=== PATIENT | female | born 1935 | race Caucasian/White ===

== ENCOUNTER → 2017-01-21 | Outpatient (CLI) | payer OTHER ==
[~2017-01-21] MED LIST: ACET-1311 PO; ASPI81TA28 PO; CALCTAB65 PO; CHOL2000 PO; DENO60SO INJ; DIPH25TA24 PO; GLUCTAB7 PO; IBUP200T52 PO; LISI-729 PO; LORA-741 PO; LOSA1TAB PO; LPT/40 PO; METO100T44 PO; MULT-845 PO; NAPR1TAB9 PO; NTRGSL/4 UT
[2017-01-21 12:41] LABS: BASO % 0.5 %; BASO ABS # 0.05 K/uL (0-0.2); COMPLETE YES; HEMATOCRIT 42.9 % (37-47); IG% 0.4 %; LYMPH % 25.6 %; LYMPH ABS # 2.56 K/uL (1.2-3.4); MEAN CELL VOLUME 92.7 fL (80-100); MEAN CORPUSCULAR HEMOGLOBIN 30.2 pg (25-34); MEAN CORPUSCULAR HGB CONC 32.6 g/dl (32-36); MEAN PLATELET VOLUME 11.2 fL (7.4-10.4); MONO % 11.6 %; NEUT % 58.9 %; PLATELET COUNT 197 K/uL (130-400); RED BLOOD COUNT 4.63 M/uL (4.2-5.4)
[2017-01-21 12:57] LABS: ESTIMATED AVERAGE GLUCOSE 126 mg/dl; HA1C FLAG Normal (Normal)
[2017-01-21 13:01] LABS: ALT/SGPT 33 U/L (12-78); AST/SGOT 25 U/L (15-37); BLOOD UREA NITROGEN 19 mg/dl (7-18); BUN/CREATININE RATIO 22.3 (10-20); CALCIUM 10.3 mg/dl (8.5-10.1); CARBON DIOXIDE 30 mmol/L (21-32); CHLORIDE 105 mmol/L (98-107); CHOLESTEROL 122 mg/dl (0-200); CREATININE 0.84 mg/dl (0.60-1.20); GLUCOSE 94 mg/dl (70-99); POTASSIUM 4.1 mmol/L (3.5-5.1); SODIUM 142 mmol/L (136-145); TRIGLYCERIDES 106 mg/dl (0-150); VERY LOW DENSITY LIPOPROT CALC 21 mg/dl
[2017-01-21 13:05] LABS: ALB/GLOB RATIO 1.5 (0.9-2); ALKALINE PHOSPHATASE 87 U/L (45-117); CHOLESTEROL/HDL RATIO 2.2; HDL CHOLESTEROL 55 mg/dl
== END | disposition home or self-care (01) ==
LOC: C.LABSPEC 12:07
PROVIDERS: ATTEND Internal Medicine
DX: I25.10 Atherosclerotic heart disease of native coronary artery without angina pectoris (principal); I10 Essential (primary) hypertension; E78.5 Hyperlipidemia, unspecified; M81.0 Age-related osteoporosis without current pathological fracture; R73.9 Hyperglycemia, unspecified

== ENCOUNTER → 2017-02-16 | Outpatient (CLI) | payer OTHER ==
--- NOTE | 2017-02-16 10:04 | DIAGNOSTIC IMAGING REPORT ---
LUMBAR SPINE 5 VIEWS HISTORY: Pain. M81.0 AggoutaodpsqP19.9 Vitamin D [id number] Low back pain COMPARISON: None. FINDINGS: Moderate degenerative disc change at the entire lumbar region. Minimal grade 1 anterolisthesis of L4 on L5. Moderate degenerative changes of the posterior elements. IMPRESSION: Moderate degenerative change. Mild osteopenia. No acute process. Electronically signed by: Frandy Jimenez M.D. 02/16/2017 10:03 AM Dictated Date/Time: 02/16/2017 10:02 AM
== END | disposition home or self-care (01) ==
LOC: C.RAD1850 09:20
PROVIDERS: ATTEND Internal Medicine Rheumatology
DX: E55.9 Vitamin D deficiency, unspecified (principal); M54.40 Lumbago with sciatica, unspecified side; M81.0 Age-related osteoporosis without current pathological fracture

== ENCOUNTER → 2017-03-02 | Outpatient (CLI) | payer OTHER ==
[2017-03-02 13:37] LABS: CALCIUM URINE 6.7 mg/dl
== END | disposition home or self-care (01) ==
LOC: C.LAB1850 10:10
PROVIDERS: ATTEND Internal Medicine Rheumatology
DX: M81.0 Age-related osteoporosis without current pathological fracture (principal); E55.9 Vitamin D deficiency, unspecified; M54.40 Lumbago with sciatica, unspecified side

== ENCOUNTER → 2017-03-10 | Outpatient (CLI) | payer OTHER ==
[~2017-03-10] MED LIST changes: -METO100T44 PO; +METO1TAB69 PO
--- NOTE | 2017-03-10 16:08 | MAMMOGRAPHY REPORT ---
BILATERAL DIGITAL SCREENING MAMMOGRAM WITH CAD: 03/10/2017 CLINICAL HISTORY: Routine screening. Patient has no complaints. TECHNIQUE: Bilateral CC, MLO, repeat left MLO and right XCCL views were obtained. Current study was also evaluated with a Computer Aided Detection (CAD) system. COMPARISON: Comparison is made to exams dated: 03/04/2016 mammogram, 03/01/2015 mammogram, 02/28/2014 m ammogram, 02/27/2013 mammogram, 02/25/2012 mammogram, and 02/19/2011 mammogram - [facility]ter. BREAST COMPOSITION: There are scattered areas of fibroglandular density in both breasts. FINDINGS: There are scattered benign rim calcifications and mild vascular calcifications in the breas ts. No suspicious mass, architectural distortion or cluster of microcalcifications is seen. IMPRESSION: ACR BI-RADS CATEGORY 1: NEGATIVE There is no mammographic evidence of malignancy. A 1 year screening mammogram is recommended. The pa tient will receive written notification of the results. Approximately 10% of breast cancers are not detected with mammography. A negative mammographic report should not delay biopsy if a clinically suggestive mass is present. Shruti Santiago M.D. ay/:03/10/2017 15:19:54 Olive Knocker: Katelyn HERNANDEZ(Ekaterina)(Mariel)(BD), [facility] letter sent: Normal 1/2 BI-RADS Code: ACR BI-RADS Category 1: Negative
== END | disposition home or self-care (01) ==
LOC: C.MAMM 10:13
PROVIDERS: ATTEND Obstetrics & Gynecology
DX: Z12.31 Encounter for screening mammogram for malignant neoplasm of breast (principal); Z85.3 Personal history of malignant neoplasm of breast

== ENCOUNTER → 2017-03-22 | Outpatient (CLI) | payer OTHER | END | disposition home or self-care (01) | LOC: C.MAMM 10:24 | PROVIDERS: ATTEND Internal Medicine Rheumatology | DX: M81.0 Age-related osteoporosis without current pathological fracture (principal); E55.9 Vitamin D deficiency, unspecified; M54.40 Lumbago with sciatica, unspecified side; M85.851 Other specified disorders of bone density and structure, right thigh; M85.852 Other specified disorders of bone density and structure, left thigh ==

== ENCOUNTER → 2017-04-20 | Outpatient (CLI) | payer OTHER | END | disposition home or self-care (01) | LOC: C.MAMM 13:29 | PROVIDERS: ATTEND Internal Medicine Rheumatology | DX: M81.0 Age-related osteoporosis without current pathological fracture (principal) ==

== ENCOUNTER → 2017-05-27 | Outpatient (CLI) | payer OTHER ==
[2017-05-27 12:49] LABS: ESTIMATED AVERAGE GLUCOSE 128 mg/dl; HA1C FLAG Normal (Normal)
[2017-05-27 13:09] LABS: ALT/SGPT 29 U/L (12-78); AST/SGOT 22 U/L (15-37); BLOOD UREA NITROGEN 18 mg/dl (7-18); CALCIUM 8.9 mg/dl (8.5-10.1); CARBON DIOXIDE 27 mmol/L (21-32); CHLORIDE 108 mmol/L (98-107); CHOLESTEROL 109 mg/dl (0-200); CREATININE 0.85 mg/dl (0.60-1.20); GLUCOSE 91 mg/dl (70-99); POTASSIUM 4.1 mmol/L (3.5-5.1); SODIUM 141 mmol/L (136-145); TRIGLYCERIDES 108 mg/dl (0-150); VERY LOW DENSITY LIPOPROT CALC 22 mg/dl
[2017-05-27 13:12] LABS: ALB/GLOB RATIO 1.3 (0.9-2); ALKALINE PHOSPHATASE 81 U/L (45-117); CHOLESTEROL/HDL RATIO 2.1; HDL CHOLESTEROL 52 mg/dl
== END | disposition home or self-care (01) ==
LOC: C.LABSPEC 12:16
PROVIDERS: ATTEND Internal Medicine
DX: I25.10 Atherosclerotic heart disease of native coronary artery without angina pectoris (principal); E78.5 Hyperlipidemia, unspecified; R73.9 Hyperglycemia, unspecified

== ENCOUNTER → 2017-09-22 | Outpatient (CLI) | payer OTHER ==
[~2017-09-22] MED LIST changes: +METO100T44 PO; -METO1TAB69 PO
[2017-09-22 13:31] LABS: ALBUMIN 3.7 gm/dl (3.4-5.0); ALT/SGPT 33 U/L (12-78); AST/SGOT 23 U/L (15-37); BLOOD UREA NITROGEN 21 mg/dl (7-18); CALCIUM 9.1 mg/dl (8.5-10.1); CARBON DIOXIDE 28 mmol/L (21-32); CREATININE 0.87 mg/dl (0.60-1.20); GLUCOSE 96 mg/dl (70-99); SODIUM 138 mmol/L (136-145)
[2017-09-22 13:35] LABS: ALKALINE PHOSPHATASE 86 U/L (45-117); CHOLESTEROL 105 mg/dl (0-200); LDL CHOLESTEROL (DIRECT) 53 mg/dl; TOTAL PROTEIN 6.7 gm/dl (6.4-8.2)
== END | disposition home or self-care (01) ==
LOC: C.LABSPEC 12:12
PROVIDERS: ATTEND Internal Medicine
DX: I25.10 Atherosclerotic heart disease of native coronary artery without angina pectoris (principal); E78.5 Hyperlipidemia, unspecified; I10 Essential (primary) hypertension

== ENCOUNTER → 2017-12-06 | Outpatient (CLI) | payer OTHER | END | disposition home or self-care (01) | LOC: C.LAB1850 11:49 | PROVIDERS: ATTEND Internal Medicine Rheumatology | DX: M80.00XA Age-related osteoporosis with current pathological fracture, unspecified site, initial encounter for fracture (principal) ==

== ENCOUNTER → 2018-01-27 | Outpatient (CLI) | payer OTHER ==
[2018-01-28 11:37] LABS: BLOOD UREA NITROGEN 18 mg/dl (7-18); GLUCOSE 83 mg/dl (70-99)
[2018-01-28 11:39] LABS: CARBON DIOXIDE 26 mmol/L (21-32); POTASSIUM 4.2 mmol/L (3.5-5.1); SODIUM 140 mmol/L (136-145)
[2018-01-28 12:01] LABS: CALCIUM 9.3 mg/dl (8.5-10.1)
[2018-01-28 12:13] LABS: LDL CHOLESTEROL (DIRECT) 59 mg/dl
== END | disposition home or self-care (01) ==
LOC: C.LABSPEC 11:10
PROVIDERS: ATTEND Internal Medicine
DX: I25.10 Atherosclerotic heart disease of native coronary artery without angina pectoris (principal); E78.5 Hyperlipidemia, unspecified

== ENCOUNTER → 2018-05-03 | Outpatient (CLI) | payer OTHER ==
--- NOTE | 2018-05-04 13:38 | MAMMOGRAPHY REPORT ---
BILATERAL DIGITAL SCREENING MAMMOGRAM TOMOSYNTHESIS WITH CAD: 05/03/2018 CLINICAL HISTORY: Asymptomatic. Personal history of breast cancer. TECHNIQUE: The study was acquired using full field digital technology and interpreted from soft copy. Breast tomosynthesis in addition to standard 2D mammography was performed. Current study was also ev aluated with a Computer Aided Detection (CAD) system. COMPARISON: Comparison is made to exams dated: 03/10/2017 mammogram, 03/04/2016 mammogram, 03/01/2015 m ammogram, 02/28/2014 mammogram, 02/27/2013 mammogram, and 02/25/2012 mammogram - [facility] enter. BREAST COMPOSITION: There are scattered areas of fibroglandular density in both breasts. FINDINGS: There is a possible grouping of calcifications in the posterior right breast along the post erior nipple line on the cc view for which additional spot magnification views are recommended. At t he time of additional right spot magnification views, the left MLO view should be repeated due to pat ient motion. A linear scar marker overlies the 12:00 to 1:00 posterior right breast. There are mild to moderate v ascular calcifications and a few scattered benign rim calcifications. No other suspicious mass, arch itectural distortion or cluster of microcalcifications is seen. IMPRESSION: ACR BI-RADS CATEGORY 0: INCOMPLETE EVALUATION: NEED ADDITIONAL IMAGING EVALUATION 1. The possible grouping of calcifications in the posterior right breast along the posterior nipple line on the CC view need additional imaging evaluation. 2. At the time of additional diagnostic right spot magnification views, the left MLO view should be r epeated due to patient motion. The patient will be called to schedule an appointment. Some breast cancers are not detected with mammography. A negative mammographic report should not adrian y biopsy if a clinically suggestive mass is present. Shruti Santiago M.D. ay/:05/03/2018 19:02:09 Dough Sheeter: RT Archana(R)(M), [facility] letter sent: Addl Imaging 0 BI-RADS Code: ACR BI-RADS Category 0: Incomplete Evaluation: Need Additional Imaging Evaluation
== END | disposition home or self-care (01) ==
LOC: C.MAMM 14:27
PROVIDERS: ATTEND Internal Medicine
DX: Z12.31 Encounter for screening mammogram for malignant neoplasm of breast (principal); Z85.3 Personal history of malignant neoplasm of breast; R92.1 Mammographic calcification found on diagnostic imaging of breast

== ENCOUNTER 2023-11-25 15:26 | Inpatient (IN) ==
[2023-11-25 16:06] LABS: Basophils # (auto) 0.04 K/uL (0.00-0.20); Basophils % (auto) 0.3 %; Eosinophils # (auto) 0.18 K/uL (0.00-0.50); Eosinophils % (auto) 1.5 %; Hematocrit (blood only) 38.7 % (37.0-47.0); Hemoglobin 12.5 g/dl (12.0-16.0); Immature Granulocytes # (auto) 0.08 K/uL (0.01-0.20); Immature Granulocytes % (auto) 0.7 %; Lymphocytes # (auto) 2.53 K/uL (1.20-3.40); Lymphocytes % (auto) 21.6 %; Mean Corpuscular Hemoglobin 29.1 pg (25.0-34.0); Mean Corpuscular Hgb Conc 32.3 g/dL (32.0-36.0); Monocytes # (auto) 1.22 K/uL (0.11-0.59); Monocytes % (auto) 10.4 %; Neutrophils # (auto) 7.66 K/uL (1.40-6.50); Neutrophils % (auto) 65.5 %; Platelet Count 204 K/uL (130-400); RDW Coefficient of Variation 14.2 % (11.5-14.5); RDW Standard Deviation 46.7 fL (36.4-46.3); White Blood Count 11.71 K/ul (4.8-10.8)
--- NOTE | 2023-11-25 16:06 | Emergency Department Note ---
Impression & Plan CHF (congestive heart failure), Chest pain, Acute hypoxic respiratory failure ED Provider Note NAME: YODIT GUSMAN AGE: 88 SEX: F : 1935 ARRIVES VIA: Ambulance INFORMANT: Patient ED PROVIDER(S): Adams Leger DO CHIEF COMPLAINT: chest pain HPI: Patient is an 88-year-old female with a past medical history of anxiety, CAD with a CABG, hypertension, hyperlipidemia who follows with [facility] cardiology and presents to the ER for chest pressure. She notes this started 3 days ago and each day she been getting pressure in her chest associated with shortness of breath. Today it lasted longer and she is significantly short of breath with it. She was brought in by EMS. She was given aspirin per her report. She currently notes her pain is nearly gone. Denies any belly pain, nausea, vomiting, or diarrhea. No dysuria, urgency, or frequency. No other exacerbating or remitting factors. ADDITIONAL HISTORY OBTAINED: Per HPI Chronic Medical/Social Conditions Affecting Care: Per HPI PAST MEDICAL HISTORY:See Below PAST SURGICAL HISTORY:See Below FAMILY HISTORY:See Below SOCIAL HISTORY:See Below HOME MEDICATIONS:See Below ALLERGIES:See Below VITALS:See Below PHYSICAL EXAMINATION: GENERAL: Sitting up in bed, alert, well appearing, well nourished, no distress, non-toxic EYE EXAM: normal conjunctiva. OROPHARYNX: no exudate, no erythema, lips, buccal mucosa, and tongue normal and mucous membranes are moist NECK: supple, no nuchal rigidity, no adenopathy, non-tender LUNGS: Clear to auscultation. Normal chest wall mechanics HEART: +CHUCK, S1 normal and S2 normal ABDOMEN: abdomen soft, non-tender, normo-active bowel sounds, no masses, no rebound or guarding. UPPER EXTREMITIES: upper extremities are grossly normal. LOWER EXTREMITIES: No pitting edema. NEURO EXAM: Normal sensorium, cranial nerves II-XII grossly intact, normal speech, no gross weakness of arms, no gross weakness of legs. MEDICAL DECISION MAKING: Patient is an 88-year-old female who presents ER for above-stated complaint. IV was established blood work was obtained. Labs show no significant leukocytosis or anemia. INR unremarkable. BMP was unremarkable. T. bili at 1.2. LFTs and troponin was negative. Pro-Konstantin was normal. Influenza was negative. Chest x- ray with bilateral edema consistent with CHF. EKGs are nondiagnostic. Patient received aspirin prior to arrival. I did give her Lasix while here. She was updated bedside. Patient was admitted for further workup of her acute onset CHF. Consults/Care Managements Discussions: Per MDM Triage Nursing notes reviewed. Limited review of prior medical records performed Vital Signs: reviewed and remarkable for no significant abnormalities Differential diagnosis: Differential diagnoses includes but is not limited to pneumonia, bronchitis, COPD/Asthma exacerbation, pneumothorax, pulmonary embolism, congestive heart failure, acute coronary syndrome ER treatment provided: See below Diagnostics interpreted by me include EKG and cardiac monitoring as listed below: -Cardiac Monitoring: An order was placed for continuous cardiac monitoring. The monitor shows a rate of 70 with sinus rhythm. -ECG: Sinus rhythm rate of 64 Normal axis No PVCs QTc 460 Septal Q waves T wave inversions in the septal leads Nonspecific ST wave changes in the high lateral leads EKG #2 Sinus rhythm rate 61 Normal axis Septal Q waves No significant change from previous -Laboratory studies:Interpreted by me as stated above in MDM and shown below. Imaging studies: Xrays: As interpreted by me: Portable AP upright 1 view of the chest shows bilateral edema CTs show: none Procedures:none Critical Care: I have personally spent 32 minutes of critical care time in the direct management of this patient. This includes bedside care, interpretation of diagnostic studies, and testing, discussion with consultants, patient, and family members, and other required patient management activities. This 32 minutes is in excess of all separately billable procedures. Past Med/Surg History Medical History (Updated 11/25/23 @ 21:43 by Adams Leger DO) Tricuspid regurgitation per allscripts record Aortic regurgitation Mitral regurgitation Antiplatelet or antithrombotic long-term use CAD (coronary artery disease) Hx of sarcoidosis Hx of osteopenia Hx of fracture of rib Surgical History H/O colonoscopy 05/24/12 - by Dr Mayank Lorenzana H/O lymph node biopsy 03/21/07 S/P tubal ligation 10/21/07 S/P thoracotomy 1974 H/O oral surgery S/P hysterectomy 09/25/11 S/P dilation and curettage S/P cholecystectomy 1989 Hx of cataract surgery Bilateral - 2002 Hx of CABG January 2006 @ [facility] [address] Dr Pae S/P mastectomy 2007 - Rt partial History of breast biopsy 03/04/07 - Rt breast Family History Aunt Breast cancer Grandmother (Maternal) Colorectal cancer Mother Colorectal cancer Ovarian cancer Father Heart disease Stroke Allergies Other No family history of adverse response to anesthesia No family history of bleeding disorder Social History Smoking Status: Never smoker Tobacco Type: Cigarettes Age Quit Using Tobacco: 39; packs per day: 0.5; Second Hand Exposure: No; Do You Dip or Chew Tobacco: No; Hx Alcohol Use: No Hx Substance Use: No Preferred Language: Georgian Communication Ability: Effective Visual Impairment: No Limitations Hearing Ability: Normal 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 marital status: Current Living Situation: Spouse current occupational status: retired How many Children do You have: 3 Feels Safe at Home: Yes Childhood Exposure to Second-Hand Smoke: No Diet: regular caffeine: Yes during the past year weight has: remained stable Dental Care, Regularly: Yes Physical Activity Frequency: Does not Exercise Seatbelt Use: always Sunscreen Use: Yes Assistive Devices: Denture - Lower and Glasses Allergies Allergies Allergy/AdvReac Type Severity Reaction Status Date / Time Cipro Allergy Severe hives Verified 01/03/15 09:10 ciprofloxacin Allergy Severe hives Verified 11/22/23 14:29 dobutamine Allergy Severe Hives Verified 11/22/23 14:29 Iodinated Contrast Media Allergy Severe Tongue Verified 11/22/23 14:29 thickening, difficulty swallowing Sulfa (Sulfonamide Allergy Severe UNKNOWN Verified 11/22/23 14:29 Antibiotics) erythromycin base Allergy Intermediate rash Verified 11/22/23 14:29 adhesive Allergy Unknown RED SKIN Verified 11/22/23 14:29 Penicillins Allergy Unknown UNKNOWN Verified 11/22/23 14:29 Quinolones Allergy Unknown UNKNOWN Verified 11/22/23 14:29 Home Meds Home Medications Medication Instructions Recorded Confirmed aspirin 81 mg tablet,delayed 81 mg PO DAILY 11/19/19 11/25/23 release (Adult Low Dose Aspirin) calcium carbonate 600 mg-vitamin 1 cap PO DAILY 11/19/19 11/25/23 D3 5 mcg (200 unit) capsule (Calcium 600 + D(3)) [id number] 1 ea PO DAILY 11/19/19 11/25/23 [Joint Health] cholecalciferol (vitamin D3) 50 2,000 units PO DAILY 11/19/19 11/25/23 mcg (2,000 unit) tablet diphenhydramine HCl [Benadryl] 1 ea PO .COMPLEX PRN Other 11/19/19 11/25/23 multivitamin (Daily Multi-Vitamin 1 tab PO DAILY 11/19/19 11/25/23 tablet) zinc gluconate-vitamin C [zinc] See Rx Instructions .Route .COMPLEX 11/11/20 11/25/23 coenzyme Q10 400 mg capsule 100 mg PO DAILY 05/27/21 11/25/23 lactobacillus combination no.9 See Rx Instructions .Route .COMPLEX 08/20/23 11/25/23 [Adult 50 Plus Probiotic] Previous Rx's Medication Instructions Recorded alendronate 70 mg tablet (Fosamax) 70 mg PO .weekly #12 tabs 06/18/22 clobetasol 0.05 % topical ointment 1 applic topical .COMPLEX #45 grams 02/26/23 gabapentin 100 mg capsule See Rx Instructions .Route 05/25/23 .COMPLEX #180 caps levothyroxine 50 mcg tablet 50 mcg PO DAILY #90 tabs 05/25/23 losartan 25 mg tablet See Rx Instructions .Route 05/25/23 .COMPLEX #90 tabs metoprolol succinate 100 mg See Rx Instructions .Route 05/25/23 tablet,extended release 24 hr .COMPLEX #90 tabs triamcinolone acetonide 0.5 % 1 applic topical BID #15 grams 05/25/23 topical cream atorvastatin 40 mg tablet 40 mg PO QPM #90 tabs 08/09/23 furosemide 20 mg tablet See Rx Instructions .Route 10/25/23 .COMPLEX #90 tabs lorazepam 0.5 mg tablet 0.5 mg PO BID #60 tabs 11/02/23 nitroglycerin 0.4 mg sublingual 0.4 mg sublingual Q5M PRN chest 11/22/23 tablet pain #25 tabs Results & Data (ED) Vital Signs Vital Signs - 24 hr 11/25/23 15:37 11/25/23 15:37 11/25/23 15:37 Temperature 36.4 C L Temperature Source Oral Pulse Rate 65 Pulse Rate from SpO2 Sensor Respiratory Rate 16 16 Blood Pressure 124/72 Blood Pressure Mean 89 Pulse Oximetry 84 L 92 Oxygen Delivery Method Room Air Nasal Cannula Nasal Cannula Oxygen Flow Rate 6 6 Fraction of Inspired Oxygen 92 Sepsis Recent Fever Within 48 Hours No Sepsis New/Unexplained Change in Mental Status N/A Sepsis Action Taken by Nursing No Action Required 11/25/23 15:40 11/25/23 15:44 11/25/23 15:44 Temperature Temperature Source Pulse Rate 65 Pulse Rate from SpO2 Sensor 68 Respiratory Rate Blood Pressure Blood Pressure Mean Pulse Oximetry 91 92 Oxygen Delivery Method Nasal Cannula Nasal Cannula Oxygen Flow Rate 6 Fraction of Inspired Oxygen Sepsis Recent Fever Within 48 Hours Sepsis New/Unexplained Change in Mental Status Sepsis Action Taken by Nursing 11/25/23 15:50 11/25/23 16:00 11/25/23 16:00 Temperature Temperature Source Pulse Rate 66 67 Pulse Rate from SpO2 Sensor 65 63 Respiratory Rate 15 Blood Pressure 142/66 H Blood Pressure Mean 80 Pulse Oximetry 93 96 Oxygen Delivery Method Oxygen Flow Rate Fraction of Inspired Oxygen Sepsis Recent Fever Within 48 Hours Sepsis New/Unexplained Change in Mental Status Sepsis Action Taken by Nursing 11/25/23 16:10 11/25/23 16:20 11/25/23 16:26 Temperature Temperature Source Pulse Rate 62 59 L 62 Pulse Rate from SpO2 Sensor 61 63 Respiratory Rate 22 Blood Pressure Blood Pressure Mean Pulse Oximetry 96 95 Oxygen Delivery Method Oxygen Flow Rate Fraction of Inspired Oxygen Sepsis Recent Fever Within 48 Hours Sepsis New/Unexplained Change in Mental Status Sepsis Action Taken by Nursing 11/25/23 16:30 11/25/23 16:30 11/25/23 16:40 Temperature Temperature Source Pulse Rate 60 57 L Pulse Rate from SpO2 Sensor 62 57 L Respiratory Rate Blood Pressure 124/69 Blood Pressure Mean 83 Pulse Oximetry 97 97 Oxygen Delivery Method Oxygen Flow Rate Fraction of Inspired Oxygen Sepsis Recent Fever Within 48 Hours Sepsis New/Unexplained Change in Mental Status Sepsis Action Taken by Nursing 11/25/23 16:50 11/25/23 17:00 11/25/23 17:00 Temperature Temperature Source Pulse Rate 57 L 59 L Pulse Rate from SpO2 Sensor 56 L 58 L Respiratory Rate Blood Pressure 123/62 Blood Pressure Mean 79 Pulse Oximetry 98 96 Oxygen Delivery Method Oxygen Flow Rate Fraction of Inspired Oxygen Sepsis Recent Fever Within 48 Hours Sepsis New/Unexplained Change in Mental Status Sepsis Action Taken by Nursing 11/25/23 17:10 11/25/23 17:20 11/25/23 17:30 Temperature Temperature Source Pulse Rate 61 57 L 60 Pulse Rate from SpO2 Sensor 62 59 L 58 L Respiratory Rate 16 Blood Pressure Blood Pressure Mean Pulse Oximetry 96 96 95 Oxygen Delivery Method Oxygen Flow Rate Fraction of Inspired Oxygen Sepsis Recent Fever Within 48 Hours Sepsis New/Unexplained Change in Mental Status Sepsis Action Taken by Nursing 11/25/23 17:40 11/25/23 17:50 11/25/23 18:00 Temperature Temperature Source Pulse Rate 59 L 65 61 Pulse Rate from SpO2 Sensor 59 L 66 62 Respiratory Rate 19 24 Blood Pressure Blood Pressure Mean Pulse Oximetry 96 92 93 Oxygen Delivery Method Oxygen Flow Rate Fraction of Inspired Oxygen Sepsis Recent Fever Within 48 Hours Sepsis New/Unexplained Change in Mental Status Sepsis Action Taken by Nursing 11/25/23 18:10 Temperature Temperature Source Pulse Rate 62 Pulse Rate from SpO2 Sensor 61 Respiratory Rate Blood Pressure Blood Pressure Mean Pulse Oximetry 92 Oxygen Delivery Method Oxygen Flow Rate Fraction of Inspired Oxygen Sepsis Recent Fever Within 48 Hours Sepsis New/Unexplained Change in Mental Status Sepsis Action Taken by Nursing Laboratory Data 11/25/23 15:35 11/25/23 15:35 Lab Results 11/25/23 Range/Units 15:35 WBC 11.71 H (4.8-10.8) K/ul RBC 4.30 (4.20-5.40) M/uL Hgb 12.5 (12.0-16.0) g/dl Hct 38.7 (37.0-47.0) % MCV 90.0 (80.0-100.0) fL MCH 29.1 (25.0-34.0) pg MCHC 32.3 (32.0-36.0) g/dL RDW Std Deviation 46.7 H (36.4-46.3) fL RDW Coeff of Shan 14.2 (11.5-14.5) % Plt Count 204 (130-400) K/uL MPV 11.0 (9.4-12.4) fL Immature Gran % (Auto) 0.7 % Neut % (Auto) 65.5 % Lymph % (Auto) 21.6 % [place] % (Auto) 10.4 % Eos % (Auto) 1.5 % Baso % (Auto) 0.3 % Neut # (Auto) 7.66 H (1.40-6.50) K/uL Lymph # (Auto) 2.53 (1.20-3.40) K/uL [place] # (Auto) 1.22 H (0.11-0.59) K/uL Eos # (Auto) 0.18 (0.00-0.50) K/uL Baso # (Auto) 0.04 (0.00-0.20) K/uL Immature Gran # (Auto) 0.08 (0.01-0.20) K/uL PT 12.1 H (9.0-12.0) Seconds INR 1.1 (0.9-1.1) APTT 27 (21-31) Seconds PTT Ratio 1.0 Sodium 135 L (136-145) mmol/L Potassium 4.5 (3.5-5.1) mmol/L Chloride 102 (98-107) mmol/L Carbon Dioxide 25 (21-32) mmol/L Anion Gap 8 (3-11) BUN 18 (6-23) mg/dl Creatinine 0.84 (0.6-1.2) mg/dl Est Cr Clr Drug Dosing 39.3 ml/min Est GFR ( Amer) 71.4 ml/min Est GFR (Non-Af Amer) 61.6 ml/min BUN/Creatinine Ratio 21.4 H (10-20) Glucose 137 H (70-99(Fasting)) mg/dl Calcium 9.3 (8.6-10.3) mg/dl Total Bilirubin 1.2 H (0.2-1.0) mg/dl AST 24 (13-39) U/L ALT 20 (7-52) U/L Alkaline Phosphatase 116 H (34-104) U/L Troponin I High Sens 10.6 (0-14) pg/ml Total Protein 6.5 (6.0-8.3) gm/dl Albumin 4.2 (3.4-5.0) gm/dl Globulin 2.3 L (2.5-4.0) gm/dl Albumin/Globulin Ratio 1.8 (0.9-2) Procalcitonin < 0.02 (0-0.5) ng/ml SARS-CoV-2 (PCR) NEGATIVE (Negative) Influenza Type A (PCR) Negative (Neg) Influenza Type B (PCR) Negative (Neg) RSV (RT-PCR) Negative (Neg) Administered Medications Discontinued Medications Furosemide (Furosemide 40 Mg/4 Ml Vial) 40 mg IV ONE ONE Stop: 11/25/23 17:09 Last Admin: 11/25/23 17:58 Dose: 40 mg Documented By: BCMichael Imaging Data Radiologist's Impression: Chest X-Ray 11/25/23 15:44 XR chest 1V portable CLINICAL HISTORY: Chest pain, nonspecific COMPARISON STUDY: Chest radiograph December 22, 2011. Chest CT September 20, 2015. FINDINGS: There are median sternotomy wires and mediastinal surgical clips. Cardiomegaly is unchanged. There are small bilateral pleural effusions. No pneumothorax. Moderate interstitial thickening is present. There are hazy bibasilar opacities. IMPRESSION: Cardiomegaly with interstitial pulmonary edema and small bilateral pleural effusions. ACT 112: Negative or not required by law. Electronically signed by: Nick Ayers M.D. 11/25/2023 5:08 PM Discharge Plan Visit Data Chief Complaint: Cardiac Assessment Stated Complaint: CHEST PAIN ED Provider: Adams Leger Discharge Problem: CHF (congestive heart failure), Chest pain, Acute hypoxic respiratory failure Discharge Instructions Interventions: ED Discharge Assessment Last Done: 11/25/23 21:02 Discharge Problem: CHF (congestive heart failure) Qualifiers: Heart failure type: unspecified Heart failure chronicity: unspecified Qualified Code(s): I50.9 - Heart failure, unspecified Chest pain Qualifiers: Chest pain type: unspecified Qualified Code(s): R07.9 - Chest pain, unspecified
[2023-11-25 16:18] LABS: INR 1.1 (0.9-1.1); Partial Thromboplastin Time 27 Seconds (21-31); Prothrombin Time 12.1 Seconds (9.0-12.0)
[2023-11-25 16:32] LABS: Albumin Level 4.2 gm/dl (3.4-5.0); Bilirubin,Total 1.2 mg/dl (0.2-1.0); Calcium 9.3 mg/dl (8.6-10.3); Potassium 4.5 mmol/L (3.5-5.1)
[2023-11-25 16:38] LABS: Albumin Globulin Ratio 1.8 (0.9-2); BUN Creatinine Ratio 21.4 (10-20); Creatinine Clr Calc Pharmacy 39.3 ml/min; Est GFR (African American) 71.4 ml/min; Est GFR (Non-African American) 61.6 ml/min; Globulin 2.3 gm/dl (2.5-4.0); Total Protein 6.5 gm/dl (6.0-8.3)
[2023-11-25 16:39] LABS: Troponin I High Sensitivity 10.6 pg/ml (0-14)
[2023-11-25 16:43] LABS: Influenza A virus by PCR Negative (Neg); Influenza B virus by PCR Negative (Neg); RSV by PCR Negative (Neg); SARS CoV2 RNA(COVID-19) Ceph NEGATIVE (Negative)
--- NOTE | 2023-11-25 17:09 | XRay Report ---
XR chest 1V portable CLINICAL HISTORY: Chest pain, nonspecific COMPARISON STUDY: Chest radiograph December 22, 2011. Chest CT September 20, 2015. FINDINGS: There are median sternotomy wires and mediastinal surgical clips. Cardiomegaly is unchanged . There are small bilateral pleural effusions. No pneumothorax. Moderate interstitial thickening is p resent. There are hazy bibasilar opacities. IMPRESSION: Cardiomegaly with interstitial pulmonary edema and small bilateral pleural effusions. ACT 112: Negative or not required by law. Electronically signed by: Nick Ayers M.D. 11/25/2023 5:08 PM
--- NOTE | 2023-11-25 17:36 | History & Physical Report ---
Date of Service November 25, 2023 Assessment & Plan (1) (HFpEF) heart failure with preserved ejection fraction: Plan: Chest pain History of CABG with 3 separate bypass grafts. Last EF normal Continue aspirin, atorvastatin, losartan, metoprolol High sensitive troponin is normal. EKG without acute ischemic change, does have a new first-degree heart block compared to prior. Lyme testing ordered Quad screen is normal Chest x-ray shows cardiomegaly with interstitial pulmonary edema and small effusions consistent with CHF Limited echo for wall motion change ordered Continue Lasix twice daily with potassium supplementation, low-salt diet, strict ins and outs Patient has a minimal leukocytosis without fever/sweats or shaking chills but has felt cold at night. Leukocytosis is without a left shift. Cough is nonproductive and Quad screen is negative. Will defer antibiotics however if fever develops/respiratory decline occurs then start empiric treatment for pneumonia. Otherwise we will treat for CHF at time of admission (2) Hx of CABG: Plan Chronic Stable Issues: Somatic dysfunction, myofascial pain. Continue outpatient OMT DVT prophylaxis: Heparin twice daily Disposition: Medical telemetry for CHF CODE STATUS: DNR History of Present Illness Primary Care Provider: Eric Jean DO Angy Tello is an 88-year-old female with past medical history of cataracts, CAD, CABG, hypertension, breast cancer, hyperlipidemia who presents with 3 days of intermittent chest pain with shortness of breath which have increased in intensity and duration causing her to present to the ER. Initial EKG on arrival sinus with first-degree AV block, no territorial signs of ischemia Angy reports 3 days ago had shortness of breath and chest discomfort on exertion and at rest, and shortness of breath was much worse when laying flat. Had trouble sleeping because laying flat made it hard to breathe and brought chest discomfort. SHe feels greatly improved in the ER and has no discomfort after tx with lasix.Took 2 nitro this morning, did not seem to help her discomfort. Took meds this am No fevers. Also cold and maybe a little chilly at night, denies rigors or sweats. Endorses increased nonproductive cough. No night sweats +Nausea, no vomiting or diarrhea.no abdominal pain. Endorses is intermittent leg swelling. Medical History: Reviewed Medications: Reviewed Surgical History: Reviewed Family history: Reviewed Allergies: Reviewed Social History: Reviewed Code Status: DNR Allergies Allergy/AdvReac Type Severity Reaction Status Date / Time Cipro Allergy Severe hives Verified 01/03/15 09:10 ciprofloxacin Allergy Severe hives Verified 11/22/23 14:29 dobutamine Allergy Severe Hives Verified 11/22/23 14:29 Iodinated Contrast Media Allergy Severe Tongue Verified 11/22/23 14:29 thickening, difficulty swallowing Sulfa (Sulfonamide Allergy Severe UNKNOWN Verified 11/22/23 14:29 Antibiotics) erythromycin base Allergy Intermediate rash Verified 11/22/23 14:29 adhesive Allergy Unknown RED SKIN Verified 11/22/23 14:29 Penicillins Allergy Unknown UNKNOWN Verified 11/22/23 14:29 Quinolones Allergy Unknown UNKNOWN Verified 11/22/23 14:29 Home Medications Medication Instructions Recorded Confirmed Type aspirin 81 mg tablet,delayed 81 mg PO DAILY 11/19/19 11/25/23 History release (Adult Low Dose Aspirin) calcium carbonate 600 mg-vitamin 1 cap PO DAILY 11/19/19 11/25/23 History D3 5 mcg (200 unit) capsule (Calcium 600 + D(3)) ztoyuxabx-njcfrzor-aan-hyalur 1 ea PO DAILY 11/19/19 11/25/23 History [Joint Health] cholecalciferol (vitamin D3) 50 2,000 units PO DAILY 11/19/19 11/25/23 History mcg (2,000 unit) tablet diphenhydramine HCl [Benadryl] 1 ea PO .COMPLEX PRN Other 11/19/19 11/25/23 History multivitamin (Daily Multi-Vitamin 1 tab PO DAILY 11/19/19 11/25/23 History tablet) zinc gluconate-vitamin C [zinc] See Rx Instructions .Route .COMPLEX 11/11/20 11/25/23 History coenzyme Q10 400 mg capsule 100 mg PO DAILY 05/27/21 11/25/23 History alendronate 70 mg tablet (Fosamax) 70 mg PO .weekly #12 tabs 06/18/22 11/25/23 Rx clobetasol 0.05 % topical ointment 1 applic topical .COMPLEX #45 grams 02/26/23 11/25/23 Rx gabapentin 100 mg capsule See Rx Instructions .Route 05/25/23 11/25/23 Rx .COMPLEX #180 caps levothyroxine 50 mcg tablet 50 mcg PO DAILY #90 tabs 05/25/23 11/25/23 Rx losartan 25 mg tablet See Rx Instructions .Route 05/25/23 11/25/23 Rx .COMPLEX #90 tabs metoprolol succinate 100 mg See Rx Instructions .Route 05/25/23 11/25/23 Rx tablet,extended release 24 hr .COMPLEX #90 tabs triamcinolone acetonide 0.5 % 1 applic topical BID #15 grams 05/25/23 11/25/23 Rx topical cream atorvastatin 40 mg tablet 40 mg PO QPM #90 tabs 08/09/23 11/25/23 Rx lactobacillus combination no.9 See Rx Instructions .Route .COMPLEX 08/20/23 11/25/23 History [Adult 50 Plus Probiotic] furosemide 20 mg tablet See Rx Instructions .Route 10/25/23 11/25/23 Rx .COMPLEX #90 tabs lorazepam 0.5 mg tablet 0.5 mg PO BID #60 tabs 11/02/23 11/25/23 Rx nitroglycerin 0.4 mg sublingual 0.4 mg sublingual Q5M PRN chest 11/22/23 11/25/23 Rx tablet pain #25 tabs Past Med/Surg History Medical History (Updated 11/25/23 @ 17:55 by Armond Suarez MD) Tricuspid regurgitation per allscripts record Aortic regurgitation Mitral regurgitation Antiplatelet or antithrombotic long-term use CAD (coronary artery disease) Hx of sarcoidosis Hx of osteopenia Hx of fracture of rib Surgical History H/O colonoscopy 05/24/12 - by Dr Mayank Lorenzana H/O lymph node biopsy 03/21/07 S/P tubal ligation 10/21/07 S/P thoracotomy 1974 H/O oral surgery S/P hysterectomy 09/25/11 S/P dilation and curettage S/P cholecystectomy 1989 Hx of cataract surgery Bilateral - 2002 Hx of CABG January 2006 @ [facility] by Dr Nicholson S/P mastectomy 2006 - Rt partial History of breast biopsy 03/04/07 - Rt breast Family History Aunt Breast cancer Grandmother (Maternal) Colorectal cancer Mother Colorectal cancer Ovarian cancer Father Heart disease Stroke Allergies Other No family history of adverse response to anesthesia No family history of bleeding disorder Social History Smoking Status: Never smoker Tobacco Type: Cigarettes Age Quit Using Tobacco: 39; packs per day: 0.5; Second Hand Exposure: No; Do You Dip or Chew Tobacco: No; Hx Alcohol Use: No Hx Substance Use: No Preferred Language: Sinhala Communication Ability: Effective Visual Impairment: No Limitations Hearing Ability: Normal Epic Beacon Analyst Required: No marital status: Current Living Situation: Spouse current occupational status: retired How many Children do You have: 3 Feels Safe at Home: Yes Childhood Exposure to Second-Hand Smoke: No Diet: regular caffeine: Yes during the past year weight has: remained stable Dental Care, Regularly: Yes Physical Activity Frequency: Does not Exercise Seatbelt Use: always Sunscreen Use: Yes Assistive Devices: Denture - Lower and Glasses Physical Exam Physical Exam: General: A&Ox3. NAD. Cooperative. HEENT: Atraumatic, normocephalic. Pulm: Diminsihed, bibasilar crackles, no wheezing.. Symmetrical chest rise. No increased work of breathing. No respiratory distress. Cardiac: RRR, +sm. Radial pulses intact and symmetrical. +JVD Abdominal: Nontender, nondistended, soft. BS present. Results & Data Results & Data Vital Signs (Past 12 Hours) Vital Signs Temp Pulse Resp BP Pulse Ox O2 Del Method O2 Flow Rate 11/25/23 16:26 62 11/25/23 15:44 92 Nasal Cannula 11/25/23 15:44 Nasal Cannula 6 11/25/23 15:37 16 92 Nasal Cannula 6 11/25/23 15:37 Nasal Cannula 6 11/25/23 15:37 36.4 C L 65 16 124/72 84 L Room Air FiO2 11/25/23 16:26 11/25/23 15:44 11/25/23 15:44 11/25/23 15:37 11/25/23 15:37 92 11/25/23 15:37 PG Care Time/CCT Total # of Minutes Spent Total Time Spent with Patient: Total time spent is greater than 50% in coordination of care (as documented) at patient's floor/unit and/or counseling patient: Coding Level of Care Code 12457 INT INP/OBS CARE 3/75MIN Diagnoses (HFpEF) heart failure with preserved ejection fraction I50.30 Hx of CABG Z95.1
[2023-11-25] MEDS: FUROSEMIDE 40 MG/4 ML VIAL IV ONE (17:58)
[2023-11-25] MEDS ORDERED: NITROGLYCERIN SL 0.4 MG/TAB TAB SL PRN (21:02)
[2023-11-25] MEDS ORDERED: ACETAMINOPHEN 325 MG TAB PO PRN (21:02)
[2023-11-25] MEDS: GABAPENTIN 100 MG CAP PO SCH (22:15)
[2023-11-25] MEDS: POTASSIUM CHLORIDE CRTAB 20 MEQ TABCR PO SCH (22:15)
[2023-11-25] MEDS: LORazepam 0.5 MG TAB PO SCH (22:15)
[2023-11-25] MEDS: ATORVASTATIN 40 MG TAB PO SCH (22:16)
[2023-11-25] MEDS: HEPARIN SOD 5,000 UNIT/0.5 ML VIAL SQ SCH (22:16)
[2023-11-26 04:46] LABS: Basophils # (auto) 0.04 K/uL (0.00-0.20); Basophils % (auto) 0.3 %; Eosinophils # (auto) 0.22 K/uL (0.00-0.50); Eosinophils % (auto) 1.7 %; Hematocrit (blood only) 37.2 % (37.0-47.0); Hemoglobin 12.5 g/dl (12.0-16.0); Immature Granulocytes # (auto) 0.06 K/uL (0.01-0.20); Immature Granulocytes % (auto) 0.5 %; Lymphocytes # (auto) 2.46 K/uL (1.20-3.40); Lymphocytes % (auto) 18.6 %; Mean Corpuscular Hemoglobin 29.6 pg (25.0-34.0); Mean Corpuscular Hgb Conc 33.6 g/dL (32.0-36.0); Mean Corpuscular Volume 87.9 fL (80.0-100.0); Mean Platelet Volume 11.2 fL (9.4-12.4); Monocytes # (auto) 1.44 K/uL (0.11-0.59); Monocytes % (auto) 10.9 %; Neutrophils # (auto) 8.98 K/uL (1.40-6.50); Platelet Count 201 K/uL (130-400); RDW Coefficient of Variation 14.1 % (11.5-14.5); RDW Standard Deviation 45.1 fL (36.4-46.3); Red Blood Count 4.23 M/uL (4.20-5.40)
[2023-11-26 04:58] LABS: BUN Creatinine Ratio 26.7 (10-20); Calcium 9.1 mg/dl (8.6-10.3); Est GFR (African American) 81.9 ml/min; Est GFR (Non-African American) 70.7 ml/min; Potassium 3.9 mmol/L (3.5-5.1)
[2023-11-26] MEDS: LEVOTHYROXINE SODIUM 50 MCG TABLET PO SCH (06:17)
[2023-11-26 08:23] LABS: Troponin I High Sensitivity 14.6 pg/ml (0-14)
[2023-11-26] MEDS: ASPIRIN 81 MG ECTAB PO SCH (08:28)
[2023-11-26] MEDS: MULTIVITAMIN TAB PO SCH (08:28)
[2023-11-26] MEDS: METOPROLOL SUCC 50MG EXT REL TAB PO SCH (08:28)
[2023-11-26] MEDS: LOSARTAN POTASSIUM 25 MG TAB PO SCH (08:29)
[2023-11-26] MEDS: FUROSEMIDE 40 MG/4 ML VIAL IV SCH (08:29)
[2023-11-26] MEDS: CHOLECALCIFEROL 25 MCG (1000 UNITS) TAB PO SCH (08:29)
[2023-11-26] MEDS: CALCIUM 600MG + VIT D 400 IU TAB PO SCH (08:29)
--- NOTE | 2023-11-26 17:21 | Hospitalist Progress Note ---
Date of Service November 26, 2023 Assessment & Plan (1) (HFpEF) heart failure with preserved ejection fraction: Plan: Chest pain History of CABG with 3 separate bypass grafts. Last EF normal Continue aspirin, atorvastatin, losartan, metoprolol High sensitive troponin is normal. EKG without acute ischemic change, does have a new first-degree heart block compared to prior. Lyme testing ordered Quad screen is normal Chest x-ray shows cardiomegaly with interstitial pulmonary edema and small effusions consistent with CHF Limited echo for wall motion change ordered Continue Lasix twice daily with potassium supplementation, low-salt diet, strict ins and outs Patient has a minimal leukocytosis without fever/sweats or shaking chills but has felt cold at night. Leukocytosis is without a left shift. Cough is nonproductive and Quad screen is negative. Will defer antibiotics however if fever develops/respiratory decline occurs then start empiric treatment for pneumonia. Otherwise we will treat for CHF at time of admission (2) Hx of CABG: Plan: chest pain resolved trop only slightly elevated (3) Acute hypoxic respiratory failure: Plan: probably due to CHF needs oxygen with ambulation , O2 sat 87-89 % with ambulation continue IV Lasix (4) CAD (coronary artery disease): Plan: chest pain resolved, trop is slightly elevated continue home meds obtain ECHO (5) HTN (hypertension): Plan: stable, continue home meds (6) Hyperlipemia: Plan: continue statins Plan Chronic Stable Issues: Somatic dysfunction, myofascial pain. Continue outpatient OMT DVT prophylaxis: Heparin twice daily Disposition: Medical telemetry for CHF CODE STATUS: DNR Admission and Anticipated Discharge Date Admission Date: November 25, 2023 Subjective denies chest pain Review of Systems Review of Systems: All systems reviewed & are unremarkable except as noted in Subjective Physical Exam Physical Exam: head atraumatic neck supple, no JVD chest decreased breath sounds at bases heart S1S2 regular abdomen soft, nt, nd, bs extremities no clubbing, no cyanosis neuro AAOx3, no focal deficit Results & Data Results & Data Vital Signs (Past 12 Hours) Vital Signs Temp Pulse Pulse Resp BP Pulse Ox Pulse Ox 11/26/23 15:40 60 11/26/23 14:50 36.4 C L 85 18 111/66 97 11/26/23 14:16 11/26/23 11:31 59 L 20 119/69 99 11/26/23 08:23 11/26/23 08:23 36.6 C 58 L 20 130/68 95 11/26/23 08:23 96 11/26/23 07:32 61 O2 Del Method O2 Del Method O2 Flow Rate O2 Flow Rate 11/26/23 15:40 11/26/23 14:50 Room Air 11/26/23 14:16 Nasal Cannula 4 11/26/23 11:31 Nasal Cannula 4 11/26/23 08:23 Nasal Cannula 4 11/26/23 08:23 Nasal Cannula 4 11/26/23 08:23 Nasal Cannula 4 11/26/23 07:32 PG Care Time/CCT Total # of Minutes Spent Total Time Spent with Patient: Total time spent is greater than 50% in coordination of care (as documented) at patient's floor/unit and/or counseling patient: Coding Level of Care Code 37885 SUB INP/OBS CARE 2/35MIN Diagnoses (HFpEF) heart failure with preserved ejection fraction I50.30 Hx of CABG Z95.1 Acute hypoxic respiratory failure J96.01 CAD (coronary artery disease) I25.10 HTN (hypertension) I10 Hyperlipemia E78.5
[2023-11-26] MEDS: LORazepam 0.5 MG TAB PO STA (22:29)
[2023-11-27 06:57] LABS: Basophils # (auto) 0.05 K/uL (0.00-0.20); Basophils % (auto) 0.4 %; Eosinophils # (auto) 0.34 K/uL (0.00-0.50); Eosinophils % (auto) 2.5 %; Hematocrit (blood only) 40.2 % (37.0-47.0); Hemoglobin 12.8 g/dl (12.0-16.0); Immature Granulocytes # (auto) 0.09 K/uL (0.01-0.20); Immature Granulocytes % (auto) 0.7 %; Lymphocytes % (auto) 23.4 %; Mean Corpuscular Hgb Conc 31.8 g/dL (32.0-36.0); Mean Corpuscular Volume 91.2 fL (80.0-100.0); Mean Platelet Volume 11.4 fL (9.4-12.4); Monocytes # (auto) 1.69 K/uL (0.11-0.59); Monocytes % (auto) 12.3 %; Neutrophils # (auto) 8.32 K/uL (1.40-6.50); Neutrophils % (auto) 60.7 %; Platelet Count 200 K/uL (130-400); RDW Coefficient of Variation 14.4 % (11.5-14.5); RDW Standard Deviation 48.1 fL (36.4-46.3); Red Blood Count 4.41 M/uL (4.20-5.40); White Blood Count 13.69 K/ul (4.8-10.8)
--- NOTE | 2023-11-27 07:02 | Electrocardiogram Report ---
Test Reason : Blood Pressure : / mmHG Vent. Rate : 064 BPM Atrial Rate : 064 BPM P-R Int : 218 ms QRS Dur : 114 ms QT Int : 446 ms P-R-T Axes : 102 046 093 degrees QTc Int : 460 ms Sinus rhythm with 1st degree A-V block with Premature atrial complexes Minimal voltage criteria for LVH, may be normal variant Septal infarct , age undetermined Abnormal ECG When compared with ECG of 22-DEC-2011 09:23, Premature atrial complexes are now Present VA interval has increased Confirmed by Armen Pearson ([id number]) on 11/27/2023 7:01:58 AM Referred By: Confirmed By:Armen Pearson
--- NOTE | 2023-11-27 07:04 | Electrocardiogram Report ---
Test Reason : Blood Pressure : / mmHG Vent. Rate : 061 BPM Atrial Rate : 000 BPM P-R Int : 232 ms QRS Dur : 114 ms QT Int : 458 ms P-R-T Axes : 000 045 086 degrees QTc Int : 461 ms Sinus rhythm with 1st degree A-V block Minimal voltage criteria for LVH, may be normal variant Septal infarct (cited on or before 25-NOV-2023) Abnormal ECG When compared with ECG of 25-NOV-2023 15:49, Premature atrial complexes are no longer Present Confirmed by Armen Pearson ([id number]) on 11/27/2023 7:04:09 AM Referred By: REFERRED SELF Confirmed By:Armen Pearson
[2023-11-27 07:05] LABS: BUN Creatinine Ratio 27.5 (10-20); Calcium 9.4 mg/dl (8.6-10.3); Creatinine Clr Calc Pharmacy 35.8 ml/min; Est GFR (African American) 64.8 ml/min; Est GFR (Non-African American) 55.9 ml/min; Potassium 3.9 mmol/L (3.5-5.1)
--- NOTE | 2023-11-27 14:28 | Hospitalist Progress Note ---
Date of Service November 27, 2023 Assessment & Plan (1) (HFpEF) heart failure with preserved ejection fraction: Plan: History of CABG with 3 separate bypass grafts. Last EF normal Continue aspirin, atorvastatin, losartan, metoprolol High sensitive troponin is normal. EKG without acute ischemic change, does have a new first-degree heart block compared to prior. Lyme testing ordered Quad screen is normal Chest x-ray shows cardiomegaly with interstitial pulmonary edema and small effusions consistent with CHF Limited echo for wall motion change ordered., Pending Diuresing aggressively with IV Lasix BUN rising Patient got IV 40 mg Lasix this morning Hold evening dose Will reevaluate the need of further IV Lasix tomorrow. May consider switching to p.o. tomorrow Asked the nurse to titrate O2 down Currently on 4 L of oxygen (2) Hx of CABG: Plan: chest pain resolved trop only slightly elevated (3) Acute hypoxic respiratory failure: Plan: probably due to CHF needs oxygen with ambulation , O2 sat 87-89 % with ambulation continue to treat CHF (4) CAD (coronary artery disease): Plan: chest pain resolved, trop is slightly elevated continue home meds obtain ECHO (5) HTN (hypertension): Plan: stable, continue home meds (6) Hyperlipemia: Plan: continue statins Plan Chronic Stable Issues: Somatic dysfunction, myofascial pain. Continue outpatient OMT DVT prophylaxis: Heparin twice daily Disposition: Medical telemetry for CHF CODE STATUS: DNR Admission and Anticipated Discharge Date Admission Date: November 25, 2023 Subjective Patient is feeling better overall. Shortness of breath is improving. Leg swelling is improving. Review of Systems Review of Systems: All systems reviewed & are unremarkable except as noted in Subjective Physical Exam Physical Exam: General: Awake, conversant Heart: S1, S2/regular rate and rhythm, no murmur rubs or gallops Lungs: Minimal bibasilar crackles. Normal effort Abdomen: Soft/nontender/nondistended. No hepatosplenomegaly Extremities: No clubbing/cyanosis. 1+ pitting bilateral edema Behavior: Appropriate, cooperative Results & Data Results & Data Vital Signs (Past 12 Hours) Vital Signs Temp Pulse Resp BP Pulse Ox O2 Del Method O2 Flow Rate 11/27/23 11:36 36.3 C L 62 20 105/65 94 Nasal Cannula 4 11/27/23 07:50 36.5 C 66 20 107/54 L 97 Room Air 11/27/23 07:00 Nasal Cannula 4 11/27/23 03:18 36.3 C L 70 18 105/59 L 92 Nasal Cannula 2 Laboratory Results Abnormal lab results 11/27/23 Range/Units 05:44 WBC 13.69 H (4.8-10.8) K/ul MCHC 31.8 L (32.0-36.0) g/dL RDW Std Deviation 48.1 H (36.4-46.3) fL Neut # (Auto) 8.32 H (1.40-6.50) K/uL Churchill # (Auto) 1.69 H (0.11-0.59) K/uL BUN 25 H (6-23) mg/dl BUN/Creatinine Ratio 27.5 H (10-20) PG Care Time/CCT Total # of Minutes Spent Total Time Spent with Patient: Total time spent is greater than 50% in coordination of care (as documented) at patient's floor/unit and/or counseling patient: Coding Level of Care Code 43804 SUB INP/OBS CARE 2/35MIN Diagnoses (HFpEF) heart failure with preserved ejection fraction I50.30 Hx of CABG Z95.1 Acute hypoxic respiratory failure J96.01 CAD (coronary artery disease) I25.10 HTN (hypertension) I10 Hyperlipemia E78.5
[2023-11-27] MEDS: LORazepam 1 MG TAB PO SCH (21:02)
[2023-11-28 08:05] LABS: Basophils # (auto) 0.06 K/uL (0.00-0.20); Basophils % (auto) 0.4 %; Eosinophils # (auto) 0.45 K/uL (0.00-0.50); Eosinophils % (auto) 3.1 %; Hematocrit (blood only) 39.2 % (37.0-47.0); Hemoglobin 12.6 g/dl (12.0-16.0); Immature Granulocytes % (auto) 0.7 %; Lymphocytes # (auto) 3.74 K/uL (1.20-3.40); Lymphocytes % (auto) 25.4 %; Mean Corpuscular Hemoglobin 29.3 pg (25.0-34.0); Mean Corpuscular Hgb Conc 32.1 g/dL (32.0-36.0); Mean Corpuscular Volume 91.2 fL (80.0-100.0); Mean Platelet Volume 10.9 fL (9.4-12.4); Monocytes # (auto) 1.81 K/uL (0.11-0.59); Monocytes % (auto) 12.3 %; Neutrophils # (auto) 8.57 K/uL (1.40-6.50); Neutrophils % (auto) 58.1 %; Platelet Count 212 K/uL (130-400); RDW Coefficient of Variation 14.4 % (11.5-14.5); RDW Standard Deviation 48.1 fL (36.4-46.3); White Blood Count 14.73 K/ul (4.8-10.8)
[2023-11-28 08:09] LABS: BUN Creatinine Ratio 30.5 (10-20); Calcium 9.2 mg/dl (8.6-10.3); Creatinine Clr Calc Pharmacy 41.2 ml/min; Est GFR (African American) 73.5 ml/min; Est GFR (Non-African American) 63.4 ml/min; Potassium 4.3 mmol/L (3.5-5.1)
--- NOTE | 2023-11-28 09:22 | XCELERA ---
[id number]
[2023-11-28] MEDS: FUROSEMIDE 40 MG TAB PO SCH (12:19)
--- NOTE | 2023-11-28 14:17 | Hospitalist Progress Note ---
Date of Service November 28, 2023 Assessment & Plan (1) (HFpEF) heart failure with preserved ejection fraction: Plan: History of CABG with 3 separate bypass grafts. Last EF normal Continue aspirin, atorvastatin, losartan, metoprolol High sensitive troponin is normal. EKG without acute ischemic change, does have a new first-degree heart block compared to prior. Lyme testing ordered Quad screen is normal Chest x-ray shows cardiomegaly with interstitial pulmonary edema and small effusions consistent with CHF Echocardiogram shows normal ejection fraction. Diastolic dysfunction. Moderate mitral regurgitation. IV Lasix discontinued Start 40 mg of p.o. Lasix Will check rest and exercise tomorrow Likely discharge tomorrow 11/28 (2) Hx of CABG: Plan: chest pain resolved trop only slightly elevated (3) Acute hypoxic respiratory failure: Plan: probably due to CHF needs oxygen with ambulation , O2 sat 87-89 % with ambulation continue to treat CHF Check rest and exercise prior to discharge (4) CAD (coronary artery disease): Plan: chest pain resolved, trop is slightly elevated continue home meds Echo reviewed (5) HTN (hypertension): Plan: stable, continue home meds (6) Hyperlipemia: Plan: continue statins Plan Chronic Stable Issues: Somatic dysfunction, myofascial pain. Continue outpatient OMT DVT prophylaxis: Heparin twice daily Disposition: Medical telemetry for CHF CODE STATUS: DNR Admission and Anticipated Discharge Date Admission Date: November 25, 2023 Subjective Patient feels well today. Noted that she is still on 2 L of oxygen. Leg swelling has improved. Breathing well Review of Systems Review of Systems: All systems reviewed & are unremarkable except as noted in Subjective Physical Exam Physical Exam: General: Awake, conversant Heart: S1, S2/regular rate and rhythm, no murmur rubs or gallops Lungs: Minimal bibasilar crackles. Normal effort Abdomen: Soft/nontender/nondistended. No hepatosplenomegaly Extremities: No clubbing/cyanosis. 1+ pitting bilateral edema Behavior: Appropriate, cooperative Results & Data Results & Data Vital Signs (Past 12 Hours) Vital Signs Temp Pulse Pulse Resp BP Pulse Ox O2 Del Method 11/28/23 11:12 36.8 C 59 L 20 101/48 L 96 Nasal Cannula 11/28/23 07:55 36.3 C L 61 20 110/66 97 Room Air 11/28/23 07:07 54 L 11/28/23 03:17 36.4 C L 61 16 114/71 94 Nasal Cannula O2 Flow Rate 11/28/23 11:12 2 11/28/23 07:55 11/28/23 07:07 11/28/23 03:17 1.5 Laboratory Results Abnormal lab results 11/28/23 Range/Units 07:27 WBC 14.73 H (4.8-10.8) K/ul RDW Std Deviation 48.1 H (36.4-46.3) fL Neut # (Auto) 8.57 H (1.40-6.50) K/uL Lymph # (Auto) 3.74 H (1.20-3.40) K/uL Tate # (Auto) 1.81 H (0.11-0.59) K/uL Sodium 134 L (136-145) mmol/L BUN 25 H (6-23) mg/dl BUN/Creatinine Ratio 30.5 H (10-20) PG Care Time/CCT Total # of Minutes Spent Total Time Spent with Patient: Total time spent is greater than 50% in coordination of care (as documented) at patient's floor/unit and/or counseling patient: Coding Level of Care Code 55935 SUB INP/OBS CARE 2/35MIN Diagnoses (HFpEF) heart failure with preserved ejection fraction I50.30 Hx of CABG Z95.1 Acute hypoxic respiratory failure J96.01 CAD (coronary artery disease) I25.10 HTN (hypertension) I10 Hyperlipemia E78.5
[2023-11-29 08:45] LABS: Hemoglobin 12.7 g/dl (12.0-16.0); Mean Corpuscular Hemoglobin 29.7 pg (25.0-34.0); Mean Corpuscular Hgb Conc 33.4 g/dL (32.0-36.0); Mean Platelet Volume 10.6 fL (9.4-12.4); Platelet Count 215 K/uL (130-400); RDW Coefficient of Variation 14.2 % (11.5-14.5); RDW Standard Deviation 46.2 fL (36.4-46.3); Red Blood Count 4.27 M/uL (4.20-5.40); White Blood Count 11.75 K/ul (4.8-10.8)
[2023-11-29 09:05] LABS: BUN Creatinine Ratio 25.3 (10-20); Calcium 9.4 mg/dl (8.6-10.3); Creatinine Clr Calc Pharmacy 40.4 ml/min; Est GFR (African American) 76.9 ml/min; Est GFR (Non-African American) 66.4 ml/min; Potassium 4.5 mmol/L (3.5-5.1)
--- NOTE | 2023-11-29 10:42 | Discharge Summary ---
Date of Service November 29, 2023 Admission HPI Per Admitting Provider Angy Tello is an 88-year-old female with past medical history of cataracts, CAD, CABG, hypertension, breast cancer, hyperlipidemia who presents with 3 days of intermittent chest pain with shortness of breath which have increased in intensity and duration causing her to present to the ER. Initial EKG on arrival sinus with first-degree AV block, no territorial signs of ischemia Angy reports 3 days ago had shortness of breath and chest discomfort on exertion and at rest, and shortness of breath was much worse when laying flat. Had trouble sleeping because laying flat made it hard to breathe and brought chest discomfort. SHe feels greatly improved in the ER and has no discomfort after tx with lasix.Took 2 nitro this morning, did not seem to help her discomfort. Took meds this am No fevers. Also cold and maybe a little chilly at night, denies rigors or sweats. Endorses increased nonproductive cough. No night sweats +Nausea, no vomiting or diarrhea.no abdominal pain. Endorses is intermittent leg swelling. Medical History: Reviewed Medications: Reviewed Surgical History: Reviewed Family history: Reviewed Allergies: Reviewed Social History: Reviewed Code Status: DNR Admission Exam Per Admitting Provider General: A&Ox3. NAD. Cooperative. HEENT: Atraumatic, normocephalic. Pulm: Diminsihed, bibasilar crackles, no wheezing.. Symmetrical chest rise. No increased work of breathing. No respiratory distress. Cardiac: RRR, +sm. Radial pulses intact and symmetrical. +JVD Abdominal: Nontender, nondistended, soft. BS present. Principal Diagnosis Acute diastolic congestive heart failure Acute hypoxic respiratory failure due to CHF exacerbation Discharge Exam General: Awake, conversant Heart: S1, S2/regular rate and rhythm, no murmur rubs or gallops Lungs: Minimal bibasilar crackles. Normal effort Abdomen: Soft/nontender/nondistended. No hepatosplenomegaly Extremities: No clubbing/cyanosis. 1+ pitting bilateral edema Behavior: Appropriate, cooperative Discharge Data Allergies Allergy/AdvReac Type Severity Reaction Status Date / Time Cipro Allergy Severe hives Verified 01/03/15 09:10 ciprofloxacin Allergy Severe hives Verified 11/22/23 14:29 dobutamine Allergy Severe Hives Verified 11/22/23 14:29 Iodinated Contrast Media Allergy Severe Tongue Verified 11/22/23 14:29 thickening, difficulty swallowing Sulfa (Sulfonamide Allergy Severe UNKNOWN Verified 11/22/23 14:29 Antibiotics) erythromycin base Allergy Intermediate rash Verified 11/22/23 14:29 adhesive Allergy Unknown RED SKIN Verified 11/22/23 14:29 Penicillins Allergy Unknown UNKNOWN Verified 11/22/23 14:29 Quinolones Allergy Unknown UNKNOWN Verified 11/22/23 14:29 Consultations 11/25/23 17:51 ED Decision to Admit Stat 11/29/23 10:11 [facility] [place] Referral Routine Hospital Course (1) (HFpEF) heart failure with preserved ejection fraction: History of CABG with 3 separate bypass grafts. Last EF normal Continue aspirin, atorvastatin, losartan, metoprolol High sensitive troponin is normal. EKG without acute ischemic change, does have a new first-degree heart block compared to prior. Lyme testing ordered Quad screen is normal Chest x-ray shows cardiomegaly with interstitial pulmonary edema and small effusions consistent with CHF Echocardiogram shows normal ejection fraction. Diastolic dysfunction. Moderate mitral regurgitation. IV Lasix discontinued Tolerating 40 mg of p.o. Lasix Is not requiring oxygen even with exertion Discharge on 40 mg p.o. Lasix and potassium supplements Follow-up with PCP in 1 week Follow-up with CHF clinic (2) Hx of CABG: chest pain resolved trop only slightly elevated (3) Acute hypoxic respiratory failure: probably due to CHF needed oxygen with ambulation , O2 sat 87-89 % with ambulation Treated CHF Not needing oxygen even with ambulation (4) CAD (coronary artery disease): chest pain resolved, trop is slightly elevated continue home meds Echo reviewed (5) HTN (hypertension): stable, continue home meds (6) Hyperlipemia: continue statins Plan Chronic Stable Issues: Somatic dysfunction, myofascial pain. Continue outpatient OMT CODE STATUS: DNR Discharge to home today Total Time Total Time Spent Total Time Spent (In Minutes): 35 Discharge Plan Discharge Items Patient Disposition: Home - Self-Care Reason For Visit: CHF Discharge Diagnosis: Acute diastolic congestive heart failure Acute hypoxic respiratory failure due to CHF exacerbation Activity: Resume your previous activity Non-emergency contact: Primary Care Provider Call non-emergency contact if: you have any medication questions and your symptoms worsen Follow-up/Referrals: Eric Jean DO [Primary Care Provider] - 12/06/23 9:20 am Diet: Heart Healthy and Low Sodium (2gm) Addtl Attending Provider Instructions: Advised to follow-up with PCP in 1 week Pending Studies at Discharge: No Stand-Alone Forms: My [facility] Medications and DC Order Prescriptions: New furosemide 40 mg Tablet 40 mg PO QAM 30 Days Qty: 30 0RF potassium chloride 20 mEq Tablet,Er Particles/Crystals 20 meq PO DAILY 30 Days Qty: 30 0RF Continued aspirin [Adult Low Dose Aspirin] 81 mg tablet,delayed release (DR/EC) 81 mg PO DAILY Rx Instructions: Take 1 tablet by mouth daily. diphenhydramine HCl 1 ea PO .COMPLEX PRN (Reason: Other) Rx Instructions: 1 tablet by mouth as needed Calcium 600 + D(3) 600 mg calcium- 200 unit capsule 1 cap PO DAILY Rx Instructions: Take 1 tablet by mouth daily. ctqvdqmja-kkaqmbeh-esy-hyalur 1 ea PO DAILY Rx Instructions: Take 1 tablet by mouth daily. multivitamin [Daily Multi-Vitamin] Tablet 1 tab PO DAILY Rx Instructions: Take 1 tablet by mouth daily. cholecalciferol (vitamin D3) 50 mcg (2,000 unit) tablet 2,000 units PO DAILY Rx Instructions: Take 1 capsule by mouth daily. alendronate [Fosamax] 70 mg tablet 70 mg PO .weekly Qty: 12 5RF Hold Instructions: Home Medication placed on hold at Doctor's office clobetasol 0.05 % ointment 1 applic TOP .COMPLEX Qty: 45 1RF Rx Instructions: 1 applic topical sparingly 2x/wk atorvastatin 40 mg tablet 40 mg PO QPM Qty: 90 3RF lorazepam 0.5 mg tablet 0.5 mg PO BID Qty: 60 0RF nitroglycerin 0.4 mg tablet, sublingual 0.4 mg SL Q5M PRN (Reason: chest pain) Qty: 25 1RF lactobacillus combination no.9 [Adult 50 Plus Probiotic] See Rx Instructions .ROUTE .COMPLEX Rx Instructions: as directed coenzyme Q10 400 mg capsule 100 mg PO DAILY Rx Instructions: Take 1 capsule daily with a meal. zinc gluconate-vitamin C See Rx Instructions .ROUTE .COMPLEX Rx Instructions: as directed triamcinolone acetonide 0.5 % cream 1 applic topical BID Qty: 15 0RF gabapentin 100 mg capsule See Rx Instructions .ROUTE .COMPLEX Qty: 180 3RF Dose Instruction: TAKE 1 CAPSULE BY MOUTH THREE TIMES A DAY Rx Instructions: TAKE 1 CAPSULE BY MOUTH THREE TIMES A DAY levothyroxine 50 mcg tablet 50 mcg PO DAILY Qty: 90 3RF metoprolol succinate 100 mg tablet extended release 24 hr See Rx Instructions .ROUTE .COMPLEX Qty: 90 3RF Dose Instruction: TAKE 1 TABLET BY MOUTH EVERY DAY Rx Instructions: TAKE 1 TABLET BY MOUTH EVERY DAY losartan 25 mg tablet See Rx Instructions .ROUTE .COMPLEX Qty: 90 3RF Dose Instruction: TAKE 1 TABLET BY MOUTH EVERY DAY Rx Instructions: TAKE 1 TABLET BY MOUTH EVERY DAY Discontinued furosemide 20 mg tablet See Rx Instructions .ROUTE .COMPLEX Qty: 90 1RF Dose Instruction: TAKE 1 TABLET BY MOUTH EVERY DAY Rx Instructions: TAKE 1 TABLET BY MOUTH EVERY DAY Discharge Orders: Discharge Order- CHF (Routine); Ordered 11/29/23 Ordered By: Benny Neff Admission Data Admit Date/Time: 11/25/23 18:12 Attending Provider: Benny Neff Admit Provider: Armond Suarez Primary Care Provider: Eric Jean Other Providers: Armond Suarez; Darling Rivera Other Interventions: Discharge Summary Assessment (RN) Last Done: 11/29/23 11:11 Coding Level of Care Code 54770 INP/OBS DISCH >30 MIN Diagnoses (HFpEF) heart failure with preserved ejection fraction I50.30 Hx of CABG Z95.1 Acute hypoxic respiratory failure J96.01 CAD (coronary artery disease) I25.10 HTN (hypertension) I10 Hyperlipemia E78.5
== END 2023-11-29 13:00 | disposition home or self-care (01) | DRG 291 ==
LOC: ED 15:26 → EDINP 18:12 → SUATTDRO 18:12 → 2N 21:02 → UNDODISIN 11-28 14:45

== ENCOUNTER 2024-02-22 09:55 | Observation (INO) ==
[2024-02-22 10:29] LABS: Hematocrit (blood only) 40.6 % (37.0-47.0); Hemoglobin 13.1 g/dl (12.0-16.0); Mean Corpuscular Hemoglobin 29.2 pg (25.0-34.0); Mean Corpuscular Hgb Conc 32.3 g/dL (32.0-36.0); Mean Corpuscular Volume 90.6 fL (80.0-100.0); Mean Platelet Volume 10.8 fL (9.4-12.4); Platelet Count 167 K/uL (130-400); RDW Coefficient of Variation 14.6 % (11.5-14.5); RDW Standard Deviation 48.8 fL (36.4-46.3); Red Blood Count 4.48 M/uL (4.20-5.40)
--- NOTE | 2024-02-22 10:36 | CT Scan Report ---
CT head/brain wo con CLINICAL HISTORY: Neuro deficit, acute, stroke suspected Technique: Contiguous axial CT images of the head were acquired from the base of the skull to the eliud deysi without intravenous contrast administration. Images were viewed in brain, subdural and [facility]. Automated dose lowering techniques and/or adjustment according to patient size were utilized for this exam. Comparison: Comparison is made to CT head 02/26/2009 Findings: The ventricles, basal cisterns, and cerebral sulci are normal. There is no acute intracranial hemorrh age or evidence of acute territorial infarction. Neither mass effect, shift of the midline structures , nor abnormal extra-axial fluid collections are shown. Stable calcific density in the left cerebell um. Imaged portions of the paranasal sinuses and mastoid air cells are clear. The orbits appear normal. There are no acute fractures of the calvaria or scalp swelling. Impression: No acute intracranial hemorrhage, no evidence of acute territorial infarction or other acute intracra nial disease process. ACT 112: Negative or not required by law. Electronically signed by: Joaquín Jean-Baptiste M.D. 02/22/2024 10:34 AM
[2024-02-22 10:37] LABS: iSTAT Creatinine 0.9 mg/dl (0.6-1.3); iSTAT Hemoglobin 13.6 g/dl (12.0-16.0); iSTAT Ionized Calcium 1.22 mmol/l (1.12-1.32); iSTAT Potassium 4.3 mmol/L (3.3-5.0)
[2024-02-22 10:45] LABS: Albumin Globulin Ratio 1.8 (0.9-2); Albumin Level 4.4 gm/dl (3.4-5.0); BUN Creatinine Ratio 20.2 (10-20); Bilirubin,Total 1.3 mg/dl (0.2-1.0); Calcium 9.7 mg/dl (8.6-10.3); Est GFR (African American) 66.6 ml/min; Est GFR (Non-African American) 57.5 ml/min; Globulin 2.5 gm/dl (2.5-4.0); Potassium 4.3 mmol/L (3.5-5.1); Total Protein 6.9 gm/dl (6.0-8.3)
[2024-02-22 10:55] LABS: INR 1.1 (0.9-1.1); Partial Thromboplastin Ratio 0.9; Partial Thromboplastin Time 25 Seconds (21-31); Prothrombin Time 11.7 Seconds (9.0-12.0)
--- NOTE | 2024-02-22 10:56 | History & Physical Report ---
Date of Service February 22, 2024 Assessment & Plan (1) Stroke-like symptoms: Plan: Admit to the PCU on telemetry Currently stable nontoxic-appearing but with ongoing slurred speech Presented to the emergency department a.m. after she developed drooling and slurred speech, last known well was approximately midnight this morning. Patient is still currently slurring her words at the time of admission CT of the head without contrast was read as negative for acute findings, she could not have IV contrast due to previous history of allergies with contrast No signs of infection, no other focal neurologic defects on exam Symptoms are highly suggestive of CVA or TIA Will obtain MRI and MRA of the brain without contrast as well as bilateral carotid Dopplers for further assessment Will obtain echocardiogram, fasting lipid panel and A1c Will have patient evaluated by speech therapy and keep her strict n.p.o. at this time as she had possible aspiration during her dysphagia screen Will allow permissive hypertension until MRIs have been read Every 4 hours neuro checks, fall/aspiration precautions, PT/OT consults, can consult neurology if further workup necessitates Patient was given 300 mg of p.o. aspirin prior to admission, continue home s tatin and Will plan to switch her home aspirin to Plavix Starting tomorrow a.m. Bilateral INGRID stockings for DVT prophylaxis Speech makes her n.p.o. moving forward will order light IV fluids for hydration but will need to monitor fluid status closely with her history of heart failure with preserved ejection fraction and admission in November of this year for CHF exacerbation AM CBC, BMP, mag, PT/INR, A1c, fasting lipid panel (2) Hyponatremia: Plan: Patient noted to have sodium level of 130 today She does appear dry on exam, and does use as needed Lasix for weight gain Will obtain serum osmolality, urine osmolality, and urine sodium for further evaluation Will follow-up hyponatremia workup ordered on admission and treat accordingly Monitor daily Renal function and electrolytes (3) (HFpEF) heart failure with preserved ejection fraction: Plan: Currently euvolemic on exam Holding antihypertensives and diuretics at this time to allow for permissive hypertension until MRI results are back Monitor volume status closely moving forward as she was admitted in November of this past year for CHF exacerbation Follow-up echocardiogram ordered on admission (4) Hx of CABG: Plan: Denies recent chest pain or cardiac symptoms Continue aspirin and statin Plan The patient was discussed with Dr. Suarez at the time of the admission History of Present Illness Chief Complaint: Strokelike symptoms Primary Care Provider: Eric Jean DO Angy Tello is an 88-year-old female with past medical history of cataracts, HFpEF, CAD, CABG, hypertension, breast cancer, and hyperlipidemia who presented to the [facility] emergency department on 02/22/2024 with a chief complaint of acute onset of slurred speech and drooling. Per the ED staff, the patient's time of last known well was approximately midnight this morning, she woke this a.m. and noticed that she was drooling but did not notice any slurred speech as she was by herself in her home. Her son came to pick her up this morning around 9:30 AM, and this is when they both noticed that she was slurring her words and still drooling. She was noted to be bradycardic with heart rate in the 50s on arrival but otherwise stable. Labs were significant for a leukocytosis of 11, and sodium of 130. CT of the head and brain without contrast was read as no acute intracranial hemorrhage, no evidence of acute territorial infarction or other acute intracranial disease process. They did note a stable calcific density in the left cerebellum. Chest x-ray was read as Cardiomegaly without acute process. CTAs of the head and neck were not obtained due to the patient having a previous reaction to CT contrast with tongue thickening and difficulty swallowing. By the time the patient arrived to the ER, her symptoms had significantly improved but not completely resolved. Due to the time of last known well, thrombolytics were not administered.Prior to admission the patient was given a dose of full dose aspirin. Patient was sitting in bed in no acute distress at time of exam with her son at bedside, history is obtained from both. They confirmed that the patient was in her normal state of health when she went to bed around midnight this morning. She woke up around 6 AM this morning and noticed that she was drooling, this has happened to her before and so she did not seek medical attention at that time. Her son confirms that when he came to pick her up this morning around 9:30 AM she was slurring her words, the patient also noticed that she was slurring her words. Symptoms have not progressed since arrival but have not improved back to her normal baseline. She did have her morning medications. The patient denies recent fever, chills, new paresthesias/unilateral weakness, changes in vision, hearing, taste, smell, chest pain, SOB, hemoptysis, abdominal pain, nausea, vomiting, diarrhea, dysuria, hematuria, melena, bloody BM's, LE swelling, and recent trauma. We discussed CODE STATUS, the patient confirms she is a DNR/DNI and her son is her power of personal injury attorney. Please refer to Dr. Suarez's attestation for any changes to the treatment plan. Allergies Allergy/AdvReac Type Severity Reaction Status Date / Time Cipro Allergy Severe hives Verified 01/03/15 09:10 ciprofloxacin Allergy Severe hives Verified 02/22/24 11:46 dobutamine Allergy Severe Hives Verified 02/22/24 11:46 Iodinated Contrast Media Allergy Severe Tongue Verified 02/22/24 11:46 thickening, difficulty swallowing Sulfa (Sulfonamide Allergy Severe UNKNOWN Verified 02/22/24 11:46 Antibiotics) erythromycin base Allergy Intermediate rash Verified 02/22/24 11:46 adhesive Allergy Unknown RED SKIN Verified 02/22/24 11:46 Penicillins Allergy Unknown UNKNOWN Verified 02/22/24 11:46 Quinolones Allergy Unknown UNKNOWN Verified 02/22/24 11:46 Home Medications Medication Instructions Recorded Confirmed Type aspirin 81 mg tablet,delayed 81 mg PO DAILY 11/19/19 02/22/24 History release (Adult Low Dose Aspirin) calcium carbonate 600 mg-vitamin 1 cap PO DAILY 11/19/19 02/22/24 History D3 5 mcg (200 unit) capsule (Calcium 600 + D(3)) cholecalciferol (vitamin D3) 50 2,000 units PO DAILY 11/19/19 02/22/24 History mcg (2,000 unit) tablet multivitamin (Daily Multi-Vitamin 1 tab PO DAILY 11/19/19 02/22/24 History tablet) zinc gluconate-vitamin C [zinc] 1 tab PO DAILY 11/11/20 02/22/24 History coenzyme Q10 400 mg capsule 100 mg PO DAILY 05/27/21 02/22/24 History levothyroxine 50 mcg tablet 50 mcg PO DAILY #90 tabs 05/25/23 02/22/24 Rx metoprolol succinate 100 mg See Rx Instructions .Route 05/25/23 02/22/24 Rx tablet,extended release 24 hr .COMPLEX #90 tabs atorvastatin 40 mg tablet 40 mg PO QPM #90 tabs 08/09/23 02/22/24 Rx nitroglycerin 0.4 mg sublingual 0.4 mg sublingual Q5M PRN chest 11/22/23 02/22/24 Rx tablet pain #25 tabs potassium chloride 20 mEq 20 meq PO DAILY 30 days #30 tabs 01/28/24 02/22/24 Rx tablet,extended release(part/cryst) sacubitril 24 mg-valsartan 26 mg 1 tab PO BID #60 tabs 01/31/24 02/22/24 Rx tablet (Entresto) lorazepam 0.5 mg tablet 0.5 mg PO BID #60 tabs 02/04/24 02/22/24 Rx Lactobacillus Tab 1 tab PO DAILY 02/22/24 02/22/24 History cartilage 40 mg-collagen II 10 1 tab PO DAILY 02/22/24 02/22/24 History mg-boron 5 mg-hyaluronate 3.3 mg tablet (Kindful) clobetasol 0.05 % topical ointment 1 applic topical 2XWK PRN .flare 02/22/24 02/22/24 History ups diphenhydramine HCl 25 mg tablet 25 mg PO DIRECTED PRN allergies 02/22/24 02/22/24 History (Benadryl Allergy) furosemide 20 mg tablet (Lasix) 20 mg PO DAILY PRN .weight gain 02/22/24 02/22/24 History gabapentin 100 mg capsule 100 mg PO TID 02/22/24 02/22/24 History triamcinolone acetonide 0.5 % 1 applic topical BID PRN flare ups 02/22/24 02/22/24 History topical cream Past Med/Surg History Problem List (Updated 02/22/24 @ 12:56 by Adelfo Vera PA-C) Hyponatremia Stroke-like symptoms Pulmonary hypertension Bladder pain Tricuspid regurgitation Lumbar spinal stenosis Normal left ventricular systolic function and wall motion Sensorineural hearing loss (SNHL) of both ears Arthritis (Acute) Cataract (Acute) Detrusor instability (Acute) Urethral caruncle (Acute) Urge and stress incontinence (Acute) Vitamin D deficiency (Acute) Aortic regurgitation Mitral regurgitation Antiplatelet or antithrombotic long-term use Lichen planus (Chronic) Lichen sclerosus et atrophicus (Chronic) Medical History (Updated 02/22/24 @ 12:56 by Adelfo Vera PA-C) (HFpEF) heart failure with preserved ejection fraction CAD (coronary artery disease) HTN (hypertension) Hyperlipemia Acute hypoxic respiratory failure Chest pain Postural lightheadedness Anxiety Osteoporosis with fracture History of breast cancer Tricuspid regurgitation per [employer] record Hx of sarcoidosis Hx of osteopenia Hx of fracture of rib Surgical History (Updated 02/22/24 @ 10:59 by Adelfo Vera PA-C) Hx of CABG January 2006 @ [place] by Dr Nicholson H/O colonoscopy 05/24/12 - by Dr Mayank Lorenzana H/O lymph node biopsy 03/21/07 S/P tubal ligation 10/21/07 S/P thoracotomy 1974 H/O oral surgery S/P hysterectomy 09/25/11 S/P dilation and curettage S/P cholecystectomy 1989 Hx of cataract surgery Bilateral - 2002 S/P mastectomy 2006 - Rt partial History of breast biopsy 03/04/07 - Rt breast Family History Aunt Breast cancer Grandmother (Maternal) Colorectal cancer Mother Colorectal cancer Ovarian cancer Father Heart disease Stroke Allergies Other No family history of adverse response to anesthesia No family history of bleeding disorder Social History Smoking Status: Never smoker Tobacco Type: Cigarettes Age Quit Using Tobacco: 39; packs per day: 0.5; Second Hand Exposure: No; Do You Dip or Chew Tobacco: No; Hx Alcohol Use: No Hx Substance Use: No Preferred Language: Ecuadorean Communication Ability: Effective Visual Impairment: No Limitations Hearing Ability: Normal 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 Beliefs That Will Affect Care: None marital status: Current Living Situation: Spouse current occupational status: retired How many Children do You have: 3 Feels Safe at Home: Yes Childhood Exposure to Second-Hand Smoke: No Diet: regular caffeine: Yes during the past year weight has: remained stable Dental Care, Regularly: Yes Physical Activity Frequency: Does not Exercise Seatbelt Use: always Sunscreen Use: Yes Assistive Devices: Oxygen - at Night Physical Exam Physical Exam: Physical Exam: General: In no acute distress, stated age, well-nourished, non-toxic appearing HEENT: Normocephalic, atraumatic, no scleral icterus, pupils around round, symmetrical, and reactive to light, moist mucus membranes, trachea midline, no thyromegaly Chest/Pulm: No respiratory distress, symmetrical chest expansion, clear breath sounds throughout Cardiac: RRR, 4/6 systolic murmur noted Abdomen: Negative for ascites and bruising, normoactive bowel sounds, soft, non-tender to palpation throughout Musculoskeletal: Symmetrical and without signs of acute trauma, upper and lower extremities with full ROM, no atrophy, spasticity, or flaccidity Extremities: Radial, dorsalis pedis, and posterior tibial pulses are intact and symmetrical, no edema noted in the BL LE's Skin: Warm, dry, no rashes , lesions, or scars noted Neuro: Alert and oriented to person, place, month, year, and president, patient is currently slurring her words but responds appropriately to questions, CN II-XII tested and intact, no current facial drrop , no tremors noted Psych: No acute distress, calm and cooperative during the exam Results & Data Results & Data Vital Signs (Past 12 Hours) Vital Signs Temp Pulse Pulse Resp BP BP Pulse Ox 02/22/24 10:43 62 16 120/63 99 02/22/24 10:11 61 02/22/24 09:58 36.2 C L 59 L 20 136/87 96 O2 Del Method 02/22/24 10:43 Room Air 02/22/24 10:11 02/22/24 09:58 Room Air Laboratory Results Abnormal lab results 02/22/24 02/22/24 Range/Units 10:10 10:20 WBC 11.00 H (4.8-10.8) K/ul RDW Std Deviation 48.8 H (36.4-46.3) fL RDW Coeff of Shan 14.6 H (11.5-14.5) % POC Sodium 132 L (135-144) mmol/L Sodium 130 L (136-145) mmol/L POC Chloride 98 L (101-112) mmol/L POC Anion Gap 12.0 L (16-25) mmol/L BUN/Creatinine Ratio 20.2 H (10-20) Glucose 141 H (70-99(Fasting)) mg/dl POC Glucose 127 H (70-99) mg/dl POC Glucose (other) 137 H (70-99) mg/dl Total Bilirubin 1.3 H (0.2-1.0) mg/dl Alkaline Phosphatase 121 H (34-104) U/L Diagnostic Findings Chest X-Ray 02/22/24 10:13 XR chest 1V portable HISTORY: 88 years-old Female stroke alert acute strokelike symptoms COMPARISON: 11/25/2023 TECHNIQUE: AP view of the chest FINDINGS: Cardiac silhouette is enlarged. Median sternotomy. Chronic interstitial coarsening without pneumothorax, large pleural effusion or overt pulmonary edema. No lobar airspace consolidation. Cholecystectomy. Bones appear grossly intact. IMPRESSION: Cardiomegaly without acute process. ACT 112: Negative or not required by law. The above report was generated using voice recognition software. It may contain grammatical, syntax or spelling errors. Electronically signed by: Abhishek Patton M.D. 02/22/2024 10:[address] 02/22/24 10:13 CT head/brain wo con CLINICAL HISTORY: Neuro deficit, acute, stroke suspected Technique: Contiguous axial CT images of the head were acquired from the base of the skull to the vertex without intravenous contrast administration. Images were viewed in brain, subdural and bone windows. Automated dose lowering techniques and/or adjustment according to patient size were utilized for this exam. Comparison: Comparison is made to CT head 02/26/2009 Findings: The ventricles, basal cisterns, and cerebral sulci are normal. There is no acute intracranial hemorrhage or evidence of acute territorial infarction. Neither mass effect, shift of the midline structures, nor abnormal extra-axial fluid collections are shown. Stable calcific density in the left cerebellum. Imaged portions of the paranasal sinuses and mastoid air cells are clear. The orbits appear normal. There are no acute fractures of the calvaria or scalp swelling. Impression: No acute intracranial hemorrhage, no evidence of acute territorial infarction or other acute intracranial disease process. ACT 112: Negative or not required by law. Electronically signed by: Joaquín Jean-Baptiste M.D. 02/22/2024 10:34 AM ECG Additional Comments: Will obtain at the time of the admission Code Status & VTE Plan Code Status DNR/DNI VTE Prophylaxis Plan VTE Prophylaxis will be ordered: Yes Supervising Physician Co-Signing Physician Notes Patient seen and examined, chart reviewed, case discussed with Adelfo Vera PA-C and I agree with the assessment and plan as above except as otherwise noted Labs and images reviewed 88-year-old female who presented outside of thrombolytic window with slurring speech. Improved at bedside assessment. She is on aspirin at baseline, received full dose aspirin in the ER. Due to contrast reactions did not receive and she is in the ER, recommended for MR angiography. MRI does not show central vessel occlusion or aneurysm, brain MRI is without acute finding, CT is without acute finding, carotid Dopplers are without significant stenosis. She does not show signs of metabolic encephalopathy, and does not have urinary symptoms. She is a very slight leukocytosis without left shift suspect reactive, she does not have any respiratory or abdominal infectious symptoms. Recommend treating at least as TIA, given this we will switch her antiplatelet regimen from aspirin to Plavix. Agree with assessment and management as above PG Care Time/CCT Total # of Minutes Spent Total Time Spent with Patient: Total time spent is greater than 50% in coordination of care (as documented) at patient's floor/unit and/or counseling patient: Coding [place] [address] INT INP/OBS CARE 3/75MIN Patient Type Established Medical Decision Making High Complexity Diagnoses Stroke-like symptoms R29.90 Hyponatremia E87.1 (HFpEF) heart failure with preserved ejection fraction I50.30 Hx of CABG Z95.1
--- NOTE | 2024-02-22 11:00 | XRay Report ---
XR chest 1V portable HISTORY: 88 years-old Female stroke alert acute strokelike symptoms COMPARISON: 11/25/2023 TECHNIQUE: AP view of the chest FINDINGS: Cardiac silhouette is enlarged. Median sternotomy. Chronic interstitial coarsening without pneumothor ax, large pleural effusion or overt pulmonary edema. No lobar airspace consolidation. Cholecystectomy . Bones appear grossly intact. IMPRESSION: Cardiomegaly without acute process. ACT 112: Negative or not required by law. The above report was generated using voice recognition software. It may contain grammatical, syntax o r spelling errors. Electronically signed by: Abhishek Patton M.D. 02/22/2024 10:58 AM
[2024-02-22] MEDS: ASPIRIN CHEW 324 MG PO STA (11:01)
[2024-02-22] MEDS ORDERED: PHARMACIST DISCHARGE MED REC CONSULT PRN (11:03)
--- NOTE | 2024-02-22 11:17 | Emergency Department Note ---
Impression & Plan Stroke-like symptoms, Slurred speech ED Provider Note NAME: YODIT GUSMAN AGE: 88 SEX: F : 1935 ARRIVES VIA: Walk-In INFORMANT: Patient, ED PROVIDER(S): Stephen Petersen MD CHIEF COMPLAINT: Slurred speech, drooling HPI: This is an 88-year-old female presenting for slurred speech/drooling. Patient notes that she was last normal around midnight last night. She notes she went to sleep, woke up around 6:30 in the morning and notes that she was drooling profusely. She has had intermittent drooling in the past but very mild. She is then picked up by her son at 930 when she began her first attempt at speaking. She denies she was having trouble with her words and was slurring her speech at the time. Did not presented here as results. She denies any weakness to her arms, legs, strength or sensation deficits. Does not take any blood thinners. ROS: See above HPI for pertinent positives & negatives. A total of 10 systems reviewed and were otherwise negative. PHYSICAL EXAMINATION: General: resting comfortably in no acute distress Head: Normocephalic and atraumatic Eyes: Normal inspection, extraocular muscles intact Ear, nose, throat: Normal external exam Neck: Normal range of motion Respiratory: lungs clear to auscultation bilaterally Cardiovascular: Regular rate/rhythm, no murmur GI: soft, nontender, no guarding or rebound Extremities: nontender, moves all extremities Neuro: The patient awake and alert, appropriately conversive, no focal deficits, symmetric faces, cranial nerves II through XII grossly intact, slight dysarthria, strength 5/5 in all extremities Skin: Warm, dry, and intact MEDICAL DECISION MAKING: This is a an 88-year-old female senting for slurred speech/drooling. Last known well was around midnight last night, 10+ hours ago. Patient does have some slight dysarthria, likely from either TIA/wake-up stroke. Admitted for TNKase. Will do CT of the head, unable to do CTA due to contrast allergy. -Blood work is reviewed showing WBC is 11. Slight hyponatremia 130 otherwise no significant abnormalities -CT imaging reveals no abnormal abnormalities -Chest Xray independently interpreted by me showing no pneumothorax, focal opacity, or pleural effusions. -With patient's current symptoms, consider TIA/stroke outside the window, will admit for further workup. Discussed with Adelfo Vera PA-C for admission under the care of Dr. Kline. Differential diagnosis: TIA, stroke, UTI, encephalopathy ER treatment provided: See below Diagnostics interpreted by me: ECG: None Cardiac Monitoring: An order was placed for continuous cardiac monitoring. The monitor shows a rate of 62 with sinus rhythm. Laboratory studies: As stated above and show below. Imaging studies: See below. Past Med/Surg History Problem List (Updated 02/22/24 @ 16:41 by Stephen Petersen MD) Slurred speech (Acute) Stroke-like symptoms (Acute) Hyponatremia Stroke-like symptoms Pulmonary hypertension Bladder pain Tricuspid regurgitation Lumbar spinal stenosis Normal left ventricular systolic function and wall motion Sensorineural hearing loss (SNHL) of both ears Arthritis (Acute) Cataract (Acute) Detrusor instability (Acute) Urethral caruncle (Acute) Urge and stress incontinence (Acute) Vitamin D deficiency (Acute) Aortic regurgitation Mitral regurgitation Antiplatelet or antithrombotic long-term use Lichen planus (Chronic) Lichen sclerosus et atrophicus (Chronic) Medical History (Updated 02/22/24 @ 16:41 by Stephen Petersen MD) (HFpEF) heart failure with preserved ejection fraction CAD (coronary artery disease) HTN (hypertension) Hyperlipemia Acute hypoxic respiratory failure Chest pain Postural lightheadedness Anxiety Osteoporosis with fracture History of breast cancer Tricuspid regurgitation per allscripts record Hx of sarcoidosis Hx of osteopenia Hx of fracture of rib Surgical History (Updated 02/22/24 @ 10:59 by Adelfo Vera PA-C) Hx of CABG January 2006 @ [facility] by Dr Nicholson H/O colonoscopy 05/24/12 - by Dr Mayank Lorenzana H/O lymph node biopsy 03/21/07 S/P tubal ligation 10/21/07 S/P thoracotomy 1974 H/O oral surgery S/P hysterectomy 09/25/11 S/P dilation and curettage S/P cholecystectomy 1989 Hx of cataract surgery Bilateral - 2002 S/P mastectomy 2006 - Rt partial History of breast biopsy 03/04/07 - Rt breast Family History Aunt Breast cancer Grandmother (Maternal) Colorectal cancer Mother Colorectal cancer Ovarian cancer Father Heart disease Stroke Allergies Other No family history of adverse response to anesthesia No family history of bleeding disorder Social History Smoking Status: Current some day smoker Tobacco Type: Cigarettes Age Quit Using Tobacco: 39; packs per day: 0.5; Second Hand Exposure: No; Do You Dip or Chew Tobacco: No; Hx Alcohol Use: Yes Alcohol type: wine Hx Substance Use: No Preferred Language: Bengali Communication Ability: Effective Visual Impairment: No Limitations Hearing Ability: Normal Napping Machine Operator Required: No Beliefs That Will Affect Care: None marital status: Current Living Situation: Spouse current occupational status: retired How many Children do You have: 3 Other Information That Helps Us Care for You: No Feels Safe at Home: Yes Childhood Exposure to Second-Hand Smoke: No Diet: regular caffeine: Yes during the past year weight has: remained stable Dental Care, Regularly: Yes Physical Activity Frequency: Does not Exercise Seatbelt Use: always Sunscreen Use: Yes Assistive Devices: None Allergies Allergies Allergy/AdvReac Type Severity Reaction Status Date / Time Cipro Allergy Severe hives Verified 01/03/15 09:10 ciprofloxacin Allergy Severe hives Verified 02/22/24 11:46 dobutamine Allergy Severe Hives Verified 02/22/24 11:46 Iodinated Contrast Media Allergy Severe Tongue Verified 02/22/24 11:46 thickening, difficulty swallowing Sulfa (Sulfonamide Allergy Severe UNKNOWN Verified 02/22/24 11:46 Antibiotics) erythromycin base Allergy Intermediate rash Verified 02/22/24 11:46 adhesive Allergy Unknown RED SKIN Verified 02/22/24 11:46 Penicillins Allergy Unknown UNKNOWN Verified 02/22/24 11:46 Quinolones Allergy Unknown UNKNOWN Verified 02/22/24 11:46 Home Meds Home Medications Medication Instructions Recorded Confirmed aspirin 81 mg tablet,delayed 81 mg PO DAILY 11/19/19 02/22/24 release (Adult Low Dose Aspirin) calcium carbonate 600 mg-vitamin 1 cap PO DAILY 11/19/19 02/22/24 D3 5 mcg (200 unit) capsule (Calcium 600 + D(3)) cholecalciferol (vitamin D3) 50 2,000 units PO DAILY 11/19/19 02/22/24 mcg (2,000 unit) tablet multivitamin (Daily Multi-Vitamin 1 tab PO DAILY 11/19/19 02/22/24 tablet) zinc gluconate-vitamin C [zinc] 1 tab PO DAILY 11/11/20 02/22/24 coenzyme Q10 400 mg capsule 100 mg PO DAILY 05/27/21 02/22/24 Lactobacillus Tab 1 tab PO DAILY 02/22/24 02/22/24 cartilage 40 mg-collagen II 10 1 tab PO DAILY 02/22/24 02/22/24 mg-boron 5 mg-hyaluronate 3.3 mg tablet ([facility]) clobetasol 0.05 % topical ointment 1 applic topical 2XWK PRN .flare 02/22/24 02/22/24 ups diphenhydramine HCl 25 mg tablet 25 mg PO DIRECTED PRN allergies 02/22/24 02/22/24 (Benadryl Allergy) furosemide 20 mg tablet (Lasix) 20 mg PO DAILY PRN .weight gain 02/22/24 02/22/24 gabapentin 100 mg capsule 100 mg PO TID 02/22/24 02/22/24 triamcinolone acetonide 0.5 % 1 applic topical BID PRN flare ups 02/22/24 02/22/24 topical cream Previous Rx's Medication Instructions Recorded levothyroxine 50 mcg tablet 50 mcg PO DAILY #90 tabs 05/25/23 metoprolol succinate 100 mg See Rx Instructions .Route 05/25/23 tablet,extended release 24 hr .COMPLEX #90 tabs atorvastatin 40 mg tablet 40 mg PO QPM #90 tabs 08/09/23 nitroglycerin 0.4 mg sublingual 0.4 mg sublingual Q5M PRN chest 11/22/23 tablet pain #25 tabs potassium chloride 20 mEq 20 meq PO DAILY 30 days #30 tabs 01/28/24 tablet,extended release(part/cryst) sacubitril 24 mg-valsartan 26 mg 1 tab PO BID #60 tabs 01/31/24 tablet (Entresto) lorazepam 0.5 mg tablet 0.5 mg PO BID #60 tabs 02/04/24 Results & Data (ED) Vital Signs Vital Signs - 24 hr 02/22/24 09:58 02/22/24 10:11 02/22/24 10:12 Temperature 36.2 C L Temperature Source Temporal Artery Scan Pulse Rate 59 L 61 Pulse Rate [Apical] Pulse Rate from SpO2 Sensor Pulse Rhythm Regular Pulse Rhythm [Apical] Pulse Strength Normal Respiratory Rate 20 Respiratory Effort / Characteristics Non-Labored Spontaneous Respiratory Depth Normal Respiratory Pattern Regular Blood Pressure 136/87 128/64 Blood Pressure [Left Arm] Blood Pressure Mean 103 80 Blood Pressure Mean [Left Arm] Blood Pressure Position Sitting Pulse Oximetry 96 Oxygen Delivery Method Room Air Sepsis Recent Fever Within 48 Hours No Sepsis New/Unexplained Change in Mental Status No Sepsis Action Taken by Nursing No Action Required 02/22/24 10:12 02/22/24 10:36 02/22/24 10:39 Temperature Temperature Source Pulse Rate 61 60 58 L Pulse Rate [Apical] Pulse Rate from SpO2 Sensor 59 L 57 L Pulse Rhythm Pulse Rhythm [Apical] Pulse Strength Respiratory Rate 20 23 19 Respiratory Effort / Characteristics Respiratory Depth Respiratory Pattern Blood Pressure Blood Pressure [Left Arm] Blood Pressure Mean Blood Pressure Mean [Left Arm] Blood Pressure Position Pulse Oximetry 96 97 Oxygen Delivery Method Sepsis Recent Fever Within 48 Hours Sepsis New/Unexplained Change in Mental Status Sepsis Action Taken by Nursing 02/22/24 10:42 02/22/24 10:43 02/22/24 10:51 Temperature Temperature Source Pulse Rate 58 L Pulse Rate [Apical] 62 Pulse Rate from SpO2 Sensor 59 L Pulse Rhythm Pulse Rhythm [Apical] Regular Pulse Strength Respiratory Rate 16 21 Respiratory Effort / Characteristics Respiratory Depth Respiratory Pattern Blood Pressure 120/63 Blood Pressure [Left Arm] 120/63 Blood Pressure Mean 80 Blood Pressure Mean [Left Arm] 82 Blood Pressure Position Pulse Oximetry 99 96 Oxygen Delivery Method Room Air Sepsis Recent Fever Within 48 Hours Sepsis New/Unexplained Change in Mental Status Sepsis Action Taken by Nursing 02/22/24 10:55 Temperature Temperature Source Pulse Rate Pulse Rate [Apical] Pulse Rate from SpO2 Sensor Pulse Rhythm Pulse Rhythm [Apical] Pulse Strength Respiratory Rate Respiratory Effort / Characteristics Respiratory Depth Respiratory Pattern Blood Pressure Blood Pressure [Left Arm] Blood Pressure Mean Blood Pressure Mean [Left Arm] Blood Pressure Position Pulse Oximetry 96 Oxygen Delivery Method Room Air Sepsis Recent Fever Within 48 Hours Sepsis New/Unexplained Change in Mental Status Sepsis Action Taken by Nursing Laboratory Data 02/22/24 10:10 02/22/24 10:10 Lab Results 02/22/24 02/22/24 Range/Units 10:10 10:20 WBC 11.00 H (4.8-10.8) K/ul RBC 4.48 (4.20-5.40) M/uL Hgb 13.1 (12.0-16.0) g/dl POC Hgb 13.6 (12.0-16.0) g/dl Hct 40.6 (37.0-47.0) % POC Hct 40 (37-47) % MCV 90.6 (80.0-100.0) fL MCH 29.2 (25.0-34.0) pg MCHC 32.3 (32.0-36.0) g/dL RDW Std Deviation 48.8 H (36.4-46.3) fL RDW Coeff of Shan 14.6 H (11.5-14.5) % Plt Count 167 (130-400) K/uL MPV 10.8 (9.4-12.4) fL PT 11.7 (9.0-12.0) Seconds INR 1.1 (0.9-1.1) APTT 25 (21-31) Seconds PTT Ratio 0.9 POC Sodium 132 L (135-144) mmol/L Sodium 130 L (136-145) mmol/L POC Potassium 4.3 (3.3-5.0) mmol/L Potassium 4.3 (3.5-5.1) mmol/L POC Chloride 98 L (101-112) mmol/L Chloride 99 (98-107) mmol/L Carbon Dioxide 25 (21-32) mmol/L POC Total CO2 28 (24-31) mmol/L Anion Gap 6 (3-11) POC Anion Gap 12.0 L (16-25) mmol/L POC BUN 18 (7-18) mg/dl BUN 18 (6-23) mg/dl Creatinine 0.89 (0.6-1.2) mg/dl POC Creatinine 0.9 (0.6-1.3) mg/dl Est Cr Clr Drug Dosing 40.0 ml/min Est GFR ( Amer) 66.6 ml/min Est GFR (Non-Af Amer) 57.5 ml/min BUN/Creatinine Ratio 20.2 H (10-20) Glucose 141 H (70-99(Fasting)) mg/dl POC Glucose 127 H (70-99) mg/dl POC Glucose (other) 137 H (70-99) mg/dl Osmolality 282 (280-300) mOsm/kg Calcium 9.7 (8.6-10.3) mg/dl POC Ioniz Calcium Ana Maria 1.22 (1.12-1.32) mmol/l Magnesium 2.0 (1.7-2.4) mg/dl Total Bilirubin 1.3 H (0.2-1.0) mg/dl AST 32 (13-39) U/L ALT 26 (7-52) U/L Alkaline Phosphatase 121 H (34-104) U/L Total Protein 6.9 (6.0-8.3) gm/dl Albumin 4.4 (3.4-5.0) gm/dl Globulin 2.5 (2.5-4.0) gm/dl Albumin/Globulin Ratio 1.8 (0.9-2) Administered Medications Discontinued Medications Aspirin (Aspirin Chew 324 Mg) 324 mg PO NOW STA Stop: 02/22/24 10:58 Last Admin: 02/22/24 11:01 Dose: 324 mg Documented By: KV Gadobutrol (Gadobutrol 65ml Vial) 6.5 ml IV ONCE ONE Stop: 02/22/24 12:46 Last Admin: 02/22/24 12:44 Dose: 6.5 ml Documented By: BMP Imaging Data Radiologist's Impression: Chest X-Ray 02/22/24 10:13 XR chest 1V portable HISTORY: 88 years-old Female stroke alert acute strokelike symptoms COMPARISON: 11/25/2023 TECHNIQUE: AP view of the chest FINDINGS: Cardiac silhouette is enlarged. Median sternotomy. Chronic interstitial coarsening without pneumothorax, large pleural effusion or overt pulmonary edema. No lobar airspace consolidation. Cholecystectomy. Bones appear grossly intact. IMPRESSION: Cardiomegaly without acute process. ACT 112: Negative or not required by law. The above report was generated using voice recognition software. It may contain grammatical, syntax or spelling errors. Electronically signed by: Abhishek Patton M.D. 02/22/2024 10:[address] 02/22/24 10:13 CT head/brain wo con CLINICAL HISTORY: Neuro deficit, acute, stroke suspected Technique: Contiguous axial CT images of the head were acquired from the base of the skull to the vertex without intravenous contrast administration. Images were viewed in brain, subdural and bone windows. Automated dose lowering techniques and/or adjustment according to patient size were utilized for this exam. Comparison: Comparison is made to CT head 02/26/2009 Findings: The ventricles, basal cisterns, and cerebral sulci are normal. There is no acute intracranial hemorrhage or evidence of acute territorial infarction. Neither mass effect, shift of the midline structures, nor abnormal extra-axial fluid collections are shown. Stable calcific density in the left cerebellum. Imaged portions of the paranasal sinuses and mastoid air cells are clear. The orbits appear normal. There are no acute fractures of the calvaria or scalp swelling. Impression: No acute intracranial hemorrhage, no evidence of acute territorial infarction or other acute intracranial disease process. ACT 112: Negative or not required by law. Electronically signed by: Joaquín Jean-Baptiste M.D. 02/22/2024 10:34 AM Discharge Plan Visit Data Chief Complaint: Neuro Symptoms/Deficit Stated Complaint: SLURRING WORDS AND SLOBBERING ED Provider: Stephen Petersen Discharge Problem: Stroke-like symptoms, Slurred speech Patient Disposition: Admitted As Inpatient Discharge Instructions Interventions: ED Discharge Assessment Last Done: 02/22/24 15:19
[2024-02-22] MEDS: GADOBUTROL 65ML VIAL IV ONE (12:44)
--- NOTE | 2024-02-22 13:13 | Magnetic Resonance Report ---
MRA OF THE INTRACRANIAL CIRCULATION WITHOUT CONTRAST CLINICAL HISTORY: stroke-like symptoms COMPARISON STUDY: Head CT February 22, 2024 at 10:23 AM. TECHNIQUE: Utilizing a 1.5 Arelis magnet and 3-D [id number] technique, unenhanced MRA of the intra cranial circulation was obtained. FINDINGS: Please note that the MRI of the brain will be reported separately. This exam is mildly comp romised by artifact. Apparent diminished flow within the bilateral cavernous carotids is likely artif actual. The bilateral M1, M2, A1 and A2 segments are patent. The right vertebral artery is somewhat d iminutive, likely on a congenital basis. The basilar artery is diminutive. The posterior circulation is largely supplied by the anterior circulation. No vessel occlusion is identified. There is no intra cranial aneurysm. IMPRESSION: No central vessel occlusion. No intracranial aneurysm. ACT 112: Negative or not required by law. Electronically signed by: Nick Ayers M.D. 02/22/2024 1:11 PM
--- NOTE | 2024-02-22 13:13 | Magnetic Resonance Report ---
MR brain wo/w con CLINICAL HISTORY: stroke-like symptoms TECHNIQUE: Multiplanar and multisequence MR images of the brain were obtained prior to and following administration of gadolinium contrast. Comparison: Comparison is made to MRA head 02/22/2024 FINDINGS: No abnormal restricted diffusion is identified. Foci of T2 and FLAIR hyperintensity are noted in the paraventricular areas consistent with chronic small vessel ischemic disease. The ventricular system i s normal in appearance. No mass or abnormal enhancement is seen. There is no mass effect or midline s hift. There is no evidence of acute intraparenchymal hemorrhage. No extra axial fluid collections are seen. The corpus callosum, pituitary gland, and cerebellar tonsils appear grossly unremarkable. Flow voids of the major intracranial arterial vessels are identified. The imaged portions of the para nasal sinuses, mastoid air cells, and orbits are unremarkable. IMPRESSION: No acute abnormality and in particular no evidence of acute infarct. ACT 112: Negative or not required by law. Electronically signed by: Joaquín Jean-Baptiste M.D. 02/22/2024 1:12 PM
--- NOTE | 2024-02-22 15:28 | Ultrasound Report ---
ULTRASOUND OF THE CAROTID ARTERIES CLINICAL HISTORY: Stroke workup, can't have CT contrast TECHNIQUE: Real-time, grayscale, and color Doppler sonography of the bilateral carotid arteries is pe rformed. Images are reviewed in the transverse and longitudinal planes. COMPARISON: Comparison is made to carotid ultrasound 08/30/2018 FINDINGS: The carotid arteries are patent bilaterally and demonstrate antegrade flow. There is moderate atheros clerotic plaque on the right and no atherosclerotic plaque on the left. Normal doppler arterial wavef orms are seen throughout. Velocity measurements are listed below. Common carotid peak systolic velocity (cm/sec): RIGHT: 44 LEFT: 45 ICA peak systolic velocity (cm/sec): RIGHT: 66 LEFT: 57 ICA/CC peak systolic ratio: RIGHT: 1.5 LEFT: 1.3 Antegrade flow was shown in the vertebral arteries. The external carotid arteries are patent. IMPRESSION: 1. There is no sonographic evidence of hemodynamically significant stenosis in the right or left car otid arterial system. 2. Antegrade flow is shown in the vertebral arteries. Society of Radiologists in Ultrasound consensus guidelines: Normal: ICA PSV is <125 cm/sec and no plaque or intimal thickening is visible sonographically additional criteria include ICA/CCA PSV ratio <2.0 and ICA EDV <40 cm/sec <50% ICA stenosis: ICA PSV is <125 cm/sec and plaque or intimal thickening is visible sonographically additional criteria include ICA/CCA PSV ratio <2.0 and ICA EDV <40 cm/sec 50-69% ICA stenosis: ICA PSV is 125-230 cm/sec and plaque is visible sonographically additional criteria include ICA/CCA PSV ratio of 2.0-4.0 and ICA EDV of 40-100 cm/sec ?70% ICA stenosis but less than near occlusion: ICA PSV is >230 cm/sec and visible plaque and luminal narrowing are seen at jc-scale and color Dopp ler ultrasound (the higher the Doppler parameters lie above the threshold of 230 cm/sec, the greater the likelihood of severe disease) additional criteria include ICA/CCA PSV ratio >4 and ICA EDV >100 cm/sec ACT 112: Negative or not required by law. Electronically signed by: Joaquín Jean-Baptiste M.D. 02/22/2024 3:27 PM
--- NOTE | 2024-02-22 17:11 | Electrocardiogram Report ---
Test Reason : Blood Pressure : / mmHG Vent. Rate : 062 BPM Atrial Rate : 062 BPM P-R Int : 224 ms QRS Dur : 110 ms QT Int : 426 ms P-R-T Axes : 085 -22 079 degrees QTc Int : 432 ms Sinus rhythm with 1st degree A-V block Incomplete left bundle block Minimal voltage criteria for LVH, may be normal variant Nonspecific ST abnormality Abnormal ECG When compared with ECG of 25-NOV-2023 16:07, Non-specific change in ST segment in Anterior leads Nonspecific T wave abnormality no longer evident in Anterior leads Confirmed by Clemente Little ([id number]) on 02/22/2024 5:10:51 PM Referred By: REFERRED SELF Confirmed By:Kiran Little
[2024-02-22] MEDS: LACTATED RINGER'S 1,000 ML IV SCH (17:35)
[2024-02-22 19:51] LABS: Appearance Urine Clear (Clear); Bilirubin Urine Negative (Negative); Blood Urine Negative (Negative); Color Urine Yellow; Glucose Urine UA Negative (Negative); Ketones Urine Negative (Negative); Leukocyte Esterase Urine Negative (Negative); Nitrite Urine Negative (Negative); Protein Urine Negative (Negative); Specific Gravity Urine 1.006 (1.000-1.030); Urobilinogen Urine Negative (Negative); pH Urine 6.5 (4.5-7.5)
[2024-02-22] MEDS: LORazepam 0.5 MG TAB PO PRN (23:41)
[2024-02-23 06:47] LABS: Basophils # (auto) 0.03 K/uL (0.00-0.20); Basophils % (auto) 0.4 %; Eosinophils # (auto) 0.21 K/uL (0.00-0.50); Eosinophils % (auto) 2.5 %; Hematocrit (blood only) 35.2 % (37.0-47.0); Hemoglobin 11.6 g/dl (12.0-16.0); Immature Granulocytes # (auto) 0.03 K/uL (0.01-0.20); Immature Granulocytes % (auto) 0.4 %; Lymphocytes # (auto) 2.02 K/uL (1.20-3.40); Lymphocytes % (auto) 24.1 %; Mean Corpuscular Hemoglobin 29.4 pg (25.0-34.0); Mean Corpuscular Volume 89.3 fL (80.0-100.0); Mean Platelet Volume 11.3 fL (9.4-12.4); Monocytes % (auto) 10.7 %; Neutrophils % (auto) 61.9 %; Platelet Count 132 K/uL (130-400); RDW Coefficient of Variation 14.5 % (11.5-14.5); RDW Standard Deviation 47.8 fL (36.4-46.3); Red Blood Count 3.94 M/uL (4.20-5.40); White Blood Count 8.39 K/ul (4.8-10.8)
[2024-02-23 07:06] LABS: BUN Creatinine Ratio 21.9 (10-20); Calcium 9.1 mg/dl (8.6-10.3); Creatinine Clr Calc Pharmacy 48.7 ml/min; Est GFR (African American) 84.6 ml/min; Potassium 4.6 mmol/L (3.5-5.1)
[2024-02-23 07:10] LABS: INR 1.1 (0.9-1.1); Prothrombin Time 12.2 Seconds (9.0-12.0)
[2024-02-23] MEDS ORDERED: FUROSEMIDE 20 MG TAB PO PRN (08:29)
[2024-02-23] MEDS: CLOPIDOGREL BISULFATE 75 MG TAB PO SCH (08:33)
[2024-02-23 08:45] LABS: Estimated Average Glucose 120 mg/dl; Hemoglobin A1C 5.8 % (4.5-5.6)
[2024-02-23] MEDS: METOPROLOL SUCC 50MG EXT REL TAB PO SCH (09:36)
[2024-02-23] MEDS: LEVOTHYROXINE SODIUM 50 MCG TABLET PO SCH (09:37)
[2024-02-23] MEDS: VALSARTAN/SACUBITRIL 26/24MG TAB PO SCH (09:37)
[2024-02-23] MEDS: GABAPENTIN 100 MG CAP PO SCH (09:37)
--- NOTE | 2024-02-23 10:09 | XCELERA ---
[id number]
--- NOTE | 2024-02-23 14:24 | Pharmacy Report ---
- Date of Service February 23, 2024 - Pharmacy CVA/TIA Medication Review Medications to Prevent Stroke handout has been added to the patients discharge packet. Antiplatelet(s) * clopidogrel 75 mg PO daily Cholesterol * High intensity statin: atorvastatin 40 mg daily Therapeutic Anticoagulation * No history of Afib/Aflutter noted Type 2 Diabetes * Patient does not have T2DM
[2024-02-23] MEDS ORDERED: STROKE PATIENT DISCHARGE STA (14:31)
--- NOTE | 2024-02-23 15:41 | Discharge Summary ---
Discharge Summary Date of Service February 23, 2024 Principal Dx & Hospital Course #1 = Principal Diagnosis (1) Stroke-like symptoms: Presented to the emergency department after she developed drooling and slurred speech, last known well was approximately midnight 02/22/24. Patient was stable nontoxic-appearing but with ongoing slurred speech at the time of admission. No signs of infection, no other focal neurologic defects on exam. CT of the head without contrast was read as negative for acute findings, she could not have IV contrast due to previous history of allergies with contrast. Brain MRI and MRA revealed no intracranial aneurysm, no central vessel occlusion, no acute infarct, no acute abnormalities. Bilateral carotid Dopplers revealed no evidence of significant stenosis. Echocardiogram 02/22 revealed EF= 60-65%. Hgb A1c 5.8%. Fasting lipid panel WNL. Switched to Plavix 75 mg every morning. Discontinued aspirin 81 mg daily. Complete resolution of symptoms 02/23/2024. Follow-up appointment with PCP scheduled for 02/28/2024. -- Deferred increasing to high intensity statin to PCP. (2) Hyponatremia: Patient noted to have sodium level of 130 on admission She does appear dry on exam, and does use as needed Lasix for weight gain Sodium WNL at 136 on day of discharge (3) (HFpEF) heart failure with preserved ejection fraction: Currently euvolemic on exam Monitor volume status closely moving forward as she was admitted in November of this past year for CHF exacerbation Echocardiogram from this admission revealed EF= 60-65% Plan CODE STATUS: DNR/DNI Notes For Next Care Provider Patient presented with strokelike symptoms including slurred speech, unilateral facial droop, and drooling. Workup was remarkably negative. Presumed TIA. Recommend increasing to high intensity statin deferred to PCP. PCP follow-up appointment scheduled for 02/28/2024. Medication Changes From Visit Started Plavix 75 mg every morning. Discontinued aspirin 81 mg daily. Recommend increasing to high intensity statin. Deferred to PCP. Admission HPI Per Admitting Provider Angy Tello is an 88-year-old female with past medical history of cataracts, HFpEF, CAD, CABG, hypertension, breast cancer, and hyperlipidemia who presented to the [facility] emergency department on 02/22/2024 with a chief complaint of acute onset of slurred speech and drooling. Per the ED staff, the patient's time of last known well was approximately midnight this morning, she woke this a.m. and noticed that she was drooling but did not notice any slurred speech as she was by herself in her home. Her son came to pick her up this morning around 9:30 AM, and this is when they both noticed that she was slurring her words and still drooling. She was noted to be bradycardic with heart rate in the 50s on arrival but otherwise stable. Labs were significant for a leukocytosis of 11, and sodium of 130. CT of the head and brain without contrast was read as no acute intracranial hemorrhage, no evidence of acute territorial infarction or other acute intracranial disease process. They did note a stable calcific density in the left cerebellum. Chest x-ray was read as Cardiomegaly without acute process. CTAs of the head and neck were not obtained due to the patient having a previous reaction to CT contrast with tongue thickening and difficulty swallowing. By the time the patient arrived to the ER, her symptoms had significantly improved but not completely resolved. Due to the time of last known well, thrombolytics were not administered.Prior to admission the patient was given a dose of full dose aspirin. Patient was sitting in bed in no acute distress at time of exam with her son at bedside, history is obtained from both. They confirmed that the patient was in her normal state of health when she went to bed around midnight this morning. She woke up around 6 AM this morning and noticed that she was drooling, this has happened to her before and so she did not seek medical attention at that time. Her son confirms that when he came to pick her up this morning around 9:30 AM she was slurring her words, the patient also noticed that she was slurring her words. Symptoms have not progressed since arrival but have not improved back to her normal baseline. She did have her morning medications. The patient denies recent fever, chills, new paresthesias/unilateral weakness, changes in vision, hearing, taste, smell, chest pain, SOB, hemoptysis, abdominal pain, nausea, vomiting, diarrhea, dysuria, hematuria, melena, bloody BM's, LE swelling, and recent trauma. We discussed CODE STATUS, the patient confirms she is a DNR/DNI and her son is her power of collections attorney. Please refer to Dr. Suarez's attestation for any changes to the treatment plan. Admission Exam Per Admitting Provider Physical Exam: General: In no acute distress, stated age, well-nourished, non-toxic appearing HEENT: Normocephalic, atraumatic, no scleral icterus, pupils around round, symmetrical, and reactive to light, moist mucus membranes, trachea midline, no thyromegaly Chest/Pulm: No respiratory distress, symmetrical chest expansion, clear breath sounds throughout Cardiac: RRR, 4/6 systolic murmur noted Abdomen: Negative for ascites and bruising, normoactive bowel sounds, soft, non-tender to palpation throughout Musculoskeletal: Symmetrical and without signs of acute trauma, upper and lower extremities with full ROM, no atrophy, spasticity, or flaccidity Extremities: Radial, dorsalis pedis, and posterior tibial pulses are intact and symmetrical, no edema noted in the BL LE's Skin: Warm, dry, no rashes , lesions, or scars noted Neuro: Alert and oriented to person, place, month, year, and president, patient is currently slurring her words but responds appropriately to questions, CN II-XII tested and intact, no current facial drrop , no tremors noted Psych: No acute distress, calm and cooperative during the exam Discharge Exam General: No acute distress, nondiaphoretic, well-developed, well-nourished. Skin: The skin was without rashes, erythema, edema, or bruising. Cardiac: Regular rate and rhythm. Grade 4/6 systolic murmur. Pulm: Clear to auscultation bilaterally without wheezes, rales or rhonchi. No respiratory distress. Abdominal: Soft, nontender, nondistended. Bowel sounds present. Neuro: A&O x3. No slurred speech. No facial droop. No drooling. No focal neurological deficits. Updated Medication List Medication Instructions Recorded Confirmed Type calcium carbonate 600 mg-vitamin 1 cap PO DAILY 11/19/19 02/22/24 History D3 5 mcg (200 unit) capsule (Calcium 600 + D(3)) cholecalciferol (vitamin D3) 50 2,000 units PO DAILY 11/19/19 02/22/24 History mcg (2,000 unit) tablet multivitamin (Daily Multi-Vitamin 1 tab PO DAILY 11/19/19 02/22/24 History tablet) zinc gluconate-vitamin C [zinc] 1 tab PO DAILY 11/11/20 02/22/24 History coenzyme Q10 400 mg capsule 100 mg PO DAILY 05/27/21 02/22/24 History levothyroxine 50 mcg tablet 50 mcg PO DAILY #90 tabs 05/25/23 02/22/24 Rx metoprolol succinate 100 mg See Rx Instructions .Route 05/25/23 02/22/24 Rx tablet,extended release 24 hr .COMPLEX #90 tabs atorvastatin 40 mg tablet 40 mg PO QPM #90 tabs 08/09/23 02/22/24 Rx nitroglycerin 0.4 mg sublingual 0.4 mg sublingual Q5M PRN chest 11/22/23 02/22/24 Rx tablet pain #25 tabs potassium chloride 20 mEq 20 meq PO DAILY 30 days #30 tabs 01/28/24 02/22/24 Rx tablet,extended release(part/cryst) sacubitril 24 mg-valsartan 26 mg 1 tab PO BID #60 tabs 01/31/24 02/22/24 Rx tablet (Entresto) lorazepam 0.5 mg tablet 0.5 mg PO BID #60 tabs 02/04/24 02/22/24 Rx Lactobacillus Tab 1 tab PO DAILY 02/22/24 02/22/24 History cartilage 40 mg-collagen II 10 1 tab PO DAILY 02/22/24 02/22/24 History mg-boron 5 mg-hyaluronate 3.3 mg tablet ([facility]) clobetasol 0.05 % topical ointment 1 applic topical 2XWK PRN .flare 02/22/24 02/22/24 History ups diphenhydramine HCl 25 mg tablet 25 mg PO DIRECTED PRN allergies 02/22/24 02/22/24 History (Benadryl Allergy) furosemide 20 mg tablet (Lasix) 20 mg PO DAILY PRN .weight gain 02/22/24 02/22/24 History gabapentin 100 mg capsule 100 mg PO TID 02/22/24 02/22/24 History triamcinolone acetonide 0.5 % 1 applic topical BID PRN flare ups 02/22/24 02/22/24 History topical cream clopidogrel 75 mg tablet 75 mg PO QAM #30 tabs 02/23/24 Rx Hospital Stay Data Consultations 02/22/24 11:17 ED Decision to Admit Stat Diagnostic Imagining Performed 02/22/24 10:13 CT head/brain wo con Stat 02/22/24 11:03 MR brain wo/w con Routine 02/22/24 11:05 MR angio head wo con Urgent 02/22/24 11:23 US carotid doppler BI Routine Pending Results Patient Have Any Pending Studies at Discharge: No Discharge Instructions Given to Patient (Per Discharging Provider) Buddy Juarez were admitted to the hospital due to strokelike symptoms, including slurred speech, drooling, one-sided facial droop. You had extensive imaging done, including chest x-ray, head CT, brain MRI, head MRI, and carotid Doppler studies. These were all negative for acute abnormalities, including infarct, hemorrhage, or aneurysm. You also had an echocardiogram (ultrasound of your heart), which was essentially unchanged from your prior study in November 2023. All of this to be said, this was most likely a transient ischemic attack (TIA). This occurs when blood cannot reach part of your brain for short period of time. Unlike a stroke, a TIA does not cause lasting damage. Upon discharge from the hospital: * Take Plavix 75 mg every morning. This is an antiplatelet medication that is used for secondary stroke prevention. This prescription has been sent to the [facility] pharmacy on [facility]. * You can STOP taking aspirin 81 mg daily. The Plavix is your new antiplatelet medicine. * Follow-up with your PCP. Your appointment is scheduled for 02/28/2024 at 9:20 AM. * Continue your other medications as prescribed. Please return to the hospital if you experience any of the following: Weakness/tingling/loss of feeling on one side of your face/body, sudden double vision or trouble seeing in 1 or both eyes, sudden trouble talking or slurring your speech, trouble understanding what other people are saying, sudden/severe headache, dizziness, loss of balance, spinning feeling, passing out, seizure, shortness of breath, difficulty breathing, chest pain, chest palpitations. It was a pleasure taking care of you while you were in the hospital, Adriane Dolan PA-C Total Time Total Time Spent Total Time Spent (In Minutes): Greater than 30 minutes spent completing this discharge process including direct patient care, medication reconciliation, documentation, review of labs and images, and coordination of care. Coding Level of Care Code 74617 INP/OBS DISCH >30 MIN Diagnoses Stroke-like symptoms R29.90 Hyponatremia E87.1 (HFpEF) heart failure with preserved ejection fraction I50.30
[2024-02-23] MEDS ORDERED: ATORVASTATIN 40 MG TAB PO SCH (21:00)
[2024-02-24] MEDS ORDERED: FUROSEMIDE 20 MG TAB PO SCH (09:00)
== END 2024-02-23 15:07 | disposition home or self-care (01) | DRG 92 ==
LOC: ED 09:55 → EDINP 11:03 → SUATTDRO 11:03 → INTOOBSV 11:03 → 2S 15:19

== ENCOUNTER 2024-03-09 09:04 | Observation (INO) ==
--- NOTE | 2024-03-09 09:10 | Emergency Department Note ---
Impression & Plan Stroke-like symptoms, Non-ST elevation OR (NSTEMI) ED Provider Note HISTORY OF PRESENT ILLNESS: Patient is an 88-year-old female presenting with strokelike symptoms. Patient reports she went to bed just before midnight last night and did not have any symptoms. Awoke at 7 AM and had some slurred speech and looked in the mirror and noticed that she had left-sided facial droop. Patient reports she recently had a TIA and was started on a blood thinner, but she does not remember the name. She states that she tried to take her pills this morning but was having drooling out of the left side of her mouth and difficulties grasping her pills with her left hand. Denies any numbness or tingling or tingling in her extremities. Denies any headache or changes in vision. Denies any recent falls or head injury. ROS: as above PHYSICAL EXAM: Constitutional: Patient appears in no acute distress. HENT: Head: Normocephalic and atraumatic. Eyes: EOMI, PERRL Mouth/Throat: Mucous membranes moist. Neck: Trachea midline. Neck supple. Cardiovascular: RRR, No murmurs, rubs or gallops. Intact distal pulses. Pulmonary/Chest: No respiratory distress. Breath sounds clear and equal bilaterally. No wheezes or rales. Abdominal: Abdomen soft, no tenderness, rebound or guarding. Musculoskeletal: No edema, tenderness or deformity noted. Skin: Warm and dry. No rash, erythema, pallor or cyanosis Psychiatric: Appropriate mood and affect for situation. Neurological: Alert and keenly responsive. Left lower facial droop. Patient is able to raise the eyebrows symmetrically. No significant drift in the upper or lower extremities against gravity. Sensation intact to light touch at the bilateral upper and lower extremities. Patient does have notable slurred speech. MDM: - Vitals signs stable. - History obtained via patient and EMS. History as above. - Chronic conditions affecting care: HTN; tricuspid regurgitation; HLD; TIA; HFpEF - Differential diagnoses include, but are not limited to: CVA; intracranial hemorrhage; ACS; dysrhythmia; hypertensive urgency - Order placed for continuous cardiac monitoring. At this time, monitor showed rate of 66 bpm with normal sinus rhythm, per my interpretation. - External medical records reviewed. Discharge summary dated 02/23/2024 was reviewed. Patient was admitted at that time for strokelike symptoms and diagnosed with a TIA. Her aspirin was switched to Plavix 75 mg daily. She had complete resolution on symptoms per documentation on 02/23/2024 - EKG interpreted by myself showed normal sinus rhythm. Rate 62 bpm. QT 432. No acute ischemic changes. Noted to have an incomplete left bundle branch block. - CT head without contrast negative for any acute intracranial hemorrhage, per my interpretation. - Patient has anaphylactic allergy to IV contrast. - Discussed case with [facility] teleneurologist, Dr. Caldwell, at 9:39 AM. He reports the patient is not a TNK candidate. Given patient's IV contrast allergy, recommended getting MRA head and neck without contrast within the next 6 hours. He recommends continuing the patient's Plavix and adding 81 mg of aspirin back to the patient's medication regimen. - Laboratory workup interpreted by myself showed normal WBC; normal PT/INR; slight hyponatremia (Na 132); elevated troponin (240.1) - Repeat troponin elevated, but down trending. - Discussion was had with assistant case manager about patient's case and need for admission - Hospitalist, Dr. Wright, consulted for admission - [facility] ASSESSMENT AND PLAN: Diagnosis: strokelike symptoms; NSTEMI Plan: admit Past Med/Surg History Problem List (Updated 03/09/24 @ 12:41 by Gauri Barros MD) Non-ST elevation OR (NSTEMI) (Acute) Stroke-like symptoms (Acute) Hyponatremia Pulmonary hypertension Bladder pain Tricuspid regurgitation Lumbar spinal stenosis Normal left ventricular systolic function and wall motion Sensorineural hearing loss (SNHL) of both ears Arthritis (Acute) Cataract (Acute) Detrusor instability (Acute) Urethral caruncle (Acute) Urge and stress incontinence (Acute) Vitamin D deficiency (Acute) Aortic regurgitation Mitral regurgitation Antiplatelet or antithrombotic long-term use Lichen planus (Chronic) Lichen sclerosus et atrophicus (Chronic) Medical History (Updated 03/09/24 @ 12:41 by Gauri Barros MD) Slurred speech Stroke-like symptoms (HFpEF) heart failure with preserved ejection fraction CAD (coronary artery disease) HTN (hypertension) Hyperlipemia Acute hypoxic respiratory failure Chest pain Postural lightheadedness Anxiety Osteoporosis with fracture History of breast cancer Tricuspid regurgitation per [facility] record Hx of sarcoidosis Hx of osteopenia Hx of fracture of rib Surgical History (Updated 02/22/24 @ 10:59 by Adelfo Vera PA-C) Hx of CABG January 2006 @ [facility] by Dr Nicholson H/O colonoscopy 05/24/12 - by Dr Mayank Lorenzana H/O lymph node biopsy 03/21/07 S/P tubal ligation 10/21/07 S/P thoracotomy 1974 H/O oral surgery S/P hysterectomy 09/25/11 S/P dilation and curettage S/P cholecystectomy 1989 Hx of cataract surgery Bilateral - 2002 S/P mastectomy 2006 - Rt partial History of breast biopsy 03/04/07 - Rt breast Family History Aunt Breast cancer Grandmother (Maternal) Colorectal cancer Mother Colorectal cancer Ovarian cancer Father Heart disease Stroke Allergies Other No family history of adverse response to anesthesia No family history of bleeding disorder Social History Smoking Status: Former smoker Tobacco Type: Cigarettes Age Quit Using Tobacco: 39; packs per day: 0.5; Second Hand Exposure: No; Do You Dip or Chew Tobacco: No; Hx Alcohol Use: Yes Alcohol type: wine Hx Substance Use: No Preferred Language: Irish Communication Ability: Effective Visual Impairment: No Limitations Hearing Ability: Normal 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 Beliefs That Will Affect Care: None marital status: Current Living Situation: Spouse current occupational status: retired How many Children do You have: 3 Feels Safe at Home: Yes Childhood Exposure to Second-Hand Smoke: No Diet: regular caffeine: Yes during the past year weight has: remained stable Dental Care, Regularly: Yes Physical Activity Frequency: Does not Exercise Seatbelt Use: always Sunscreen Use: Yes Assistive Devices: Cane, Raised Toilet Seat, Walker and Other Allergies Allergies Allergy/AdvReac Type Severity Reaction Status Date / Time Cipro Allergy Severe hives Verified 01/03/15 09:10 ciprofloxacin Allergy Severe hives Verified 02/28/24 09:18 dobutamine Allergy Severe Hives Verified 02/28/24 09:18 Iodinated Contrast Media Allergy Severe Tongue Verified 02/28/24 09:18 thickening, difficulty swallowing Sulfa (Sulfonamide Allergy Severe UNKNOWN Verified 02/28/24 09:18 Antibiotics) erythromycin base Allergy Intermediate rash Verified 02/28/24 09:18 adhesive Allergy Unknown RED SKIN Verified 02/28/24 09:18 Penicillins Allergy Unknown UNKNOWN Verified 02/28/24 09:18 Quinolones Allergy Unknown UNKNOWN Verified 02/28/24 09:18 Home Meds Home Medications Medication Instructions Recorded Confirmed calcium carbonate 600 mg-vitamin 1 cap PO DAILY 11/19/19 02/28/24 D3 5 mcg (200 unit) capsule (Calcium 600 + D(3)) cholecalciferol (vitamin D3) 50 2,000 units PO DAILY 11/19/19 02/28/24 mcg (2,000 unit) tablet multivitamin (Daily Multi-Vitamin 1 tab PO DAILY 11/19/19 02/28/24 tablet) zinc gluconate-vitamin C [zinc] 1 tab PO DAILY 11/11/20 02/28/24 coenzyme Q10 400 mg capsule 100 mg PO DAILY 05/27/21 02/28/24 Lactobacillus Tab 1 tab PO DAILY 02/22/24 02/28/24 cartilage 40 mg-collagen II 10 1 tab PO DAILY 02/22/24 02/28/24 mg-boron 5 mg-hyaluronate 3.3 mg tablet ([employer]) clobetasol 0.05 % topical ointment 1 applic topical 2XWK PRN .flare 02/22/24 02/28/24 ups diphenhydramine HCl 25 mg tablet 25 mg PO DIRECTED PRN allergies 02/22/24 02/28/24 (Benadryl Allergy) furosemide 20 mg tablet (Lasix) 20 mg PO DAILY PRN .weight gain 02/22/24 02/28/24 gabapentin 100 mg capsule 100 mg PO TID 02/22/24 02/28/24 triamcinolone acetonide 0.5 % 1 applic topical BID PRN flare ups 02/22/24 02/28/24 topical cream Previous Rx's Medication Instructions Recorded levothyroxine 50 mcg tablet 50 mcg PO DAILY #90 tabs 05/25/23 metoprolol succinate 100 mg See Rx Instructions .Route 05/25/23 tablet,extended release 24 hr .COMPLEX #90 tabs atorvastatin 40 mg tablet 40 mg PO QPM #90 tabs 08/09/23 nitroglycerin 0.4 mg sublingual 0.4 mg sublingual Q5M PRN chest 11/22/23 tablet pain #25 tabs potassium chloride 20 mEq 20 meq PO DAILY 30 days #30 tabs 01/28/24 tablet,extended release(part/cryst) sacubitril 24 mg-valsartan 26 mg 1 tab PO BID #60 tabs 01/31/24 tablet (Entresto) lorazepam 0.5 mg tablet 0.5 mg PO BID #60 tabs 02/04/24 clopidogrel 75 mg tablet 75 mg PO QAM #30 tabs 02/23/24 alendronate 70 mg tablet (Fosamax) 70 mg PO .weekly #12 tabs 02/28/24 Results & Data (ED) Vital Signs Vital Signs - 24 hr 03/09/24 09:17 03/09/24 09:17 03/09/24 09:19 Temperature 36.7 C Temperature Source Oral Pulse Rate 60 Pulse Rate from SpO2 Sensor Respiratory Rate 18 Blood Pressure 131/80 131/80 131/80 Blood Pressure Mean 96 96 97 Pulse Oximetry 94 Oxygen Delivery Method Room Air Sepsis Recent Fever Within 48 Hours No Sepsis New/Unexplained Change in Mental Status No Sepsis Action Taken by Nursing No Action Required 03/09/24 09:20 03/09/24 09:21 03/09/24 09:27 Temperature Temperature Source Pulse Rate 63 60 63 Pulse Rate from SpO2 Sensor 62 Respiratory Rate 19 22 Blood Pressure Blood Pressure Mean Pulse Oximetry 96 Oxygen Delivery Method Sepsis Recent Fever Within 48 Hours Sepsis New/Unexplained Change in Mental Status Sepsis Action Taken by Nursing 03/09/24 09:30 03/09/24 09:30 03/09/24 09:30 Temperature Temperature Source Pulse Rate Pulse Rate from SpO2 Sensor Respiratory Rate Blood Pressure 131/73 131/73 131/73 Blood Pressure Mean 98 98 98 Pulse Oximetry Oxygen Delivery Method Sepsis Recent Fever Within 48 Hours Sepsis New/Unexplained Change in Mental Status Sepsis Action Taken by Nursing 03/09/24 09:36 03/09/24 09:45 03/09/24 09:45 Temperature Temperature Source Pulse Rate 65 Pulse Rate from SpO2 Sensor 63 Respiratory Rate 20 Blood Pressure 128/69 128/69 Blood Pressure Mean 102 102 Pulse Oximetry 95 Oxygen Delivery Method Sepsis Recent Fever Within 48 Hours Sepsis New/Unexplained Change in Mental Status Sepsis Action Taken by Nursing 03/09/24 09:48 03/09/24 10:00 03/09/24 10:00 Temperature Temperature Source Pulse Rate 64 Pulse Rate from SpO2 Sensor 64 Respiratory Rate 18 Blood Pressure 115/68 115/68 Blood Pressure Mean 88 88 Pulse Oximetry 95 Oxygen Delivery Method Sepsis Recent Fever Within 48 Hours Sepsis New/Unexplained Change in Mental Status Sepsis Action Taken by Nursing 03/09/24 10:15 03/09/24 10:18 03/09/24 10:44 Temperature Temperature Source Pulse Rate 63 Pulse Rate from SpO2 Sensor Respiratory Rate 20 Blood Pressure 130/67 130/68 Blood Pressure Mean 85 72 Pulse Oximetry Oxygen Delivery Method Sepsis Recent Fever Within 48 Hours Sepsis New/Unexplained Change in Mental Status Sepsis Action Taken by Nursing 03/09/24 10:44 03/09/24 10:44 03/09/24 11:00 Temperature Temperature Source Pulse Rate 68 Pulse Rate from SpO2 Sensor Respiratory Rate 21 Blood Pressure 130/68 125/61 Blood Pressure Mean 72 101 Pulse Oximetry Oxygen Delivery Method Sepsis Recent Fever Within 48 Hours Sepsis New/Unexplained Change in Mental Status Sepsis Action Taken by Nursing 03/09/24 11:00 03/09/24 11:11 03/09/24 12:35 Temperature Temperature Source Pulse Rate 59 L 58 L Pulse Rate from SpO2 Sensor Respiratory Rate 19 19 Blood Pressure 117/65 Blood Pressure Mean 82 Pulse Oximetry Oxygen Delivery Method Sepsis Recent Fever Within 48 Hours Sepsis New/Unexplained Change in Mental Status Sepsis Action Taken by Nursing 03/09/24 12:36 Temperature Temperature Source Pulse Rate 65 Pulse Rate from SpO2 Sensor Respiratory Rate 22 Blood Pressure Blood Pressure Mean Pulse Oximetry Oxygen Delivery Method Sepsis Recent Fever Within 48 Hours Sepsis New/Unexplained Change in Mental Status Sepsis Action Taken by Nursing Laboratory Data 03/09/24 09:16 03/09/24 09:16 Lab Results 03/09/24 03/09/24 03/09/24 Range/Units 09:16 09:20 11:11 WBC 8.65 (4.8-10.8) K/ul RBC 4.20 (4.20-5.40) M/uL Hgb 12.1 (12.0-16.0) g/dl Hct 37.4 (37.0-47.0) % MCV 89.0 (80.0-100.0) fL MCH 28.8 (25.0-34.0) pg MCHC 32.4 (32.0-36.0) g/dL RDW Std Deviation 48.2 H (36.4-46.3) fL RDW Coeff of Shan 14.8 H (11.5-14.5) % Plt Count 185 (130-400) K/uL MPV 10.9 (9.4-12.4) fL Immature Gran % (Auto) 0.5 % Neut % (Auto) 64.5 % Lymph % (Auto) 20.6 % [place] % (Auto) 11.8 % Eos % (Auto) 2.3 % Baso % (Auto) 0.3 % Neut # (Auto) 5.58 (1.40-6.50) K/uL Lymph # (Auto) 1.78 (1.20-3.40) K/uL [place] # (Auto) 1.02 H (0.11-0.59) K/uL Eos # (Auto) 0.20 (0.00-0.50) K/uL Baso # (Auto) 0.03 (0.00-0.20) K/uL Immature Gran # (Auto) 0.04 (0.01-0.20) K/uL PT 11.9 (9.0-12.0) Seconds INR 1.1 (0.9-1.1) APTT 26 (21-31) Seconds PTT Ratio 1.0 Sodium 132 L (136-145) mmol/L Potassium 4.4 (3.5-5.1) mmol/L Chloride 98 (98-107) mmol/L Carbon Dioxide 27 (21-32) mmol/L Anion Gap 7 (3-11) BUN 20 (6-23) mg/dl Creatinine 0.89 (0.6-1.2) mg/dl Est Cr Clr Drug Dosing 36.3 ml/min Est GFR ( Amer) 66.6 ml/min Est GFR (Non-Af Amer) 57.5 ml/min BUN/Creatinine Ratio 22.5 H (10-20) Glucose 111 H (70-99(Fasting)) mg/dl POC Glucose 104 H (70-99) mg/dl Calcium 9.6 (8.6-10.3) mg/dl Magnesium 2.0 (1.7-2.4) mg/dl Total Bilirubin 1.1 H (0.2-1.0) mg/dl AST 28 (13-39) U/L ALT 23 (7-52) U/L Alkaline Phosphatase 101 (34-104) U/L Troponin I High Sens 240.1 H* 188.4 H* D (0-14) pg/ml Total Protein 6.5 (6.0-8.3) gm/dl Albumin 4.1 (3.4-5.0) gm/dl Globulin 2.4 L (2.5-4.0) gm/dl Albumin/Globulin Ratio 1.7 (0.9-2) Blood Type A Positive Antibody Screen NEGATIVE Administered Medications Discontinued Medications Diphenhydramine HCl (Diphenhydramine 50 Mg/Ml Vial) 50 mg IV ONE ONE Stop: 03/09/24 09:08 Last Admin: 03/09/24 10:41 Dose: Not Given Documented By: ELBERT Lorazepam (Lorazepam 1 Mg/1 Ml Syr Ed Inj Use) 0.5 mg IV ONE STA Stop: 03/09/24 10:07 Last Admin: 03/09/24 11:16 Dose: 0.5 mg Documented By: SYD Methylprednisolone (Methylprednisolone 125 Mg/2 Ml Vial) 40 mg IV NOW ONE Stop: 03/09/24 09:08 Last Admin: 03/09/24 10:41 Dose: Not Given Documented By: ELBERT Imaging Data Radiologist's Impression: Head CT 03/09/24 09:07 CT head/brain wo con CLINICAL HISTORY: neuro deficit, acute stroke suspected Technique: Contiguous axial CT images of the head were acquired from the base of the skull to the vertex without intravenous contrast administration. Images were viewed in brain, subdural and bone windows. Automated dose lowering techniques and/or adjustment according to patient size were utilized for this exam. Comparison: Comparison is made to CT head 02/22/2024 Findings: The ventricles, basal cisterns, and cerebral sulci are normal. There is no acute intracranial hemorrhage or evidence of acute territorial infarction. Neither mass effect, shift of the midline structures, nor abnormal extra-axial fluid collections are shown. Imaged portions of the paranasal sinuses and mastoid air cells are clear. The orbits appear normal. There are no acute fractures of the calvaria or scalp swelling. Impression: No acute intracranial hemorrhage, no evidence of acute territorial infarction or other acute intracranial disease process. ACT 112: Negative or not required by law. Electronically signed by: Joaquín Jean-Baptiste M.D. 03/09/2024 9:22 AM Brain MRI 03/09/24 09:41 MR brain wo con CLINICAL HISTORY: L facial droop; slurred speech TECHNIQUE: Multiplanar and multisequence MR images of the brain were obtained without intravenous contrast. Comparison: Comparison is made to CT head 03/09/2024 FINDINGS: No abnormal restricted diffusion is identified. Apparent faint signal in the posterior left frontal lobe is without 80 cc correlate and likely represents T2 shine through. Foci of T2 and FLAIR hyperintensity are noted in the paraventricular areas consistent with chronic small vessel ischemic disease. Ex vacuo ventriculomegaly and sulcal enlargement is noted compatible with diffuse volume loss. No mass is seen. There is no mass effect or midline shift. There is no evidence of acute intraparenchymal hemorrhage. No extra axial fluid collections are seen. The corpus callosum, pituitary gland, and cerebellar tonsils appear grossly unremarkable. Flow voids of the major intracranial arterial vessels are identified. The imaged portions of the paranasal sinuses, mastoid air cells, and orbits are unremarkable. IMPRESSION: No acute abnormality and in particular no evidence of acute infarct. ACT 112: Negative or not required by law. Electronically signed by: Joaquín Jean-Baptiste M.D. 03/09/2024 12:02 PM Head MRA 03/09/24 09:43 MR angio head wo con CLINICAL HISTORY: L facial droop; slurred speech TECHNIQUE: 3D time of flight MRA of the head was performed without intravenous contrast. 3-D reconstructions were obtained in multiple planes. Comparison: None available at the time of this dictation. FINDINGS: Flow signal is shown in the intracranial segments of the internal carotid arteries, the anterior, middle and posterior cerebral arteries, the anterior and posterior communicating arteries, cerebellar arteries, the intracranial segments of the vertebral arteries, and the basilar artery. No aneurysm, arteriovenous malformation, dissection, nor hemodynamically significant flow stenosis is shown. Incidental note is made of bilateral origin of the safety intern. Assessment of stenosis of the internal carotid arteries is based on NASCET criteria. IMPRESSION: No evidence of acute intracranial abnormality. In particular, no occlusion, hemorrhage, or aneurysmal disease is seen. ACT 112: Negative or not required by law. Electronically signed by: Joaquín Jean-Baptiste M.D. 03/09/2024 12:00 PM Discharge Plan Visit Data Chief Complaint: Stroke Alert Stated Complaint: STROKE ALERT ED Provider: Gauri Barros Discharge Problem: Stroke-like symptoms, Non-ST elevation OR (NSTEMI) Forms Stand Alone Forms: My [facility] Prescriptions Prescriptions: No Action Calcium 600 + D(3) 600 mg calcium- 200 unit capsule 1 cap PO DAILY Rx Instructions: Take 1 tablet by mouth daily. multivitamin [Daily Multi-Vitamin] Tablet 1 tab PO DAILY Rx Instructions: Take 1 tablet by mouth daily. cholecalciferol (vitamin D3) 50 mcg (2,000 unit) tablet 2,000 units PO DAILY Rx Instructions: Take 1 capsule by mouth daily. atorvastatin 40 mg tablet 40 mg PO QPM Qty: 90 3RF nitroglycerin 0.4 mg tablet, sublingual 0.4 mg SL Q5M PRN (Reason: chest pain) Qty: 25 1RF potassium chloride 20 mEq tablet,ER particles/crystals 20 meq PO DAILY 30 Days Qty: 30 11RF lorazepam 0.5 mg tablet 0.5 mg PO BID Qty: 60 0RF coenzyme Q10 400 mg capsule 100 mg PO DAILY Rx Instructions: Take 1 capsule daily with a meal. zinc gluconate-vitamin C 1 tab PO DAILY levothyroxine 50 mcg tablet 50 mcg PO DAILY Qty: 90 3RF metoprolol succinate 100 mg tablet extended release 24 hr See Rx Instructions .ROUTE .COMPLEX Qty: 90 3RF Dose Instruction: TAKE 1 TABLET BY MOUTH EVERY DAY Rx Instructions: TAKE 1 TABLET BY MOUTH EVERY DAY Entresto 24-26 mg tablet 1 tab PO BID Qty: 60 2RF alendronate [Fosamax] 70 mg tablet 70 mg PO .weekly Qty: 12 5RF Hold Instructions: Home Medication placed on hold at Doctor's office [facility] 40-10-5-3.3 mg Tablet 1 tab PO DAILY Lactobacillus Tab 1 tab PO DAILY triamcinolone acetonide 0.5 % cream 1 applic topical BID PRN (Reason: flare ups) furosemide [Lasix] 20 mg tablet 20 mg PO DAILY PRN (Reason: .weight gain) Rx Instructions: Can increase to 40 mg daily PRN gabapentin 100 mg capsule 100 mg PO TID clobetasol 0.05 % ointment 1 applic topical 2XWK PRN (Reason: .flare ups) diphenhydramine HCl [Benadryl Allergy] 25 mg Tablet 25 mg PO DIRECTED PRN (Reason: allergies) clopidogrel 75 mg Tablet 75 mg PO QAM Qty: 30 0RF Referrals Referrals: Eric Jean DO [Primary Care Provider] -
--- NOTE | 2024-03-09 09:23 | CT Scan Report ---
CT head/brain wo con CLINICAL HISTORY: neuro deficit, acute stroke suspected Technique: Contiguous axial CT images of the head were acquired from the base of the skull to the eliud deysi without intravenous contrast administration. Images were viewed in brain, subdural and [facility]. Automated dose lowering techniques and/or adjustment according to patient size were utilized for this exam. Comparison: Comparison is made to CT head 02/22/2024 Findings: The ventricles, basal cisterns, and cerebral sulci are normal. There is no acute intracranial hemorrh age or evidence of acute territorial infarction. Neither mass effect, shift of the midline structures , nor abnormal extra-axial fluid collections are shown. Imaged portions of the paranasal sinuses and mastoid air cells are clear. The orbits appear normal. There are no acute fractures of the calvaria or scalp swelling. Impression: No acute intracranial hemorrhage, no evidence of acute territorial infarction or other acute intracra nial disease process. ACT 112: Negative or not required by law. Electronically signed by: Joaquín Jean-Baptiste M.D. 03/09/2024 9:22 AM
[2024-03-09 09:43] LABS: Basophils # (auto) 0.03 K/uL (0.00-0.20); Basophils % (auto) 0.3 %; Eosinophils % (auto) 2.3 %; Hematocrit (blood only) 37.4 % (37.0-47.0); Hemoglobin 12.1 g/dl (12.0-16.0); Immature Granulocytes # (auto) 0.04 K/uL (0.01-0.20); Immature Granulocytes % (auto) 0.5 %; Lymphocytes # (auto) 1.78 K/uL (1.20-3.40); Lymphocytes % (auto) 20.6 %; Mean Corpuscular Hemoglobin 28.8 pg (25.0-34.0); Mean Corpuscular Hgb Conc 32.4 g/dL (32.0-36.0); Mean Platelet Volume 10.9 fL (9.4-12.4); Monocytes # (auto) 1.02 K/uL (0.11-0.59); Monocytes % (auto) 11.8 %; Neutrophils # (auto) 5.58 K/uL (1.40-6.50); Neutrophils % (auto) 64.5 %; Platelet Count 185 K/uL (130-400); RDW Coefficient of Variation 14.8 % (11.5-14.5); RDW Standard Deviation 48.2 fL (36.4-46.3); White Blood Count 8.65 K/ul (4.8-10.8)
[2024-03-09 10:01] LABS: Albumin Globulin Ratio 1.7 (0.9-2); Albumin Level 4.1 gm/dl (3.4-5.0); BUN Creatinine Ratio 22.5 (10-20); Bilirubin,Total 1.1 mg/dl (0.2-1.0); Calcium 9.6 mg/dl (8.6-10.3); Creatinine Clr Calc Pharmacy 36.3 ml/min; Est GFR (African American) 66.6 ml/min; Est GFR (Non-African American) 57.5 ml/min; Globulin 2.4 gm/dl (2.5-4.0); Potassium 4.4 mmol/L (3.5-5.1); Total Protein 6.5 gm/dl (6.0-8.3)
[2024-03-09 10:10] LABS: Troponin I High Sensitivity 240.1 pg/ml (0-14)
[2024-03-09 10:12] LABS: INR 1.1 (0.9-1.1); Partial Thromboplastin Time 26 Seconds (21-31); Prothrombin Time 11.9 Seconds (9.0-12.0)
[2024-03-09] MEDS: diphenhydrAMINE 50 MG/ML VIAL IV ONE (10:41)
[2024-03-09] MEDS: methylPREDNISolone 125 MG/2 ML VIAL IV ONE (10:41)
--- NOTE | 2024-03-09 10:59 | Electrocardiogram Report ---
Test Reason : Blood Pressure : / mmHG Vent. Rate : 062 BPM Atrial Rate : 062 BPM P-R Int : 222 ms QRS Dur : 114 ms QT Int : 432 ms P-R-T Axes : 088 -26 082 degrees QTc Int : 438 ms Sinus rhythm with 1st degree A-V block Incomplete left bundle block Minimal voltage criteria for LVH, may be normal variant ( [place] product ) Abnormal ECG When compared with ECG of 22-FEB-2024 10:08, No significant change was found Confirmed by Man Simpson ([id number]) on 03/09/2024 10:58:55 AM Referred By: Confirmed By:Man Simpson
[2024-03-09] MEDS: LORazepam 1 MG/1 ML SYR ED Inj Use IV STA (11:16)
--- NOTE | 2024-03-09 12:02 | Magnetic Resonance Report ---
MR angio head wo con CLINICAL HISTORY: L facial droop; slurred speech TECHNIQUE: 3D time of flight MRA of the head was performed without intravenous contrast. 3-D reconstr uctions were obtained in multiple planes. Comparison: None available at the time of this dictation. FINDINGS: Flow signal is shown in the intracranial segments of the internal carotid arteries, the anterior, mid dle and posterior cerebral arteries, the anterior and posterior communicating arteries, cerebellar ar teries, the intracranial segments of the vertebral arteries, and the basilar artery. No aneurysm, ar teriovenous malformation, dissection, nor hemodynamically significant flow stenosis is shown. Inciden omid note is made of bilateral origin of the biological inspector. Assessment of stenosis of the internal carotid arteries is based on NASCET criteria. IMPRESSION: No evidence of acute intracranial abnormality. In particular, no occlusion, hemorrhage, or aneurysmal disease is seen. ACT 112: Negative or not required by law. Electronically signed by: Joaquín Jean-Baptiste M.D. 03/09/2024 12:00 PM
--- NOTE | 2024-03-09 12:04 | Magnetic Resonance Report ---
MR brain wo con CLINICAL HISTORY: L facial droop; slurred speech TECHNIQUE: Multiplanar and multisequence MR images of the brain were obtained without intravenous con trast. Comparison: Comparison is made to CT head 03/09/2024 FINDINGS: No abnormal restricted diffusion is identified. Apparent faint signal in the posterior left frontal l obe is without 80 cc correlate and likely represents T2 shine through. Foci of T2 and FLAIR hyperinte nsity are noted in the paraventricular areas consistent with chronic small vessel ischemic disease. E x vacuo ventriculomegaly and sulcal enlargement is noted compatible with diffuse volume loss. No mass is seen. There is no mass effect or midline shift. There is no evidence of acute intraparenchymal he morrhage. No extra axial fluid collections are seen. The corpus callosum, pituitary gland, and cerebe llar tonsils appear grossly unremarkable. Flow voids of the major intracranial arterial vessels are identified. The imaged portions of the para nasal sinuses, mastoid air cells, and orbits are unremarkable. IMPRESSION: No acute abnormality and in particular no evidence of acute infarct. ACT 112: Negative or not required by law. Electronically signed by: Joaquín Jean-Baptiste M.D. 03/09/2024 12:02 PM
--- NOTE | 2024-03-09 12:31 | History & Physical Report ---
Date of Service March 09, 2024 Assessment & Plan (1) Stroke-like symptoms: Plan: Admit to the PCU on telemetry Currently with ongoing slurred speech and left upper extremity weakness Presented to the ED this a.m. as a stroke alert after waking with slurred speech, left-sided facial droop/drooling, and new left upper extremity weakness Last known well was approximately 11 PM last night before she went to bed CT of the head and brain without contrast was negative for acute findings, MRI of the brain without contrast and MRA of the head and neck have been obtained but yet to be read, will follow-up Symptoms are similar to last admission when she arrived with slurred speech and left-sided facial droop upon waking on 02/22/2024, but the left upper extremity weakness is new compared to last admission Patient had a negative workup last admission, her aspirin was switched to Plavix at the time of discharge which the patient reports compliance with since discharge. Will give 300 mg rectal aspirin now, as she is currently failing her dysphagia screen with slurred speech Will follow-up with MRI results when available, for now will allow permissive hypertension Neurology consult has been placed for ongoing assistance with workup and treatment At this time the patient's symptoms are consistent with possible stroke versus TIA, patient is without seizure-like activity, no recent loss of bowel or bladder function, no postictal state reported Does not appear consistent with Urena's palsy as she is able to raise eyebrows, wrinkle forehead, and has left upper extremity weakness now Will reconsult speech therapy to evaluate the patient again as her symptoms are more severe compared to last admission Of note, patient has still been on Entresto however, her left ventricular ejection fraction was within normal limits on TTE earlier this month, she is also on 100 mg daily metoprolol succinate, along with as needed furosemide for swelling. > At this time we will plan to hold Entresto for now. Would recommend considering reduction in her dose of metoprolol succinate from 100 mg daily to 25 mg twice daily as her blood pressure has been stable, multiple antihypertensives could be contributing to her symptoms Every 4 hours neuro checks, fall precautions, aspiration precautions, PT/OT consults Will plan to continue Plavix tomorrow, will wait to add aspirin until she is evaluated by neurology and MRI results are available Strict n.p.o. until evaluated by speech therapy, will start light IV hydration until she is evaluated Bilateral INGRID stockings for DVT prophylaxis for now A.m. CBC, CMP, mag, PT/INR (2) Elevated troponin: Plan: Initial high-sensitivity troponin on arrival was elevated at 240, down to 188 on 2-hour repeat Patient denies any chest discomfort today, did have an episode of chest tightness approximately 72 hours ago which was relieved after 3 doses of sublingual nitroglycerin No acute changes on EKG Patient had TTE on last admission without acute changes Likely due to demand, will continue to monitor on telemetry, will continue to trend every 6 hours high-sensitivity troponin overnight to ensure it continues to fall Giving 300 mg rectal aspirin now, resume 81 mg daily [address] cardiology consult if any further concerning findings (3) CAD (coronary artery disease): Plan: Giving 300 mg rectal aspirin now Resume p.o. aspirin and statin when able If she remains n.p.o. we will have to continue rectal aspirin for now (4) (HFpEF) heart failure with preserved ejection fraction: Plan: Currently euvolemic on exam Will obtain chest x-ray due to recent episode of chest tightness Monitor volume status moving forward while on light IV fluids while patient is n.p.o. Holding Entresto at this time, consider discontinuation at the time of discharge as her left ventricular ejection fraction was within normal limits as of 02/23/2024 Can resume as needed Lasix when able (5) HTN (hypertension): Plan: Consider reduction of metoprolol dose prior to discharge when she is able to resume p.o. intake Plan The patient was discussed with Dr. Wright at the time of the admission History of Present Illness Chief Complaint: Stroke alert Primary Care Provider: Erci Jean DO Angy is an 88-year-old female with a past medical history significant for recent hospitalization to [facility] from 02/22/2024 to 02/23/2024 for TIA, HFpEF, CAD, CABG, hypertension, breast cancer, and hyperlipidemia who presented to the [facility] ED via EMS on 03/09/2024 as a stroke alert due to waking this morning with recurrent left-sided facial droop, slurred speech, and 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 On arrival to the ED vitals were noted to be stable. Labs were significant for a sodium of 132, glucose of 104,. CT of the head and brain without contrast was read as negative for acute findings. The patient was evaluated by on-call [facility] telestroke provider who recommended obtaining MRI of the brain and MRA of the head and neck which were In process at the time of the admission. Patient was sitting in bed in no acute distress at the time of the exam. She is still experiencing significant slurred speech. She states that after her last discharge on 02/23/2024 her symptoms had resolved. She had been in her normal state of health when going to bed last night around 11 PM. She woke up this morning around 6:30 AM to take her levothyroxine and noticed that she was again drooling out of the left side of her mouth. The patient is left-handed and went to grab her levothyroxine pill bottle and noticed that she was unable to successfully grab it. When she went to take a sip of water she had increased difficulty swallowing and much of the water fell out of her mouth. She denies aspirating during this event. She states that the left upper extremity weakness is new compared to last admission and her slurred speech is more severe than last time as well. She confirms she has been taking Plavix as prescribed since last admission with no missed doses. Since arrival to the ED she feels as though her left facial droop has improved but still feels as though her left upper extremity is weaker than baseline and still has her noticeable slurred speech. When asked about any other symptoms including chest discomfort recently, she states that approximately 2 days ago she had an episode of chest tightness while laying down. She states that she took a total of 3 nitroglycerin tabs and her symptoms eventually improved. She denies recurrence of this chest tightness since and denies decreased exercise tolerance, new dyspnea on exertion, shortness of breath, or other chest pain. Prior to arrival to the ED today she actually walked outside to take the garbage out and felt fine. She again confirms that she is a DNR/DNI and her son is her POA. During her last admission from 02/22/2024 to 02/23/2024 the patient underwent extensive neurologic imaging including CT of the head and brain without contrast, bilateral carotid Dopplers, MRI of the brain with without contrast, and MRA of the head. All were read as negative for acute findings. Prior to discharge the patient's aspirin was held and she was started on Plavix. Please refer to Dr. Ashby's attestation for any changes to the treatment plan. Allergies Allergy/AdvReac Type Severity Reaction Status Date / Time Cipro Allergy Severe hives Verified 01/03/15 09:10 ciprofloxacin Allergy Severe hives Verified 03/09/24 13:22 dobutamine Allergy Severe Hives Verified 03/09/24 13:22 Iodinated Contrast Media Allergy Severe Tongue Verified 03/09/24 13:22 thickening, difficulty swallowing Sulfa (Sulfonamide Allergy Severe UNKNOWN Verified 03/09/24 13:22 Antibiotics) erythromycin base Allergy Intermediate rash Verified 03/09/24 13:22 adhesive Allergy Unknown RED SKIN Verified 03/09/24 13:22 Penicillins Allergy Unknown UNKNOWN Verified 03/09/24 13:22 Quinolones Allergy Unknown UNKNOWN Verified 03/09/24 13:22 Home Medications Medication Instructions Recorded Confirmed Type calcium carbonate 600 mg-vitamin 1 cap PO QDL 11/19/19 03/09/24 History D3 5 mcg (200 unit) capsule (Calcium 600 + D(3)) cholecalciferol (vitamin D3) 50 2,000 units PO QDL 11/19/19 03/09/24 History mcg (2,000 unit) tablet multivitamin (Daily Multi-Vitamin 1 tab PO QDL 11/19/19 03/09/24 History tablet) coenzyme Q10 400 mg capsule 100 mg PO QPM 05/27/21 03/09/24 History atorvastatin 40 mg tablet 40 mg PO QPM #90 tabs 08/09/23 03/09/24 Rx nitroglycerin 0.4 mg sublingual 0.4 mg sublingual Q5M PRN chest 11/22/23 03/09/24 Rx tablet pain #25 tabs potassium chloride 20 mEq 20 meq PO DAILY 30 days #30 tabs 01/28/24 03/09/24 Rx tablet,extended release(part/cryst) sacubitril 24 mg-valsartan 26 mg 1 tab PO BID #60 tabs 01/31/24 03/09/24 Rx tablet (Entresto) Lactobacillus acidophilus 1 1,000 mmu cells PO QAM ##0 02/22/24 03/09/24 History billion cell capsule cartilage 40 mg-collagen II 10 1 tab PO QDL 02/22/24 03/09/24 History mg-boron 5 mg-hyaluronate 3.3 mg tablet (UsTrendy) clobetasol 0.05 % topical ointment 1 applic topical 2XWK PRN flare 02/22/24 03/09/24 History diphenhydramine HCl 25 mg tablet 25 mg PO DAILY PRN allergies 02/22/24 03/09/24 History (Benadryl Allergy) furosemide 20 mg tablet (Lasix) 20 mg PO DAILY 02/22/24 03/09/24 History gabapentin 100 mg capsule 100 mg PO TID 02/22/24 03/09/24 History triamcinolone acetonide 0.5 % 1 applic topical BID PRN flare ups 02/22/24 03/09/24 History topical cream clopidogrel 75 mg tablet 75 mg PO QAM #30 tabs 02/23/24 03/09/24 Rx alendronate 70 mg tablet (Fosamax) 0 mg PO WK 03/09/24 03/09/24 History levothyroxine 50 mcg tablet 50 mcg PO DAILYBB 03/09/24 03/09/24 History lorazepam 0.5 mg tablet 1 mg PO HS 03/09/24 03/09/24 History metoprolol succinate 100 mg 100 mg PO QAM 03/09/24 03/09/24 History tablet,extended release 24 hr Past Med/Surg History Problem List (Updated 03/09/24 @ 13:03 by Adelfo Vera PA-C) Elevated troponin Non-ST elevation WI (NSTEMI) (Acute) Stroke-like symptoms (Acute) Hyponatremia Pulmonary hypertension Bladder pain Tricuspid regurgitation Lumbar spinal stenosis Normal left ventricular systolic function and wall motion Sensorineural hearing loss (SNHL) of both ears Arthritis (Acute) Cataract (Acute) Detrusor instability (Acute) Urethral caruncle (Acute) Urge and stress incontinence (Acute) Vitamin D deficiency (Acute) Aortic regurgitation Mitral regurgitation Antiplatelet or antithrombotic long-term use Lichen planus (Chronic) Lichen sclerosus et atrophicus (Chronic) Medical History (Updated 03/09/24 @ 13:03 by Adelfo Vera PA-C) Slurred speech Stroke-like symptoms (HFpEF) heart failure with preserved ejection fraction CAD (coronary artery disease) HTN (hypertension) Hyperlipemia Acute hypoxic respiratory failure Chest pain Postural lightheadedness Anxiety Osteoporosis with fracture History of breast cancer Tricuspid regurgitation per [employer]scripts record Hx of sarcoidosis Hx of osteopenia Hx of fracture of rib Surgical History (Updated 02/22/24 @ 10:59 by Adelfo Vera PA-C) Hx of CABG January 2006 @ [facility] by Dr Nicholson H/O colonoscopy 05/24/12 - by Dr Mayank Lorenzana H/O lymph node biopsy 03/21/07 S/P tubal ligation 10/21/07 S/P thoracotomy 1974 H/O oral surgery S/P hysterectomy 09/25/11 S/P dilation and curettage S/P cholecystectomy 1989 Hx of cataract surgery Bilateral - 2002 S/P mastectomy 2006 - Rt partial History of breast biopsy 03/04/07 - Rt breast Family History Aunt Breast cancer Grandmother (Maternal) Colorectal cancer Mother Colorectal cancer Ovarian cancer Father Heart disease Stroke Allergies Other No family history of adverse response to anesthesia No family history of bleeding disorder Social History Smoking Status: Former smoker Tobacco Type: Cigarettes Age Quit Using Tobacco: 39; packs per day: 0.5; Second Hand Exposure: No; Do You Dip or Chew Tobacco: No; Hx Alcohol Use: Yes Alcohol type: wine Hx Substance Use: No Preferred Language: Japanese Communication Ability: Effective Visual Impairment: No Limitations Hearing Ability: Normal Policewoman Required: No Beliefs That Will Affect Care: None marital status: Current Living Situation: Spouse current occupational status: retired How many Children do You have: 3 Other Information That Helps Us Care for You: No Feels Safe at Home: Yes Safety Concerns: Feels Safe At This Time Childhood Exposure to Second-Hand Smoke: No Diet: regular caffeine: Yes during the past year weight has: remained stable Dental Care, Regularly: Yes Physical Activity Frequency: Does not Exercise Seatbelt Use: always Sunscreen Use: Yes Assistive Devices: Cane, Denture - Lower and Glasses Physical Exam Physical Exam: Physical Exam: General: In no acute distress, stated age, well-nourished, non-toxic appearing HEENT: Normocephalic, atraumatic, no scleral icterus, pupils around round, symmetrical, and reactive to light, slight left facial droop, moist mucus membranes, trachea midline, no thyromegaly Chest/Pulm: No respiratory distress, symmetrical chest expansion, clear breath sounds throughout Cardiac: RRR, 4/6 systolic murmur noted Abdomen: Negative for ascites and bruising, normoactive bowel sounds, soft, non-tender to palpation throughout Musculoskeletal: No acute trauma, LUE with new weakness compared to RUE, symmetrical strength in the LE's Extremities: Radial, dorsalis pedis, and posterior tibial pulses are intact and symmetrical, no edema noted in the LE's Skin: Warm, dry, no rashes , lesions, or scars noted Neuro: Alert and oriented to person, place, month, year, and president, patient is currently slurring her words but responds appropriately to questions, CN II-XII tested and intact other than left facial droop and slurred speech, no tremors noted Psych: No acute distress, calm and cooperative during the exam Results & Data Results & Data Vital Signs (Past 12 Hours) Vital Signs Temp Pulse Resp BP Pulse Ox O2 Del Method 03/09/24 10:44 68 21 03/09/24 10:44 130/68 03/09/24 10:44 130/68 03/09/24 10:18 63 20 03/09/24 10:15 130/67 03/09/24 10:00 115/68 03/09/24 10:00 115/68 03/09/24 09:48 64 18 95 03/09/24 09:45 128/69 03/09/24 09:45 128/69 03/09/24 09:36 65 20 95 03/09/24 09:30 131/73 03/09/24 09:30 131/73 03/09/24 09:30 131/73 03/09/24 09:27 63 22 03/09/24 09:21 60 19 96 03/09/24 09:20 63 03/09/24 09:19 36.7 C 60 18 131/80 94 Room Air 03/09/24 09:17 131/80 03/09/24 09:17 131/80 Laboratory Results Abnormal lab results 03/09/24 03/09/24 03/09/24 Range/Units 09:16 09:20 11:11 RDW Std Deviation 48.2 H (36.4-46.3) fL RDW Coeff of Shan 14.8 H (11.5-14.5) % [place] # (Auto) 1.02 H (0.11-0.59) K/uL Sodium 132 L (136-145) mmol/L BUN/Creatinine Ratio 22.5 H (10-20) Glucose 111 H (70-99(Fasting)) mg/dl POC Glucose 104 H (70-99) mg/dl Total Bilirubin 1.1 H (0.2-1.0) mg/dl Troponin I High Sens 240.1 H* 188.4 H* D (0-14) pg/ml Globulin 2.4 L (2.5-4.0) gm/dl Diagnostic Findings CT head/brain wo con CLINICAL HISTORY: neuro deficit, acute stroke suspected Technique: Contiguous axial CT images of the head were acquired from the base of the skull to the vertex without intravenous contrast administration. Images were viewed in brain, subdural and bone windows. Automated dose lowering techniques and/or adjustment according to patient size were utilized for this exam. Comparison: Comparison is made to CT head 02/22/2024 Findings: The ventricles, basal cisterns, and cerebral sulci are normal. There is no acute intracranial hemorrhage or evidence of acute territorial infarction. Neither mass effect, shift of the midline structures, nor abnormal extra-axial fluid collections are shown. Imaged portions of the paranasal sinuses and mastoid air cells are clear. The orbits appear normal. There are no acute fractures of the calvaria or scalp swelling. Impression: No acute intracranial hemorrhage, no evidence of acute territorial infarction or other acute intracranial disease process. ACT 112: Negative or not required by law. Electronically signed by: Joaquín Jean-Baptiste M.D. 03/09/2024 9:22 AM Dictated: 03/09/24920 Transcribed: 03/09/24920 ECG Additional Comments: Sinus rhythm with 1st degree A-V block Incomplete left bundle block Minimal voltage criteria for LVH, may be normal variant ( Alberto product ) Abnormal ECG When compared with ECG of 22-FEB-2024 10:08, No significant change was found Confirmed by Man Simpson ([id number]) on 03/09/2024 10:58:55 AM Code Status & VTE Plan Code Status DNR/DNI VTE Prophylaxis Plan VTE Prophylaxis will be ordered: Yes Supervising Physician Co-Signing Physician Notes Patient was seen and examined, agree with above assessment and plan Patient presents with recurrent TIA symptoms, was recently admitted to have similar symptoms approximately 3 weeks ago, discharged on Plavix, presents today with left facial droop, left arm weakness, her symptoms better MRI/MRA of the brain no acute findings Will monitor on telemetry, aspirin Plavix, statins, stop Entresto, avoid hypotension Neurochecks PT evaluation Swallow evaluation Vitals are stable Head: Normocephalic and atraumatic. Eyes: EOMI, PERRL Mouth/Throat: Mucous membranes moist. Neck: Trachea midline. Neck supple. Cardiovascular: RRR, No murmurs, rubs or gallops. Intact distal pulses. Pulmonary/Chest: No respiratory distress. Breath sounds clear and equal bilaterally. No wheezes or rales. Abdominal: Abdomen soft, no tenderness, rebound or guarding. Musculoskeletal: No edema, tenderness or deformity noted. Skin: Warm and dry. No rash, erythema, pallor or cyanosis Psychiatric: Appropriate mood and affect for situation. Neurological: Alert and keenly responsive. Left lower facial droop. , Her speech is back to baseline, patient has equal strength in upper and lower extremity PG Care Time/CCT Total # of Minutes Spent Total Time Spent with Patient: Total time spent is greater than 50% in coordination of care (as documented) at patient's floor/unit and/or counseling patient: Coding [place] [address] INT INP/OBS CARE 3/75MIN Patient Type Established Medical Decision Making High Complexity Diagnoses Stroke-like symptoms R29.90 Elevated troponin R79.89 CAD (coronary artery disease) I25.10 (HFpEF) heart failure with preserved ejection fraction I50.30 HTN (hypertension) I10
[2024-03-09] MEDS ORDERED: PHARMACIST DISCHARGE MED REC CONSULT PRN (12:32)
--- NOTE | 2024-03-09 12:45 | Magnetic Resonance Report ---
MR ANGIOGRAM OF THE NECK WITHOUT IV CONTRAST CLINICAL HISTORY: Left facial droop. Slurred speech. COMPARISON STUDY: No priors. TECHNIQUE: Axial 2-D an 3-D [id number] MR angiography of the neck is performed. 3-D reformats are created and assessed. IV contrast was not administered for this examination. All measurements were c alculated based on NASCET criteria. The examination is compromised by motion artifact. FINDINGS: Visualized portions of the thoracic aorta are normal in caliber. The aortic arch demonstrat es standard 3-vessel anatomy. The subclavian arteries are widely patent bilaterally. The right common carotid artery appears patent, as do the right internal and external carotid arteries. The left comm on carotid artery appears patent, as do the left internal and external carotid arteries. The vertebra l arteries appear patent. The left vertebral artery is dominant. The visualized intracranial vessels at the skull base appear patent. IMPRESSION: Unremarkable unenhanced MR angiogram of the neck. Note that the examination is degraded b y motion artifact. ACT 112: Negative or not required by law. Electronically signed by: Rafael Ocampo M.D. 03/09/2024 12:44 PM
[2024-03-09] MEDS ORDERED: ACETAMINOPHEN 1,000 MG/100 ML VIAL IV PRN (12:52)
[2024-03-09] MEDS: LACTATED RINGER'S 1,000 ML IV SCH (13:08)
[2024-03-09] MEDS: ASPIRIN 300 MG SUPP PR ONE (13:37)
--- NOTE | 2024-03-09 14:14 | XRay Report ---
XR chest 1V portable CLINICAL HISTORY: Chest tightness. COMPARISON STUDY: Chest CT September 20, 2015. Chest radiograph February 22, 2024. FINDINGS: There are median sternotomy wires. Cardiomegaly is unchanged. Mediastinal contours are stab le. There is no pneumothorax or pleural effusion. There is mild interstitial thickening. There may be minimal right perihilar opacities. IMPRESSION: 1. Cardiomegaly. Interstitial thickening suggestive of mild pulmonary edema. 2. Possible mild right perihilar opacities. ACT 112: Negative or not required by law. Electronically signed by: Nick Ayers M.D. 03/09/2024 2:13 PM
[2024-03-10] MEDS: LORazepam 0.5 MG TAB PO STA (00:26)
[2024-03-10 06:10] LABS: Basophils # (auto) 0.02 K/uL (0.00-0.20); Basophils % (auto) 0.3 %; Eosinophils # (auto) 0.16 K/uL (0.00-0.50); Eosinophils % (auto) 2.2 %; Hematocrit (blood only) 32.7 % (37.0-47.0); Hemoglobin 10.8 g/dl (12.0-16.0); Immature Granulocytes # (auto) 0.03 K/uL (0.01-0.20); Immature Granulocytes % (auto) 0.4 %; Lymphocytes # (auto) 1.68 K/uL (1.20-3.40); Lymphocytes % (auto) 23.2 %; Mean Corpuscular Hemoglobin 29.1 pg (25.0-34.0); Mean Corpuscular Volume 88.1 fL (80.0-100.0); Mean Platelet Volume 11.1 fL (9.4-12.4); Monocytes % (auto) 12.4 %; Neutrophils # (auto) 4.46 K/uL (1.40-6.50); Neutrophils % (auto) 61.5 %; Platelet Count 162 K/uL (130-400); RDW Coefficient of Variation 14.8 % (11.5-14.5); RDW Standard Deviation 47.7 fL (36.4-46.3); Red Blood Count 3.71 M/uL (4.20-5.40); White Blood Count 7.25 K/ul (4.8-10.8)
[2024-03-10 06:27] LABS: INR 1.2 (0.9-1.1); Prothrombin Time 12.5 Seconds (9.0-12.0)
[2024-03-10 06:36] LABS: Albumin Globulin Ratio 1.6 (0.9-2); Albumin Level 3.3 gm/dl (3.4-5.0); BUN Creatinine Ratio 22.1 (10-20); Calcium 8.8 mg/dl (8.6-10.3); Chol HDL Ratio 1.9 (0-5); Creatinine Clr Calc Pharmacy 40.7 ml/min; Est GFR (African American) 79.3 ml/min; Est GFR (Non-African American) 68.5 ml/min; Globulin 2.1 gm/dl (2.5-4.0); Magnesium 1.9 mg/dl (1.7-2.4); Potassium 4.1 mmol/L (3.5-5.1); Total Protein 5.4 gm/dl (6.0-8.3)
[2024-03-10 06:49] LABS: Troponin I High Sensitivity 100.2 pg/ml (0-14)
[2024-03-10 07:09] LABS: Estimated Average Glucose 128 mg/dl; Hemoglobin A1C 6.1 % (4.5-5.6)
--- NOTE | 2024-03-10 08:24 | Neurology Consultation ---
Date of Consultation March 10, 2024 Assessment & Plan (1) TIA (transient ischemic attack): History of Present Illness Attending Physician: Clemente Bunn MD History of Present Illness S: pt this morning feeling well. no further speech issues. no left arm weakness. pt eating breakfast, able to swallow soft diet. did have hypotension this morning, 96/55. perhaps related to nitro dose. pt does also have bradycardia at times. MRA and MRI brain negative. 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 On arrival to the ED vitals were noted to be stable. Labs were significant for a sodium of 132, glucose of 104,. CT of the head and brain without contrast was read as negative for acute findings. The patient was evaluated by on-call [place] telestroke provider who recommended obtaining MRI of the brain and MRA of the head and neck which were In process at the time of the admission. Patient was sitting in bed in no acute distress at the time of the exam. She is still experiencing significant slurred speech. She states that after her last discharge on 02/23/2024 her symptoms had resolved. She had been in her normal state of health when going to bed last night around 11 PM. She woke up this morning around 6:30 AM to take her levothyroxine and noticed that she was again drooling out of the left side of her mouth. The patient is left-handed and went to grab her levothyroxine pill bottle and noticed that she was unable to successfully grab it. When she went to take a sip of water she had increased difficulty swallowing and much of the water fell out of her mouth. She denies aspirating during this event. She states that the left upper extremity weakness is new compared to last admission and her slurred speech is more severe than last time as well. She confirms she has been taking Plavix as prescribed since last admission with no missed doses. Since arrival to the ED she feels as though her left facial droop has improved but still feels as though her left upper extremity is weaker than baseline and still has her noticeable slurred speech. When asked about any other symptoms including chest discomfort recently, she states that approximately 2 days ago she had an episode of chest tightness while laying down. She states that she took a total of 3 nitroglycerin tabs and her symptoms eventually improved. She denies recurrence of this chest tightness since and denies decreased exercise tolerance, new dyspnea on exertion, shortness of breath, or other chest pain. Prior to arrival to the ED today she actually walked outside to take the garbage out and felt fine. She again confirms that she is a DNR/DNI and her son is her POA. During her last admission from 02/22/2024 to 02/23/2024 the patient underwent extensive neurologic imaging including CT of the head and brain without contrast, bilateral carotid Dopplers, MRI of the brain with without contrast, and MRA of the head. All were read as negative for acute findings. Prior to discharge the patient's aspirin was held and she was started on Plavix. Allergies Allergy/AdvReac Type Severity Reaction Status Date / Time Cipro Allergy Severe hives Verified 01/03/15 09:10 ciprofloxacin Allergy Severe hives Verified 03/09/24 13:22 dobutamine Allergy Severe Hives Verified 03/09/24 13:22 Iodinated Contrast Media Allergy Severe Tongue Verified 03/09/24 13:22 thickening, difficulty swallowing Sulfa (Sulfonamide Allergy Severe UNKNOWN Verified 03/09/24 13:22 Antibiotics) erythromycin base Allergy Intermediate rash Verified 03/09/24 13:22 adhesive Allergy Unknown RED SKIN Verified 03/09/24 13:22 Penicillins Allergy Unknown UNKNOWN Verified 03/09/24 13:22 Quinolones Allergy Unknown UNKNOWN Verified 03/09/24 13:22 Home Medications Medication Instructions Recorded Confirmed Type calcium carbonate 600 mg-vitamin 1 cap PO QDL 11/19/19 03/09/24 History D3 5 mcg (200 unit) capsule (Calcium 600 + D(3)) cholecalciferol (vitamin D3) 50 2,000 units PO QDL 11/19/19 03/09/24 History mcg (2,000 unit) tablet multivitamin (Daily Multi-Vitamin 1 tab PO QDL 11/19/19 03/09/24 History tablet) coenzyme Q10 400 mg capsule 100 mg PO QPM 05/27/21 03/09/24 History atorvastatin 40 mg tablet 40 mg PO QPM #90 tabs 08/09/23 03/09/24 Rx nitroglycerin 0.4 mg sublingual 0.4 mg sublingual Q5M PRN chest 11/22/23 03/09/24 Rx tablet pain #25 tabs potassium chloride 20 mEq 20 meq PO DAILY 30 days #30 tabs 01/28/24 03/09/24 Rx tablet,extended release(part/cryst) sacubitril 24 mg-valsartan 26 mg 1 tab PO BID #60 tabs 01/31/24 03/09/24 Rx tablet (Entresto) Lactobacillus acidophilus 1 1,000 mmu cells PO QAM ##0 02/22/24 03/09/24 History billion cell capsule cartilage 40 mg-collagen II 10 1 tab PO QDL 02/22/24 03/09/24 History mg-boron 5 mg-hyaluronate 3.3 mg tablet ([employer]) clobetasol 0.05 % topical ointment 1 applic topical 2XWK PRN flare 02/22/24 History diphenhydramine HCl 25 mg tablet 25 mg PO DAILY PRN allergies 02/22/24 03/09/24 History (Benadryl Allergy) furosemide 20 mg tablet (Lasix) 20 mg PO DAILY 02/22/24 03/09/24 History gabapentin 100 mg capsule 100 mg PO TID 02/22/24 03/09/24 History triamcinolone acetonide 0.5 % 1 applic topical BID PRN flare ups 02/22/24 03/09/24 History topical cream clopidogrel 75 mg tablet 75 mg PO QAM #30 tabs 02/23/24 03/09/24 Rx alendronate 70 mg tablet (Fosamax) 0 mg PO WK 03/09/24 03/09/24 History levothyroxine 50 mcg tablet 50 mcg PO DAILYBB 03/09/24 03/09/24 History lorazepam 0.5 mg tablet 1 mg PO HS 03/09/24 03/09/24 History metoprolol succinate 100 mg 100 mg PO QAM 03/09/24 03/09/24 History tablet,extended release 24 hr Patient History Medical History (Updated 03/10/24 @ 08:24 by Cheng Pereyra MD) Slurred speech Stroke-like symptoms (HFpEF) heart failure with preserved ejection fraction CAD (coronary artery disease) HTN (hypertension) Hyperlipemia Acute hypoxic respiratory failure Chest pain Postural lightheadedness Anxiety Osteoporosis with fracture History of breast cancer Tricuspid regurgitation per [employer] record Hx of sarcoidosis Hx of osteopenia Hx of fracture of rib Surgical History (Updated 02/22/24 @ 10:59 by Adelfo Vera PA-C) Hx of CABG January 2006 @ [facility] [address] Dr Nicholson H/O colonoscopy 05/24/12 - by Dr Mayank Lorenzana H/O lymph node biopsy 03/21/07 S/P tubal ligation 10/21/07 S/P thoracotomy 1974 H/O oral surgery S/P hysterectomy 09/25/11 S/P dilation and curettage S/P cholecystectomy 1989 Hx of cataract surgery Bilateral - 2002 S/P mastectomy 2006 - Rt partial History of breast biopsy 03/04/07 - Rt breast Family History Aunt Breast cancer Grandmother (Maternal) Colorectal cancer Mother Colorectal cancer Ovarian cancer Father Heart disease Stroke Allergies Other No family history of adverse response to anesthesia No family history of bleeding disorder Social History Smoking Status: Former smoker Tobacco Type: Cigarettes Age Quit Using Tobacco: 39; packs per day: 0.5; Second Hand Exposure: No; Do You Dip or Chew Tobacco: No; Hx Alcohol Use: Yes Alcohol type: wine Hx Substance Use: No Preferred Language: [place] Island[place] Communication Ability: Effective Visual Impairment: No Limitations Hearing Ability: Normal Site Monitor Required: No Beliefs That Will Affect Care: None marital status: Current Living Situation: Spouse current occupational status: retired How many Children do You have: 3 Other Information That Helps Us Care for You: No Feels Safe at Home: Yes Safety Concerns: Feels Safe At This Time Childhood Exposure to Second-Hand Smoke: No Diet: regular caffeine: Yes during the past year weight has: remained stable Dental Care, Regularly: Yes Physical Activity Frequency: Does not Exercise Seatbelt Use: always Sunscreen Use: Yes Assistive Devices: Cane, Denture - Lower and Glasses Review of Systems Review of Systems: All systems reviewed & are unremarkable except as noted in Subjective Constitutional: as per Subjective / HPI Eyes: as per Subjective / HPI Ear, Nose, Mouth, Throat: as per Subjective / HPI Respiratory: as per Subjective / HPI Cardiovascular: as per Subjective / HPI Gastrointestinal: as per Subjective / HPI Musculoskeletal: as per Subjective / HPI Integumentary: as per Subjective / HPI Neurologic: as per Subjective / HPI Psychiatric: as per Subjective / HPI Endocrine: as per Subjective / HPI Hematologic / Lymphatic: as per Subjective / HPI Allergy / Immunological: as per Subjective / HPI Exam (Neuro) Physical Exam: HEENT: normocephalic Neuro: Mental: AOx4, fluent speech, normal comprehension, no apraxia, no L/R confusion, no neglect CN: PERRL, Full EOM, symmetric face, midline T/U/P, 5/5 SCM/traps. Motor: No abnormal movements, normal tone and bulk, 5/5 t/o bilaterally Sens: intact to touch b/l grossly Coord: intact FNT b/l DTR: 2+ sym b/l Impression: 88 yo female with transient left arm and face weakness with speech change now resolved. negative mri/MRA head/neck. pt with similar event 2 weeks ago. again negative work up at that time. pt does have episodic hypotension and bradycardia. Pt likely having hypoperfusion syndrome at times and causing TIA like symptoms. Recommendations: 1. continue plavix as now. since she had stroke work up recently, no further work up needed at this point. do avoid hypotension and consider discussing with cardiology about modification of cardiac meds to avoid hypotension and bradycardia. 2. Avoid hypotension. Do not stop beta-b locker if on it. 6. Long-term SBP goal less than 130. Avoid hypovolemia and hypotension. 8. DVT prevention therapy. 9. Avoid hypoglycemia, serum glucose goa l during hospitalization: 140-180. 10. Long-term HgA1c goal less than 7. 11. Start statin if not on it and no abs olute contraindication, long-term LDL goal less than 70. 12. Head of bed up 30 degrees if possibl e. 14. Telemetry monitoring. Consider snf cardiac monitoring, i.e. MCOT (mobile cardiac outpatient telemetry) or ICM (insertable awake overnight monitor, e.g. LINQ), if never had intermediate designer cardiac monitoring done previously. And if found to have atrial flutter or fibrillation, should consider anticoagulation therapy if no contraindication. 15. aspiration precaution. 16.speech path evaluation. pt clinically doing well and now asymptomatic. please call again if new question. Chart reviewed I have spent more than 50% educating patient about potential diagnosis and neurological evaluation and coordinating care with patient's treatment team. Total time spent (including chart review and coordination of care): 60 min (this includes chart review). Results & Data Vital Signs (Past 12 Hours) Vital Signs Temp Pulse Pulse Resp BP Pulse Ox O2 Del Method 03/10/24 07:13 37.0 C 64 18 96/55 L 92 Room Air 03/10/24 03:15 36.8 C 63 18 109/68 94 Room Air 03/09/24 22:20 36.5 C 60 18 108/61 96 Room Air 03/09/24 22:00 55 L 03/09/24 21:41 147 H PG Care Time/CCT Total # of Minutes Spent Total Time Spent with Patient: Total time spent is greater than 50% in coordination of care (as documented) at patient's floor/unit and/or counseling patient: Coding Level of Care Code 56466 IN/OBS CONSULT LVL 4,60M Diagnoses TIA (transient ischemic attack) G45.9
--- NOTE | 2024-03-10 09:49 | Discharge Summary ---
Date of Service March 10, 2024 Admission HPI Per Admitting Provider Angy is an 88-year-old female with a past medical history significant for recent hospitalization to [facility] from 02/22/2024 to 02/23/2024 for TIA, HFpEF, CAD, CABG, hypertension, breast cancer, and h yperlipidemia who presented to the [facility] ED via EMS on 03/09/2024 as a stroke alert due to waking this morning with recurrent left-sided facial droop, slurred speech, and inability to waste picker her pills with her left hand; which were symptoms very similar to her last presentation. On arrival to the ED vitals were noted to be stable. Labs were significant for a sodium of 132, glucose of 104,. CT of the head and brain without contrast was read as negative for acute findings. The patient was evaluated by on-call [place] telestroke provider who recommended obtaining MRI of the brain and MRA of the head and neck which were In process at the time of the admission. Patient was sitting in bed in no acute distress at the time of the exam. She is still experiencing significant slurred speech. She states that after her last discharge on 02/23/2024 her symptoms had resolved. She had been in her normal state of health when going to bed last night around 11 PM. She woke up this morning around 6:30 AM to take her levothyroxine and noticed that she was again drooling out of the left side of her mouth. The patient is left-handed and went to grab her levothyroxine pill bottle and noticed that she was unable to successfully grab it. When she went to take a sip of water she had increased difficulty swallowing and much of the water fell out of her mouth. She denies a spirating during this event. She states that the left upper extremity weakness is new compared to last admission and her slurred speech is more severe than last time as well. She confirms she has been taking Plavix as prescribed since last admission with no missed doses. Since arrival to the ED she feels as though her left facial droop has improved but still feels as though her left upper extremity is weaker than baseline and still has her noticeable slurred speech. When asked about any other symptoms including chest discomfort recently, she states that approximately 2 days ago she had an episode of chest tightness while laying down. She states that she took a total of 3 nitroglycerin tabs and her symptoms eventually improved. She denies recurrence of this chest tightness since and denies decreased exercise tolerance, new dyspnea on exertion, shortness of breath, or other chest pain. Prior to arrival to the ED today she actually walked outside to take the garbage out and felt fi ne. She again confirms that she is a DNR/DNI and her son is her POA. During her last admission from 02/22/2024 to 02/23/2024 the patient underwent extensive neurologic imaging including CT of the head and brain without contrast, bilateral carotid Dopplers, MRI of the brain with without contrast, and MRA of the head. All were read as negative for acute findings. Prior to discharge the patient's aspirin was held and she was started on Plavix. Please refer to Dr. Ashby's attestation for any changes to the treatment plan. Admission Exam Per Admitting Provider General: In no acute distress, stated age, well-nourished, non-toxic appearing HEENT: Normocephalic, atraumatic, no scleral icterus, pupils around round, symmetrical, and reactive to light, slight left facial droop, moist mucus membranes, trachea midline, no thyromegaly Chest/Pulm: No respiratory distress, symmetrical chest expansion, clear breath sounds throughout Cardiac: RRR, 4/6 systolic murmur noted Abdomen: Negative for ascites and bruising, normoactive bowel sounds, soft, non- tender to palpation throughout Musculoskeletal: No acute trauma, LUE with new weakness compared to RUE, symmetrical strength in the [facility]'s Extremities: Radial, dorsalis pedis, and posterior tibial pulses are intact and symmetrical, no edema noted in the LE's Skin: Warm, dry, no rashes , lesions, or scars noted Neuro: Alert and oriented to person, place, month, year, and president, patient is currently slurring her words but responds appropriately to questions, CN II- XII tested and intact other than left facial droop and slurred speech, no tremors noted Psych: No acute distress, calm and cooperative during the exam Principal Diagnosis TIA Discharge Exam General: AAOx3, afebrile, calm, conversive, NAD Pulmonary: CTA b/l, breathing at room air, normal respiratory effort, no respiratory distress Heart: RRR, systolic murmur on left sternal border Abdomen: Soft/nontender/nondistended. Extremities: no swelling or calf tenderness in b/l LE Neuro: symmetric supervisor grips strength in bilateral hands, no UE or LE weakness, no faci al droop noted, no dysarthria, TRUDY, EOM intact Discharge Data Allergies Allergy/AdvReac Type Severity Reaction Status Date / Time Cipro Allergy Severe hives Verified 01/03/15 09:10 ciprofloxacin Allergy Severe hives Verified 03/09/24 13:22 dobutamine Allergy Severe Hives Verified 03/09/24 13:22 Iodinated Contrast Media Allergy Severe Tongue Verified 03/09/24 13:22 thickening, difficulty swallowing Sulfa (Sulfonamide Allergy Severe UNKNOWN Verified 03/09/24 13:22 Antibiotics) erythromycin base Allergy Intermediate rash Verified 03/09/24 13:22 adhesive Allergy Unknown RED SKIN Verified 03/09/24 13:22 Penicillins Allergy Unknown UNKNOWN Verified 03/09/24 13:22 Quinolones Allergy Unknown UNKNOWN Verified 03/09/24 13:22 Consultations 03/09/24 12:23 ED Decision to Admit Stat 03/09/24 12:58 Consult Neurology Routine Ordered Studies 03/09/24 09:07 CT head/brain wo con Stat 03/09/24 09:41 MRI Brain [MR brain wo con] Stat 03/09/24 09:43 MRI Angio Brain [MR angio head wo con] Stat MRI Angio Neck [MR angio neck wo con] Stat Hospital Course (1) TIA (transient ischemic attack): (2) Heart murmur: (3) (HFpEF) heart failure with preserved ejection fraction: (4) CAD (coronary artery disease): Plan Patient is an 88 y/o F with PMHx of recent admission from 02/22/24-02/23/24 due to TIA, HFpEF, CAD, CABG (2005), HTN, and HTN who was admitted due to stroke-like symptoms likely related to new TIA. CVA VS. TIA - Patient with left facial droop, left hand weakness, and dysarthria, which were similar but more marked symptoms compared to prior TIA - Head CT w/o contrast, head MRI and MRA, and neck MRA all negative - TTE from 02/23/24 with severely dilated RA and increased RV pressure of 40-50 mmHg, with normal LV function and LVEF of 60-65, mild aortic and mitral regurgitation, and mild-mod tricuspid regurgitation - Lipid profile with total cholesterol of 82, LDL of 25, and HDL of 44 - Patient with symptom resolution at the time of evaluation the day after admission - Speech therapy evaluated and rec minced and moist foods - PT eval and patient okay to return home - Neurology consulted: Continue Plavix Avoid hypotension -- adjust BP meds as necessary (see below) Statin therapy; will discharge with Atorvastatin 10 mg due to LDL < 30 DVT prevention therapy Goal: SBP < 130 mmHg, BSG 110-140 and Hgb A1c < 7, and LDL < 70 - Consider patient stable for discharge today with close outpatient f/u with PCP and surgical consultant (as below) HFpEF HTN CAD - Patient with chronic use of metoprolol and entresto - has been hypotensive and intermittently bradycardic since admission - Will decrease metoprolol dose to 25 mg and hold entresto until f/u evaluation by cardiology, which patient states is scheduled for 03/14/24 - Continue Atorvastatin at decreased dose of 10 mg due to low LDL (25) - Would advise outpatient cardiac monitoring to r/o arrhythmia given recurrence of TIA, and addition of anticoagulation if appropriate and no contraindications Due to resolution of symptoms and patient stability, will discharge patient today with the above mentioned medication changes. Total Time Total Time Spent Total Time Spent (In Minutes): As per attending attestation. 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 As these symptoms were concerning for stroke, we spoke with our neurologists and ordered a series of tests/images to evaluate this further. Ultimately, the head CT, head MRI, and head and Neck MRI to see blood flow through arteries, all of which were normal. We spoke with our Neurologists who stated that you likely had another transient ischemic attack, similar to what you had experienced in your recent admission earlier this month. As your symptoms have resolved by today, we will be discharging you with the medication changes listed below. A discharge summary will be sent to your primary care physician to ensure continuity of care. Please bring this discharge summary with you to your next office appointment so that your provider can review it at that time. Follow-up appointments: Make a follow-up appointment with your PCP within the next week. It is very important that you follow up with them shortly after discharge from the hospital. Keep all your follow-up appointments as already scheduled. If you cannot make an appointment, notify your provider. Medications: Your medication list has been reviewed and reconciled upon discharge to ensure accuracy and continuity of care. An updated list of all your medications is included with your hospital discharge paperwork. Please review this list closely, and make note of any changes. Please continue to take Plavix 75 mg daily as you were before your admission. We changed your Atorvastatin from 40mg to 10 mg daily. Please take Atorvasta tin 10 mg daily. A script for this has been sent to your pharmacy. Due to your low blood pressures and slower heart rate, we changed your Metoprolol succinate from 100mg to 25 mg daily. Please take Metoprolol 25 mg daily starting tomorrow. A script for this has been sent to your pharmacy. Please make sure to discuss these changes with your surgical consultant in your next appointment. Due to your low blood pressures, we stopped your Entresto. Please make sure to discuss these changes with your surgical consultant in your next appointment. If you have any issues filling these prescriptions, please call [phone] and ask to leave a message for Dr. Jonas. Take your medications as instructed; do not skip a dose of your medicines. Make sure all of your doctors know every medicine you are taking (including dpeo-dzo-btijbid medicines, vitamins, and supplements). Call your primary care provider before taking any new medicines (including over- the-counter medicines, vitamins, and supplements), because some of these may interact with your current medications, or may make your symptoms worse. Tell your primary care provider if you cannot afford your medications. CONTACT YOUR PRIMARY CARE PROVIDER if you experience any of the following: Worsening of symptoms Fever, chills, or fatigue Difficulty following your treatment plan, or difficulty taking medications CALL 911 OR GO TO THE EMERGENCY DEPARTMENT if you experience any of the following: Sudden, severe abdominal pain or nausea/vomiting Severe chest pain, or chest pain that radiates (moves) to your jaw or arm Sudden, severe shortness of breath or difficulty breathing Thank you for allowing us to participate in your care. Pending Studies at Discharge: No Stand-Alone Forms: [facility], Smoking Cessation, Medications to Prevent Stroke Medications and DC Order Prescriptions: New metoprolol succinate 25 mg tablet extended release 24 hr 25 mg PO DAILY Qty: 30 0RF atorvastatin 10 mg tablet 10 mg PO DAILY Qty: 20 0RF Continued Calcium 600 + D(3) 600 mg calcium- 200 unit capsule 1 cap PO QDL Rx Instructions: Take 1 tablet by mouth daily. multivitamin [Daily Multi-Vitamin] Tablet 1 tab PO QDL Rx Instructions: Take 1 tablet by mouth daily. cholecalciferol (vitamin D3) 50 mcg (2,000 unit) tablet 2,000 units PO QDL Rx Instructions: Take 1 capsule by mouth daily. nitroglycerin 0.4 mg tablet, sublingual 0.4 mg SL Q5M PRN (Reason: chest pain) Qty: 25 1RF potassium chloride 20 mEq tablet,ER particles/crystals 20 meq PO DAILY 30 Days Qty: 30 11RF coenzyme Q10 400 mg capsule 100 mg PO QPM Rx Instructions: Take 1 capsule daily with a meal. alendronate [Fosamax] 70 mg tablet 0 mg PO WK Rx Instructions: As of 03/09/24 - pt hasn't started yet. Original Directions: 70mg by mouth once weekly lorazepam 0.5 mg tablet 1 mg PO HS Rx Instructions: 2 tabs at bedtime levothyroxine 50 mcg tablet 50 mcg PO DAILYBB Thundersoft 40-10-5-3.3 mg Tablet 1 tab PO QDL Lactobacillus acidophilus 1 billion cell Capsule 1,000 mmu cells PO QAM Qty: 0 triamcinolone acetonide 0.5 % cream 1 applic topical BID PRN (Reason: flare ups) furosemide [Lasix] 20 mg tablet 20 mg PO DAILY Rx Instructions: Can increase to 40 mg daily PRN if gain 2lbs + gabapentin 100 mg capsule 100 mg PO TID clobetasol 0.05 % ointment 1 applic topical 2XWK PRN (Reason: flare) diphenhydramine HCl [Benadryl Allergy] 25 mg Tablet 25 mg PO DAILY PRN (Reason: allergies) clopidogrel 75 mg Tablet 75 mg PO QAM Qty: 30 0RF Discontinued atorvastatin 40 mg tablet 40 mg PO QPM Qty: 90 3RF Entresto 24-26 mg tablet 1 tab PO BID Qty: 60 2RF metoprolol succinate 100 mg tablet extended release 24 hr 100 mg PO QAM Discharge Orders: Discharge Order (Routine); Ordered 03/10/24 Ordered By: Raina Jonas Admission Data Admit Date/Time: 03/09/24 12:32 Attending Provider: Clemente Bunn Admit Provider: Merle Wright Primary Care Provider: Eric Jean Other Providers: Merle Wright; Cheng Pereyra Other Interventions: Discharge Summary Assessment (RN) Last Done: 03/10/24 13:53 Supervising Physician Co-Signing Physician Notes Attending attestation Pt seen and examined in concert with Dr. Jonas. In agreement with the documented findings as noted in the resident documentation with any exceptions or additions as noted here. Resolution in symptoms of weakness and tolerating ambulation and oral intake well. Does have concerns re: chronic drooling which is at baseline for her. On examination, S1/S2 nl RRR, 3/6 CHUCK. CTAB. Abd NT/ND BS+ve. CNII-XII grossly intact as tested. TIA vs. CVA - continue plavix. reduce metoprolol to 25mg BID. Discontinue Entresto at this time and revisit with cardiology based on response, BP and symptoms. Else as noted above. Total attending physician time spent with this patient's care on the day of discharge: 35 minutes. Resident Activity Tracking Resident Involvement: Resident Care Provided Care Provided: Adult Hospital Medicine
--- NOTE | 2024-03-10 10:50 | Pharmacy Report ---
- Date of Service March 10, 2024 - Pharmacy CVA/TIA Medication Review Medications to Prevent Stroke handout has been added to the patients discharge packet. Antiplatelet(s) * Discharge med list includes clopidogrel Cholesterol * Discharge med list notes a reduction of atorvastatin from 40 to [address] Jonas - high intensity statin deferred due to age >75 and LDL of 25. DVT Prophylaxis * Pharmacologic and mechanical DVT prophylaxis not ordered, but discharge summary entered already, prior to end of hospital day 2 Therapeutic Anticoagulation * No history of Afib/Aflutter noted Type 2 Diabetes * Patient's HbA1c is elevated, but is consistent with pre-diabetes, not T2DM
[2024-03-10] MEDS ORDERED: STROKE PATIENT DISCHARGE STA (12:41)
== END 2024-03-10 15:16 | disposition home or self-care (01) | DRG 69 ==
LOC: ED 09:04 → 2E 12:32 → SUATTDRO 12:32 → INTOOBSV 12:32 → 2E 14:50
DX: E78.5 Hyperlipidemia, unspecified; R01.1 Cardiac murmur, unspecified; I50.32 Chronic diastolic (congestive) heart failure; I25.10 Atherosclerotic heart disease of native coronary artery without angina pectoris; Z91.041 Radiographic dye allergy status; F41.9 Anxiety disorder, unspecified; R47.81 Slurred speech; Z88.0 Allergy status to penicillin; Z85.3 Personal history of malignant neoplasm of breast; Z79.82 Long term (current) use of aspirin; I11.0 Hypertensive heart disease with heart failure; Z95.1 Presence of aortocoronary bypass graft; R29.810 Facial weakness; Z87.891 Personal history of nicotine dependence; G45.9 Transient cerebral ischemic attack, unspecified; Z88.2 Allergy status to sulfonamides; Z66 Do not resuscitate; Z88.1 Allergy status to other antibiotic agents; I24.89 Other forms of acute ischemic heart disease; Z79.890 Hormone replacement therapy; Z79.899 Other long term (current) drug therapy; I25.2 Old myocardial infarction; Z90.11 Acquired absence of right breast and nipple

== ENCOUNTER 2024-03-13 06:29 | Observation (INO) ==
--- OUTSIDE RECORDS SUMMARY | 2024-03-13 06:32 | External Medical Summary | Continuity of Care Document ---
Author Name Unknown Organization [facility] [address] Address [address] [place], [place] [id number] Care Team Providers Care Manager Medical Name Role Phone Toi Duran Primary Care Physician [phone] [id number] Date(s): 03/09/24 - 03/09/[address] [place], [place] [id number] [place] Discharge Disposition: Home or Self Care Attending Physician: MD Caldwell Evan David Referring Physician: MD Barros Rachel Zorionna Allergies, Adverse Reactions, Alerts Substance Criticality Severity Reaction Reaction Severity Status DOBUTamine Confusion Tongue thick... Active sulfa drugs Active penicillins Active Medications Aleve Start: 09/12/15 11:23:00 AM EST, 220 mg =, PO, PRN Start Date: 09/12/15 Status: Ordered Aspir 81 Start: 09/12/15 11:21:00 AM EST, 81 mg =, PO, Daily Start Date: 09/12/15 Status: Ordered Benadryl Start: 09/12/15 11:22:00 AM EST, 25 mg =, PO, PRN Start Date: 09/12/15 Status: Ordered Imodium A-D Start: 09/12/15 11:24:00 AM EST, See Instructions, 2 mg po PRN Start Date: 09/12/15 Status: Ordered Lipitor Start: 09/12/15 11:20:00 AM EST, 40 mg =, PO, Daily Start Date: 09/12/15 Status: Ordered LORazepam Start: 09/12/15 11:20:00 AM EST, 0.5 mg =, PO, bid Start Date: 09/12/15 Status: Ordered losartan Start: 09/12/15 11:21:00 AM EST, 25 mg =, PO, Daily Start Date: 09/12/15 Status: Ordered Metamucil 3.4 g/5.2 g oral powder for reconstitution Start: 09/12/15 12:09:00 PM EST, 3.4 g =, PO, bid, Disp# 570 g, Refills: 1, other Start Date: 09/12/15 Status: Ordered multivitamin Start: 09/12/15 11:20:00 AM EST, 1 tab, PO, Daily Start Date: 09/12/15 Status: Ordered nitroglycerin Start: 09/12/15 11:22:00 AM EST, 0.4 mg =, SL, PRN Start Date: 09/12/15 Status: Ordered Prolia 60 mg/mL subcutaneous solution Start: 09/12/15 11:22:00 AM EST, 2 injections a year Start Date: 09/12/15 Status: Ordered Toprol-XL 100 mg oral tablet, extended release Start: 09/12/15 11:24:00 AM EST, 1 tab, PO, Daily Start Date: 09/12/15 Status: Ordered Vitamin D3 2000 intl units oral capsule Start: 09/12/15 11:23:00 AM EST, 1 cap, PO, Daily Start Date: 09/12/15 Status: Ordered Problem List Condition Confirmation Course Effective Dates Status Health St atus Informant Heart disease Confirmed Active HTN (hypertension) Confirmed Active Fecal incontinence Confirmed Active IBS (irritable bowel syndrome) Confirmed Active Pelvic relaxation Confirmed Active Weight disorder Confirmed Active Procedures Procedure Date Related Diagnosis Body Site Status Cholecystectomy Completed H/O: hysterectomy Complet ed Heart Bypass 1 Completed Social History Social History Type Response Smoking Status Never smoked cigaret bradley Sex Female Patient Care team information Care Team Related Persons Name: ASAEL GUSMAN Address: home [address] [place] [address] Name: UZMAOLGA Address: home [phone] [facility] [place], [place] [id number]
[2024-03-13] MEDS: dilTIAZem HCl 5 MG/ML 5 ML VIAL IV ONE (06:47)
[2024-03-13] MEDS: dilTIAZem HCl 5 MG/ML 5 ML VIAL IV STA (06:47)
[2024-03-13] MEDS: ASPIRIN CHEW 324 MG PO STA (06:50)
[2024-03-13 07:15] LABS: Basophils # (auto) 0.06 K/uL (0.00-0.20); Basophils % (auto) 0.6 %; Eosinophils # (auto) 0.14 K/uL (0.00-0.50); Eosinophils % (auto) 1.3 %; Hematocrit (blood only) 41.7 % (37.0-47.0); Hemoglobin 13.6 g/dl (12.0-16.0); Immature Granulocytes # (auto) 0.05 K/uL (0.01-0.20); Immature Granulocytes % (auto) 0.5 %; Lymphocytes # (auto) 2.39 K/uL (1.20-3.40); Lymphocytes % (auto) 22.8 %; Mean Corpuscular Hemoglobin 29.1 pg (25.0-34.0); Mean Corpuscular Hgb Conc 32.6 g/dL (32.0-36.0); Mean Corpuscular Volume 89.1 fL (80.0-100.0); Monocytes # (auto) 1.16 K/uL (0.11-0.59); Monocytes % (auto) 11.1 %; Neutrophils # (auto) 6.68 K/uL (1.40-6.50); Neutrophils % (auto) 63.7 %; Platelet Count 190 K/uL (130-400); RDW Coefficient of Variation 14.8 % (11.5-14.5); RDW Standard Deviation 48.8 fL (36.4-46.3); Red Blood Count 4.68 M/uL (4.20-5.40); White Blood Count 10.48 K/ul (4.8-10.8)
--- NOTE | 2024-03-13 07:19 | XRay Report ---
XR chest 1V portable HISTORY: Chest pain, nonspecific COMPARISON: Chest 03/09/2024. FINDINGS: No pneumothorax. No pleural effusions. The cardiac silhouette remains mildly enlarged. Ther e are poststernotomy changes. No acute fractures. The left lung is clear. Small patchy right perihila r and right basilar densities again noted. Suspect mild emphysema. IMPRESSION: 1. No significant change in the patchy right perihilar and right basilar densities which could repres ent a low-grade pneumonia. 2. Stable cardiomegaly. No evidence for pulmonary edema. ACT 112: Negative or not required by law. Electronically signed by: Lawrence Lee M.D. 03/13/2024 7:18 AM
[2024-03-13 07:22] LABS: INR 1.1 (0.9-1.1); Partial Thromboplastin Time 27 Seconds (21-31); Prothrombin Time 11.6 Seconds (9.0-12.0)
[2024-03-13 07:58] LABS: Calcium 9.9 mg/dl (8.6-10.3)
[2024-03-13 08:04] LABS: BUN Creatinine Ratio 18.3 (10-20); Creatinine Clr Calc Pharmacy 38.3 ml/min; Est GFR (African American) 73.5 ml/min; Est GFR (Non-African American) 63.4 ml/min
--- NOTE | 2024-03-13 08:12 | Emergency Department Note ---
History of Present Illness General Chief Complaint: Arrhythmia/Palpitations Stated Complaint: AFIB Time Seen by Provider: 03/13/24 06:37 History of Present Illness Provider Complaint: + rapid heart beat, + "heart racing" and + palpitations Time: 01:30 Duration: + Constant Severity: moderate Current Pain Intensity: 5 Arrhythmia history: + atrial fibrillation Associated symptoms: + chest pain and + shortness of breath; no near-syncope, no vomiting or no cough Home Medications Medication Instructions Recorded Confirmed Type calcium carbonate 600 mg-vitamin 1 cap PO QDL 11/19/19 03/13/24 History D3 5 mcg (200 unit) capsule (Calcium 600 + D(3)) cholecalciferol (vitamin D3) 50 2,000 units PO QDL 11/19/19 03/13/24 History mcg (2,000 unit) tablet multivitamin (Daily Multi-Vitamin 1 tab PO QDL 11/19/19 03/13/24 History tablet) coenzyme Q10 400 mg capsule 100 mg PO QPM 05/27/21 03/13/24 History nitroglycerin 0.4 mg sublingual 0.4 mg sublingual Q5M PRN chest 11/22/23 03/13/24 Rx tablet pain #25 tabs potassium chloride 20 mEq 20 meq PO DAILY 30 days #30 tabs 01/28/24 03/13/24 Rx tablet,extended release(part/cryst) Lactobacillus acidophilus 1 1,000 mmu cells PO QAM ##0 02/22/24 03/13/24 History billion cell capsule cartilage 40 mg-collagen II 10 1 tab PO QDL 02/22/24 03/13/24 History mg-boron 5 mg-hyaluronate 3.3 mg tablet (Rormix) clobetasol 0.05 % topical ointment 1 applic topical 2XWK PRN flare 02/22/24 03/13/24 History diphenhydramine HCl 25 mg tablet 25 mg PO DAILY PRN allergies 02/22/24 03/13/24 History (Benadryl Allergy) furosemide 20 mg tablet (Lasix) 20 mg PO DAILY 02/22/24 03/13/24 History gabapentin 100 mg capsule 100 mg PO TID 02/22/24 03/13/24 History triamcinolone acetonide 0.5 % 1 applic topical BID PRN flare ups 02/22/24 03/13/24 History topical cream clopidogrel 75 mg tablet 75 mg PO QAM #30 tabs 02/23/24 03/13/24 Rx alendronate 70 mg tablet (Fosamax) 0 mg PO WK 03/09/24 03/13/24 History levothyroxine 50 mcg tablet 50 mcg PO DAILYBB 03/09/24 03/13/24 History lorazepam 0.5 mg tablet 1 mg PO HS 03/09/24 03/13/24 History atorvastatin 10 mg tablet 10 mg PO DAILY #20 tabs 03/10/24 03/13/24 Rx metoprolol succinate 25 mg 25 mg PO DAILY #30 tabs 03/10/24 03/13/24 Rx tablet,extended release 24 hr Allergies Allergy/AdvReac Type Severity Reaction Status Date / Time Cipro Allergy Severe hives Verified 01/03/15 09:10 ciprofloxacin Allergy Severe hives Verified 03/13/24 09:35 dobutamine Allergy Severe Hives Verified 03/13/24 09:35 Iodinated Contrast Media Allergy Severe Tongue Verified 03/13/24 09:35 thickening, difficulty swallowing Sulfa (Sulfonamide Allergy Severe UNKNOWN Verified 03/13/24 09:35 Antibiotics) erythromycin base Allergy Intermediate rash Verified 03/13/24 09:35 adhesive Allergy Unknown RED SKIN Verified 03/13/24 09:35 Penicillins Allergy Unknown UNKNOWN Verified 03/13/24 09:35 Quinolones Allergy Unknown UNKNOWN Verified 03/13/24 09:35 Past Med/Surg History Problem List Atrial fibrillation with RVR (Acute) Heart murmur TIA (transient ischemic attack) Elevated troponin Non-ST elevation SD (NSTEMI) (Acute) Stroke-like symptoms (Acute) Hyponatremia Pulmonary hypertension Bladder pain Tricuspid regurgitation Lumbar spinal stenosis Normal left ventricular systolic function and wall motion Sensorineural hearing loss (SNHL) of both ears Arthritis (Acute) Cataract (Acute) Detrusor instability (Acute) Urethral caruncle (Acute) Urge and stress incontinence (Acute) Vitamin D deficiency (Acute) Aortic regurgitation Mitral regurgitation Antiplatelet or antithrombotic long-term use Lichen planus (Chronic) Lichen sclerosus et atrophicus (Chronic) Medical History Slurred speech Stroke-like symptoms (HFpEF) heart failure with preserved ejection fraction CAD (coronary artery disease) HTN (hypertension) Hyperlipemia Acute hypoxic respiratory failure Chest pain Postural lightheadedness Anxiety Osteoporosis with fracture History of breast cancer Tricuspid regurgitation per [employer] record Hx of sarcoidosis Hx of osteopenia Hx of fracture of rib Surgical History Hx of CABG January 2006 @ [place] by Dr Nicholson H/O colonoscopy 05/24/12 - by Dr Mayank Lorenzana H/O lymph node biopsy 03/21/07 S/P tubal ligation 10/21/07 S/P thoracotomy 1974 H/O oral surgery S/P hysterectomy 09/25/11 S/P dilation and curettage S/P cholecystectomy 1989 Hx of cataract surgery Bilateral - 2002 S/P mastectomy 2006 - Rt partial History of breast biopsy 03/04/07 - Rt breast Family History Aunt Breast cancer Maternal Grandmother (Maternal) Colorectal cancer Mother Colorectal cancer Ovarian cancer Father Heart disease Stroke Allergies Other No family history of adverse response to anesthesia No family history of bleeding disorder Social History Smoking Status: Former smoker Tobacco Type: Cigarettes Age Quit Using Tobacco: 39; packs per day: 0.5; Second Hand Exposure: No; Do You Dip or Chew Tobacco: No; Hx Alcohol Use: Yes Alcohol type: wine Hx Substance Use: No Preferred Language: Citizen Of [place] Communication Ability: Effective Visual Impairment: No Limitations Hearing Ability: Normal Polisher Balance Screwhead Required: No Beliefs That Will Affect Care: None marital status: Current Living Situation: Spouse current occupational status: retired How many Children do You have: 3 Feels Safe at Home: Yes Childhood Exposure to Second-Hand Smoke: No Diet: regular caffeine: Yes during the past year weight has: remained stable Dental Care, Regularly: Yes Physical Activity Frequency: Does not Exercise Seatbelt Use: always Sunscreen Use: Yes Assistive Devices: Cane, Raised Toilet Seat and Walker Physical Exam 2 Vital Signs: Vital Signs - 24 hr 03/13/24 06:30 03/13/24 06:39 03/13/24 06:40 Temperature 36.8 C Temperature Source Temporal Artery Sc an Pulse Rate 138 H 125 H Pulse Rate [Right Finger] Pulse Rhythm Regular Pulse Rhythm [Righ t Finger] Pulse Strength Normal Pulse Strength [Ri ght Finger] Respiratory Rate 18 Respiratory Effort / Characteristics Non-Labored Sponta neous Respiratory Depth Normal Respiratory Patter n Regular Blood Pressure 113/69 Blood Pressure [Le ft Arm] Blood Pressure Kinsey n 83 Blood Pressure Kinsey n [Left Arm] Blood Pressure Pos ition Sitting Blood Pressure Pos ition [Left Arm] Pulse Oximetry 100 98 Oxygen Delivery Me thod Room Air Room Air Sepsis Recent Feve r Within 48 Hours No Sepsis New/Unexpla ined Change in Men omid Status N/A Sepsis Action Take n by Nursing No Action Required 03/13/24 07:57 Temperature 36.9 C Temperature Source Oral Pulse Rate Pulse Rate [Right Finger] 99 H Pulse Rhythm Pulse Rhythm [Righ t Finger] Regular Pulse Strength Pulse Strength [Ri ght Finger] Normal Respiratory Rate 20 Respiratory Effort / Characteristics Non-Labored Sponta neous Respiratory Depth Normal Respiratory Patter n Regular Blood Pressure Blood Pressure [Le ft Arm] 109/67 Blood Pressure Kinsey n Blood Pressure Kinsey n [Left Arm] 81 Blood Pressure Pos ition Blood Pressure Pos ition [Left Arm] Semi-fowlers Pulse Oximetry 98 Oxygen Delivery Me thod Room Air Sepsis Recent Feve r Within 48 Hours Sepsis New/Unexpla ined Change in Men omid Status Sepsis Action Take n by Nursing Physical Exam: Physical Exam GENERAL: oriented to person, place, and time. appears well-developed and well- nourished. HENT: Exam performed. - Head: Normocephalic and atraumatic. EYES: Conjunctivae and EOM are normal. Right eye exhibits no discharge. Left eye exhibits no discharge. No scleral icterus. NECK: Normal range of motion. Neck supple. No JVD present. CV: Tachycardic rate, irregular rhythm, normal heart sounds and intact distal pulses. There is no peripheral edema. Palpable radial pulses bue. PULM/CHEST: Effort normal and breath sounds normal. No respiratory distress. No stridor. no wheezes. no rales. ABD: The abdomen is soft. There is no tenderness. NEURO: Motor and sensation grossly intact. SKIN: Skin is warm and dry. He is not diaphoretic. PSYCH: normal mood and affect. Behavior is normal. Judgment and thought content normal. Course Course 0637: The patient was evaluated in room C9. A complete history and physical exam was performed Cardiac monitoring: An order was placed for continuous cardiac monitoring. The monitor shows a rate of 136-150 with atrial fibrilation rhythm interpreted by me Patient found to be in A-fib RVR. Cardizem bolus 10 mg ordered for the patient which patient's ventricular rate. Cardiac panel will be sent. 0700: Patient reports her symptoms of chest pain and palpitations have improved after receiving Cardizem bolus. 0830: Patient was becoming tachycardic with heart rates in the 120s again. Cardizem drip started. Labs are within normal limits with exception of high- sensitivity troponin of 29. Heparin bolus and drip started. Patient be admitted to the [facility] team. Administered Medications Atorvastatin Calcium (Atorvastatin 10 Mg Tab) 10 mg PO DAILY LIBIA Stop: 04/12/24 11:10 Last Admin: 03/13/24 12:23 Dose: 10 mg Documented By: VENITA Furosemide (Furosemide 20 Mg Tab) 20 mg PO DAILY LIBIA Stop: 04/12/24 11:10 Last Admin: 03/13/24 12:23 Dose: 20 mg Documented By: VENITA Diltiazem HCl 125 mg/ Dextrose 125 mls @ 5 mls/hr IV .Q24H LIBIA; Protocol Stop: 04/12/24 06:44 Last Admin: 03/13/24 08:16 Dose: 5 mg/hr, 5 mls/hr Documented By: ANTOINETTE Co-signed By: NOEL Heparin Sodium/Dextrose (Heparin Sodium/Dextrose) 25,000 units in 500 mls @ 12 mls/hr IV .Q24H LIBIA; Protocol Stop: 04/12/24 08:44 Last Admin: 03/13/24 10:26 Dose: 600 units/hr, 12 mls/hr Documented By: NOEL Co-signed By: ANTOINETTE Metoprolol Succinate (Metoprolol Succ 50mg Ext Rel Tab) 50 mg PO QAM LIBIA Stop: 04/12/24 11:10 Last Admin: 03/13/24 12:23 Dose: 50 mg Documented By: VENITA Potassium Chloride (Potassium Chloride Crtab 20 Meq Tabcr) 20 meq PO DAILY LIBIA Stop: 04/12/24 11:10 Last Admin: 03/13/24 12:23 Dose: 20 meq Documented By: VENITA Discontinued Medications Aspirin (Aspirin Chew 324 Mg) 324 mg PO NOW STA Stop: 03/13/24 06:39 Last Admin: 03/13/24 06:50 Dose: 324 mg Documented By: NATHAN Diltiazem HCl (Diltiazem Hcl 5 Mg/Ml 5 Ml Vial) Confirm Administered Dose 25 mg IV .STK-MED ONE Stop: 03/13/24 06:43 Last Admin: 03/13/24 06:47 Dose: Not Given Documented By: NATHAN Diltiazem HCl (Diltiazem Hcl 5 Mg/Ml 5 Ml Vial) 10 mg IV NOW STA Stop: 03/13/24 06:43 Last Admin: 03/13/24 06:47 Dose: 10 mg Documented By: NATHAN Co-signed By: QI Heparin Sodium (Porcine) (Heparin Sod (Porcine) 1000 Unit/Ml) 3,000 units IV NOW ONE Stop: 03/13/24 08:42 Last Admin: 03/13/24 10:26 Dose: 3,000 units Documented By: HS Co-signed By: ANTOINETTE Heparin Sodium/Dextrose (Heparin Iv Adult Wt-Based Low-Dose W/ Initial Bolus Protocol) 1 each IV NOW STA; Protocol Stop: 03/13/24 08:27 Last Admin: 03/13/24 11:31 Dose: Not Given Documented By: PK Miscellaneous (Stat Iv Infusion Titration Per Protocol) 1 each N/A NOW STA Stop: 03/13/24 06:45 Last Admin: 03/13/24 11:31 Dose: Not Given Documented By: PK Medical Decision Making Laboratory Data Attestation: I reviewed the patient's lab results. 03/13/24 06:40 03/13/24 06:40 Lab Results 03/13/24 03/13/24 Range/Units 06:40 08:35 WBC 10.48 (4.8-10.8) K/ul RBC 4.68 (4.20-5.40) M/uL Hgb 13.6 (12.0-16.0) g/dl Hct 41.7 (37.0-47.0) % MCV 89.1 (80.0-100.0) fL MCH 29.1 (25.0-34.0) pg MCHC 32.6 (32.0-36.0) g/dL RDW Std Deviation 48.8 H (36.4-46.3) fL RDW Coeff of Shan 14.8 H (11.5-14.5) % Plt Count 190 (130-400) K/uL MPV 11.0 (9.4-12.4) fL Immature Gran % (Auto) 0.5 % Neut % (Auto) 63.7 % Lymph % (Auto) 22.8 % Ray % (Auto) 11.1 % Eos % (Auto) 1.3 % Baso % (Auto) 0.6 % Neut # (Auto) 6.68 H (1.40-6.50) K/uL Lymph # (Auto) 2.39 (1.20-3.40) K/uL Ray # (Auto) 1.16 H (0.11-0.59) K/uL Eos # (Auto) 0.14 (0.00-0.50) K/uL Baso # (Auto) 0.06 (0.00-0.20) K/uL Immature Gran # (Auto) 0.05 (0.01-0.20) K/uL PT 11.6 (9.0-12.0) Seconds INR 1.1 (0.9-1.1) APTT 27 (21-31) Seconds PTT Ratio 1.0 Sodium 137 (136-145) mmol/L Potassium 4.0 (3.5-5.1) mmol/L Chloride 102 (98-107) mmol/L Carbon Dioxide 25 (21-32) mmol/L Anion Gap 10 (3-11) BUN 15 (6-23) mg/dl Creatinine 0.82 (0.6-1.2) mg/dl Est Cr Clr Drug Dosing 38.3 ml/min Est GFR ( Amer) 73.5 ml/min Est GFR (Non-Af Amer) 63.4 ml/min BUN/Creatinine Ratio 18.3 (10-20) Glucose 106 H (70-99(Fasting)) mg/dl Calcium 9.9 (8.6-10.3) mg/dl Magnesium 2.0 (1.7-2.4) mg/dl Troponin I High Sens 29.0 H 25.8 H (0-14) pg/ml Lipase 170 H (11-82) U/L Imaging Data Radiologist's Impression: Chest X-Ray 03/13/24 06:38 XR chest 1V portable HISTORY: Chest pain, nonspecific COMPARISON: Chest 03/09/2024. FINDINGS: No pneumothorax. No pleural effusions. The cardiac silhouette remains mildly enlarged. There are poststernotomy changes. No acute fractures. The left lung is clear. Small patchy right perihilar and right basilar densities again noted. Suspect mild emphysema. IMPRESSION: 1. No significant change in the patchy right perihilar and right basilar densities which could represent a low-grade pneumonia. 2. Stable cardiomegaly. No evidence for pulmonary edema. ACT 112: Negative or not required by law. Electronically signed by: Lawrence Lee M.D. 03/13/2024 7:18 AM ECG Data Attestation: I personally reviewed and interpreted this ECG as follows: Additional Comments: EKG #1 at 0638: Atrial fibrillation with a rate of 130. QRS [address] elevation or ST depression. Peaked T waves. EKG #2 at 0647: Atrial fibrillation with a rate of 85. QRS [address] elevation or ST depression. [facility] Narrative 0637: The patient was evaluated in room C9. A complete history and physical exam was performed Cardiac monitoring: An order was placed for continuous cardiac monitoring. The monitor shows a rate of 136-150 with atrial fibrilation rhythm interpreted by me 0830: Patient was becoming tachycardic with heart rates in the 120s again. Cardizem drip started. Labs are within normal limits with exception of high- sensitivity troponin of 29. Heparin bolus and drip started. Patient be admitted to the [facility] team. Impression & Plan Atrial fibrillation with RVR Critical Care Time Critical Care Time: Yes Total Critical Care Time: 83 I have personally spent greater than 83 minutes of critical care time in the direct management of this patient. This includes bedside care, interpretation of diagnostic studies, and testing, discussion with consultants, patient, and family members, and other required patient management activities. This 83 minutes is in excess of all separately billable procedures. Discharge Plan Visit Data Chief Complaint: Arrhythmia/Palpitations Stated Complaint: AFIB ED Provider: Toño Sidhu Discharge Problem: Atrial fibrillation with RVR Patient Disposition: Admitted As Inpatient Discharge Instructions Interventions: ED Discharge Assessment Last Done: 03/13/24 10:32
[2024-03-13] MEDS: dilTIAZem HCL 125 MG in DEXTROSE 5% 100 ML IV SCH (08:16)
[2024-03-13] MEDS ORDERED: HEPARIN SOD (PORCINE) 1000 UNIT/ML IV ONE (08:41)
[2024-03-13] MEDS: HEPARIN SODIUM/DEXTROSE 25,000 UNITS/500 ML BAG IV SCH (10:26)
[2024-03-13] MEDS: HEPARIN SOD (PORCINE) 1000 UNIT/ML IV ONE (10:26)
[2024-03-13] MEDS ORDERED: POLYETHYLENE (MIRALAX) 17 GM PACK PO PRN (11:11)
[2024-03-13] MEDS ORDERED: ONDANSETRON INJ 2 MG/ML 2 ML VIAL IV PRN (11:11)
[2024-03-13] MEDS ORDERED: NITROGLYCERIN SL 0.4 MG/TAB TAB SL PRN (11:11)
[2024-03-13] MEDS ORDERED: ACETAMINOPHEN 325 MG TAB PO PRN (11:11)
[2024-03-13] MEDS: Heparin IV Adult Wt-Based Low-Dose w/ INITIAL Bolus Protocol IV STA (11:31)
[2024-03-13] MEDS: STAT IV Infusion **Titration per Protocol STA (11:31)
[2024-03-13] MEDS: ATORVASTATIN 10 MG TAB PO SCH (12:23)
[2024-03-13] MEDS: METOPROLOL SUCC 50MG EXT REL TAB PO SCH (12:23)
[2024-03-13] MEDS: FUROSEMIDE 20 MG TAB PO SCH (12:23)
[2024-03-13] MEDS: POTASSIUM CHLORIDE CRTAB 20 MEQ TABCR PO SCH (12:23)
--- NOTE | 2024-03-13 13:44 | Neurology Consultation ---
Date of Consultation March 13, 2024 Assessment & Plan (1) Atrial fibrillation with RVR: (2) TIA (transient ischemic attack): Plan 88-year-old female with a history of recurrent TIA, discharged from the [facility] 3 days ago for TIA localizing to the right cerebral hemisphere. She was discharged on Plavix although now returns to the Medical Center with palpitations, atrial fibrillation with rapid ventricular response. Would recommend starting an anticoagulant such as Eliquis. Would agree with aspirin 81 mg/day as well in light of history of coronary artery disease. May remain off clopidogrel. Continue with atorvastatin as ordered, goal LDL 70 or less. Continue with medical management of atrial fibrillation. Patient does not require additional neuroimaging at this time such as repeat CT of the head or brain MRI. Should not require additional outpatient neurology follow-up. Please call with any questions. History of Present Illness Reason for Consultation: recent TIA, now with afib Requesting Physician: Aishwarya Attending Physician: Benny Neff MD History of Present Illness The patient is an 88-year-old left-handed female who was seen in neurological consultation [address] Pereyra, in the context of a hospitalization for TIA. She had presented with transient left-sided weakness, primarily the left hand and upper limb as well as some difficulty with word finding. The symptoms began resolving during her assessment in the emergency department. She recalled having a similar episode about 2 weeks prior. She had also reported having occasional chest tightness. A brain MRI at that time was negative for acute p rocess. An MRA of the head and neck were negative for any large vessel occlusion or significant stenotic lesion. An echocardiogram had revealed severe dilation of the left atrium, no PFO. Patient had been taking Plavix at that time, this medication was continued at discharge. Her atorvastatin dosage was reduced at time of discharge, and LDL at that time was 25, cholesterol 82. She presented to the emergency department this morning with palpitations, rapid heartbeat, chest discomfort. An ECG revealed atrial fibrillation. She has been admitted for further evaluation and management of atrial fibrillation, she is on a heparin drip and diltiazem drip. She is not receiving clopidogrel currently. Neurology is consulted for assistance regarding management of her blood thinners in the context of recent TIA. The patient does not report any recurrence of strokelike symptoms, no further episodes of weakness or speech difficulty. She denies any headache, disturbance of vision, or sensory loss. Allergies Allergy/AdvReac Type Severity Reaction Status Date / Time Cipro Allergy Severe hives Verified 01/03/15 09:10 ciprofloxacin Allergy Severe hives Verified 03/13/24 09:35 dobutamine Allergy Severe Hives Verified 03/13/24 09:35 Iodinated Contrast Media Allergy Severe Tongue Verified 03/13/24 09:35 thickening, difficulty swallowing Sulfa (Sulfonamide Allergy Severe UNKNOWN Verified 03/13/24 09:35 Antibiotics) erythromycin base Allergy Intermediate rash Verified 03/13/24 09:35 adhesive Allergy Unknown RED SKIN Verified 03/13/24 09:35 Penicillins Allergy Unknown UNKNOWN Verified 03/13/24 09:35 Quinolones Allergy Unknown UNKNOWN Verified 03/13/24 09:35 Home Medications Medication Instructions Recorded Confirmed Type calcium carbonate 600 mg-vitamin 1 cap PO QDL 11/19/19 03/13/24 History D3 5 mcg (200 unit) capsule (Calcium 600 + D(3)) cholecalciferol (vitamin D3) 50 2,000 units PO QDL 11/19/19 03/13/24 History mcg (2,000 unit) tablet multivitamin (Daily Multi-Vitamin 1 tab PO QDL 11/19/19 03/13/24 History tablet) coenzyme Q10 400 mg capsule 100 mg PO QPM 05/27/21 03/13/24 History nitroglycerin 0.4 mg sublingual 0.4 mg sublingual Q5M PRN chest 11/22/23 03/13/24 Rx tablet pain #25 tabs potassium chloride 20 mEq 20 meq PO DAILY 30 days #30 tabs 01/28/24 03/13/24 Rx tablet,extended release(part/cryst) Lactobacillus acidophilus 1 1,000 mmu cells PO QAM ##0 02/22/24 03/13/24 History billion cell capsule cartilage 40 mg-collagen II 10 1 tab PO QDL 02/22/24 03/13/24 History mg-boron 5 mg-hyaluronate 3.3 mg tablet (iGlue) clobetasol 0.05 % topical ointment 1 applic topical 2XWK PRN flare 02/22/24 03/13/24 History diphenhydramine HCl 25 mg tablet 25 mg PO DAILY PRN allergies 02/22/24 03/13/24 History (Benadryl Allergy) furosemide 20 mg tablet (Lasix) 20 mg PO DAILY 02/22/24 03/13/24 History gabapentin 100 mg capsule 100 mg PO TID 02/22/24 03/13/24 History triamcinolone acetonide 0.5 % 1 applic topical BID PRN flare ups 02/22/24 03/13/24 History topical cream clopidogrel 75 mg tablet 75 mg PO QAM #30 tabs 02/23/24 03/13/24 Rx alendronate 70 mg tablet (Fosamax) 0 mg PO WK 03/09/24 03/13/24 History levothyroxine 50 mcg tablet 50 mcg PO DAILYBB 03/09/24 03/13/24 History lorazepam 0.5 mg tablet 1 mg PO HS 03/09/24 03/13/24 History atorvastatin 10 mg tablet 10 mg PO DAILY #20 tabs 03/10/24 03/13/24 Rx metoprolol succinate 25 mg 25 mg PO DAILY #30 tabs 03/10/24 03/13/24 Rx tablet,extended release 24 hr Patient History Medical History Slurred speech Stroke-like symptoms (HFpEF) heart failure with preserved ejection fraction CAD (coronary artery disease) HTN (hypertension) Hyperlipemia Acute hypoxic respiratory failure Chest pain Postural lightheadedness Anxiety Osteoporosis with fracture History of breast cancer Tricuspid regurgitation per [employer]scripts record Hx of sarcoidosis Hx of osteopenia Hx of fracture of rib Surgical History Hx of CABG January 2006 @ [place] by Dr Nicholson H/O colonoscopy 05/24/12 - by Dr Mayank Lorenzana H/O lymph node biopsy 03/21/07 S/P tubal ligation 10/21/07 S/P thoracotomy 1974 H/O oral surgery S/P hysterectomy 09/25/11 S/P dilation and curettage S/P cholecystectomy 1989 Hx of cataract surgery Bilateral - 2002 S/P mastectomy 2006 - Rt partial History of breast biopsy 03/04/07 - Rt breast Family History Aunt Breast cancer Maternal Grandmother (Maternal) Colorectal cancer Mother Colorectal cancer Ovarian cancer Father Heart disease Stroke Allergies Other No family history of adverse response to anesthesia No family history of bleeding disorder Social History Smoking Status: Former smoker Tobacco Type: Cigarettes Age Quit Using Tobacco: 39; packs per day: 0.5; Second Hand Exposure: No; Do You Dip or Chew Tobacco: No; Hx Alcohol Use: Yes Alcohol type: wine Hx Substance Use: No Preferred Language: Turkish Communication Ability: Effective Visual Impairment: No Limitations Hearing Ability: Normal Embossing Clerk Required: No Beliefs That Will Affect Care: None marital status: Current Living Situation: Spouse current occupational status: retired How many Children do You have: 3 Feels Safe at Home: Yes Childhood Exposure to Second-Hand Smoke: No Diet: regular caffeine: Yes during the past year weight has: remained stable Dental Care, Regularly: Yes Physical Activity Frequency: Does not Exercise Seatbelt Use: always Sunscreen Use: Yes Assistive Devices: Cane, Raised Toilet Seat and Walker Review of Systems Constitutional: no fever and no chills Eyes: no blind spots and no diplopia Ear, Nose, Mouth, Throat: no hearing loss Respiratory: no cough and no dyspnea Cardiovascular: no chest pain and no palpitations Gastrointestinal: no nausea and no vomiting Genitourinary: no dysuria Musculoskeletal: no myalgia and no muscle weakness Integumentary: no rash and no lesions Neurologic: as per Subjective / HPI; no gait abnormality, no localized weakness, no loss of sensation, no tremor(s), no headache(s), no abnormal speech and no memory loss Psychiatric: no depression and no anxiety Hematologic / Lymphatic: no easy bleeding and no easy bruising Exam (Neuro) Constitutional: well developed; no acute distress Eyes: normal visual claros by confrontation, PERRL and EOM intact bilaterally; no nystagmus Neurologic: Oriented to:: Person, Place and Time Memory: Short Term Intact and Remote Intact Attention: Span Intact, Concentration Intact and Visual Intact Speech Fluency: negative Dysarthria or Dysfluency Speech Aphasia: negative Aphasia Fund of Knowledge: Current Events, Past History and Vocabulary Cranial Nerves: Normal II, III, IV, , V, VII, VIII, IX, X, XI and XII Motor Strength: Normal Lower Extremities and Normal Upper Extremities Motor Tone: Normal Lower Extremities and Normal Upper Extremities Muscle Bulk/Involuntary Movements: No Involuntary Movements; negative Muscle Atrophy Sensation: Light Touch Intact, Pain/Temperature Intact and Proprioception Intact Coordination: Normal; negative Limited Balance, Dysdiadochokinesia, Finger- Nose Abnormal or Heel-Meléndez Abnormal Deep Tendon Reflexes: Rt Triceps: 2+, Lt Triceps: 2+, Rt Biceps: 2+, Lt Biceps: 2+, Rt Brachioradialis: 2+, Lt Brachioradialis: 2+, Rt Patellar: 2+, Lt Patellar: 2+, Rt Ankle: 1+ and Lt Ankle: 1+ Special Tests: negative Babinski Present Gait: Normal Station and Gait Results & Data Vital Signs (Past 12 Hours) Vital Signs Temp Pulse Pulse Resp BP BP Pulse Ox 03/13/24 11:11 36.4 C L 90 15 109/74 95 03/13/24 10:32 36.9 C 92 H 20 94/67 L 98 03/13/24 09:00 36.9 C 92 H 20 94/67 L 98 03/13/24 07:57 36.9 C 99 H 20 109/67 98 03/13/24 06:40 98 03/13/24 06:39 125 H 03/13/24 06:30 36.8 C 138 H 18 113/69 100 O2 Del Method 03/13/24 11:11 Room Air 03/13/24 10:32 Room Air 03/13/24 09:00 Room Air 03/13/24 07:57 Room Air 03/13/24 06:40 Room Air 03/13/24 06:39 03/13/24 06:30 Room Air Coding Level of Care Code 83084 INT INP/OBS CARE 2/55MIN Diagnoses Atrial fibrillation with RVR I48.91 TIA (transient ischemic attack) G45.9 Time Spent (min) 60 Comment Total time includes patient contact, chart review, counseling, note preparation
--- NOTE | 2024-03-13 14:57 | History & Physical Report ---
Date of Service March 13, 2024 Assessment & Plan (1) Atrial fibrillation with RVR: Plan: Patient presented with palpitations that went on for several hours. EKG in ER revealed A-fib with RVR Patient was started on Cardizem drip for rate control Will continue Cardizem drip for as long as she needs Will increase the dosage of metoprolol from 25 mg to 50 mg. The patient was 100 mg of metoprolol previously but the dose was reduced to 25 mg for concern for hypoperfusion leading to strokelike symptoms Titrate down Cardizem drip as tolerated [id number] score of 7 Patient has been started on a heparin drip Switch to p.o. Eliquis upon discharge Electrolytes within normal limits Check echocardiogram (2) Elevated troponin: Plan: Most likely due to demand ischemia due to increased rate No chest pain Check echocardiogram (3) TIA (transient ischemic attack): Plan: Patient had 2 episodes of strokelike symptoms in the past 1 month After the first episode she was switched from aspirin to Plavix The second episode was thought to be due to hypoperfusion and her dose of metoprolol was reduced We now come to found out that she has atrial fibrillation and probably has had it for more than a year. Her TIA-like symptoms could have been related to her A-fib I consulted neurology to help with decisions on anticoagulation plus minus these antiplatelet agents. With her atrial fibrillation, she will now need to be on Eliquis. Neurology recommends switching from Plavix down to aspirin Will most likely keep her on aspirin and Eliquis upon discharge Continue Lipitor (4) (HFpEF) heart failure with preserved ejection fraction: Plan: Euvolemic Continue Lasix and potassium home dosing Plan CODE STATUS DVT prophylaxis: Heparin drip Admission and Anticipated Discharge Date Admission Date: March 13, 2024 History of Present Illness Chief Complaint: Palpitations Primary Care Provider: Eric Jean, This is an 88-year-old female who presented to the emergency room with the above chief complaint. The patient tells me that she has had off-and-on palpitations over the past 1 or 2 years. She never thought much of it. She did not bring it to any of her physician's attention as her symptoms with go away spontaneously. However it started at around 1 AM last night with the same palpitations and feeling like her heart was racing and he did not resolve on its own this time. It went on and on. She could not sleep because of the sensation. She waited to about 6 AM and called her son who drove her to the emergency room. In the ER, she was noted to be in rapid atrial fibrillation. She was initially given an IV Cardizem push with good response but her heart rate went up again and thus she was started on Cardizem drip. She is thus being admitted for management of her rapid atrial fibrillation. She denied any chest pain or shortness of breath. However towards the morning, her chest started to feel slightly tight. During my encounter, her heart rate was in the low 100s. She did not have the sensation of palpitation at that time but her chest was feeling slightly tight. She denied any dizziness or light headedness. Of note, the patient had 2 episodes of strokelike symptoms and was diagnosed with TIA twice during the last 1 month. For the first episode, she was switched from aspirin to Plavix. For the second episode, it was thought to be related to hypoperfusion and her metoprolol dose was reduced from 100 mg to 25 mg once daily. Past medical history 1. TIA x 2 in the past 1 month. Aspirin was changed to Plavix after the first episode. The second episode was thought to be more likely related to hypoperfusion and thus metoprolol dose was reduced 2. HFpEF. She is followed by the CHF clinic outpatient 3. Coronary artery disease status post CABG 4. Benign essential hypertension 5. Hyperlipidemia 6. Breast cancer Allergies Allergy/AdvReac Type Severity Reaction Status Date / Time Cipro Allergy Severe hives Verified 01/03/15 09:10 ciprofloxacin Allergy Severe hives Verified 03/13/24 09:35 dobutamine Allergy Severe Hives Verified 03/13/24 09:35 Iodinated Contrast Media Allergy Severe Tongue Verified 03/13/24 09:35 thickening, difficulty swallowing Sulfa (Sulfonamide Allergy Severe UNKNOWN Verified 03/13/24 09:35 Antibiotics) erythromycin base Allergy Intermediate rash Verified 03/13/24 09:35 adhesive Allergy Unknown RED SKIN Verified 03/13/24 09:35 Penicillins Allergy Unknown UNKNOWN Verified 03/13/24 09:35 Quinolones Allergy Unknown UNKNOWN Verified 03/13/24 09:35 Home Medications Medication Instructions Recorded Confirmed Type calcium carbonate 600 mg-vitamin 1 cap PO QDL 11/19/19 03/13/24 History D3 5 mcg (200 unit) capsule (Calcium 600 + D(3)) cholecalciferol (vitamin D3) 50 2,000 units PO QDL 11/19/19 03/13/24 History mcg (2,000 unit) tablet multivitamin (Daily Multi-Vitamin 1 tab PO QDL 11/19/19 03/13/24 History tablet) coenzyme Q10 400 mg capsule 100 mg PO QPM 05/27/21 03/13/24 History nitroglycerin 0.4 mg sublingual 0.4 mg sublingual Q5M PRN chest 11/22/23 03/13/24 Rx tablet pain #25 tabs potassium chloride 20 mEq 20 meq PO DAILY 30 days #30 tabs 01/28/24 03/13/24 Rx tablet,extended release(part/cryst) Lactobacillus acidophilus 1 1,000 mmu cells PO QAM ##0 02/22/24 03/13/24 History billion cell capsule cartilage 40 mg-collagen II 10 1 tab PO QDL 02/22/24 03/13/24 History mg-boron 5 mg-hyaluronate 3.3 mg tablet (C[employer]You) clobetasol 0.05 % topical ointment 1 applic topical 2XWK PRN flare 02/22/24 03/13/24 History diphenhydramine HCl 25 mg tablet 25 mg PO DAILY PRN allergies 02/22/24 03/13/24 History (Benadryl Allergy) furosemide 20 mg tablet (Lasix) 20 mg PO DAILY 02/22/24 03/13/24 History gabapentin 100 mg capsule 100 mg PO TID 02/22/24 03/13/24 History triamcinolone acetonide 0.5 % 1 applic topical BID PRN flare ups 02/22/24 03/13/24 History topical cream clopidogrel 75 mg tablet 75 mg PO QAM #30 tabs 02/23/24 03/13/24 Rx alendronate 70 mg tablet (Fosamax) 0 mg PO WK 03/09/24 03/13/24 History levothyroxine 50 mcg tablet 50 mcg PO DAILYBB 03/09/24 03/13/24 History lorazepam 0.5 mg tablet 1 mg PO HS 03/09/24 03/13/24 History atorvastatin 10 mg tablet 10 mg PO DAILY #20 tabs 03/10/24 03/13/24 Rx metoprolol succinate 25 mg 25 mg PO DAILY #30 tabs 03/10/24 03/13/24 Rx tablet,extended release 24 hr Past Med/Surg History Problem List Atrial fibrillation with RVR (Acute) Heart murmur TIA (transient ischemic attack) Elevated troponin Non-ST elevation [place] (NSTEMI) (Acute) Stroke-like symptoms (Acute) Hyponatremia Pulmonary hypertension Bladder pain Tricuspid regurgitation Lumbar spinal stenosis Normal left ventricular systolic function and wall motion Sensorineural hearing loss (SNHL) of both ears Arthritis (Acute) Cataract (Acute) Detrusor instability (Acute) Urethral caruncle (Acute) Urge and stress incontinence (Acute) Vitamin D deficiency (Acute) Aortic regurgitation Mitral regurgitation Antiplatelet or antithrombotic long-term use Lichen planus (Chronic) Lichen sclerosus et atrophicus (Chronic) Medical History Slurred speech Stroke-like symptoms (HFpEF) heart failure with preserved ejection fraction CAD (coronary artery disease) HTN (hypertension) Hyperlipemia Acute hypoxic respiratory failure Chest pain Postural lightheadedness Anxiety Osteoporosis with fracture History of breast cancer Tricuspid regurgitation per [employer]scripts record Hx of sarcoidosis Hx of osteopenia Hx of fracture of rib Surgical History Hx of CABG January 2006 @ [place] [address] Dr Nicholson H/O colonoscopy 05/24/12 - by Dr Mayank Lorenzana H/O lymph node biopsy 03/21/07 S/P tubal ligation 10/21/07 S/P thoracotomy 1974 H/O oral surgery S/P hysterectomy 09/25/11 S/P dilation and curettage S/P cholecystectomy 1989 Hx of cataract surgery Bilateral - 2002 S/P mastectomy 2006 - Rt partial History of breast biopsy 03/04/07 - Rt breast Family History Aunt Breast cancer Maternal Grandmother (Maternal) Colorectal cancer Mother Colorectal cancer Ovarian cancer Father Heart disease Stroke Allergies Other No family history of adverse response to anesthesia No family history of bleeding disorder Social History Smoking Status: Former smoker Tobacco Type: Cigarettes Age Quit Using Tobacco: 39; packs per day: 0.5; Second Hand Exposure: No; Do You Dip or Chew Tobacco: No; Hx Alcohol Use: Yes Alcohol type: wine Hx Substance Use: No Preferred Language: Romanian Communication Ability: Effective Visual Impairment: No Limitations Hearing Ability: Normal Lamp Inspector Required: No Beliefs That Will Affect Care: None marital status: Current Living Situation: Spouse current occupational status: retired How many Children do You have: 3 Feels Safe at Home: Yes Childhood Exposure to Second-Hand Smoke: No Diet: regular caffeine: Yes during the past year weight has: remained stable Dental Care, Regularly: Yes Physical Activity Frequency: Does not Exercise Seatbelt Use: always Sunscreen Use: Yes Assistive Devices: Cane, Raised Toilet Seat and Walker Review of Systems Review of Systems: All systems reviewed & are unremarkable except as noted in Subjective Physical Exam Physical Exam: General appearance: Awake, conversant, able to answer questions appropriately. AOx3. Pupils: Equally reactive to light and accommodation Neck: No masses, no thyromegaly Respiration: Clear to auscultation bilaterally. Normal effort Cardiovascular: S1-S2/irregular rhythm. No murmur, rubs or gallop. No edema. Abdomen: Soft, nontender, nondistended. No hepatosplenomegaly Musculoskeletal: No clubbing, no cyanosis, normal range of motion Skin: No rashes, no nodules Neuro exam: Cranial nerves intact, sensation grossly intact Psychiatric: Patient has good judgment and insight. AOx3. Mood and affect appear normal Lymphatics: No cervical or axillary lymphadenopathy noted Results & Data Results & Data Vital Signs (Past 12 Hours) Vital Signs Temp Pulse Pulse Resp BP BP Pulse Ox 03/13/24 11:11 36.4 C L 90 15 109/74 95 03/13/24 10:32 36.9 C 92 H 20 94/67 L 98 03/13/24 09:00 36.9 C 92 H 20 94/67 L 98 03/13/24 07:57 36.9 C 99 H 20 109/67 98 03/13/24 06:40 98 03/13/24 06:39 125 H 03/13/24 06:30 36.8 C 138 H 18 113/69 100 O2 Del Method 03/13/24 11:11 Room Air 03/13/24 10:32 Room Air 03/13/24 09:00 Room Air 03/13/24 07:57 Room Air 03/13/24 06:40 Room Air 03/13/24 06:39 03/13/24 06:30 Room Air Laboratory Results Abnormal lab results 03/13/24 03/13/24 03/13/24 Range/Units 06:40 08:35 12:30 RDW Std Deviation 48.8 H (36.4-46.3) fL RDW Coeff of Shan 14.8 H (11.5-14.5) % Neut # (Auto) 6.68 H (1.40-6.50) K/uL Wagoner # (Auto) 1.16 H (0.11-0.59) K/uL Glucose 106 H (70-99(Fasting)) mg/dl Troponin I High Sens 29.0 H 25.8 H 25.3 H (0-14) pg/ml Lipase 170 H (11-82) U/L Diagnostic Findings Chest X-Ray 03/13/24 06:38 XR chest 1V portable HISTORY: Chest pain, nonspecific COMPARISON: Chest 03/09/2024. FINDINGS: No pneumothorax. No pleural effusions. The cardiac silhouette remains mildly enlarged. There are poststernotomy changes. No acute fractures. The left lung is clear. Small patchy right perihilar and right basilar densities again noted. Suspect mild emphysema. IMPRESSION: 1. No significant change in the patchy right perihilar and right basilar densities which could represent a low-grade pneumonia. 2. Stable cardiomegaly. No evidence for pulmonary edema. ACT 112: Negative or not required by law. Electronically signed by: Lawrence Lee M.D. 03/13/2024 7:18 AM Code Status & VTE Plan VTE Prophylaxis Plan VTE Prophylaxis will be ordered: Yes PG Care Time/CCT Total # of Minutes Spent Total Time Spent with Patient: Total time spent is greater than 50% in coordination of care (as documented) at patient's floor/unit and/or counseling patient: Coding Level of Care Code 49092 INT INP/OBS CARE 2/55MIN Diagnoses Atrial fibrillation with RVR I48.91 Elevated troponin R79.89 TIA (transient ischemic attack) G45.9 (HFpEF) heart failure with preserved ejection fraction I50.30
[2024-03-13 17:14] LABS: ANTI-Xa, UFH(UnfractionatedHep 0.56 IU/ml (0.3-0.7)
--- NOTE | 2024-03-13 22:13 | XCELERA ---
[id number] \\[id number]
[2024-03-14] MEDS: LORazepam 0.5 MG TAB PO PRN (02:52)
[2024-03-14] MEDS: LEVOTHYROXINE SODIUM 50 MCG TABLET PO SCH (06:41)
[2024-03-14 06:44] LABS: Calcium 8.7 mg/dl (8.6-10.3); Potassium 3.9 mmol/L (3.5-5.1)
[2024-03-14 06:45] LABS: Basophils # (auto) 0.03 K/uL (0.00-0.20); Basophils % (auto) 0.4 %; Eosinophils # (auto) 0.27 K/uL (0.00-0.50); Eosinophils % (auto) 3.3 %; Hemoglobin 10.7 g/dl (12.0-16.0); Immature Granulocytes # (auto) 0.04 K/uL (0.01-0.20); Immature Granulocytes % (auto) 0.5 %; Lymphocytes # (auto) 2.19 K/uL (1.20-3.40); Lymphocytes % (auto) 26.4 %; Mean Corpuscular Hemoglobin 28.8 pg (25.0-34.0); Mean Corpuscular Hgb Conc 32.4 g/dL (32.0-36.0); Mean Corpuscular Volume 88.7 fL (80.0-100.0); Mean Platelet Volume 11.3 fL (9.4-12.4); Monocytes # (auto) 0.98 K/uL (0.11-0.59); Monocytes % (auto) 11.8 %; Neutrophils # (auto) 4.79 K/uL (1.40-6.50); Neutrophils % (auto) 57.6 %; Platelet Count 157 K/uL (130-400); RDW Standard Deviation 48.3 fL (36.4-46.3); Red Blood Count 3.72 M/uL (4.20-5.40)
[2024-03-14 06:49] LABS: BUN Creatinine Ratio 18.1 (10-20); Creatinine Clr Calc Pharmacy 38.3 ml/min; Est GFR (African American) 72.5 ml/min; Est GFR (Non-African American) 62.5 ml/min
[2024-03-14 06:56] LABS: ANTI-Xa, UFH(UnfractionatedHep 0.42 IU/ml (0.3-0.7)
[2024-03-14] MEDS: DIGOXIN 250 MCG in SYRINGE 9 ML IV STA (09:04)
--- NOTE | 2024-03-14 13:31 | Hospitalist Progress Note ---
Date of Service March 14, 2024 Assessment & Plan (1) Atrial fibrillation with RVR: Plan: Patient presented with palpitations that went on for several hours. EKG in ER revealed A-fib with RVR Patient was started on Cardizem drip for rate control Has been off of the Cardizem drip since 3 PM on 03/13 Has been on metoprolol 50 mg, which has been increased from 25 mg home dose Still running high in the 110s range at rest. And her blood pressure is borderline low Ordered a dose of digoxin this morning with minimal effect Echocardiogram showed severe biatrial dilatation, otherwise unremarkable Consult cardiology Check TSH On heparin drip. Plan to switch to p.o. Eliquis upon discharge. (2) Elevated troponin: Plan: Most likely due to demand ischemia due to increased rate No chest pain Check echocardiogram (3) TIA (transient ischemic attack): Plan: Patient had 2 episodes of strokelike symptoms in the past 1 month Her strokelike symptoms could have been related to A-fib Neurology consulted Plan to discharge on Eliquis and aspirin upon discharge Continue Lipitor (4) (HFpEF) heart failure with preserved ejection fraction: Plan: Euvolemic Continue Lasix and potassium home dosing Plan CODE STATUS DVT prophylaxis: Heparin drip Admission and Anticipated Discharge Date Admission Date: March 13, 2024 Subjective Patient feels well now but she has had the feeling of palpitations overnight. Denies dizziness, chest pain, shortness of breath. Review of Systems Review of Systems: All systems reviewed & are unremarkable except as noted in Subjective Physical Exam Physical Exam: General: Awake, conversant Heart: S1, S2/irregular rhythm, no murmur rubs or gallops Lungs: Clear to auscultation bilaterally. Normal effort Abdomen: Soft/nontender/nondistended. No hepatosplenomegaly Extremities: No clubbing/cyanosis. No edema Behavior: Appropriate, cooperative Results & Data Results & Data Vital Signs (Past 12 Hours) Vital Signs Temp Pulse Pulse Resp BP Pulse Ox O2 Del Method 03/14/24 11:44 36.4 C L 117 H 18 103/71 91 Room Air 03/14/24 09:04 115 H 03/14/24 07:17 36.5 C 120 H 18 98/67 L 97 Room Air 03/14/24 06:59 105 H 03/14/24 02:34 36.6 C 107 H 20 113/75 97 Room Air Laboratory Results Abnormal lab results 03/13/24 03/13/24 03/14/24 Range/Units 16:39 22:41 05:51 RBC 3.72 L (4.20-5.40) M/uL Hgb 10.7 L D (12.0-16.0) g/dl Hct 33.0 L (37.0-47.0) % RDW Std Deviation 48.3 H (36.4-46.3) fL RDW Coeff of Shan 15.0 H (11.5-14.5) % Victoria # (Auto) 0.98 H (0.11-0.59) K/uL Glucose 102 H (70-99(Fasting)) mg/dl Troponin I High Sens 24.6 H 19.6 H D (0-14) pg/ml Diagnostic Findings Abnormal lab results 03/13/24 03/13/24 03/14/24 Range/Units 16:39 22:41 05:51 RBC 3.72 L (4.20-5.40) M/uL Hgb 10.7 L D (12.0-16.0) g/dl Hct 33.0 L (37.0-47.0) % RDW Std Deviation 48.3 H (36.4-46.3) fL RDW Coeff of Shan 15.0 H (11.5-14.5) % Victoria # (Auto) 0.98 H (0.11-0.59) K/uL Glucose 102 H (70-99(Fasting)) mg/dl Troponin I High Sens 24.6 H 19.6 H D (0-14) pg/ml PG Care Time/CCT Total # of Minutes Spent Total Time Spent with Patient: Total time spent is greater than 50% in coordination of care (as documented) at patient's floor/unit and/or counseling patient: Coding Level of Care Code 92566 SUB INP/OBS CARE 2/35MIN Diagnoses Atrial fibrillation with RVR I48.91 Elevated troponin R79.89 TIA (transient ischemic attack) G45.9 (HFpEF) heart failure with preserved ejection fraction I50.30
[2024-03-14 15:19] LABS: Thyroid Stimulating Hormone 2.479 uIu/ml (0.300-4.500)
--- NOTE | 2024-03-14 18:56 | Cardiology Consultation ---
Date of Consultation March 14, 2024 Assessment & Plan (1) Atrial fibrillation with RVR: (2) Elevated troponin: (3) Tricuspid regurgitation: (4) Mitral regurgitation: (5) CAD (coronary artery disease): (6) (HFpEF) heart failure with preserved ejection fraction: (7) Hx of CABG: Plan ASSESSMENT/PLAN: 1. Atrial fibrillation: New diagnosis. Initially symptomatic but currently asymptomatic despite elevated heart rates. Thus, cannot be entirely sure when the event began. Now on anticoagulation therapy. Did not receive her daily dose of metoprolol succinate and thus only received digoxin today. Will start metoprolol tartrate 25 mg p.o. every 6 hours. Discussed the diagnosis in detail, including treatment strategies. Discussed stroke risk reduction with anticoagulation therapy. On discharge, would recommend Eliquis. 2. Elevated troponin: She did not present with acute coronary syndrome. Likely due to demand ischemia in the setting of A-fib with RVR however troponin has trended down since presentation and was elevated only days ago when she presented with TIA and thus could be due to her neurologic event. Ischemic evaluation not necessary. 3. CAD s/p CABG: No angina. Continue statin therapy. Continue beta-william. Risk factor modification. 4. Mitral valve prolapse with mitral regurgitation: Moderate to severe on 03/13/2024 echo. Has known mitral regurgitation. This can be followed in the outpatient setting. 5. Tricuspid regurgitation: Moderate to severe on current echo in the setting of A-fib with RVR. Known in the outpatient setting. Outpatient surveillance. 6. Chronic heart failure with preserved EF: She appears euvolemic. Can continue outpatient diuretic regimen. Low-sodium diet. 7. Disposition: Cardiology will continue to follow. Patient care communicated with primary hospitalist, Dr. Neff. Follow-up with Dr. Marcos upon discharge. Thank you for allowing me to participate in the care of your patient. Please call for any other questions or concerns. Sincerely, Noam Pearson M.D. History of Present Illness Reason for Consultation: afib Requesting Physician: Benny Neff MD Attending Physician: Benny Neff MD History of Present Illness Mrs. Tello is a very pleasant 88-year-old female with a history significant for recurrent TIA in the past month (aphasia) heart failure with preserved EF, CAD s/p CABG x 3 (SVG to LAD, SVG to Diag, SVG to OM; 2005), hypertension, d yslipidemia, mitral/aortic regurgitation, and breast cancer. 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 She was admitted on 03/13/2024 with atrial fibrillation with rapid ventricular response, which was a new diagnosis for her. She developed palpitations the morning of presentation at approximately 1:30 AM while in bed. She felt a racing sensation in her back. She took 2 nitroglycerin without improvement. It persisted for approximately 4 hours and then she called her son to bring her to the ER. Palpitations have since subsided. Her heart rate has improved somewhat but she remains tachycardic, after initially diltiazem drip and then now oral beta-william in the form of metoprolol. She denies chest pain. She has occasional edema if she is on her feet throughout the day. She has dyspnea on exertion with strenuous activities but she admits that she avoids such activities. She denies melena, hematochezia, or hematuria. She had been on aspirin which was switched to Plavix recently after her TIA. She denies syncope, near syncope, shortness of breath at rest, orthopnea, or worsening edema. Review of systems: As above. Review of systems otherwise negative/unremarkable. Family history: Noncontributory. Social history: She smoked occasionally many years ago but stopped at the age of 39. Occasional wine. No drugs. She is . Her is currently at [facility]. She has 3 children (daughter in [place], son in [place], and a wheelchair-bound son in [place] due to myositis). She was unaccompanied in her hospital room. Allergies Allergy/AdvReac Type Severity Reaction Status Date / Time Cipro Allergy Severe hives Verified 01/03/15 09:10 ciprofloxacin Allergy Severe hives Verified 03/13/24 09:35 dobutamine Allergy Severe Hives Verified 03/13/24 09:35 Iodinated Contrast Media Allergy Severe Tongue Verified 03/13/24 09:35 thickening, difficulty swallowing Sulfa (Sulfonamide Allergy Severe UNKNOWN Verified 03/13/24 09:35 Antibiotics) erythromycin base Allergy Intermediate rash Verified 03/13/24 09:35 adhesive Allergy Unknown RED SKIN Verified 03/13/24 09:35 Penicillins Allergy Unknown UNKNOWN Verified 03/13/24 09:35 Quinolones Allergy Unknown UNKNOWN Verified 03/13/24 09:35 Home Medications Medication Instructions Recorded Confirmed Type calcium carbonate 600 mg-vitamin 1 cap PO QDL 11/19/19 03/13/24 History D3 5 mcg (200 unit) capsule (Calcium 600 + D(3)) cholecalciferol (vitamin D3) 50 2,000 units PO QDL 11/19/19 03/13/24 History mcg (2,000 unit) tablet multivitamin (Daily Multi-Vitamin 1 tab PO QDL 11/19/19 03/13/24 History tablet) coenzyme Q10 400 mg capsule 100 mg PO QPM 05/27/21 03/13/24 History nitroglycerin 0.4 mg sublingual 0.4 mg sublingual Q5M PRN chest 11/22/23 03/13/24 Rx tablet pain #25 tabs potassium chloride 20 mEq 20 meq PO DAILY 30 days #30 tabs 01/28/24 03/13/24 Rx tablet,extended release(part/cryst) Lactobacillus acidophilus 1 1,000 mmu cells PO QAM ##0 02/22/24 03/13/24 History billion cell capsule cartilage 40 mg-collagen II 10 1 tab PO QDL 02/22/24 03/13/24 History mg-boron 5 mg-hyaluronate 3.3 mg tablet ([employer]) clobetasol 0.05 % topical ointment 1 applic topical 2XWK PRN flare 02/22/24 03/13/24 History diphenhydramine HCl 25 mg tablet 25 mg PO DAILY PRN allergies 02/22/24 03/13/24 History (Benadryl Allergy) furosemide 20 mg tablet (Lasix) 20 mg PO DAILY 02/22/24 03/13/24 History gabapentin 100 mg capsule 100 mg PO TID 02/22/24 03/13/24 History triamcinolone acetonide 0.5 % 1 applic topical BID PRN flare ups 02/22/24 03/13/24 History topical cream clopidogrel 75 mg tablet 75 mg PO QAM #30 tabs 02/23/24 03/13/24 Rx alendronate 70 mg tablet (Fosamax) 0 mg PO WK 03/09/24 03/13/24 History levothyroxine 50 mcg tablet 50 mcg PO DAILYBB 03/09/24 03/13/24 History lorazepam 0.5 mg tablet 1 mg PO HS 03/09/24 03/13/24 History atorvastatin 10 mg tablet 10 mg PO DAILY #20 tabs 03/10/24 03/13/24 Rx metoprolol succinate 25 mg 25 mg PO DAILY #30 tabs 03/10/24 03/13/24 Rx tablet,extended release 24 hr Problem List Atrial fibrillation with RVR (Acute) Heart murmur TIA (transient ischemic attack) Elevated troponin Non-ST elevation VA (NSTEMI) (Acute) Stroke-like symptoms (Acute) Hyponatremia Pulmonary hypertension Bladder pain Tricuspid regurgitation Lumbar spinal stenosis Normal left ventricular systolic function and wall motion Sensorineural hearing loss (SNHL) of both ears Arthritis (Acute) Cataract (Acute) Detrusor instability (Acute) Urethral caruncle (Acute) Urge and stress incontinence (Acute) Vitamin D deficiency (Acute) Aortic regurgitation Mitral regurgitation Antiplatelet or antithrombotic long-term use Lichen planus (Chronic) Lichen sclerosus et atrophicus (Chronic) Patient History Medical History Slurred speech Stroke-like symptoms (HFpEF) heart failure with preserved ejection fraction CAD (coronary artery disease) HTN (hypertension) Hyperlipemia Acute hypoxic respiratory failure Chest pain Postural lightheadedness Anxiety Osteoporosis with fracture History of breast cancer Tricuspid regurgitation per allscripts record Hx of sarcoidosis Hx of osteopenia Hx of fracture of rib Surgical History Hx of CABG January 2006 @ [place] by Dr Nicholson H/O colonoscopy 05/24/12 - by Dr Mayank Lorenzana H/O lymph node biopsy 03/21/07 S/P tubal ligation 10/21/07 S/P thoracotomy 1974 H/O oral surgery S/P hysterectomy 09/25/11 S/P dilation and curettage S/P cholecystectomy 1989 Hx of cataract surgery Bilateral - 2002 S/P mastectomy 2006 - Rt partial History of breast biopsy 03/04/07 - Rt breast Family History Aunt Breast cancer Maternal Grandmother (Maternal) Colorectal cancer Mother Colorectal cancer Ovarian cancer Father Heart disease Stroke Allergies Other No family history of adverse response to anesthesia No family history of bleeding disorder Social History Smoking Status: Former smoker Tobacco Type: Cigarettes Age Quit Using Tobacco: 39; packs per day: 0.5; Second Hand Exposure: No; Do You Dip or Chew Tobacco: No; Hx Alcohol Use: Yes Alcohol type: wine Hx Substance Use: No Preferred Language: Slovak Communication Ability: Effective Visual Impairment: No Limitations Hearing Ability: Normal Project Economist Required: No Beliefs That Will Affect Care: None marital status: Current Living Situation: Spouse current occupational status: retired How many Children do You have: 3 Feels Safe at Home: Yes Childhood Exposure to Second-Hand Smoke: No Diet: regular caffeine: Yes during the past year weight has: remained stable Dental Care, Regularly: Yes Physical Activity Frequency: Does not Exercise Seatbelt Use: always Sunscreen Use: Yes Assistive Devices: None Physical Exam Physical Exam: Gen.: No acute distress. Alert. HEENT: Anicteric sclera. Neck: No JVD. No bruits. Normal carotid upstrokes bilaterally. Cardiac: No ventricular heave. Irregularly irregular. Tachycardic. Normal S1- S2. 2/6 holosystolic murmur loudest at the apex with radiation to the axilla. Pulm: Clear to auscultation bilaterally without wheezes, rales, or rhonchi. Abdomen: Soft, nontender, nondistended, with normoactive bowel sounds. No bruits noted. Extremities: 2+ radial pulses bilaterally. 2+ posterior tibialis pulses bilaterally. Trace bilateral lower extremity edema. No cyanosis. Psychiatric: Affect appears appropriate. Results & Data Vital Signs (Past 12 Hours) Vital Signs Temp Pulse Pulse Resp BP Pulse Ox O2 Del Method 03/14/24 15:06 36.5 C 126 H 18 101/60 97 Room Air 03/14/24 11:44 36.4 C L 117 H 18 103/71 91 Room Air 03/14/24 09:04 115 H 03/14/24 07:17 36.5 C 120 H 18 98/67 L 97 Room Air 03/14/24 06:59 105 H Intake & Output 03/12/24 03/13/24 03/14/24 07/03/24 06:59 06:59 06:59 06:59 Intake Total 421.767 / 421.767 775.2 / 775.2 Balance 421.767 / 421.767 775.2 / 775.2 Weight 137 lb 2.04 oz 140 lb 14.006 oz Laboratory Results Laboratory Results - last 24 hr 03/13/24 03/14/24 22:41 05:51 WBC 8.30 RBC 3.72 L Hgb 10.7 L D Hct 33.0 L MCV 88.7 MCH 28.8 MCHC 32.4 RDW Std Deviation 48.3 H RDW Coeff of Shan 15.0 H Plt Count 157 MPV 11.3 Immature Gran % (Auto) 0.5 Neut % (Auto) 57.6 Lymph % (Auto) 26.4 Rogers % (Auto) 11.8 Eos % (Auto) 3.3 Baso % (Auto) 0.4 Neut # (Auto) 4.79 Lymph # (Auto) 2.19 Rogers # (Auto) 0.98 H Eos # (Auto) 0.27 Baso # (Auto) 0.03 Immature Gran # (Auto) 0.04 Heparin Anti-Xa, Unfract 0.42 Sodium 137 Potassium 3.9 Chloride 105 Carbon Dioxide 28 Anion Gap 4 BUN 15 Creatinine 0.83 Est Cr Clr Drug Dosing 38.3 Est GFR ( Amer) 72.5 Est GFR (Non-Af Amer) 62.5 BUN/Creatinine Ratio 18.1 Glucose 102 H Calcium 8.7 Troponin I High Sens 19.6 H D TSH 2.479 Diagnostic Findings Labs reviewed and notable for normal TSH, slightly elevated high-sensitivity troponin (peak 29). Stable renal function, normal potassium, mild anemia. LDL was excellent on 03/10/2024. Telemetry personally reviewed: Atrial fibrillation with rapid ventricular response with heart rates improved and mostly now 100 to 130 bpm. ECGs personally reviewed: ECG 03/13/2024 at 6:38 AM: A-fib with RVR 130 bpm. PVC versus aberrantly conducted complex. ECG 03/13/2024 at 6:47 AM: A-fib 85 bpm. ECG 7 10/06/2030: A-fib RVR [address] abnormality. Echo 03/13/2024: Normal LV size, wall motion, systolic function. EF 55 to 60%. Mild LVH. Mildly reduced RV systolic function. Severe biatrial dilation. Sclerotic aortic valve with trace AI. Posterior mitral valve leaflet prolapse with moderate to severe eccentric MR. Severe MAC. Moderate to severe TR. Normal RVSP. History and physical report reviewed. Outpatient cardiology note reviewed. Chest x-ray 03/13/2024: No significant change in patchy right perihilar and right basilar densities. No evidence for pulmonary edema per radiology. Suspect mild emphysema per radiology. Medications Administered Current Inpatient Medications Acetaminophen (Acetaminophen 325 Mg Tab) 650 mg PO Q4H PRN PRN Reason: Pain or Fever Stop: 04/12/24 11:10 Atorvastatin Calcium (Atorvastatin 10 Mg Tab) 10 mg PO DAILY [facility] Stop: 04/12/24 11:10 Last Admin: 03/14/24 08:16 Dose: 10 mg Furosemide (Furosemide 20 Mg Tab) 20 mg PO DAILY [facility] Stop: 04/12/24 11:10 Last Admin: 03/14/24 08:16 Dose: 20 mg Diltiazem HCl 125 mg/ Dextrose 125 mls @ 0 mls/hr IV .Q0M [facility]; Protocol Stop: 04/12/24 06:44 Last Titration: 03/14/24 07:14 Dose: Infused Heparin Sodium/Dextrose (Heparin Sodium/Dextrose) 25,000 units in 500 mls @ 12 mls/hr IV .Q24H [facility]; Protocol Stop: 04/12/24 08:44 Last Titration: 03/14/24 14:55 Dose: 600 units/hr, 12 mls/hr Levothyroxine Sodium (Levothyroxine Sodium 50 Mcg Tablet) 50 mcg PO DAILYBB [facility] Stop: 04/13/24 06:29 Last Admin: 03/14/24 06:41 Dose: 50 mcg Lorazepam (Lorazepam 0.5 Mg Tab) 0.5 mg PO HS PRN PRN Reason: insomnia, anxiety Stop: 04/13/24 02:40 Last Admin: 03/14/24 02:52 Dose: 0.5 mg Metoprolol Succinate (Metoprolol Succ 50mg Ext Rel Tab) 50 mg PO QAM [facility] Stop: 04/12/24 11:10 Last Admin: 03/14/24 08:22 Dose: Not Given Nitroglycerin (Nitroglycerin Sl 0.4 Mg/Tab Tab) 0.4 mg SL Q5M PRN PRN Reason: Chest Pain Stop: 04/12/24 11:10 Ondansetron HCl (Ondansetron Inj 2 Mg/Ml 2 Ml Vial) 4 mg IV Q6H PRN PRN Reason: Nausea Stop: 04/12/24 11:10 Polyethylene Glycol (Polyethylene (Miralax) 17 Gm Pack) 17 gm PO DAILY PRN PRN Reason: Constipation Stop: 04/12/24 11:10 Potassium Chloride (Potassium Chloride Crtab 20 Meq Tabcr) 20 meq PO DAILY [facility] Stop: 04/12/24 11:10 Last Admin: 03/14/24 08:16 Dose: 20 meq PG Care Time/CCT Total # of Minutes Spent Total Time Spent with Patient: Total time spent is greater than 50% in coordination of care (as documented) at patient's floor/unit and/or counseling patient: Coding Level of Care Code 74060 INT INP/OBS CARE 3/75MIN Diagnoses Atrial fibrillation with RVR I48.91 Elevated troponin R79.89 Tricuspid regurgitation I07.1 Mitral regurgitation I34.0 CAD (coronary artery disease) I25.10 (HFpEF) heart failure with preserved ejection fraction I50.30 Hx of CABG Z95.1
[2024-03-14] MEDS: METOPROLOL TARTRATE 25 MG TAB PO SCH (20:13)
--- NOTE | 2024-03-14 23:01 | Electrocardiogram Report ---
Test Reason : Blood Pressure : / mmHG Vent. Rate : 130 BPM Atrial Rate : 000 BPM P-R Int : 000 ms QRS Dur : 106 ms QT Int : 320 ms P-R-T Axes : 000 -37 103 degrees QTc Int : 470 ms Atrial fibrillation with rapid ventricular response with premature ventricular or aberrantly conducte d complexes Left axis deviation Incomplete left bundle block Minimal voltage criteria for LVH, may be normal variant ( [place] product ) Abnormal ECG When compared with ECG of 09-MAR-2024 09:16, Atrial fibrillation has replaced Sinus rhythm Vent. rate has increased BY 68 BPM Confirmed by Armen Pearson ([id number]) on 03/14/2024 11:00:26 PM Referred By: REFERRED SELF Confirmed By:Armen Pearson
--- NOTE | 2024-03-14 23:01 | Electrocardiogram Report ---
Test Reason : Blood Pressure : / mmHG Vent. Rate : 085 BPM Atrial Rate : 000 BPM P-R Int : 000 ms QRS Dur : 108 ms QT Int : 356 ms P-R-T Axes : 000 -29 086 degrees QTc Int : 423 ms Atrial fibrillation Incomplete left bundle block Minimal voltage criteria for LVH, may be normal variant ( [place] product ) Abnormal ECG When compared with ECG of 13-MAR-2024 06:38, Vent. rate has decreased BY 45 BPM Confirmed by Armen Pearson ([id number]) on 03/14/2024 11:01:07 PM Referred By: REFERRED SELF Confirmed By:Armen Pearson
--- NOTE | 2024-03-15 06:31 | Electrocardiogram Report ---
Test Reason : Blood Pressure : / mmHG Vent. Rate : 113 BPM Atrial Rate : 144 BPM P-R Int : 000 ms QRS Dur : 110 ms QT Int : 356 ms P-R-T Axes : 000 -12 092 degrees QTc Int : 488 ms Atrial fibrillation with rapid ventricular response Prolonged QT Abnormal ECG When compared with ECG of 13-MAR-2024 06:47, No significant change was found Confirmed by Armen Pearson ([id number] on 03/15/2024 6:31:03 AM Referred By: REFERRED SELF Confirmed By:Armen Pearson
[2024-03-15 07:33] VITALS: TEMP 97.3
[2024-03-15 07:34] LABS: Basophils # (auto) 0.05 K/uL (0.00-0.20); Basophils % (auto) 0.6 %; Eosinophils # (auto) 0.23 K/uL (0.00-0.50); Hematocrit (blood only) 37.1 % (37.0-47.0); Hemoglobin 12.1 g/dl (12.0-16.0); Immature Granulocytes # (auto) 0.04 K/uL (0.01-0.20); Immature Granulocytes % (auto) 0.5 %; Lymphocytes # (auto) 2.22 K/uL (1.20-3.40); Lymphocytes % (auto) 28.6 %; Mean Corpuscular Hemoglobin 29.1 pg (25.0-34.0); Mean Corpuscular Hgb Conc 32.6 g/dL (32.0-36.0); Mean Corpuscular Volume 89.2 fL (80.0-100.0); Mean Platelet Volume 11.4 fL (9.4-12.4); Monocytes # (auto) 0.94 K/uL (0.11-0.59); Monocytes % (auto) 12.1 %; Neutrophils # (auto) 4.27 K/uL (1.40-6.50); Neutrophils % (auto) 55.2 %; Platelet Count 166 K/uL (130-400); RDW Standard Deviation 49.3 fL (36.4-46.3); Red Blood Count 4.16 M/uL (4.20-5.40); White Blood Count 7.75 K/ul (4.8-10.8)
[2024-03-15 07:41] LABS: BUN Creatinine Ratio 17.3 (10-20); Calcium 9.2 mg/dl (8.6-10.3); Creatinine Clr Calc Pharmacy 39.6 ml/min; Est GFR (African American) 74.6 ml/min; Est GFR (Non-African American) 64.4 ml/min; Potassium 4.3 mmol/L (3.5-5.1)
[2024-03-15] MEDS: APIXABAN 5 MG TABLET PO SCH (09:04)
--- NOTE | 2024-03-15 10:38 | Cardiology Progress Note ---
Date of Service March 15, 2024 Assessment & Plan (1) Atrial fibrillation with RVR: (2) Elevated troponin: (3) Tricuspid regurgitation: (4) Mitral regurgitation: (5) CAD (coronary artery disease): (6) (HFpEF) heart failure with preserved ejection fraction: (7) Hx of CABG: Plan ASSESSMENT/PLAN: 1. Atrial fibrillation: New diagnosis. Initially symptomatic but currently asymptomatic despite elevated heart rates. Thus, cannot be entirely sure when the event began. Now on anticoagulation therapy. Heart rate adequately controlled with metoprolol tartrate 25 mg p.o. every 6 hours. Recommend adjusting metoprolol to 50 mg twice daily for ongoing rate control. Continue anticoagulation for stroke risk reduction. 2. Elevated troponin: She did not present with acute coronary syndrome. Likely due to demand ischemia in the setting of A-fib with RVR however troponin has trended down since presentation and was elevated only days ago when she presented with TIA and thus could be due to her neurologic event. Ischemic evaluation not necessary. 3. CAD s/p CABG: No angina. Continue statin therapy. Continue beta-william. Risk factor modification. 4. Mitral valve prolapse with mitral regurgitation: Moderate to severe on 03/13/2024 echo. Has known mitral regurgitation. This can be followed in the outpatient setting. 5. Tricuspid regurgitation: Moderate to severe on current echo in the setting of A-fib with RVR. Known in the outpatient setting. Outpatient surveillance. 6. Chronic heart failure with preserved EF: She appears euvolemic. Can continue outpatient diuretic regimen. Low-sodium diet. 7. Disposition: Can be discharged home from a cardiology perspective. Patient care communicated with primary hospitalist, Dr. Neff. Follow-up with Dr. Marcos upon discharge. Admission and Anticipated Discharge Date Admission Date: March 13, 2024 Subjective Patient seen this morning. She had palpitations last evening but none since. She denies chest pain, shortness of breath, syncope, near syncope, edema, or bleeding. She was alone in her hospital room. Physical Exam Physical Exam: Gen.: No acute distress. Alert. HEENT: Anicteric sclera. Neck: No JVD. Cardiac: Irregularly irregular. Normal heart rate.. Normal S1-S2. 2/6 holosystolic murmur loudest at the apex with radiation to the axilla. Pulm: Clear to auscultation bilaterally without wheezes, rales, or rhonchi. Abdomen: Soft, nontender, nondistended, with normoactive bowel sounds. No bruits noted. Extremities: 2+ radial pulses bilaterally. 2+ posterior tibialis pulses bilaterally. No significant edema. No cyanosis. Psychiatric: Affect appears appropriate. Results & Data Vital Signs (Past 12 Hours) Vital Signs Temp Pulse Pulse Resp BP Pulse Ox O2 Del Method 03/15/24 07:32 36.3 C L 84 16 102/66 95 Room Air 03/15/24 02:57 36.5 C 61 16 95/61 L 95 Room Air 03/15/24 01:26 80 110/67 03/15/24 00:00 115 H 03/14/24 23:07 36.4 C L 103 H 18 101/68 97 Room Air Laboratory Results Laboratory Results - last 24 hr 03/14/24 03/15/24 05:51 06:44 WBC 7.75 RBC 4.16 L Hgb 12.1 Hct 37.1 MCV 89.2 MCH 29.1 MCHC 32.6 RDW Std Deviation 49.3 H RDW Coeff of Shan 15.0 H Plt Count 166 MPV 11.4 Immature Gran % (Auto) 0.5 Neut % (Auto) 55.2 Lymph % (Auto) 28.6 [place] % (Auto) 12.1 Eos % (Auto) 3.0 Baso % (Auto) 0.6 Neut # (Auto) 4.27 Lymph # (Auto) 2.22 [place] # (Auto) 0.94 H Eos # (Auto) 0.23 Baso # (Auto) 0.05 Immature Gran # (Auto) 0.04 Heparin Anti-Xa, Unfract 0.40 Sodium 136 Potassium 4.3 Chloride 101 Carbon Dioxide 28 Anion Gap 7 BUN 14 Creatinine 0.81 Est Cr Clr Drug Dosing 39.6 Est GFR ( Amer) 74.6 Est GFR (Non-Af Amer) 64.4 BUN/Creatinine Ratio 17.3 Glucose 99 Calcium 9.2 TSH 2.479 Diagnostic Findings Telemetry personally reviewed: Atrial fibrillation with improved heart rate. Heart rate this morning was normal. Medications Administered Labs reviewed and notable for normal hemoglobin, stable renal function. PG Care Time/CCT Total # of Minutes Spent Total Time Spent with Patient: Total time spent is greater than 50% in coordination of care (as documented) at patient's floor/unit and/or counseling patient: Coding Level of Care Code 21578 SUB INP/OBS CARE 350MIN Diagnoses Atrial fibrillation with RVR I48.91 Elevated troponin R79.89 Tricuspid regurgitation I07.1 Mitral regurgitation I34.0 CAD (coronary artery disease) I25.10 (HFpEF) heart failure with preserved ejection fraction I50.30 Hx of CABG Z95.1
[2024-03-15 11:25] VITALS: PULSE 115; RESP 18; O2SAT 96
--- NOTE | 2024-03-15 11:33 | Discharge Summary ---
Date of Service March 15, 2024 Admission HPI Per Admitting Provider This is an 88-year-old female who presented to the emergency room with the above chief complaint. The patient tells me that she has had off-and-on palpitations over the past 1 or 2 years. She never thought much of it. She did not bring it to any of her physician's attention as her symptoms with go away spontaneously. However it started at around 1 AM last night with the same palpitations and feeling like her heart was racing and he did not resolve on its own this time. It went on and on. She could not sleep because of the sensation. She waited to about 6 AM and called her son who drove her to the emergency room. In the ER, she was noted to be in rapid atrial fibrillation. She was initially given an IV Cardizem push with good response but her heart rate went up again and thus she was started on Cardizem drip. She is thus being admitted for management of her rapid atrial fibrillation. She denied any chest pain or shortness of breath. However towards the morning, her chest started to feel slightly tight. During my encounter, her heart rate was in the low 100s. She did not have the sensation of palpitation at that time but her chest was feeling slightly tight. She denied any dizziness or lightheadedness. Of note, the patient had 2 episodes of strokelike symptoms and was diagnosed with TIA twice during the last 1 month. For the first episode, she was switched from aspirin to Plavix. For the second episode, it was thought to be related to hypoperfusion and her metoprolol dose was reduced from 100 mg to 25 mg once daily. Past medical history 1. TIA x 2 in the past 1 month. Aspirin was changed to Plavix after the first episode. The second episode was thought to be more likely related to hypoperfusion and thus metoprolol dose was reduced 2. HFpEF. She is followed by the CHF clinic outpatient 3. Coronary artery disease status post CABG 4. Benign essential hypertension 5. Hyperlipidemia 6. Breast cancer Admission Exam Per Admitting Provider General appearance: Awake, conversant, able to answer questions appropriately. AOx3. Pupils: Equally reactive to light and accommodation Neck: No masses, no thyromegaly Respiration: Clear to auscultation bilaterally. Normal effort Cardiovascular: S1-S2/irregular rhythm. No murmur, rubs or gallop. No edema. Abdomen: Soft, nontender, nondistended. No hepatosplenomegaly Musculoskeletal: No clubbing, no cyanosis, normal range of motion Skin: No rashes, no nodules Neuro exam: Cranial nerves intact, sensation grossly intact Psychiatric: Patient has good judgment and insight. AOx3. Mood and affect appear normal Lymphatics: No cervical or axillary lymphadenopathy noted Principal Diagnosis Rapid atrial fibrillation Demand ischemia Discharge Exam General: Awake, conversant Heart: S1, S2/irregular rhythm, no murmur rubs or gallops Lungs: Clear to auscultation bilaterally. Normal effort Abdomen: Soft/nontender/nondistended. No hepatosplenomegaly Extremities: No clubbing/cyanosis. No edema Behavior: Appropriate, cooperative Discharge Data Allergies Allergy/AdvReac Type Severity Reaction Status Date / Time Cipro Allergy Severe hives Verified 01/03/15 09:10 ciprofloxacin Allergy Severe hives Verified 03/13/24 09:35 dobutamine Allergy Severe Hives Verified 03/13/24 09:35 Iodinated Contrast Media Allergy Severe Tongue Verified 03/13/24 09:35 thickening, difficulty swallowing Sulfa (Sulfonamide Allergy Severe UNKNOWN Verified 03/13/24 09:35 Antibiotics) erythromycin base Allergy Intermediate rash Verified 03/13/24 09:35 adhesive Allergy Unknown RED SKIN Verified 03/13/24 09:35 Penicillins Allergy Unknown UNKNOWN Verified 03/13/24 09:35 Quinolones Allergy Unknown UNKNOWN Verified 03/13/24 09:35 Consultations 03/13/24 08:27 ED Decision to Admit Stat 03/13/24 10:54 Consult Neurology Stat 03/14/24 12:57 Consult Cardiology Routine Hospital Course (1) Atrial fibrillation with RVR: Patient presented with palpitations that went on for several hours. EKG in ER revealed A-fib with RVR Patient was started on Cardizem drip for rate control Has been off of the Cardizem drip since 3 PM on 03/13 Cardiology was consulted Metoprolol was changed from 25 succinate once daily to 50 tartrate twice daily. Patient tolerated it well with good rate control Cleared for discharge by cardiology Echocardiogram showed severe biatrial dilatation, otherwise unremarkable TSH unremarkable Has been on heparin drip during the hospital stay. Switch to p.o. Eliquis on discharge. [id number] score 7 (2) Elevated troponin: Most likely due to demand ischemia due to increased rate No chest pain Echocardiogram showed no wall motion abnormality (3) TIA (transient ischemic attack): Patient had 2 episodes of strokelike symptoms in the past 1 month Her strokelike symptoms could have been related to A-fib Neurology consulted Plan to discharge on Eliquis and aspirin (in place of Plavix) upon discharge Continue Lipitor (4) (HFpEF) heart failure with preserved ejection fraction: Euvolemic Continue Lasix and potassium home dosing Plan Discharge to home today Total Time Total Time Spent Total Time Spent (In Minutes): 35 Discharge Plan Discharge Items Patient Disposition: Home - Self-Care Reason For Visit: rapid AFIB Discharge Diagnosis: Rapid Atrial Fibrillation Activity: Resume your previous activity Non-emergency contact: Primary Care Provider Call non-emergency contact if: you have any medication questions and your symptoms worsen Follow-up/Referrals: Gabriel Marcos Jr, MD, FAC [Physician] - 03/17/24 10:00 am (Hospital follow up scheduled March 17 at 10:00 with Darling Rivera) Eric Jean DO [Primary Care Provider] - 03/22/24 11:00 am (Hospital follow up scheduled March 22 at 11:00 with Fannie Martínez) Diet: Heart Healthy Addtl Attending Provider Instructions: - Advised to follow-up with PCP in 1 week - Advised to follow-up with Dr. Marcos in 1-2 weeks Pending Studies at Discharge: No Stand-Alone Forms: My [facility] Medications and DC Order Prescriptions: New Eliquis 5 mg Tablet 5 mg PO BID 30 Days Qty: 60 0RF metoprolol tartrate 50 mg tablet 50 mg PO BID 30 Days Qty: 60 0RF aspirin 81 mg tablet,chewable 81 mg PO DAILY Qty: 30 0RF Continued Calcium 600 + D(3) 600 mg calcium- 200 unit capsule 1 cap PO QDL Rx Instructions: Take 1 tablet by mouth daily. multivitamin [Daily Multi-Vitamin] Tablet 1 tab PO QDL Rx Instructions: Take 1 tablet by mouth daily. cholecalciferol (vitamin D3) 50 mcg (2,000 unit) tablet 2,000 units PO QDL Rx Instructions: Take 1 capsule by mouth daily. nitroglycerin 0.4 mg tablet, sublingual 0.4 mg SL Q5M PRN (Reason: chest pain) Qty: 25 1RF potassium chloride 20 mEq tablet,ER particles/crystals 20 meq PO DAILY 30 Days Qty: 30 11RF coenzyme Q10 400 mg capsule 100 mg PO QPM Rx Instructions: Take 1 capsule daily with a meal. alendronate [Fosamax] 70 mg tablet 0 mg PO WK Rx Instructions: As of 03/13/24 - pt hasn't started yet. Original Directions: 70mg by mouth once weekly levothyroxine 50 mcg tablet 50 mcg PO DAILYBB atorvastatin 10 mg tablet 10 mg PO DAILY Qty: 20 0RF [facility] 40-10-5-3.3 mg Tablet 1 tab PO QDL Lactobacillus acidophilus 1 billion cell Capsule 1,000 mmu cells PO QAM Qty: 0 triamcinolone acetonide 0.5 % cream 1 applic topical BID PRN (Reason: flare ups) furosemide [Lasix] 20 mg tablet 20 mg PO DAILY Rx Instructions: Can increase to 40 mg daily PRN if gain 2lbs + gabapentin 100 mg capsule 100 mg PO TID clobetasol 0.05 % ointment 1 applic topical 2XWK PRN (Reason: flare) diphenhydramine HCl [Benadryl Allergy] 25 mg Tablet 25 mg PO DAILY PRN (Reason: allergies) Discontinued metoprolol succinate 25 mg tablet extended release 24 hr 25 mg PO DAILY Qty: 30 0RF clopidogrel 75 mg Tablet 75 mg PO QAM Qty: 30 0RF No Action lorazepam 0.5 mg tablet 1 mg PO HS Qty: 60 0RF Rx Instructions: 2 tabs at bedtime Discharge Orders: Discharge Order (Routine); Ordered 03/15/24 Ordered By: Benny Neff Admission Data Admit Date/Time: 03/13/24 08:46 Attending Provider: Benny Neff Admit Provider: Benny Neff Primary Care Provider: Eric Jean Other Providers: Olivier Barnes; Benny Neff; Armen Pearson Other Interventions: Discharge Summary Assessment (RN) Last Done: 03/15/24 11:39 Coding Level of Care Code 03104 INP/OBS DISCH >30 MIN Diagnoses Atrial fibrillation with RVR I48.91 Elevated troponin R79.89 TIA (transient ischemic attack) G45.9 (HFpEF) heart failure with preserved ejection fraction I50.30
[2024-03-15 11:40] VITALS: BP 90/58
--- NOTE | 2024-03-17 09:18 | Pharmacy Report ---
Pharmacist Stroke Counseling - Date of Service March 17, 2024 - Scope: Pharmacy has been consulted to provide medication discharge counseling for this patient admitted (admission from 03/09) with ischemic stroke as per the Pharmacist Discharge Counseling for Stroke Patients Protocol. - Medications on Discharge: Home Medications Medication Instructions Recorded Confirmed calcium carbonate 600 mg-vitamin 1 cap PO QDL 11/19/19 03/13/24 D3 5 mcg (200 unit) capsule (Calcium 600 + D(3)) cholecalciferol (vitamin D3) 50 2,000 units PO QDL 11/19/19 03/13/24 mcg (2,000 unit) tablet multivitamin (Daily Multi-Vitamin 1 tab PO QDL 11/19/19 03/13/24 tablet) coenzyme Q10 400 mg capsule 100 mg PO QPM 05/27/21 03/13/24 Lactobacillus acidophilus 1 1,000 mmu cells PO QAM ##0 02/22/24 03/13/24 billion cell capsule cartilage 40 mg-collagen II 10 1 tab PO QDL 02/22/24 03/13/24 mg-boron 5 mg-hyaluronate 3.3 mg tablet (Integrity Tracking) clobetasol 0.05 % topical ointment 1 applic topical 2XWK PRN flare 02/22/24 03/13/24 diphenhydramine HCl 25 mg tablet 25 mg PO DAILY PRN allergies 02/22/24 03/13/24 (Benadryl Allergy) furosemide 20 mg tablet (Lasix) 20 mg PO DAILY 02/22/24 03/13/24 gabapentin 100 mg capsule 100 mg PO TID 02/22/24 03/13/24 triamcinolone acetonide 0.5 % 1 applic topical BID PRN flare ups 02/22/24 03/13/24 topical cream alendronate 70 mg tablet (Fosamax) 0 mg PO WK 03/09/24 03/13/24 levothyroxine 50 mcg tablet 50 mcg PO DAILYBB 03/09/24 03/13/24 New Rx's Medication Instructions Recorded nitroglycerin 0.4 mg sublingual 0.4 mg sublingual Q5M PRN chest 11/22/23 tablet pain #25 tabs potassium chloride 20 mEq 20 meq PO DAILY 30 days #30 tabs 01/28/24 tablet,extended release(part/cryst) atorvastatin 10 mg tablet 10 mg PO DAILY #20 tabs 03/10/24 apixaban 5 mg tablet (Eliquis) 5 mg PO BID 1 month #60 tabs 03/15/24 aspirin 81 mg chewable tablet 81 mg PO DAILY #30 tabs 03/15/24 lorazepam 0.5 mg tablet 1 mg (2 x 0.5 mg) PO HS #60 tabs 03/15/24 metoprolol tartrate 50 mg tablet 50 mg PO BID 1 month #60 tabs 03/15/24 - Action: The above medications, specifically ones for stroke treatment/prophylaxis, have been reviewed in detail with the patient and/or patient marketing representative(s) prior to discharge. This includes indication, common adverse reactions, drug interactions, and medication administration. Medication counseling has been employed using the teach-back method to ensure understanding. - Outcome: The patient and/or patient marketing representative(s) have demonstrated understanding of the medications. Additional comments: * Patient confirmed that new medications were picked up from pharmacy * She reports upset stomach this morning, confirmed that patient is taking enteric-coated aspirin and has been taking with food. Encouraged patient to continue to self-monitor and let PCP know if continued issues w/ GI upset. * Patient demonstrated understanding of medication changes, no concerns at this time. * Cardiology follow-up today and PCP appointment next week. Thank you for allowing pharmacy to be involved in the care of this patient. Please call [phone] with any additional questions
== END 2024-03-15 14:00 | disposition home or self-care (01) | DRG 309 ==
LOC: ED 06:29 → INTOOBSV 08:46 → 2S 08:46

== ENCOUNTER 2024-03-22 12:09 | Inpatient (IN) ==
[2024-03-22] MEDS: METOPROLOL TARTRATE 1 MG/ML VIAL IV STA (12:42)
--- NOTE | 2024-03-22 12:57 | Electrocardiogram Report ---
Test Reason : Blood Pressure : / mmHG Vent. Rate : 114 BPM Atrial Rate : 000 BPM P-R Int : 000 ms QRS Dur : 116 ms QT Int : 354 ms P-R-T Axes : 000 -54 113 degrees QTc Int : 487 ms Atrial fibrillation with rapid ventricular response Left axis deviation Incomplete left bundle block Abnormal QRS-T angle, consider primary T wave abnormality Abnormal ECG When compared with ECG of 13-MAR-2024 20:31, QRS axis Shifted left Criteria for Septal infarct are no longer Present Confirmed by Clemente Little ([id number]) on 03/22/2024 12:56:55 PM Referred By: Confirmed By:Kiran Little
[2024-03-22 12:59] LABS: Basophils # (auto) 0.03 K/uL (0.00-0.20); Basophils % (auto) 0.2 %; Eosinophils # (auto) 0.01 K/uL (0.00-0.50); Eosinophils % (auto) 0.1 %; Hematocrit (blood only) 38.4 % (37.0-47.0); Hemoglobin 13.1 g/dl (12.0-16.0); Immature Granulocytes # (auto) 0.18 K/uL (0.01-0.20); Immature Granulocytes % (auto) 1.2 %; Lymphocytes # (auto) 2.17 K/uL (1.20-3.40); Lymphocytes % (auto) 14.1 %; Mean Corpuscular Hemoglobin 29.6 pg (25.0-34.0); Mean Corpuscular Hgb Conc 34.1 g/dL (32.0-36.0); Mean Corpuscular Volume 86.9 fL (80.0-100.0); Mean Platelet Volume 12.1 fL (9.4-12.4); Monocytes # (auto) 1.43 K/uL (0.11-0.59); Monocytes % (auto) 9.3 %; Neutrophils # (auto) 11.62 K/uL (1.40-6.50); Neutrophils % (auto) 75.1 %; Nucleated RBC # (auto) 0.02 K/uL (0.00-0.12); Nucleated RBC % (auto) 0.1 %; Platelet Count 176 K/uL (130-400); RDW Coefficient of Variation 15.7 % (11.5-14.5); RDW Standard Deviation 48.1 fL (36.4-46.3); Red Blood Count 4.42 M/uL (4.20-5.40); White Blood Count 15.44 K/ul (4.8-10.8)
[2024-03-22 13:11] LABS: Alanine Aminotransferase 217 U/L (7-52); Albumin Globulin Ratio 1.8 (0.9-2); Albumin Level 4.3 gm/dl (3.4-5.0); Alkaline Phosphatase 219 U/L (34-104); Anion Gap 10 (3-11); Aspartate Aminotransferase 218 U/L (13-39); Bilirubin,Total 2.6 mg/dl (0.2-1.0); Blood Urea Nitrogen 45 mg/dl (6-23); Calcium 9.6 mg/dl (8.6-10.3); Carbon Dioxide 20 mmol/L (21-32); Chloride 92 mmol/L (98-107); Est GFR (African American) 34.1 ml/min; Est GFR (Non-African American) 29.4 ml/min; Globulin 2.4 gm/dl (2.5-4.0); Glucose 109 mg/dl (70-99(Fasting)); Lipase 38 U/L (11-82); Magnesium 2.3 mg/dl (1.7-2.4); Potassium 5.8 mmol/L (3.5-5.1); Sodium 122 mmol/L (136-145); Total Protein 6.7 gm/dl (6.0-8.3)
--- NOTE | 2024-03-22 13:17 | Emergency Department Note ---
Impression & Plan Weakness, Hyponatremia, Atrial fibrillation with RVR, Hyperkalemia, CHF exacerbation ED Provider Note Provider: Alexi Damon MD DATE OF SERVICE: 03/22/2024 CHIEF COMPLAINT: Elevated heart rate, weakness, chest pain/shortness of breath HISTORY OF PRESENT ILLNESS: Patient is a 88-year-old female history of A-fib on Eliquis, pulm hypertension also maintained on Plavix and metoprolol presenting here today from the office due to increasing weakness and some discomfort in the lower chest region. Reports last day or 2 worsening. States she has feels like she is gained some weight and has not eaten much today. Did take her Lasix today but did not take any of her other medicines. Has otherwise been on Eliquis. Short of breath even walking across the room but did not fall. Was able to get dressed this morning with a good amount of effort by report. Denies significant lower abdominal pain. No fevers reported. Reports maybe a 10 pound weight gain over the last day or so. PAST MEDICAL HISTORY: As noted above MEDICATIONS: Reviewed home medications but other than her Lasix do not take other morning meds this morning. SOCIAL HISTORY: Lives by herself as [facility] PHYSICAL EXAM: GENERAL: alert and oriented in no acute distress on stretcher generally fatigued in appearance Head: normocephalic and atraumatic EYES: No injection, discharge or icterus. EOMI. NECK: Trachea midline. ENT: Mucous membranes pink and moist. LUNGS: Airway patent. No retractions. Breath sounds crackles in the bases diminished HEART: Irregular irregular tachycardic rate and rhythm. ABDOMEN: Soft and non-tender, without guarding or rebound. SKIN: Acyanotic, warm, dry, without rashes EXTREMITIES: 1-2+ edema of the lower extremities bilateral without erythema or weeping. NEUROLOGICAL: No focal deficits. No aphasia. No facial droop or slurred speech. EK beats per and atrial fibrillation with rapid ventricular response and an incomplete left bundle branch block. Left axis is notable with some respiratory artifact. No clear acute ST segment elevation with a QTc of 487. CONTINUOUS CARDIAC MONITORING: was ordered and showed a heart rate of 80s-120s bpm in atrial fibrillation Patient's laboratory studies and imaging reviewed. Differential includes Infection, dehydration, metabolic abnormality, hypo/hyperglycemia, electrolyte disturbance, anemia, hypoxia, cardiac sources, intracerebral event, toxicologic, neurologic, as well as other pathologies. IMPRESSION/MEDICAL DECISION MAKING: Patient rapid A-fib. Did not take her morning medicines besides Lasix. Given a dose of IV metoprolol with some improvement of heart rate. Not hypoxic here. Does have some swelling of the legs. Reports some weight gain. Chest x-ray with findings of fluid overload as well as a increasing BNP. Given some additional IV Lasix. Blood work significant for new hyponatremia as well as hyperkalemia 5.8. Some worsened CKD likely more cardiorenal syndrome. LFTs/bilirubin somewhat elevated and the CT of the abdomen pelvis obtained without contrast given allergy profile findings suggest fluid overload. Prior cholecystectomy. Soft abdomen. Question more related to her generalized fluid overload status. Given some insulin, dextrose, and bicarb given the hyponatremia as well as the hyperkalemia. Patient is having improvement of heart rate and feeling better on reassessment. Respiratory viral panel is negative. Mild leukocytosis believe likely more reactive at 15.4. Urinalysis is pending however. Doubt pneumonia. Will bring into the hospital for further evaluation with her new hyponatremia/hyperkalemia/NAGA, rapid A-fib, and fluid overload status. DIAGNOSIS: Hyponatremia, NAGA, hyperkalemia, CHF, fluid overload, rapid A-fib, weakness DISPOSITION: Hospitalist will evaluate Patient was agreeable with this plan. Critical Care I have personally spent 36 minutes of critical care time in the direct management of this patient. This includes bedside care, interpretation of diagnostic studies, and testing, discussion with consultants, patient, and family members, and other required patient management activities. These 36 minutes is in excess of all separately billable procedures. Past Med/Surg History Problem List (Updated 03/22/24 @ 16:04 by Alexi Damon M.D.) CHF exacerbation (Acute) Weakness (Acute) Leukocytosis Hyperkalemia (Acute) Elevated LFTs Renal failure Atrial fibrillation with RVR (Acute) Heart murmur TIA (transient ischemic attack) Elevated troponin Non-ST elevation MN (NSTEMI) (Acute) Stroke-like symptoms (Acute) Hyponatremia (Acute) Pulmonary hypertension Bladder pain Tricuspid regurgitation Lumbar spinal stenosis Normal left ventricular systolic function and wall motion Sensorineural hearing loss (SNHL) of both ears Arthritis (Acute) Cataract (Acute) Detrusor instability (Acute) Urethral caruncle (Acute) Urge and stress incontinence (Acute) Vitamin D deficiency (Acute) Aortic regurgitation Mitral regurgitation Antiplatelet or antithrombotic long-term use Lichen planus (Chronic) Lichen sclerosus et atrophicus (Chronic) Medical History Slurred speech Stroke-like symptoms (HFpEF) heart failure with preserved ejection fraction CAD (coronary artery disease) HTN (hypertension) Hyperlipemia Acute hypoxic respiratory failure Chest pain Postural lightheadedness Anxiety Osteoporosis with fracture History of breast cancer Tricuspid regurgitation per allscripts record Hx of sarcoidosis Hx of osteopenia Hx of fracture of rib Surgical History Hx of CABG January 2006 @ [place] by Dr Nicholson H/O colonoscopy 05/24/12 - by Dr Mayank Lorenzana H/O lymph node biopsy 03/21/07 S/P tubal ligation 10/21/07 S/P thoracotomy 1974 H/O oral surgery S/P hysterectomy 09/25/11 S/P dilation and curettage S/P cholecystectomy 1989 Hx of cataract surgery Bilateral - 2002 S/P mastectomy 2007 - Rt partial History of breast biopsy 03/04/07 - Rt breast Family History Aunt Breast cancer Maternal Grandmother (Maternal) Colorectal cancer Mother Colorectal cancer Ovarian cancer Father Heart disease Stroke Allergies Other No family history of adverse response to anesthesia No family history of bleeding disorder Social History Smoking Status: Former smoker Tobacco Type: Cigarettes Age Quit Using Tobacco: 39; packs per day: 0.5; Second Hand Exposure: No; Do You Dip or Chew Tobacco: No; Hx Alcohol Use: Yes Alcohol type: wine Hx Substance Use: No Preferred Language: Montenegrin Communication Ability: Effective Visual Impairment: No Limitations Hearing Ability: Normal Buttonhole Tacker Required: No Beliefs That Will Affect Care: None marital status: Current Living Situation: Spouse current occupational status: retired How many Children do You have: 3 Feels Safe at Home: Yes Childhood Exposure to Second-Hand Smoke: No Diet: regular caffeine: Yes during the past year weight has: remained stable Dental Care, Regularly: Yes Physical Activity Frequency: Does not Exercise Seatbelt Use: always Sunscreen Use: Yes Assistive Devices: None Allergies Allergies Allergy/AdvReac Type Severity Reaction Status Date / Time Cipro Allergy Severe hives Verified 01/03/15 09:10 ciprofloxacin Allergy Severe hives Verified 03/22/24 10:51 dobutamine Allergy Severe Hives Verified 03/22/24 10:51 Iodinated Contrast Media Allergy Severe Tongue Verified 03/22/24 10:51 thickening, difficulty swallowing Sulfa (Sulfonamide Allergy Severe UNKNOWN Verified 03/22/24 10:51 Antibiotics) erythromycin base Allergy Intermediate rash Verified 03/22/24 10:51 adhesive Allergy Unknown RED SKIN Verified 03/22/24 10:51 Penicillins Allergy Unknown UNKNOWN Verified 03/22/24 10:51 Quinolones Allergy Unknown UNKNOWN Verified 03/22/24 10:51 Home Meds Home Medications Medication Instructions Recorded Confirmed calcium carbonate 600 mg-vitamin 1 cap PO QDL 11/19/19 03/22/24 D3 5 mcg (200 unit) capsule (Calcium 600 + D(3)) cholecalciferol (vitamin D3) 50 2,000 units PO QDL 11/19/19 03/22/24 mcg (2,000 unit) tablet multivitamin (Daily Multi-Vitamin 1 tab PO QDL 11/19/19 03/22/24 tablet) coenzyme Q10 400 mg capsule 100 mg PO QPM 05/27/21 03/22/24 Lactobacillus acidophilus 1 1,000 mmu cells PO QAM ##0 02/22/24 03/22/24 billion cell capsule cartilage 40 mg-collagen II 10 1 tab PO QDL 02/22/24 03/22/24 mg-boron 5 mg-hyaluronate 3.3 mg tablet ([employer]) clobetasol 0.05 % topical ointment 1 applic topical 2XWK PRN flare 02/22/24 03/22/24 diphenhydramine HCl 25 mg tablet 25 mg PO DAILY PRN allergies 02/22/24 03/22/24 (Benadryl Allergy) furosemide 20 mg tablet (Lasix) 20 mg PO DAILY 02/22/24 03/22/24 gabapentin 100 mg capsule 100 mg PO TID 02/22/24 03/22/24 triamcinolone acetonide 0.5 % 1 applic topical BID PRN flare ups 02/22/24 03/22/24 topical cream levothyroxine 50 mcg tablet 50 mcg PO DAILYBB 03/09/24 03/22/24 alendronate 70 mg tablet (Fosamax) 70 mg PO WK 03/22/24 03/22/24 clopidogrel 75 mg tablet 75 mg PO DAILY 03/22/24 03/22/24 metoprolol tartrate 50 mg tablet 25 mg PO DAILY 03/22/24 Previous Rx's Medication Instructions Recorded nitroglycerin 0.4 mg sublingual 0.4 mg sublingual Q5M PRN chest 11/22/23 tablet pain #25 tabs potassium chloride 20 mEq 20 meq PO DAILY 30 days #30 tabs 01/28/24 tablet,extended release(part/cryst) aspirin 81 mg chewable tablet 81 mg PO DAILY #30 tabs 03/15/24 lorazepam 0.5 mg tablet 1 mg (2 x 0.5 mg) PO HS #60 tabs 03/15/24 apixaban 5 mg tablet (Eliquis) 5 mg PO BID #180 tabs 03/17/24 Results & Data (ED) Vital Signs Vital Signs - 24 hr 03/22/24 12:11 03/22/24 12:33 03/22/24 12:42 Temperature 36.5 C Temperature Source Temporal Artery Scan Pulse Rate 116 H 106 H 99 H Pulse Rate [Apical] Pulse Rate from SpO2 Sensor Respiratory Rate 18 Respiratory Effort / Characteristics Non-Labored SOB on Exertion Respiratory Depth Normal Blood Pressure 104/74 98/78 L Blood Pressure [Left Arm] Blood Pressure Mean 84 Blood Pressure Mean [Left Arm] Pulse Oximetry 96 Oxygen Delivery Method Room Air Sepsis Recent Fever Within 48 Hours No Sepsis New/Unexplained Change in Mental Status No Sepsis Action Taken by Nursing No Action Required 03/22/24 12:51 03/22/24 12:57 03/22/24 12:57 Temperature Temperature Source Pulse Rate 99 H 128 H 120 H Pulse Rate [Apical] Pulse Rate from SpO2 Sensor Respiratory Rate 23 Respiratory Effort / Characteristics Respiratory Depth Blood Pressure Blood Pressure [Left Arm] Blood Pressure Mean Blood Pressure Mean [Left Arm] Pulse Oximetry 95 95 Oxygen Delivery Method Room Air Sepsis Recent Fever Within 48 Hours Sepsis New/Unexplained Change in Mental Status Sepsis Action Taken by Nursing 03/22/24 13:00 03/22/24 13:00 03/22/24 13:11 Temperature Temperature Source Pulse Rate 107 H Pulse Rate [Apical] Pulse Rate from SpO2 Sensor Respiratory Rate Respiratory Effort / Characteristics Respiratory Depth Blood Pressure 97/73 L Blood Pressure [Left Arm] Blood Pressure Mean 81 Blood Pressure Mean [Left Arm] Pulse Oximetry 98 Oxygen Delivery Method Room Air Sepsis Recent Fever Within 48 Hours Sepsis New/Unexplained Change in Mental Status Sepsis Action Taken by Nursing 03/22/24 13:15 03/22/24 13:30 03/22/24 14:06 Temperature Temperature Source Pulse Rate Pulse Rate [Apical] 113 H Pulse Rate from SpO2 Sensor Respiratory Rate 23 Respiratory Effort / Characteristics Respiratory Depth Blood Pressure 100/81 109/77 Blood Pressure [Left Arm] 99/79 L Blood Pressure Mean 85 85 Blood Pressure Mean [Left Arm] 85 Pulse Oximetry 95 Oxygen Delivery Method Room Air Sepsis Recent Fever Within 48 Hours Sepsis New/Unexplained Change in Mental Status Sepsis Action Taken by Nursing 03/22/24 14:15 03/22/24 14:24 03/22/24 14:30 Temperature Temperature Source Pulse Rate 103 H 116 H Pulse Rate [Apical] Pulse Rate from SpO2 Sensor 134 H 112 H Respiratory Rate 20 21 Respiratory Effort / Characteristics Respiratory Depth Blood Pressure 105/79 Blood Pressure [Left Arm] Blood Pressure Mean 91 Blood Pressure Mean [Left Arm] Pulse Oximetry 92 93 Oxygen Delivery Method Sepsis Recent Fever Within 48 Hours Sepsis New/Unexplained Change in Mental Status Sepsis Action Taken by Nursing 03/22/24 14:30 03/22/24 14:45 03/22/24 14:57 Temperature Temperature Source Pulse Rate 94 H Pulse Rate [Apical] Pulse Rate from SpO2 Sensor 94 H Respiratory Rate 23 Respiratory Effort / Characteristics Respiratory Depth Blood Pressure 104/85 110/81 Blood Pressure [Left Arm] Blood Pressure Mean 91 91 Blood Pressure Mean [Left Arm] Pulse Oximetry 95 Oxygen Delivery Method Sepsis Recent Fever Within 48 Hours Sepsis New/Unexplained Change in Mental Status Sepsis Action Taken by Nursing Laboratory Data 03/22/24 12:37 03/22/24 12:37 Lab Results 03/22/24 03/22/24 03/22/24 Range/Units 12:37 12:47 14:39 WBC 15.44 H (4.8-10.8) K/ul RBC 4.42 (4.20-5.40) M/uL Hgb 13.1 (12.0-16.0) g/dl Hct 38.4 (37.0-47.0) % MCV 86.9 (80.0-100.0) fL MCH 29.6 (25.0-34.0) pg MCHC 34.1 (32.0-36.0) g/dL RDW Std Deviation 48.1 H (36.4-46.3) fL RDW Coeff of Shan 15.7 H (11.5-14.5) % Plt Count 176 (130-400) K/uL MPV 12.1 (9.4-12.4) fL Immature Gran % (Auto) 1.2 % Neut % (Auto) 75.1 % Lymph % (Auto) 14.1 % [place] % (Auto) 9.3 % Eos % (Auto) 0.1 % Baso % (Auto) 0.2 % Neut # (Auto) 11.62 H (1.40-6.50) K/uL Lymph # (Auto) 2.17 (1.20-3.40) K/uL [place] # (Auto) 1.43 H (0.11-0.59) K/uL Eos # (Auto) 0.01 (0.00-0.50) K/uL Baso # (Auto) 0.03 (0.00-0.20) K/uL Immature Gran # (Auto) 0.18 (0.01-0.20) K/uL Absolute Nucleated RBC 0.02 (0.00-0.12) K/uL Nucleated RBC % (auto) 0.1 % PT 17.2 H (9.0-12.0) Seconds INR 1.7 H (0.9-1.1) APTT 31 (21-31) Seconds PTT Ratio 1.2 Sodium 122 L (136-145) mmol/L Potassium 5.8 H (3.5-5.1) mmol/L Chloride 92 L (98-107) mmol/L Carbon Dioxide 20 L (21-32) mmol/L Anion Gap 10 (3-11) BUN 45 H (6-23) mg/dl Creatinine 1.55 H (0.6-1.2) mg/dl Est Cr Clr Drug Dosing Not Reportable Est GFR ( Amer) 34.1 ml/min Est GFR (Non-Af Amer) 29.4 ml/min BUN/Creatinine Ratio 29.0 H (10-20) Glucose 109 H (70-99(Fasting)) mg/dl Osmolality 270 L (280-300) mOsm/kg Calcium 9.6 (8.6-10.3) mg/dl Magnesium 2.3 (1.7-2.4) mg/dl Total Bilirubin 2.6 H (0.2-1.0) mg/dl AST 218 H (13-39) U/L ALT 217 H (7-52) U/L Alkaline Phosphatase 219 H (34-104) U/L Troponin I High Sens 24.2 H 25.1 H (0-14) pg/ml B-Natriuretic Peptide 1303 H (0-100) pg/ml Total Protein 6.7 (6.0-8.3) gm/dl Albumin 4.3 (3.4-5.0) gm/dl Globulin 2.4 L (2.5-4.0) gm/dl Albumin/Globulin Ratio 1.8 (0.9-2) Lipase 38 (11-82) U/L Urine Color Urine Appearance (Clear) Urine pH (4.5-7.5) Ur Specific Sixes (1.000-1.030) Urine Protein (Negative) Urine Glucose (UA) (Negative) Urine Ketones (Negative) Urine Blood (Negative) Urine Nitrite (Negative) Urine Bilirubin (Negative) Urine Urobilinogen (Negative) Ur Leukocyte Esterase (Negative) Urine WBC (Auto) (0-5) /hpf Urine RBC (Auto) (0-2) /hpf U Hyaline Cast (Auto) (0-2) /lpf U Epithel Cells (Auto) (0-2) /hpf Urine Bacteria (Auto) (None Seen) Urine Osmolality (500-800) mOsm/kg Ur Random Sodium mmol/L Adenovirus (PCR) Not Detected (NotDetected) B. pertussis DNA (PCR) Not Detected (NotDetected) B.parapertussis DNA PCR Not Detected (NotDetected) C. pneumoniae DNA (PCR) Not Detected (NotDetected) Coronavirus OC43 (PCR) Not Detected (NotDetected) Coronavirus HKU1 (PCR) Not Detected (NotDetected) Coronavirus 229E (PCR) Not Detected (NotDetected) SARS-CoV-2 (PCR) Not Detected (NotDetected) Coronavirus NL63 (PCR) Not Detected (NotDetected) Human Metapneumovir PCR Not Detected (NotDetected) Influenza Type A (PCR) Not Detected (NotDetected) Influenza Type B (PCR) Not Detected (NotDetected) M. pneumoniae (PCR) Not Detected (NotDetected) Parainfluenza 1 (PCR) Not Detected (NotDetected) Parainfluenza 2 (PCR) Not Detected (NotDetected) Parainfluenza 3 (PCR) Not Detected (NotDetected) Parainfluenza 4 (PCR) Not Detected (NotDetected) RSV (PCR) Not Detected (NotDetected) Entero/Rhino (PCR) Not Detected (NotDetected) 03/22/24 Range/Units 14:56 WBC (4.8-10.8) K/ul RBC (4.20-5.40) M/uL Hgb (12.0-16.0) g/dl Hct (37.0-47.0) % MCV (80.0-100.0) fL MCH (25.0-34.0) pg MCHC (32.0-36.0) g/dL RDW Std Deviation (36.4-46.3) fL RDW Coeff of Shan (11.5-14.5) % Plt Count (130-400) K/uL MPV (9.4-12.4) fL Immature Gran % (Auto) % Neut % (Auto) % Lymph % (Auto) % [place] % (Auto) % Eos % (Auto) % Baso % (Auto) % Neut # (Auto) (1.40-6.50) K/uL Lymph # (Auto) (1.20-3.40) K/uL [place] # (Auto) (0.11-0.59) K/uL Eos # (Auto) (0.00-0.50) K/uL Baso # (Auto) (0.00-0.20) K/uL Immature Gran # (Auto) (0.01-0.20) K/uL Absolute Nucleated RBC (0.00-0.12) K/uL Nucleated RBC % (auto) % PT (9.0-12.0) Seconds INR (0.9-1.1) APTT (21-31) Seconds PTT Ratio Sodium (136-145) mmol/L Potassium (3.5-5.1) mmol/L Chloride (98-107) mmol/L Carbon Dioxide (21-32) mmol/L Anion Gap (3-11) BUN (6-23) mg/dl Creatinine (0.6-1.2) mg/dl Est Cr Clr Drug Dosing Est GFR ( Amer) ml/min Est GFR (Non-Af Amer) ml/min BUN/Creatinine Ratio (10-20) Glucose (70-99(Fasting)) mg/dl Osmolality (280-300) mOsm/kg Calcium (8.6-10.3) mg/dl Magnesium (1.7-2.4) mg/dl Total Bilirubin (0.2-1.0) mg/dl AST (13-39) U/L ALT (7-52) U/L Alkaline Phosphatase (34-104) U/L Troponin I High Sens (0-14) pg/ml B-Natriuretic Peptide (0-100) pg/ml Total Protein (6.0-8.3) gm/dl Albumin (3.4-5.0) gm/dl Globulin (2.5-4.0) gm/dl Albumin/Globulin Ratio (0.9-2) Lipase (11-82) U/L Urine Color Yellow Urine Appearance Clear (Clear) Urine pH 5.5 (4.5-7.5) Ur Specific Sixes 1.012 (1.000-1.030) Urine Protein 1+ H (Negative) Urine Glucose (UA) Negative (Negative) Urine Ketones Negative (Negative) Urine Blood Negative (Negative) Urine Nitrite Negative (Negative) Urine Bilirubin Negative (Negative) Urine Urobilinogen Negative (Negative) Ur Leukocyte Esterase 1+ H (Negative) Urine WBC (Auto) 11-20 H (0-5) /hpf Urine RBC (Auto) 3-5 H (0-2) /hpf U Hyaline Cast (Auto) 11-20 H (0-2) /lpf U Epithel Cells (Auto) 0-2 (0-2) /hpf Urine Bacteria (Auto) None Seen (None Seen) Urine Osmolality 343 L (500-800) mOsm/kg Ur Random Sodium 10 mmol/L Adenovirus (PCR) (NotDetected) B. pertussis DNA (PCR) (NotDetected) B.parapertussis DNA PCR (NotDetected) C. pneumoniae DNA (PCR) (NotDetected) Coronavirus OC43 (PCR) (NotDetected) Coronavirus HKU1 (PCR) (NotDetected) Coronavirus 229E (PCR) (NotDetected) SARS-CoV-2 (PCR) (NotDetected) Coronavirus NL63 (PCR) (NotDetected) Human Metapneumovir PCR (NotDetected) Influenza Type A (PCR) (NotDetected) Influenza Type B (PCR) (NotDetected) M. pneumoniae (PCR) (NotDetected) Parainfluenza 1 (PCR) (NotDetected) Parainfluenza 2 (PCR) (NotDetected) Parainfluenza 3 (PCR) (NotDetected) Parainfluenza 4 (PCR) (NotDetected) RSV (PCR) (NotDetected) Entero/Rhino (PCR) (NotDetected) Administered Medications Discontinued Medications Dextrose (Dextrose 50% 50 Ml Syringe) 50 ml IV NOW ONE Stop: 03/22/24 14:27 Last Admin: 03/22/24 14:48 Dose: 50 ml Documented By: ML Furosemide (Furosemide Inj 20 Mg/2 Ml Vial) 20 mg IV ONE ONE Stop: 03/22/24 14:53 Last Admin: 03/22/24 15:29 Dose: 20 mg Documented By: MMF Diltiazem HCl 125 mg/ Dextrose 125 mls @ 5 mls/hr IV .Q24H LIBIA; Protocol Stop: 04/21/24 13:29 Last Titration: 03/22/24 15:42 Dose: 0 mg/hr, 0 mls/hr Documented By: ML Co-signed By: MMF Admin: 03/22/24 14:06 Dose: 5 mg/hr, 5 mls/hr Documented By: ML Co-signed By: OLIVIA Insulin Human Regular (Novolin-R Insulin Per Unit Charge) 10 units IV NOW STA Stop: 03/22/24 14:27 Last Admin: 03/22/24 14:50 Dose: 10 units Documented By: ML Co-signed By: OLIVIA Metoprolol Tartrate (Metoprolol Tartrate 1 Mg/Ml Vial) 5 mg IV NOW STA Stop: 03/22/24 12:37 Last Admin: 03/22/24 12:42 Dose: 5 mg Documented By: MMF Miscellaneous (Stat Iv Infusion Titration Per Protocol) 1 each N/A NOW STA Stop: 03/22/24 13:22 Last Admin: 03/22/24 14:10 Dose: Not Given Documented By: ML Sodium Bicarbonate (Sodium Bicarb 8.4% Inj 50 Meq/50 Ml Syr) 50 meq IV NOW STA Stop: 03/22/24 14:27 Last Admin: 03/22/24 14:49 Dose: 50 meq Documented By: ML Imaging Data Radiologist's Impression: Chest X-Ray 03/22/24 12:24 XR chest 1V portable HISTORY: Chest pain, nonspecific COMPARISON: Chest 03/13/2024. FINDINGS: No pneumothorax. Small right pleural effusion and right basilar densities have progressed. There is a trace left pleural effusion. The heart is enlarged. There is mild central pulmonary vascular congestion without overt edema. There are poststernotomy changes. Calcifications within the aortic knob. IMPRESSION: 1. Cardiomegaly with mild congestive change. 2. Interval progression of the small right pleural effusion and right basilar densities. ACT 112: Negative or not required by law. Electronically signed by: Lawrence Lee M.D. 03/22/2024 1:48 PM Abdomen/Pelvis CT 03/22/24 13:[address] WITHOUT CONTRAST CT DOSE: 899.48 mGy.cm HISTORY: Acute epigastric abdominal pain epigastric/CP pain, elev LFTs/bili TECHNIQUE: Multiaxial CT images of the abdomen and pelvis were performed without contrast. A dose lowering technique was utilized adhering to the principles of ALARA. COMPARISON STUDY: 09/15/2015 FINDINGS: Cardiomegaly with median sternotomy. Small left with moderate right pleural effusions. Intralobular septal thickening with groundglass densities in right basilar prominent consolidation. No free air. Body wall edema with small volume of abdominopelvic ascites. Punctate calcified granulomata of the spleen. Mildly atrophic pancreas. Unremarkable adrenal glands. Cholecystectomy.? Nodularity of the liver. No hepatic mass identified. Bilateral perinephric stranding. 2.5 cm right renal cyst. No renal or ureteral calculi or hydronephrosis. Bladder wall thickening with partial distention. Hysterectomy. Atherosclerosis of the aorta. No lymphadenopathy. Hypodense lobular focus in the right inguinal tissues measures up to 3.7 x 1.9 cm suggestive of loculated fluid within the right femoral hernia. Hypodense lymph nodes considered less likely. No bowel obstruction. Extensive colonic diverticulosis. Normal appendix. No acute fracture. IMPRESSION: 1. Cardiopulmonary with pulmonary edema and fluid overload manifested by trace left and moderate right pleural effusions with small volume of ascites and anasarca. 2. Equivocal cirrhosis. 3. Colonic diverticulosis. 4. Additional findings as above. ACT 112: Negative or not required by law. The above report was generated using voice recognition software. It may contain grammatical, syntax or spelling errors. Electronically signed by: Abhishek Patton M.D. 03/22/2024 2:49 PM Discharge Plan Visit Data Chief Complaint: Cardiac Assessment Stated Complaint: CHEST PAIN ED Provider: Alexi Damon Discharge Problem: Weakness, Hyponatremia, Atrial fibrillation with RVR, Hyperkalemia, CHF exacerbation Patient Disposition: Being Evaluated by Hospitalist Forms Stand Alone Forms: My [facility] Prescriptions Prescriptions: No Action Calcium 600 + D(3) 600 mg calcium- 200 unit capsule 1 cap PO QDL Rx Instructions: Take 1 tablet by mouth daily. multivitamin [Daily Multi-Vitamin] Tablet 1 tab PO QDL Rx Instructions: Take 1 tablet by mouth daily. cholecalciferol (vitamin D3) 50 mcg (2,000 unit) tablet 2,000 units PO QDL Rx Instructions: Take 1 capsule by mouth daily. nitroglycerin 0.4 mg tablet, sublingual 0.4 mg SL Q5M PRN (Reason: chest pain) Qty: 25 1RF potassium chloride 20 mEq tablet,ER particles/crystals 20 meq PO DAILY 30 Days Qty: 30 11RF lorazepam 0.5 mg tablet 1 mg PO HS Qty: 60 0RF Rx Instructions: 2 tabs at bedtime coenzyme Q10 400 mg capsule 100 mg PO QPM Rx Instructions: Take 1 capsule daily with a meal. metoprolol tartrate 50 mg tablet 25 mg PO DAILY clopidogrel 75 mg tablet 75 mg PO DAILY Eliquis 5 mg tablet 5 mg PO BID Qty: 180 3RF levothyroxine 50 mcg tablet 50 mcg PO DAILYBB alendronate [Fosamax] 70 mg tablet 70 mg PO WK Rx Instructions: As of 03/13/24 - pt hasn't started yet. Original Directions: 70mg by mouth once weekly aspirin 81 mg tablet,chewable 81 mg PO DAILY Qty: 30 0RF [facility] 40-10-5-3.3 mg Tablet 1 tab PO QDL Lactobacillus acidophilus 1 billion cell Capsule 1,000 mmu cells PO QAM Qty: 0 triamcinolone acetonide 0.5 % cream 1 applic topical BID PRN (Reason: flare ups) furosemide [Lasix] 20 mg tablet 20 mg PO DAILY Rx Instructions: Can increase to 40 mg daily PRN if gain 2lbs + gabapentin 100 mg capsule 100 mg PO TID clobetasol 0.05 % ointment 1 applic topical 2XWK PRN (Reason: flare) diphenhydramine HCl [Benadryl Allergy] 25 mg Tablet 25 mg PO DAILY PRN (Reason: allergies) Referrals Referrals: Eric Jean DO [Primary Care Provider] -
[2024-03-22 13:18] LABS: Troponin I High Sensitivity 24.2 pg/ml (0-14)
--- NOTE | 2024-03-22 13:50 | XRay Report ---
XR chest 1V portable HISTORY: Chest pain, nonspecific COMPARISON: Chest 03/13/2024. FINDINGS: No pneumothorax. Small right pleural effusion and right basilar densities have progressed. There is a trace left pleural effusion. The heart is enlarged. There is mild central pulmonary vascul ar congestion without overt edema. There are poststernotomy changes. Calcifications within the aortic knob. IMPRESSION: 1. Cardiomegaly with mild congestive change. 2. Interval progression of the small right pleural effusion and right basilar densities. ACT 112: Negative or not required by law. Electronically signed by: Lawrence Lee M.D. 03/22/2024 1:48 PM
[2024-03-22 13:52] LABS: Adenovirus PCR Not Detected (NotDetected); Bordetella parapertussis PCR Not Detected (NotDetected); Bordetella pertussis PCR Not Detected (NotDetected); Chlamydia pneumoniae PCR Not Detected (NotDetected); Coronavirus 229E PCR Not Detected (NotDetected); Coronavirus CoV-2 (COVID19)PCR Not Detected (NotDetected); Coronavirus HKU1 PCR Not Detected (NotDetected); Coronavirus NL63 PCR Not Detected (NotDetected); Coronavirus OC43PCR Not Detected (NotDetected); Human Metapneumovirus PCR Not Detected (NotDetected); Influenza A PCR Not Detected (NotDetected); Influenza B PCR Not Detected (NotDetected); Mycoplasma pneumoniae PCR Not Detected (NotDetected); Parainfluenza Virus 1 PCR Not Detected (NotDetected); Parainfluenza Virus 2 PCR Not Detected (NotDetected); Parainfluenza Virus 3 PCR Not Detected (NotDetected); Parainfluenza Virus 4 PCR Not Detected (NotDetected); Respiratory Syncytial VirusPCR Not Detected (NotDetected); Rhinovirus/Enterovirus PCR Not Detected (NotDetected)
[2024-03-22 13:57] LABS: INR 1.7 (0.9-1.1); Partial Thromboplastin Ratio 1.2; Partial Thromboplastin Time 31 Seconds (21-31); Prothrombin Time 17.2 Seconds (9.0-12.0)
[2024-03-22] MEDS: dilTIAZem HCL 125 MG in DEXTROSE 5% 100 ML IV SCH (14:06)
[2024-03-22] MEDS: STAT IV Infusion **Titration per Protocol STA (14:10)
[2024-03-22] MEDS: DEXTROSE 50% 50 ML SYRINGE IV ONE (14:48)
[2024-03-22] MEDS: SODIUM BICARB 8.4% INJ 50 MEQ/50 ML SYR IV STA (14:49)
[2024-03-22] MEDS: NovoLIN-R INSULIN PER UNIT CHARGE IV STA (14:50)
--- NOTE | 2024-03-22 14:50 | CT Scan Report ---
ABDOMEN AND PELVIS CT WITHOUT CONTRAST CT DOSE: 899.48 mGy.cm HISTORY: Acute epigastric abdominal pain epigastric/CP pain, elev LFTs/bili TECHNIQUE: Multiaxial CT images of the abdomen and pelvis were performed without contrast. A dose lo wering technique was utilized adhering to the principles of ALARA. COMPARISON STUDY: 09/15/2015 FINDINGS: Cardiomegaly with median sternotomy. Small left with moderate right pleural effusions. Intr alobular septal thickening with groundglass densities in right basilar prominent consolidation. No fr ee air. Body wall edema with small volume of abdominopelvic ascites. Punctate calcified granulomata o f the spleen. Mildly atrophic pancreas. Unremarkable adrenal glands. Cholecystectomy.? Nodularity of the liver. No hepatic mass identified. Bilateral perinephric stranding. 2.5 cm right renal cyst. No renal or ureteral calculi or hydronephro sis. Bladder wall thickening with partial distention. Hysterectomy. Atherosclerosis of the aorta. No lymphadenopathy. Hypodense lobular focus in the right inguinal tissues measures up to 3.7 x 1.9 cm knight ggestive of loculated fluid within the right femoral hernia. Hypodense lymph nodes considered less li nallely. No bowel obstruction. Extensive colonic diverticulosis. Normal appendix. No acute fracture. IMPRESSION: 1. Cardiopulmonary with pulmonary edema and fluid overload manifested by trace left and moderate righ t pleural effusions with small volume of ascites and anasarca. 2. Equivocal cirrhosis. 3. Colonic diverticulosis. 4. Additional findings as above. ACT 112: Negative or not required by law. The above report was generated using voice recognition software. It may contain grammatical, syntax o r spelling errors. Electronically signed by: Abhishek Patton M.D. 03/22/2024 2:49 PM
--- NOTE | 2024-03-22 15:20 | History & Physical Report ---
Date of Service March 22, 2024 Assessment & Plan (1) Atrial fibrillation with RVR: Plan: Admit to the PCU on telemetry and pulse oximetry Currently with rate controlled A-fib and otherwise stable Patient was sent to the ED from her PCPs office due to concerns for A-fib RVR and volume overload Presented in A-fib RVR with heart rate in the 120s blood pressure of 98/78 Was given 5 mg IV Toprol tartrate and then started on a diltiazem drip prior to admission We have stopped the diltiazem drip at the time of admission as there is concern for new onset heart failure Suspect her A-fib RVR is due to demand from significant volume overload and possible infection Will plan to continue home metoprolol tartrate of 75 mg twice daily Initial potassium elevated at 5.8 on arrival, magnesium 2.3 Follow-up repeat electrolytes this afternoon Will require significant diuresis moving forward Will reduce her dose of Eliquis to 2.5 mg twice daily with her current renal function Heart healthy diet with 1800 mL fluid restriction, holding sodium restriction at this time due to hyponatremia A.m. CBC, CMP, mag, PT/INR (2) Renal failure: Plan: Creatinine of 1.55 today, baseline is near 0.8 No signs of obstruction or hydronephrosis on CT of the abdomen pelvis Suspect renal failure is due to volume overload and possible new onset heart failure Peterson catheter was placed at the time of admission, will need to monitor intake/output every 6 hours Will monitor repeat and mag this evening If not improving with diuresis consult nephrology Reducing her dose of Eliquis to 2.5 mg twice daily and gabapentin from 100 mg 3 times daily to twice daily for now (3) Hyperkalemia: Plan: Potassium elevated at 5.8 on arrival, magnesium of 2.3 Patient does appear to have some peaked T waves on EKG today Suspect this is a combination of renal failure and ongoing potassium supplementation Treated medically in the ED with 10 units IV insulin, 50 mL IV dextrose, and 21 mg IV Lasix Giving an additional 40 mg IV Lasix at time of admission for volume overload and hyperkalemia Will follow repeat labs this afternoon, if stable will continue with am labs tomorrow If still elevated on repeat we will add Nathalia (4) Elevated LFTs: Plan: LFTs are significantly elevated today with total bili of 2.6, AST 218, ALT 217, alk phos 219, total bili 2.6 No signs of biliary obstruction on CT of abdomen pelvis but is noted to have equivocal signs of cirrhosis No previous history of cirrhosis Patient is without abdominal pain negative no signs of jaundice or scleral icterus Will obtain acute hepatitis panel, acetaminophen level, and tickborne panel for further evaluation Could possibly be due to congestive hepatopathy from significant volume overload Continue to monitor for improvement with IV diuresis and follow ongoing workup Monitor daily CMP Avoid hepatotoxic agents (5) Hyponatremia: Plan: Sodium of 122 Serum osmolality of 270, urine osmolality of 343, urine sodium of 10 Patient is significantly volume overloaded on exam, has a history of strict sodium restriction diet and had decreased oral intake recently Will continue fluid restriction with IV diuresis Follow repeat BMP this afternoon and continue every 4 hours overnight Follow a.m. CMP (6) Leukocytosis: Plan: Patient noted to have a leukocytosis of 15 with neutrophil predominance of 11 Denies recent fevers or chills, has been afebrile since arrival Patient has multiple possible sources of infection including recent episodes of aspiration, recurrent diarrhea, and equivocal UA Will obtain blood cultures, tickborne panel, Pro-Konstantin, stool panel with C. difficile PCR, ESR, CRP for further evaluation CT abdomen pelvis without contrast notes a 3.7 x 1.9 cm hypodense lobular focus in the right inguinal tissues suggestive of loculated fluid within the right femoral hernia. Hypodense lymph nodes considered less likely No obvious signs of infection on exam Will obtain ultrasound of the right groin for further evaluation Will start empiric Ceftriaxone and Flagyl for now, follow infectious workup and adjust regimen as needed Continue to follow infectious workup (7) Elevated troponin: Plan: Initial high-sensitivity troponin of 24, 2-hour repeat of 25 Patient denies chest pain, no acute ST segment changes Suspect this is due to demand from significant volume overload Continue to monitor on telemetry and will follow TTE ordered on admission Plan The patient was discussed with Dr. Mulligan at the time of the admission History of Present Illness Chief Complaint: Afib RVR, weight gain Primary Care Provider: Eric Jean DO Angy is an 88 year old female with a PMH significant for atrial fibrillation (on Eliquis), TIA x 2 in February 2024, HFpEF, CAD, CABG, hypertension, breast cancer, and hyperlipidemia Who presented to the [facility] ED on 03/22/2024 from her PCPs office due to A-fib RVR and weight gain. On arrival to the ED she was noted to be in A-fib RVR with heart rates in the 120s, hypotensive at 99/79, and otherwise stable. Labs were significant for a leukocytosis of 15 with neutrophil predominance of 11, INR 1.7, creatinine of 1.55 (baseline is near 0.8) BUN of 45, potassium of 5.8, bicarb of 20 with anion gap within normal limits, sodium of 122, chloride of 92, initial high- sensitivity troponin of 24, BNP of 1303 (up from 678 as of 01/26/2024), total bili of 2.6, AST of 218, ALT of 217, alk phos of 219, full respiratory BioFire negative, and UA in process. Chest x-ray was read as cardiomegaly with mild congestive change. Interval progression of the small right pleural effusion and right basilar densities. CT of the abdomen pelvis without contrast was read as cardiomegaly with pulmonary edema and fluid overload manifested by trace left and moderate right pleural effusions with small volume of ascites and anasarca. Equivocal cirrhosis. Colonic diverticulosis. She was noted to have bilateral perinephric stranding, 2.5 cm right renal cyst, and no signs of renal calculi ureteral calculi, or hydronephrosis. Of note CT reading describes a hypodense lobular focus in the right inguinal tissues measures up to 3.7 x 1.9 cm suggestive of loculated fluid within the right femoral hernia. Hypodense lymph nodes considered less likely. Prior to admission the patient was given 20 mg IV Lasix, 50 mL IV dextrose, 10 units IV insulin, 5 mg IV metoprolol tartrate, 50 mEq sodium bicarb, and was subsequently started on diltiazem drip at 5 mg/h. Patient was lying in bed no acute distress at the time of exam with her son and cousin at bedside, history is obtained from both. The patient states that over the past week or so she has felt like she has been retaining a significant amount of fluid, has been urinating less frequently than normal, has had a very poor appetite, has been experiencing increased fatigue. She watches her sodium intake very closely per family and has been taking her medications as prescribed. When asked, she denies recent fever, chills, chest pain, productive cough, abdominal pain, nausea/vomiting, dysuria/hematuria, and recent trauma. Of note she does feel as though she may have aspirated a few times while dr inking water and taking pills over the past week. She also notes increased frequency of diarrhea over the past week with changes in stool color. She took 2 doses of her 20 mg p.o. Lasix this morning as she was having decreased urine output. We discussed CODE STATUS, she confirms that she is a DNR/DNI and her son is her primary decision maker if she cannot make decisions for self. The patient notes that she was having significant dyspnea on exertion today while walking to her cousin's car to go to her PCP appointment. Please refer to Dr. Mulligan's attestation for any changes to the treatment plan Allergies Allergy/AdvReac Type Severity Reaction Status Date / Time Cipro Allergy Severe hives Verified 01/03/15 09:10 ciprofloxacin Allergy Severe hives Verified 03/22/24 10:51 dobutamine Allergy Severe Hives Verified 03/22/24 10:51 Iodinated Contrast Media Allergy Severe Tongue Verified 03/22/24 10:51 thickening, difficulty swallowing Sulfa (Sulfonamide Allergy Severe UNKNOWN Verified 03/22/24 10:51 Antibiotics) erythromycin base Allergy Intermediate rash Verified 03/22/24 10:51 adhesive Allergy Unknown RED SKIN Verified 03/22/24 10:51 Penicillins Allergy Unknown UNKNOWN Verified 03/22/24 10:51 Quinolones Allergy Unknown UNKNOWN Verified 03/22/24 10:51 Home Medications Medication Instructions Recorded Confirmed Type calcium carbonate 600 mg-vitamin 1 cap PO QDL 11/19/19 03/22/24 History D3 5 mcg (200 unit) capsule (Calcium 600 + D(3)) cholecalciferol (vitamin D3) 50 2,000 units PO QDL 11/19/19 03/22/24 History mcg (2,000 unit) tablet multivitamin (Daily Multi-Vitamin 1 tab PO QDL 11/19/19 03/22/24 History tablet) coenzyme Q10 400 mg capsule 100 mg PO QPM 05/27/21 03/22/24 History nitroglycerin 0.4 mg sublingual 0.4 mg sublingual Q5M PRN chest 11/22/23 Rx tablet pain #25 tabs potassium chloride 20 mEq 20 meq PO DAILY 30 days #30 tabs 01/28/24 03/22/24 Rx tablet,extended release(part/cryst) Lactobacillus acidophilus 1 1,000 mmu cells PO QAM ##0 02/22/24 03/22/24 History billion cell capsule cartilage 40 mg-collagen II 10 1 tab PO QDL 02/22/24 03/22/24 History mg-boron 5 mg-hyaluronate 3.3 mg tablet ([email or web address]) clobetasol 0.05 % topical ointment 1 applic topical 2XWK PRN flare 02/22/24 03/22/24 History diphenhydramine HCl 25 mg tablet 25 mg PO DAILY PRN allergies 02/22/24 03/22/24 History (Benadryl Allergy) furosemide 20 mg tablet (Lasix) 20 mg PO DAILY 02/22/24 03/22/24 History gabapentin 100 mg capsule 100 mg PO TID 02/22/24 03/22/24 History triamcinolone acetonide 0.5 % 1 applic topical BID PRN flare ups 02/22/24 03/22/24 History topical cream levothyroxine 50 mcg tablet 50 mcg PO DAILYBB 03/09/24 03/22/24 History aspirin 81 mg chewable tablet 81 mg PO DAILY #30 tabs 03/15/24 03/22/24 Rx lorazepam 0.5 mg tablet 1 mg (2 x 0.5 mg) PO HS #60 tabs 03/15/24 03/22/24 Rx apixaban 5 mg tablet (Eliquis) 5 mg PO BID #180 tabs 03/17/24 03/22/24 Rx alendronate 70 mg tablet (Fosamax) 70 mg PO WK 03/22/24 03/22/24 History atorvastatin 10 mg tablet 10 mg PO DAILY 03/22/24 03/22/24 History clopidogrel 75 mg tablet 75 mg PO DAILY 03/22/24 03/22/24 History metoprolol tartrate 50 mg tablet 50 mg PO BID 03/22/24 03/22/24 History Past Med/Surg History Problem List (Updated 03/29/24 @ 11:09 by Cheng Mayers DO) Hyponatremia with excess extracellular fluid volume Lower extremity edema Acquired hypothyroidism Acute on chronic right-sided congestive heart failure (Acute) NSVT (nonsustained ventricular tachycardia) Left ventricular dysfunction CAD (coronary artery disease) CHF exacerbation (Acute) Weakness (Acute) Leukocytosis Hyperkalemia (Acute) Elevated LFTs Renal failure Atrial fibrillation with RVR (Acute) Heart murmur Hyponatremia (Acute) Pulmonary hypertension Bladder pain Tricuspid regurgitation Lumbar spinal stenosis Normal left ventricular systolic function and wall motion Sensorineural hearing loss (SNHL) of both ears Arthritis (Acute) Cataract (Acute) Detrusor instability (Acute) Urethral caruncle (Acute) Urge and stress incontinence (Acute) Vitamin D deficiency (Acute) Aortic regurgitation Mitral regurgitation Antiplatelet or antithrombotic long-term use Lichen planus (Chronic) Lichen sclerosus et atrophicus (Chronic) Medical History TIA (transient ischemic attack) Elevated troponin Non-ST elevation WI (NSTEMI) Stroke-like symptoms Slurred speech Stroke-like symptoms (HFpEF) heart failure with preserved ejection fraction HTN (hypertension) Hyperlipemia Acute hypoxic respiratory failure Chest pain Postural lightheadedness Anxiety Osteoporosis with fracture History of breast cancer Tricuspid regurgitation per allscripts record Hx of sarcoidosis Hx of osteopenia Hx of fracture of rib Surgical History Hx of CABG January 2006 @ [place] by Dr Nicholson H/O colonoscopy 05/24/12 - by Dr Mayank Lorenzana H/O lymph node biopsy 03/21/07 S/P tubal ligation 10/21/07 S/P thoracotomy 1974 H/O oral surgery S/P hysterectomy 09/25/11 S/P dilation and curettage S/P cholecystectomy 1989 Hx of cataract surgery Bilateral - 2002 S/P mastectomy 2006 - Rt partial History of breast biopsy 03/04/07 - Rt breast Family History Aunt Breast cancer Maternal Grandmother (Maternal) Colorectal cancer Mother Colorectal cancer Ovarian cancer Father Heart disease Stroke Allergies Other No family history of adverse response to anesthesia No family history of bleeding disorder Social History Smoking Status: Former smoker Tobacco Type: Cigarettes Age Quit Using Tobacco: 39; packs per day: 0.5; Second Hand Exposure: No; Do You Dip or Chew Tobacco: No; Hx Alcohol Use: Yes Alcohol type: wine Hx Substance Use: No Preferred Language: Urdu Communication Ability: Effective Visual Impairment: No Limitations Hearing Ability: Normal Growth Hacker Required: No Beliefs That Will Affect Care: None marital status: Current Living Situation: Spouse current occupational status: retired How many Children do You have: 3 Other Information That Helps Us Care for You: No Feels Safe at Home: Yes Safety Concerns: Feels Safe At This Time Childhood Exposure to Second-Hand Smoke: No Diet: regular caffeine: Yes during the past year weight has: remained stable Dental Care, Regularly: Yes Physical Activity Frequency: Does not Exercise Seatbelt Use: always Sunscreen Use: Yes Assistive Devices: Cane and Walker Physical Exam Physical Exam: Physical Exam: General: In no acute distress, stated age, non-toxic appearing HEENT: Normocephalic, atraumatic, no scleral icterus, pupils around round, symmetrical, and reactive to light, +JVD, moist mucus membranes, trachea midline, no thyromegaly Chest/Pulm: No respiratory distress, symmetrical chest expansion, decreased breath sounds in the BL lower lung claros with crackles in the mid lung claros, otherwise CTA Cardiac: irregular rate and rhythm, 4/6 systolic murmur noted Abdomen: Mild abdominal ascites, no bruising noted, hyperactive bowel sounds, soft, non-tender to palpation throughout : Peterson catheter is in place, currently draining approximately 50 cc of clear, yellow urine >No signs of obvious swelling or infection on inspection and palpation of the right groin/thigh Musculoskeletal: Symmetrical and without signs of acute trauma, upper and lower extremities with full ROM, no atrophy, spasticity, or flaccidity Extremities: Radial, dorsalis pedis, and posterior tibial pulses are intact and symmetrical, 2+ edema noted in the BL LE's Skin: Warm, dry, no rashes , lesions, or scars noted Neuro: Alert and oriented to person, place, month, year, and president, no focal defects, no tremors noted Psych: No acute distress, calm and cooperative during the exam Results & Data Results & Data Vital Signs (Past 12 Hours) Vital Signs Temp Pulse Pulse Resp BP BP Pulse Ox 03/22/24 14:57 94 H 23 95 03/22/24 14:45 110/81 03/22/24 14:30 104/85 03/22/24 14:30 116 H 21 93 03/22/24 14:24 103 H 20 92 03/22/24 14:15 105/79 03/22/24 14:06 113 H 23 99/79 L 95 03/22/24 13:30 109/77 03/22/24 13:15 100/81 03/22/24 13:11 98 03/22/24 13:00 107 H 03/22/24 13:00 97/73 L 03/22/24 12:57 120 H 03/22/24 12:57 128 H 23 95 03/22/24 12:51 99 H 95 03/22/24 12:42 99 H 98/78 L 03/22/24 12:33 106 H 03/22/24 12:11 36.5 C 116 H 18 104/74 96 O2 Del Method 03/22/24 14:57 03/22/24 14:45 03/22/24 14:30 03/22/24 14:30 03/22/24 14:24 03/22/24 14:15 03/22/24 14:06 Room Air 03/22/24 13:30 03/22/24 13:15 03/22/24 13:11 Room Air 03/22/24 13:00 03/22/24 13:00 03/22/24 12:57 03/22/24 12:57 03/22/24 12:51 Room Air 03/22/24 12:42 03/22/24 12:33 03/22/24 12:11 Room Air Laboratory Results Abnormal lab results 03/22/24 03/22/24 Range/Units 12:37 14:39 WBC 15.44 H (4.8-10.8) K/ul RDW Std Deviation 48.1 H (36.4-46.3) fL RDW Coeff of Shan 15.7 H (11.5-14.5) % Neut # (Auto) 11.62 H (1.40-6.50) K/uL [place] # (Auto) 1.43 H (0.11-0.59) K/uL PT 17.2 H (9.0-12.0) Seconds INR 1.7 H (0.9-1.1) Sodium 122 L (136-145) mmol/L Potassium 5.8 H (3.5-5.1) mmol/L Chloride 92 L (98-107) mmol/L Carbon Dioxide 20 L (21-32) mmol/L BUN 45 H (6-23) mg/dl Creatinine 1.55 H (0.6-1.2) mg/dl BUN/Creatinine Ratio 29.0 H (10-20) Glucose 109 H (70-99(Fasting)) mg/dl Osmolality 270 L (280-300) mOsm/kg Total Bilirubin 2.6 H (0.2-1.0) mg/dl AST 218 H (13-39) U/L ALT 217 H (7-52) U/L Alkaline Phosphatase 219 H (34-104) U/L Troponin I High Sens 24.2 H 25.1 H (0-14) pg/ml B-Natriuretic Peptide 1303 H (0-100) pg/ml Globulin 2.4 L (2.5-4.0) gm/dl Diagnostic Findings Chest X-Ray 03/22/24 12:24 XR chest 1V portable HISTORY: Chest pain, nonspecific COMPARISON: Chest 03/13/2024. FINDINGS: No pneumothorax. Small right pleural effusion and right basilar densities have progressed. There is a trace left pleural effusion. The heart is enlarged. There is mild central pulmonary vascular congestion without overt edema. There are poststernotomy changes. Calcifications within the aortic knob. IMPRESSION: 1. Cardiomegaly with mild congestive change. 2. Interval progression of the small right pleural effusion and right basilar densities. ACT 112: Negative or not required by law. Electronically signed by: Lawrence Lee M.D. 03/22/2024 1:48 PM Abdomen/Pelvis CT 03/22/24 13:[address] WITHOUT CONTRAST CT DOSE: 899.48 mGy.cm HISTORY: Acute epigastric abdominal pain epigastric/CP pain, elev LFTs/bili TECHNIQUE: Multiaxial CT images of the abdomen and pelvis were performed without contrast. A dose lowering technique was utilized adhering to the principles of ALARA. COMPARISON STUDY: 09/15/2015 FINDINGS: Cardiomegaly with median sternotomy. Small left with moderate right pleural effusions. Intralobular septal thickening with groundglass densities in right basilar prominent consolidation. No free air. Body wall edema with small volume of abdominopelvic ascites. Punctate calcified granulomata of the spleen. Mildly atrophic pancreas. Unremarkable adrenal glands. Cholecystectomy.? Nodularity of the liver. No hepatic mass identified. Bilateral perinephric stranding. 2.5 cm right renal cyst. No renal or ureteral calculi or hydronephrosis. Bladder wall thickening with partial distention. Hysterectomy. Atherosclerosis of the aorta. No lymphadenopathy. Hypodense lobular focus in the right inguinal tissues measures up to 3.7 x 1.9 cm suggestive of loculated fluid within the right femoral hernia. Hypodense lymph nodes considered less likely. No bowel obstruction. Extensive colonic diverticulosis. Normal appendix. No acute fracture. IMPRESSION: 1. Cardiopulmonary with pulmonary edema and fluid overload manifested by trace left and moderate right pleural effusions with small volume of ascites and anasarca. 2. Equivocal cirrhosis. 3. Colonic diverticulosis. 4. Additional findings as above. ACT 112: Negative or not required by law. The above report was generated using voice recognition software. It may contain grammatical, syntax or spelling errors. Electronically signed by: Abhishek Patton M.D. 03/22/2024 2:49 PM ECG Additional Comments: Atrial fibrillation with rapid ventricular response Left axis deviation Incomplete left bundle block Abnormal QRS-T angle, consider primary T wave abnormality Abnormal ECG When compared with ECG of 13-MAR-2024 20:31, QRS axis Shifted left Criteria for Septal infarct are no longer Present Confirmed by Clemente Little ([id number]) on 03/22/2024 12:56:55 PM Code Status & VTE Plan Code Status DNR/DNI VTE Prophylaxis Plan VTE Prophylaxis will be ordered: Yes Supervising Physician Co-Signing Physician Notes I personally saw and examined the patient. I verified all terry points and agree with Adelfo Vera PA-C with the following exceptions and/or additions: 88 year old female presents to the ER due to a. fib RVR and weight gain. Recently diagnosed a. fib new onset on March 13. O/E A&Ox3, HS increased rate, irregular rhythm, no murmurs, Chest bibasal crackles, no respiratory distress, Abdo SNT, b/l pedal edema A/P A. fib RVR - metoprolol tartrate PO BID (up titrate as able for rate control), Eliquis for anticoagulation (reduce dose due to age and Cr), consult cardiology for consideration of rhythm control although not yet been on anticoagulation for 4 weeks therefore may need CLAUDE cardioversion Acute HRpEF / NAGA / hyperkalemia / hyponatremia - should improve with diuresis (Lasix 40mg IV BID), temporary stabilization with insulin/dextrose Leucocytosis - no definitive infection on admission (?GI) but also no good alternative explanation, will empirically treat pending clinical course and blood cultures PG Care Time/CCT Total # of Minutes Spent Total Time Spent with Patient: Total time spent is greater than 50% in coordination of care (as documented) at patient's floor/unit and/or counseling patient: Coding [place] [address] INT INP/OBS CARE 3/75MIN Patient Type Established Medical Decision Making High Complexity Diagnoses Atrial fibrillation with RVR I48.91 Renal failure N19 Hyperkalemia E87.5 Elevated LFTs R79.89 Hyponatremia E87.1 Leukocytosis D72.829 Elevated troponin R79.89
[2024-03-22] MEDS: FUROSEMIDE INJ 20 MG/2 ML VIAL IV ONE (15:29)
[2024-03-22 15:33] LABS: Appearance Urine Clear (Clear); Bacteria Urine Automated None Seen (None Seen); Bilirubin Urine Negative (Negative); Blood Urine Negative (Negative); Color Urine Yellow; Epithelial Cell Urine Auto 0-2 /hpf (0-2); Glucose Urine UA Negative (Negative); Ketones Urine Negative (Negative); Leukocyte Esterase Urine 1+ (Negative); Nitrite Urine Negative (Negative); Protein Urine 1+ (Negative); Specific Gravity Urine 1.012 (1.000-1.030); Urobilinogen Urine Negative (Negative); pH Urine 5.5 (4.5-7.5)
[2024-03-22] MEDS: FUROSEMIDE 40 MG/4 ML VIAL IV STA (17:27)
[2024-03-22 17:41] LABS: Acanthocytes 2+; Echinocytes 2+
[2024-03-22 18:43] LABS: Calcium 9.4 mg/dl (8.6-10.3); Creatinine Clr Calc Pharmacy 22.2 ml/min; Est GFR (African American) 36.9 ml/min; Est GFR (Non-African American) 31.8 ml/min; Potassium 4.2 mmol/L (3.5-5.1)
[2024-03-22 19:20] LABS: HepB Surface Ag with confirm Negative (Negative)
[2024-03-22 19:25] LABS: HepC Ab Rflx HepCQuant RNA Negative (Negative)
[2024-03-22] MEDS: metroNIDAZOLE 500 MG/100 ML BAG IV SCH (19:27)
[2024-03-22] MEDS: cefTRIAXone SODIUM 2,000 MG/50 ML BAG IV SCH (19:27)
[2024-03-22] MEDS: APIXABAN 2.5 MG TAB PO SCH (21:12)
[2024-03-22] MEDS: GABAPENTIN 100 MG CAP PO SCH (21:12)
[2024-03-22] MEDS: METOPROLOL TARTRATE 25 MG TAB PO SCH (21:12)
[2024-03-22 22:20] LABS: C Reactive Protein 1.56 mg/dl (0-0.5)
[2024-03-22] MEDS: LORazepam 1 MG TAB PO SCH (22:37)
[2024-03-23] MEDS: LEVOTHYROXINE SODIUM 50 MCG TABLET PO SCH (06:00)
[2024-03-23 06:57] LABS: Basophils # (auto) 0.04 K/uL (0.00-0.20); Basophils % (auto) 0.3 %; Eosinophils # (auto) 0.09 K/uL (0.00-0.50); Eosinophils % (auto) 0.7 %; Hematocrit (blood only) 34.1 % (37.0-47.0); Hemoglobin 11.8 g/dl (12.0-16.0); Immature Granulocytes # (auto) 0.07 K/uL (0.01-0.20); Immature Granulocytes % (auto) 0.6 %; Lymphocytes # (auto) 1.94 K/uL (1.20-3.40); Lymphocytes % (auto) 15.5 %; Mean Corpuscular Hemoglobin 29.5 pg (25.0-34.0); Mean Corpuscular Hgb Conc 34.6 g/dL (32.0-36.0); Mean Corpuscular Volume 85.3 fL (80.0-100.0); Mean Platelet Volume 11.5 fL (9.4-12.4); Monocytes # (auto) 1.25 K/uL (0.11-0.59); Neutrophils # (auto) 9.12 K/uL (1.40-6.50); Neutrophils % (auto) 72.9 %; Platelet Count 163 K/uL (130-400); RDW Coefficient of Variation 15.7 % (11.5-14.5); RDW Standard Deviation 47.6 fL (36.4-46.3); White Blood Count 12.51 K/ul (4.8-10.8)
[2024-03-23 07:24] LABS: INR 1.5 (0.9-1.1); Prothrombin Time 16.1 Seconds (9.0-12.0)
[2024-03-23 07:32] LABS: Albumin Globulin Ratio 1.8 (0.9-2); Albumin Level 3.7 gm/dl (3.4-5.0); BUN Creatinine Ratio 34.4 (10-20); Bilirubin,Total 1.5 mg/dl (0.2-1.0); Calcium 8.9 mg/dl (8.6-10.3); Creatinine Clr Calc Pharmacy 24.8 ml/min; Est GFR (African American) 42.9 ml/min; Globulin 2.1 gm/dl (2.5-4.0); Total Protein 5.8 gm/dl (6.0-8.3)
[2024-03-23] MEDS: FUROSEMIDE 40 MG/4 ML VIAL IV SCH (09:07)
[2024-03-23] MEDS: ASPIRIN 81 MG CHEW PO SCH (09:08)
[2024-03-23] MEDS: ATORVASTATIN 10 MG TAB PO SCH (09:08)
--- NOTE | 2024-03-23 09:31 | Ultrasound Report ---
ULTRASOUND RIGHT GROIN NONVASCULAR CLINICAL HISTORY: Loculated fluid in the right groin. COMPARISON STUDY: Pelvic CT dated 03/22/2024. FINDINGS: Real-time grayscale and color-flow sonography of the soft tissues of the right groin is per formed to assess a pocket of fluid seen by CT. There is a loculated pocket of fluid in the right groi n, which measures 4.3 x 1.4 x 2.3 cm in aggregate dimension. This shows minimal complexity. No internet researcher al flow shown on color imaging. IMPRESSION: There is unchanged appearance of an indeterminant 4.3 cm loculated fluid collection in th e right groin as above. This likely represents a seroma or possibly a liquefied hematoma. The sterili ty of this fluid cannot be assessed by imaging and clinical correlation will be required. Dictated: 03/23/2024 6:57 AM Transcribed: 03/23/2024 8:43 AM Flako [id number] [email or web address] Electronically signed by: Rafael Ocampo M.D. 03/23/2024 9:30 AM
[2024-03-23] MEDS ORDERED: 0.2 MICRON FILTER SET 1 EACH IV STA (10:07)
[2024-03-23] MEDS ORDERED: AMIODARONE IV BOLUS & DRIP IV STA (10:07)
[2024-03-23] MEDS ORDERED: STAT IV Infusion **Titration per Protocol STA (10:07)
[2024-03-23] MEDS: AMIODARONE / D5W 150 MG/100 ML BAG IV STA (10:21)
--- NOTE | 2024-03-23 10:29 | Hospitalist Progress Note ---
Date of Service March 23, 2024 Assessment & Plan (1) Atrial fibrillation with RVR: Plan: 88 y/o with HFpEF admitted with rapid afib and decompensated heart failure diuresed with lasix 40 IV bid since yesterday, 9AM dose given but relatively hypotensive and AM metoprolol held thus tachycardic with rates in 130s sodium, Cr, bilirubin improved overnight with diuresis recent TTE 03/13/2024 reviewednormal LV EF 55-60% no RWMA's, mildly reduced RV systolic function, trace AR, moderate to severe MR, moderate to severe TR -hold lasix and metoprolol for now because of hypotension. extremities are however warm and well-perfused -continue apixaban dose reduced for renal function -amio bolus and drip since hypotensive and in afib with RVR. Recent admissions for hypotensive/TIA episode and also for RVR, difficult rate and volume status - consult cardiology. Primary electronic tester is Hemant also f/b CHF clinic - a.m. BMP and LFT (2) Renal failure: Plan: NAGA on CKD-3 No signs of obstruction or hydronephrosis on CT of the abdomen pelvis villanueva placed on admission for UOP --Cr improved with diuresis, monitor BUN/Cr and UOP (3) Hyperkalemia: Plan: Potassium elevated at 5.8 on arrival, magnesium of 2.3 combination of renal failure and ongoing potassium supplementation Treated medically in the ED with 10 units IV insulin, 50 mL IV dextrose, and IV Lasix Resolved, 4.0 today (4) Elevated LFTs: Plan: CT abdomen/pelvis with possible cirrhosis. Hep serologies negative. INR elevated but on apixaban. Acute elevation related to congestive hepatopathy and improved with diuresis Possible underlying cirrhosis - MASH or cardiac most likely -monitor LFT, diuresis (5) Hyponatremia: Plan: Hypervolemic hyponatremia, improved with diuresis Na 122 --> 127 with IV lasix - continue diuresis - a.m. BMP (6) Leukocytosis: Plan: Unclear whether infection. Procal negative, biofire neg and afebrile without localizing signs/sx started on CTX/metro. Stop the metronidazole since her diarrhea appears to be chronic in nature and related to IBS rather than acute diarrhea -UA pos, culture krista -R groin fluid collection appears to be loculated fluid within right femoral hernia - 4.3x1.4x2.3 cm fluid collection on ultrasound - nontender no pain in this area seems unlikely to be infected -tickborne labs sent on admission - babesiosis/anaplasmosis smears negative, DNA pending. Lyme not sent. Suspicion low so hold off on more tests at this time. -CRP fairly low at 1.5 and ESR low at 12 -blood cultures pending -at risk for aspiration pneumonitis but negative procalcitonin argues against bacterial pneumonia, hypoxia resolving with diuresis -appears to be chronically hypothermic, TSH recently wnl (7) Elevated troponin: Plan: Initial high-sensitivity troponin of 24, 2-hour repeat of 25 Patient denies chest pain, no acute ST segment changes - demand ischemia related to decompensated HF and tachyarrhythmia Plan DVT ppx: on apixaban PT/OT evals Updated her son in room 03/23 Admission and Anticipated Discharge Date Admission Date: March 22, 2024 Subjective shortness of breath has improved compared to yesterday. remains dyspneic. no chest pain. tachycardic this AM in afib which improved throughout the day Physical Exam 2 Physical Exam: PHYSICAL EXAMINATION Last 24h vital signs reviewed, see documentation in flowsheet General: comfortable appearing, no distress, sitting up in chair by the window HEENT: Normocephalic, atraumatic, pupils round and equal, sclerae anicteric, no conjunctival injection, moist mucus membranes Lungs: mildly increased respiratory effort. bibasilar crackles no wheezing Heart: irregularly irregular rhythm, systolic murmur, JVD Abdomen: Soft, nontender, nondistended. Bowel sounds present. Extremities: Warm, dry, well-perfused. mild to moderate anasarca present including abdominal wall thighs and lower legs Neuro: Alert and oriented x 4, face symmetric, moves 4 extremities well Psych: Normal affect and behavior Results & Data Results & Data Vital Signs (Past 12 Hours) Vital Signs Temp Pulse Pulse Resp BP Pulse Ox O2 Del Method 03/23/24 09:11 132 H 91/57 L 03/23/24 07:17 101 H 03/23/24 07:08 36.5 C 100 H 18 90/59 L 95 Room Air 03/23/24 02:13 36.4 C L 89 16 101/69 92 Room Air 07/10/24 22:46 36.6 C 83 15 91/61 L 94 Room Air Laboratory Results 03/23/24 06:34 03/23/24 06:34 PG Care Time/CCT Total # of Minutes Spent Total Time Spent with Patient: Total time spent is greater than 50% in coordination of care (as documented) at patient's floor/unit and/or counseling patient: Coding Level of Care Code 51293 SUB INP/OBS CARE 3/50MIN Diagnoses Atrial fibrillation with RVR I48.91 Renal failure N19 Hyperkalemia E87.5 Elevated LFTs R79.89 Hyponatremia E87.1 Leukocytosis D72.829 Elevated troponin R79.89
[2024-03-23] MEDS: AMIODARONE / D5W 360 MG/200 ML BAG IV ONE (10:31)
[2024-03-23] MEDS: AMIODARONE / D5W 360 MG/200 ML BAG IV SCH (16:35)
--- NOTE | 2024-03-23 18:03 | XCELERA ---
[id number]
--- NOTE | 2024-03-23 20:01 | Cardiology Consultation ---
Date of Consultation March 23, 2024 Assessment & Plan (1) CHF exacerbation: (2) Atrial fibrillation with RVR: (3) Aortic regurgitation: (4) Mitral regurgitation: Plan 1. Atrial fibrillation: She seems to be struggling with rate control. Metoprolol dose was significantly reduced after her initial hospitalization for TIA due to concerns over bradycardia. More recently she has been struggling with hypotension. Amiodarone was initiated today which seems reasonable. I th ink we have a good understanding when her symptoms started around March 12. She was started on systemic anticoagulation within 24 hours and has been on Eliquis or heparin since that time. This seems to put her at low risk for thromboembolic event should she convert on amiodarone. At this point would seem reasonable to try to perform a cardioversion prior to discharge. I think the appropriate dose of apixaban 5 mg twice daily and I will make the change. 2. Elevated troponin: Very mild elevation and much improved since her last admission. I do not think we are dealing an acute coronary syndrome. 3. CAD s/p CABG: She reports some chest pressure at times. Do not think this is angina. More likely pulmonary vascular congestion and her atrial fibrillation. She will continue her atorvastatin. Beta-william temporarily discontinued. 4. Mitral valve prolapse with mitral regurgitation: Moderate to severe on 03/13/2024 echo. Has known mitral regurgitation. This can be followed in the outpatient setting. 5. Tricuspid regurgitation: Moderate to severe on current echo in the setting of A-fib with RVR. Known in the outpatient setting. Outpatient surveillance. 6. Chronic heart failure with preserved EF: Hypervolemic. Undergoing diuresis. Mild renal dysfunction and hyponatremia. Hopefully this will improve with diuresis. History of Present Illness Reason for Consultation: Shortness of breath, atrial fibrillation Requesting Physician: Diego Attending Physician: Adriane Cortez MD History of Present Illness The patient is an 88-year-old woman with a history of persistent atrial fibrillation and heart failure with preserved ejection fraction. She also has remote history of a transient ischemic attack, valvular heart disease and coronary disease status post coronary bypass grafting. She was recently admitted for decompensated heart failure and atrial fibrillation with rapid ventricular rates. She was home for brief period before she began to experience symptoms of worsening dyspnea. She presented to her primary care physician for follow-up and was referred to the hospital for her symptoms and elevated heart rate. Of palpitation. Breathing appears to be improved. She was ambulatory and actually visited her who is also admitted to the hospital several doors away. Allergies Allergy/AdvReac Type Severity Reaction Status Date / Time Cipro Allergy Severe hives Verified 01/03/15 09:10 ciprofloxacin Allergy Severe hives Verified 03/22/24 10:51 dobutamine Allergy Severe Hives Verified 03/22/24 10:51 Iodinated Contrast Media Allergy Severe Tongue Verified 03/22/24 10:51 thickening, difficulty swallowing Sulfa (Sulfonamide Allergy Severe UNKNOWN Verified 03/22/24 10:51 Antibiotics) erythromycin base Allergy Intermediate rash Verified 03/22/24 10:51 adhesive Allergy Unknown RED SKIN Verified 03/22/24 10:51 Penicillins Allergy Unknown UNKNOWN Verified 03/22/24 10:51 Quinolones Allergy Unknown UNKNOWN Verified 03/22/24 10:51 Home Medications Medication Instructions Recorded Confirmed Type calcium carbonate 600 mg-vitamin 1 cap PO QDL 11/19/19 03/22/24 History D3 5 mcg (200 unit) capsule (Calcium 600 + D(3)) cholecalciferol (vitamin D3) 50 2,000 units PO QDL 11/19/19 03/22/24 History mcg (2,000 unit) tablet multivitamin (Daily Multi-Vitamin 1 tab PO QDL 11/19/19 03/22/24 History tablet) coenzyme Q10 400 mg capsule 100 mg PO QPM 05/27/21 03/22/24 History nitroglycerin 0.4 mg sublingual 0.4 mg sublingual Q5M PRN chest 11/22/23 03/22/24 Rx tablet pain #25 tabs potassium chloride 20 mEq 20 meq PO DAILY 30 days #30 tabs 01/28/24 03/22/24 Rx tablet,extended release(part/cryst) Lactobacillus acidophilus 1 1,000 mmu cells PO QAM ##0 02/22/24 03/22/24 History billion cell capsule cartilage 40 mg-collagen II 10 1 tab PO QDL 02/22/24 03/22/24 History mg-boron 5 mg-hyaluronate 3.3 mg tablet (SpiceCSM) clobetasol 0.05 % topical ointment 1 applic topical 2XWK PRN flare 02/22/24 03/22/24 History diphenhydramine HCl 25 mg tablet 25 mg PO DAILY PRN allergies 02/22/24 03/22/24 History (Benadryl Allergy) furosemide 20 mg tablet (Lasix) 20 mg PO DAILY 02/22/24 03/22/24 History gabapentin 100 mg capsule 100 mg PO TID 02/22/24 03/22/24 History triamcinolone acetonide 0.5 % 1 applic topical BID PRN flare ups 02/22/24 03/22/24 History topical cream levothyroxine 50 mcg tablet 50 mcg PO DAILYBB 03/09/24 03/22/24 History aspirin 81 mg chewable tablet 81 mg PO DAILY #30 tabs 03/15/24 03/22/24 Rx lorazepam 0.5 mg tablet 1 mg (2 x 0.5 mg) PO HS #60 tabs 03/15/24 03/22/24 Rx apixaban 5 mg tablet (Eliquis) 5 mg PO BID #180 tabs 03/17/24 03/22/24 Rx alendronate 70 mg tablet (Fosamax) 70 mg PO WK 03/22/24 03/22/24 History atorvastatin 10 mg tablet 10 mg PO DAILY 03/22/24 03/22/24 History clopidogrel 75 mg tablet 75 mg PO DAILY 03/22/24 03/22/24 History metoprolol tartrate 50 mg tablet 50 mg PO BID 03/22/24 03/22/24 History Patient History Medical History Slurred speech Stroke-like symptoms (HFpEF) heart failure with preserved ejection fraction CAD (coronary artery disease) HTN (hypertension) Hyperlipemia Acute hypoxic respiratory failure Chest pain Postural lightheadedness Anxiety Osteoporosis with fracture History of breast cancer Tricuspid regurgitation per [employer] record Hx of sarcoidosis Hx of osteopenia Hx of fracture of rib Surgical History Hx of CABG January 2006 @ [facility] [address] Nicholson H/O colonoscopy 05/24/12 - by Dr Mayank Lorenzana H/O lymph node biopsy 03/21/07 S/P tubal ligation 10/21/07 S/P thoracotomy 1974 H/O oral surgery S/P hysterectomy 09/25/11 S/P dilation and curettage S/P cholecystectomy 1989 Hx of cataract surgery Bilateral - 2003 S/P mastectomy 2007 - Rt partial History of breast biopsy 03/04/07 - Rt breast Family History Aunt Breast cancer Maternal Grandmother (Maternal) Colorectal cancer Mother Colorectal cancer Ovarian cancer Father Heart disease Stroke Allergies Other No family history of adverse response to anesthesia No family history of bleeding disorder Social History Smoking Status: Former smoker Tobacco Type: Cigarettes Age Quit Using Tobacco: 39; packs per day: 0.5; Second Hand Exposure: No; Do You Dip or Chew Tobacco: No; Hx Alcohol Use: Yes Alcohol type: wine Hx Substance Use: No Preferred Language: Nepali Communication Ability: Effective Visual Impairment: No Limitations Hearing Ability: Normal Light Bulb Tester Required: No Beliefs That Will Affect Care: None marital status: Current Living Situation: Spouse current occupational status: retired How many Children do You have: 3 Other Information That Helps Us Care for You: No Feels Safe at Home: Yes Safety Concerns: Feels Safe At This Time Childhood Exposure to Second-Hand Smoke: No Diet: regular caffeine: Yes during the past year weight has: remained stable Dental Care, Regularly: Yes Physical Activity Frequency: Does not Exercise Seatbelt Use: always Sunscreen Use: Yes Assistive Devices: Cane and Walker Review of Systems Review of Systems: Per HPI. Some weight gain reported. Some increasing abdominal girth. Physical Exam Physical Exam: She is alert and oriented x3. Mood affect appear normal. She answered all questions appropriately. HEENT: Sclerae are anicteric. Pupils are equal and reactive to light and accommodation. Extraocular movements were intact. Neuro: Cranial nerves intact Lungs: Lungs are clear to auscultation bilaterally. There are no rales wheezes or rhonchi. She has normal respiratory effort without use of accessory muscles. There is normal pulmonary excursion. Cardiac: The rhythm was irregular. S1 and S2 were normal. Holosystolic murmur. The PMI was not markedly displaced on palpation. Extremities: Patient has bilateral radial pulses that are equal in intensity. There is no evidence cyanosis or clubbing. Moderate bilateral peripheral edema Skin: There are no rashes noted on examination today. Results & Data Vital Signs (Past 12 Hours) Vital Signs Temp Pulse Pulse Resp BP Pulse Ox O2 Del Method 07/11/24 15:50 75 03/23/24 15:02 36.4 C L 89 16 94/62 L 94 Room Air 03/23/24 11:58 95/62 L 03/23/24 10:41 36.3 C L 93 H 16 92/65 L 97 Room Air 03/23/24 10:35 103 H 87/61 L 03/23/24 10:29 88 96/60 L 03/23/24 10:24 92 H 104/68 03/23/24 09:11 132 H 91/57 L Laboratory Results Abnormal Lab Results 03/22/24 03/23/24 18:13 06:34 WBC 12.51 H RBC 4.00 L Hgb 11.8 L Hct 34.1 L MCV 85.3 MCH 29.5 MCHC 34.6 RDW Std Deviation 47.6 H RDW Coeff of Shan 15.7 H Plt Count 163 MPV 11.5 Immature Gran % (Auto) 0.6 Neut % (Auto) 72.9 Lymph % (Auto) 15.5 Mcduffie % (Auto) 10.0 Eos % (Auto) 0.7 Baso % (Auto) 0.3 Neut # (Auto) 9.12 H Lymph # (Auto) 1.94 Mcduffie # (Auto) 1.25 H Eos # (Auto) 0.09 Baso # (Auto) 0.04 Immature Gran # (Auto) 0.07 PT 16.1 H INR 1.5 H Sodium 127 L Potassium 4.0 Chloride 94 L Carbon Dioxide 21 Anion Gap 12 H BUN 44 H Creatinine 1.28 H Est Cr Clr Drug Dosing 24.8 Est GFR ( Amer) 42.9 Est GFR (Non-Af Amer) 37.0 BUN/Creatinine Ratio 34.4 H Glucose 85 Calcium 8.9 Magnesium 2.0 Total Bilirubin 1.5 H AST 156 H ALT 203 H Alkaline Phosphatase 212 H C-Reactive Protein 1.56 H Total Protein 5.8 L Albumin 3.7 Globulin 2.1 L Albumin/Globulin Ratio 1.8 Diagnostic Findings Limited echocardiogram performed today revealed preserved LV systolic function and at least moderate mitral regurgitation. Unchanged from echocardiogram performed [address] did reveal evidence of pleural effusions, anasarca and ascites. PG Care Time/CCT Total # of Minutes Spent Total Time Spent with Patient: Total time spent is greater than 50% in coordination of care (as documented) at patient's floor/unit and/or counseling patient: Coding Level of Care Code 55062 INT INP/OBS CARE 375MIN Diagnoses CHF exacerbation I50.9 Atrial fibrillation with RVR I48.91 Aortic regurgitation I35.1 Mitral regurgitation I34.0
[2024-03-24 06:59] LABS: Basophils # (auto) 0.03 K/uL (0.00-0.20); Basophils % (auto) 0.3 %; Eosinophils # (auto) 0.11 K/uL (0.00-0.50); Eosinophils % (auto) 1.1 %; Hematocrit (blood only) 32.4 % (37.0-47.0); Hemoglobin 11.2 g/dl (12.0-16.0); Immature Granulocytes # (auto) 0.08 K/uL (0.01-0.20); Immature Granulocytes % (auto) 0.8 %; Lymphocytes # (auto) 1.79 K/uL (1.20-3.40); Lymphocytes % (auto) 17.1 %; Mean Corpuscular Hemoglobin 29.6 pg (25.0-34.0); Mean Corpuscular Hgb Conc 34.6 g/dL (32.0-36.0); Mean Corpuscular Volume 85.5 fL (80.0-100.0); Mean Platelet Volume 11.7 fL (9.4-12.4); Monocytes # (auto) 1.31 K/uL (0.11-0.59); Monocytes % (auto) 12.5 %; Neutrophils # (auto) 7.14 K/uL (1.40-6.50); Neutrophils % (auto) 68.2 %; Platelet Count 145 K/uL (130-400); RDW Coefficient of Variation 15.9 % (11.5-14.5); RDW Standard Deviation 47.8 fL (36.4-46.3); Red Blood Count 3.79 M/uL (4.20-5.40); White Blood Count 10.46 K/ul (4.8-10.8)
[2024-03-24 07:26] LABS: Albumin Globulin Ratio 1.6 (0.9-2); Albumin Level 3.5 gm/dl (3.4-5.0); BUN Creatinine Ratio 32.5 (10-20); Bilirubin,Total 0.9 mg/dl (0.2-1.0); Calcium 8.6 mg/dl (8.6-10.3); Creatinine Clr Calc Pharmacy 25.7 ml/min; Est GFR (African American) 43.7 ml/min; Est GFR (Non-African American) 37.7 ml/min; Globulin 2.2 gm/dl (2.5-4.0); Magnesium 1.9 mg/dl (1.7-2.4); Potassium 3.3 mmol/L (3.5-5.1); Total Protein 5.7 gm/dl (6.0-8.3)
[2024-03-24] MEDS: POTASSIUM CHLORIDE CRTAB 20 MEQ TABCR PO STA (09:14)
[2024-03-24] MEDS: APIXABAN 5 MG TABLET PO SCH (09:35)
[2024-03-24 13:08] LABS: Hepatitis A Antibody IgM NON-REACTIVE (NON-REACTIVE); Hepatitis B Core Antibody IgM NON-REACTIVE (NON-REACTIVE)
[2024-03-24] MEDS ORDERED: bisacodyL 10 MG SUPP PR PRN (17:44)
--- NOTE | 2024-03-24 17:44 | Hospitalist Progress Note ---
Date of Service March 24, 2024 Assessment & Plan (1) Atrial fibrillation with RVR: Plan: 88 y/o with HFpEF admitted with rapid afib and decompensated heart failure sodium, Cr, bilirubin improved with diuresis recent TTE 03/13/2024 reviewednormal LV EF 55-60% no RWMA's, mildly reduced RV systolic function, trace AR, moderate to severe MR, moderate to severe TR -continue diuresis with lasix IV -continue apixaban -metoprolol held. BP still low but improved overall today -recent admissions for hypotensive/TIA episode and also for RVR, difficult rate and volume status - consulted cardiology. Recommended continuing amiodarone (rates now controlled), continue diuresis -replaced hypokalemia. AM BMP (2) Renal failure: Plan: NAGA on CKD-3 No signs of obstruction or hydronephrosis on CT of the abdomen pelvis --Cr improved with diuresis, monitor BUN/Cr and UOP (3) Hyperkalemia: Plan: Potassium elevated at 5.8 on arrival, magnesium of 2.3 combination of renal failure and ongoing potassium supplementation Treated medically in the ED with 10 units IV insulin, 50 mL IV dextrose, and IV Lasix Resolved (4) Elevated LFTs: Plan: CT abdomen/pelvis with possible cirrhosis. Hep serologies negative. INR elevated but on apixaban. Acute elevation related to congestive hepatopathy and improved with diuresis Possible underlying cirrhosis - MASH or cardiac most likely -monitor LFT which are normalizing with diuresis (5) Hyponatremia: Plan: Hypervolemic hyponatremia, improved with diuresis Na 122 --> 127 with IV lasix - continue diuresis - remains 127 today - AM BMP (6) Leukocytosis: Plan: -Procal negative, biofire neg and afebrile without localizing signs/sx -diarrhea is chronic in nature and related to IBS rather than acute diarrhea -UA pos, culture krista -R groin fluid collection appears to be loculated fluid within right femoral hernia - 4.3x1.4x2.3 cm fluid collection on ultrasound - nontender no pain in this area seems unlikely to be infected -tickborne labs sent on admission - babesiosis/anaplasmosis smears negative, DNA pending. Lyme not sent. Suspicion low so hold off on more tests at this time. -CRP fairly low at 1.5 and ESR low at 12 -blood cultures pending -at risk for aspiration pneumonitis but negative procalcitonin argues against bacterial pneumonia, hypoxia resolving with diuresis -appears to be chronically hypothermic, TSH recently wnl -monitor off antibiotics. (7) Elevated troponin: Plan: Initial high-sensitivity troponin of 24, 2-hour repeat of 25 Patient denies chest pain, no acute ST segment changes - demand ischemia related to decompensated HF and tachyarrhythmia Plan DVT ppx: on apixaban PT/OT evals - likely return home Updated her son in room 03/23 Admission and Anticipated Discharge Date Admission Date: March 22, 2024 Subjective Breathing much better than prior to admission. Leg edema improved. Chest felt tight once last night but nothing corresponded on tele monitor. Physical Exam 2 Physical Exam: PHYSICAL EXAMINATION Last 24h vital signs reviewed, see documentation in flowsheet General: walking then sitting in chair HEENT: Normocephalic, atraumatic, pupils round and equal, sclerae anicteric, no conjunctival injection, moist mucus membranes Lungs: normal respiratory effort. bibasilar crackles but improved no wheezing Heart: irregularly irregular rhythm, systolic murmur, JVD Abdomen: Soft, nontender, nondistended. Bowel sounds present. Extremities: Warm, dry, well-perfused. mild anasarca present including abdominal wall thighs and lower legs, improved R groin with no tenderness, no palpable mass, no erythema Neuro: Alert and oriented x 4, face symmetric, moves 4 extremities well Psych: Normal affect and behavior Results & Data Results & Data Vital Signs (Past 12 Hours) Vital Signs Temp Pulse Pulse Resp BP Pulse Ox O2 Del Method 03/24/24 17:27 89/58 L 03/24/24 16:18 96 H 03/24/24 14:40 36.5 C 92 H 16 98/64 L 96 Room Air 03/24/24 10:59 36.3 C L 102 H 18 122/81 95 Room Air 03/24/24 07:37 88 03/24/24 06:55 36.4 C L 95 H 16 101/68 93 Room Air Laboratory Results 03/24/24 06:27 03/24/24 06:27 PG Care Time/CCT Total # of Minutes Spent Total Time Spent with Patient: Total time spent is greater than 50% in coordination of care (as documented) at patient's floor/unit and/or counseling patient: Coding Level of Care Code 15122 SUB INP/OBS CARE 2MIN Diagnoses Atrial fibrillation with RVR I48.91 Renal failure N19 Hyperkalemia E87.5 Elevated LFTs R79.89 Hyponatremia E87.1 Leukocytosis D72.829 Elevated troponin R79.89
--- NOTE | 2024-03-24 18:35 | Cardiology Progress Note ---
Date of Service March 24, 2024 Assessment & Plan (1) CHF exacerbation: (2) Atrial fibrillation with RVR: (3) Aortic regurgitation: (4) Mitral regurgitation: Plan 1. Atrial fibrillation: Overall rates seem improved on the amiodarone. I think we can convert her to an oral regimen tomorrow morning. I will give her 400 mg twice daily for week and then 200 mg daily. She will continue on her apixaban 5 mg twice daily. 2. Elevated troponin: Very mild elevation and much improved since her last admission. I do not think we are dealing an acute coronary syndrome. 3. CAD s/p CABG: She reports some chest pressure at times. Do not think this is angina. More likely pulmonary vascular congestion and her atrial fibrillation. She will continue her atorvastatin. Beta-william temporarily discontinued. 4. Mitral valve prolapse with mitral regurgitation: Moderate to severe on 03/13/2024 echo. Has known mitral regurgitation. This can be followed in the outpatient setting. 5. Tricuspid regurgitation: Moderate to severe on current echo in the setting of A-fib with RVR. Known in the outpatient setting. Outpatient surveillance. 6. Chronic heart failure with preserved EF: She is not very symptomatic. Some congestion still. Some peripheral edema still. Diuretic regimen de-escalated. Will see how his response tomorrow to a single daily dose of Lasix. She continues to have an element of hyponatremia. Admission and Anticipated Discharge Date Admission Date: March 22, 2024 Subjective This afternoon the patient claimed he feeling better. She was ambulatory around the rubio. She did not report significant dyspnea or dizziness. She is generally not aware of any palpitations. She did report some difficulty sleeping last night with some increased breathing trouble. Review of Systems Review of Systems: Per HPI Physical Exam Physical Exam: She is alert and oriented x3. Mood affect appear normal. She answered all questions appropriately. HEENT: Sclerae are anicteric. Pupils are equal and reactive to light and accommodation. Extraocular movements were intact. Neuro: Cranial nerves intact Lungs: Occasional crackles in the bases bilaterally She has normal respiratory effort without use of accessory muscles. There is normal pulmonary excursion. Cardiac: The rhythm was irregular. S1 and S2 were normal. Holosystolic m urmur. The PMI was not markedly displaced on palpation. Extremities: Patient has bilateral radial pulses that are equal in intensity. There is no evidence cyanosis or clubbing. Moderate bilateral peripheral edema Skin: There are no rashes noted on examination today. Results & Data Vital Signs (Past 12 Hours) Vital Signs Temp Pulse Pulse Resp BP Pulse Ox O2 Del Method 03/24/24 17:27 89/58 L 03/24/24 16:18 96 H 03/24/24 14:40 36.5 C 92 H 16 98/64 L 96 Room Air 03/24/24 10:59 36.3 C L 102 H 18 122/81 95 Room Air 03/24/24 07:37 88 03/24/24 06:55 36.4 C L 95 H 16 101/68 93 Room Air Laboratory Results Abnormal Lab Results 03/22/24 03/24/24 18:13 06:27 WBC 10.46 RBC 3.79 L Hgb 11.2 L Hct 32.4 L MCV 85.5 MCH 29.6 MCHC 34.6 RDW Std Deviation 47.8 H RDW Coeff of Shan 15.9 H Plt Count 145 MPV 11.7 Immature Gran % (Auto) 0.8 Neut % (Auto) 68.2 Lymph % (Auto) 17.1 Sharkey % (Auto) 12.5 Eos % (Auto) 1.1 Baso % (Auto) 0.3 Neut # (Auto) 7.14 H Lymph # (Auto) 1.79 Sharkey # (Auto) 1.31 H Eos # (Auto) 0.11 Baso # (Auto) 0.03 Immature Gran # (Auto) 0.08 Sodium 127 L Potassium 3.3 L Chloride 93 L Carbon Dioxide 24 Anion Gap 10 BUN 41 H Creatinine 1.26 H Est Cr Clr Drug Dosing 25.7 Est GFR ( Amer) 43.7 Est GFR (Non-Af Amer) 37.7 BUN/Creatinine Ratio 32.5 H Glucose 117 H Calcium 8.6 Magnesium 1.9 Total Bilirubin 0.9 D AST 115 H ALT 190 H Alkaline Phosphatase 211 H Total Protein 5.7 L Albumin 3.5 Globulin 2.2 L Albumin/Globulin Ratio 1.6 Hepatitis A IgM Ab NON-REACTIVE Hep B Core IgM Ab NON-REACTIVE PG Care Time/CCT Total # of Minutes Spent Total Time Spent with Patient: Total time spent is greater than 50% in coordination of care (as documented) at patient's floor/unit and/or counseling patient: Coding Level of Care Code 11914 SUB INP/OBS CARE MIN Diagnoses CHF exacerbation I50.9 Atrial fibrillation with RVR I48.91 Aortic regurgitation I35.1 Mitral regurgitation I34.0
[2024-03-25 06:14] LABS: Basophils # (auto) 0.05 K/uL (0.00-0.20); Basophils % (auto) 0.4 %; Eosinophils # (auto) 0.12 K/uL (0.00-0.50); Hematocrit (blood only) 35.4 % (37.0-47.0); Immature Granulocytes # (auto) 0.08 K/uL (0.01-0.20); Immature Granulocytes % (auto) 0.7 %; Lymphocytes # (auto) 1.54 K/uL (1.20-3.40); Lymphocytes % (auto) 12.9 %; Mean Corpuscular Hemoglobin 29.5 pg (25.0-34.0); Mean Corpuscular Hgb Conc 33.9 g/dL (32.0-36.0); Mean Platelet Volume 11.8 fL (9.4-12.4); Monocytes # (auto) 1.37 K/uL (0.11-0.59); Monocytes % (auto) 11.5 %; Neutrophils # (auto) 8.77 K/uL (1.40-6.50); Neutrophils % (auto) 73.5 %; Platelet Count 156 K/uL (130-400); RDW Coefficient of Variation 16.6 % (11.5-14.5); RDW Standard Deviation 50.2 fL (36.4-46.3); Red Blood Count 4.07 M/uL (4.20-5.40); White Blood Count 11.93 K/ul (4.8-10.8)
[2024-03-25 06:20] LABS: Albumin Globulin Ratio 1.6 (0.9-2); Albumin Level 3.6 gm/dl (3.4-5.0); BUN Creatinine Ratio 25.6 (10-20); Calcium 8.6 mg/dl (8.6-10.3); Creatinine Clr Calc Pharmacy 27.5 ml/min; Est GFR (African American) 47.8 ml/min; Est GFR (Non-African American) 41.3 ml/min; Globulin 2.3 gm/dl (2.5-4.0); Magnesium 1.9 mg/dl (1.7-2.4); Potassium 3.4 mmol/L (3.5-5.1); Total Protein 5.9 gm/dl (6.0-8.3)
--- NOTE | 2024-03-25 07:38 | Hospitalist Progress Note ---
Date of Service March 25, 2024 Assessment & Plan (1) Atrial fibrillation with RVR: Plan: 88 y/o with HFpEF admitted with rapid afib and decompensated heart failure sodium, Cr, bilirubin improved with diuresis recent TTE 03/13/2024 reviewednormal LV EF 55-60% no RWMA's, mildly reduced RV systolic function, trace AR, moderate to severe MR, moderate to severe TR -continue diuresis with lasix IV - decreased to daily because of hypotension. Is down half a kilo overnight despite dose reduction -continue apixaban -metoprolol held for hypotension -recent admissions for hypotensive/TIA episode and also for RVR, difficult rate and volume status - consulted cardiology. Recommended continuing amiodarone - changed from drip to oral dosing. remains in atrial fibrillation on telemetry, rates been a little higher overnight But acceptable in the short-term. - replace mild hypokalemia AM BMP (2) Renal failure: Plan: NAGA on CKD-3 No signs of obstruction or hydronephrosis on CT of the abdomen pelvis --Cr improved with diuresis, monitor BUN/Cr and UOP -- creatinine is down below 1.2 (3) Hyperkalemia: Plan: Potassium elevated at 5.8 on arrival, magnesium of 2.3 combination of renal failure and ongoing potassium supplementation Treated medically in the ED with 10 units IV insulin, 50 mL IV dextrose, and IV Lasix Resolved (4) Elevated LFTs: Plan: CT abdomen/pelvis with possible cirrhosis. Hep serologies negative. INR elevated but on apixaban. Acute elevation related to congestive hepatopathy and improved with diuresis Possible underlying cirrhosis - MASH or cardiac most likely -monitor LFT which are normalizing with diuresis - continue to improve (5) Hyponatremia: Plan: Hypervolemic hyponatremia, improved with diuresis Na 122 --> 127 with IV lasix - continue diuresis - unchanged at 127 - AM BMP (6) Leukocytosis: Plan: -Procal negative, biofire neg and afebrile without localizing signs/sx -diarrhea is chronic in nature and related to IBS rather than acute diarrhea -UA pos, culture krista -R groin fluid collection appears to be loculated fluid within right femoral hernia - 4.3x1.4x2.3 cm fluid collection on ultrasound - nontender no pain in this area seems unlikely to be infected -tickborne labs sent on admission - babesiosis/anaplasmosis smears negative, DNA pending. Lyme not sent. Suspicion low so hold off on more tests at this time. -CRP fairly low at 1.5 and ESR low at 12 -blood cultures pending -at risk for aspiration pneumonitis but negative procalcitonin argues against bacterial pneumonia, hypoxia resolving with diuresis -appears to be chronically hypothermic, TSH recently wnl -monitor off antibiotics. - white blood count back up to 12,000 No fevers. Will resubmit UA/culture. Repeat chest x-ray 03/25: bilateral airspace opacities consistent with pulmonary edema, bilateral pleural effusions, left effusion is large (7) Elevated troponin: Plan: Initial high-sensitivity troponin of 24, 2-hour repeat of 25 Patient denies chest pain, no acute ST segment changes - demand ischemia related to decompensated HF and tachyarrhythmia Plan DVT ppx: on apixaban PT/OT evals - likely return home Updated her son in room 03/23 Admission and Anticipated Discharge Date Admission Date: March 22, 2024 Alexandre Travis did not sleep well last night because she was having A-fib with mildly elevated rates and felt palpitations, she continues to feel palpitations now rate was 113 she had recently been out of bed occasionally getting episodes of chest tightness, breathing overall improved a lot since admission, edema slowly improving Physical Exam 2 Physical Exam: PHYSICAL EXAMINATION Last 24h vital signs reviewed, see documentation in flowsheet General: reclining in bed HEENT: Normocephalic, atraumatic, pupils round and equal, sclerae anicteric, no conjunctival injection, moist mucus membranes Lungs: normal respiratory effort. clear to auscultation no wheezing Heart: irregularly irregular rhythm, systolic murmur, JVD Abdomen: Soft, nontender, nondistended. Bowel sounds present. Extremities: Warm, dry, well-perfused. mild anasarca present including abdominal wall thighs and lower legs, unchanged, 2+ lower extremity edema Neuro: Alert and oriented x 4, face symmetric, moves 4 extremities well Psych: Normal affect and behavior Results & Data Results & Data Vital Signs (Past 12 Hours) Vital Signs Temp Pulse Resp BP Pulse Ox O2 Del Method 03/25/24 06:57 36.5 C 109 H 18 99/70 L 98 Room Air 03/25/24 02:26 36.5 C 102 H 18 108/75 93 Room Air 03/24/24 23:05 36.5 C 90 18 102/68 92 Room Air Laboratory Results 03/25/24 05:39 03/25/24 05:39 PG Care Time/CCT Total # of Minutes Spent Total Time Spent with Patient: Total time spent is greater than 50% in coordination of care (as documented) at patient's floor/unit and/or counseling patient: Coding Level of Care Code 53495 SUB INP/OBS CARE 2/35MIN Diagnoses Atrial fibrillation with RVR I48.91 Renal failure N19 Hyperkalemia E87.5 Elevated LFTs R79.89 Hyponatremia E87.1 Leukocytosis D72.829 Elevated troponin R79.89
[2024-03-25] MEDS: FUROSEMIDE 40 MG/4 ML VIAL IV SCH (08:51)
[2024-03-25] MEDS: POTASSIUM CHLORIDE CRTAB 20 MEQ TABCR PO SCH (09:01)
[2024-03-25] MEDS: AMIODARONE 200 MG TAB PO SCH (09:31)
--- NOTE | 2024-03-25 11:18 | Cardiology Progress Note ---
Date of Service March 25, 2024 Assessment & Plan (1) CHF exacerbation: Plan: -Likely secondary to new onset atrial fibrillation. -Amiodarone as directed by Dr. Little. -Current echocardiogram notes normal left ventricular systolic function. -Consider changing Lasix to IV dosing until her symptoms improve. (2) Atrial fibrillation with RVR: Plan: -Amiodarone as directed by Dr. Little. -Continue Eliquis and metoprolol tartrate. (3) CAD (coronary artery disease): Plan: -s/p CABG X3, 2005. -Separate SVGs to the LAD, diagonal branch, and an obtuse marginal branch. -Quiescent on medical management. Plan Admission and Anticipated Discharge Date Admission Date: March 22, 2024 Subjective The patient is resting comfortably in bed without complaints of chest pain or dyspnea. Did note orthopnea last evening. Physical Exam Physical Exam: In general this is a well-developed well-nourished white female in no acute distress. HEENT exam is negative. Neck reveals normal carotid upstrokes without bruits. Jugular venous pressure is 8 cm of water at 90 degrees. There is no thyromegaly. Cardiovascular exam reveals an irregularly irregular rhythm with distant heart sounds. No obvious murmurs. Lungs are clear without rales, rhonchi, or wheezes. Abdomen is soft without bruits. Extremities reveal intact radial artery and posterior tibial pulses bilaterally. There is no peripheral edema. Results & Data Vital Signs (Past 12 Hours) Vital Signs Temp Pulse Pulse Resp BP Pulse Ox O2 Del Method 03/25/24 10:54 36.4 C L 97 H 16 115/76 96 Room Air 03/25/24 07:30 109 H 03/25/24 06:57 36.5 C 109 H 18 99/70 L 98 Room Air 03/25/24 02:26 36.5 C 102 H 18 108/75 93 Room Air Diagnostic Findings residential monitor notes atrial fibrillation with a ventricular response of 100- 110 bpm. PG Care Time/CCT Total # of Minutes Spent Total Time Spent with Patient: Total time spent is greater than 50% in coordination of care (as documented) at patient's floor/unit and/or counseling patient: Coding Level of Care Code 87467 SUB INP/OBS CARE 3/50MIN Diagnoses CHF exacerbation I50.9 Atrial fibrillation with RVR I48.91 CAD (coronary artery disease) I25.10
--- NOTE | 2024-03-25 12:27 | XRay Report ---
SINGLE VIEW CHEST CLINICAL HISTORY: Dyspnea. Leukocytosis FINDINGS: An AP, portable, upright chest radiograph is compared to study dated 03/22/2024 and correlat ed with chest CT dated 09/20/[address] abdominal CT dated 03/22/2024. The patient is status post m idline sternotomy. The heart is enlarged noting atherosclerotic calcification of the thoracic aorta. There is pulmonary vascular congestion. Bilateral airspace opacities likely represent interstitial ed abiola. There is chronic elevation of the right hemidiaphragm. There are right larger than left pleural effusions with dependent consolidation. No pneumothorax is seen. The skeletal structures are osteopen ic. The bony thorax is grossly intact. Cholecystectomy clips are seen in the right upper quadrant. IMPRESSION: 1. Cardiomegaly with evidence of congestive failure. 2. Bilateral airspace opacities likely represent interstitial edema. Correlate clinically for evidenc e of a superimposed infectious/inflammatory pneumonitis. Radiographic follow-up to resolution is jerad mmended. 3. Right large left pleural effusions with dependent consolidation. ACT 112: Negative or not required by law. Electronically signed by: aRfael Ocampo M.D. 03/25/2024 12:26 PM
[2024-03-25 13:31] LABS: Appearance Urine Clear (Clear); Bilirubin Urine Negative (Negative); Blood Urine Negative (Negative); Color Urine Yellow; Glucose Urine UA Negative (Negative); Ketones Urine Negative (Negative); Leukocyte Esterase Urine Negative (Negative); Nitrite Urine Negative (Negative); Protein Urine Negative (Negative); Specific Gravity Urine 1.007 (1.000-1.030); Urobilinogen Urine Negative (Negative); pH Urine 5.5 (4.5-7.5)
[2024-03-26 07:32] LABS: Calcium 8.7 mg/dl (8.6-10.3); Creatinine Clr Calc Pharmacy 31.7 ml/min; Est GFR (African American) 57.8 ml/min; Est GFR (Non-African American) 49.9 ml/min; Magnesium 1.8 mg/dl (1.7-2.4); Potassium 3.7 mmol/L (3.5-5.1)
[2024-03-26] MEDS: POLYETHYLENE (MIRALAX) 17 GM PACK PO PRN (10:11)
--- NOTE | 2024-03-26 10:17 | Hospitalist Progress Note ---
Date of Service March 26, 2024 Assessment & Plan (1) Atrial fibrillation with RVR: Plan: 88 y/o with HFpEF admitted with rapid afib and decompensated heart failure recent admissions for hypotensive/TIA episode and also for RVR, difficult rate and volume status sodium, Cr, bilirubin improved with diuresis recent TTE 03/13/2024 reviewednormal LV EF 55-60% no RWMA's, mildly reduced RV systolic function, trace AR, moderate to severe MR, moderate to severe TR -remains volume overloaded, continue diuresis with lasix IV daily. Weight down 65-->63 kg and net neg overnight. -NSVT episodes this am. K and mag low normal. Replace with extra dose of po K and IV mag goal >4.0/2.0. AM BMP, mag -continue apixaban -metoprolol held for hypotension, continue po amiodarone (2) Renal failure: Plan: NAGA on CKD-3 No signs of obstruction or hydronephrosis on CT of the abdomen pelvis -- creatinine is now 1, continued improvement with diuresis (3) Hyperkalemia: Plan: Potassium elevated at 5.8 on arrival, magnesium of 2.3 combination of renal failure and ongoing potassium supplementation Treated medically in the ED with 10 units IV insulin, 50 mL IV dextrose, and IV Lasix Resolved (4) Elevated LFTs: Plan: CT abdomen/pelvis with possible cirrhosis. Hep serologies negative. INR elevated but on apixaban. Acute elevation related to congestive hepatopathy and improved with diuresis Possible underlying cirrhosis - MASH or cardiac most likely -monitor LFT which are normalizing with diuresis - continue to improve (5) Hyponatremia: Plan: Hypervolemic hyponatremia, improved with diuresis - sodium now improved to 132 - AM BMP (6) Leukocytosis: Plan: -Procal negative, biofire neg and afebrile without localizing signs/sx -diarrhea is chronic in nature and related to IBS rather than acute diarrhea -UA pos, culture krista -R groin fluid collection appears to be loculated fluid within right femoral hernia - 4.3x1.4x2.3 cm fluid collection on ultrasound - nontender no pain in this area seems unlikely to be infected -tickborne labs sent on admission - babesiosis/anaplasmosis smears negative, DNA pending. Lyme not sent. Suspicion low so hold off on more tests at this time. -CRP fairly low at 1.5 and ESR low at 12 -blood cultures pending -at risk for aspiration pneumonitis but negative procalcitonin argues against bacterial pneumonia, hypoxia resolving with diuresis -appears to be chronically hypothermic, TSH recently wnl -monitor off antibiotics. - white blood count back up to 12,000 No fevers. Will resubmit UA/culture. Repeat chest x-ray 03/25: bilateral airspace opacities consistent with pulmonary edema, bilateral pleural effusions, left effusion is large Repeat UA negative. repeat Procal negative. (7) Elevated troponin: Plan: Initial high-sensitivity troponin of 24, 2-hour repeat of 25 Patient denies chest pain, no acute ST segment changes - demand ischemia related to decompensated HF and tachyarrhythmia Plan DVT ppx: on apixaban PT/OT evals - likely return home Updated her son in room 03/23 Admission and Anticipated Discharge Date Admission Date: March 22, 2024 Subjective does not feel short of breath but continues to have some palpitations and high heart rates when active no chest pain. Leg edema still present relatively unchanged had runs of NSVT this am and afib with rapid rates up to 140, mostly in 100-110s Physical Exam 2 Physical Exam: PHYSICAL EXAMINATION Last 24h vital signs reviewed, see documentation in flowsheet General: in chair visiting her across the [place] HEENT: Normocephalic, atraumatic, pupils round and equal, sclerae anicteric, no conjunctival injection, moist mucus membranes Lungs: normal respiratory effort. clear to auscultation no wheezing Heart: tachycardic irregularly irregular rhythm, systolic murmur, neck vv flat sitting upright Abdomen: Soft, nontender, nondistended. Bowel sounds present. Extremities: Warm, dry, well-perfused. 2+ lower extremity edema pedal to mid calf Neuro: Alert and oriented x 4, face symmetric, moves 4 extremities well Psych: Normal affect and behavior Results & Data Results & Data Vital Signs (Past 12 Hours) Vital Signs Temp Pulse Pulse Resp BP Pulse Ox O2 Del Method 03/26/24 08:00 112 H 03/26/24 07:33 36.5 C 112 H 18 98/69 L 92 Room Air 03/26/24 02:26 36.9 C 119 H 16 100/63 93 Room Air 03/25/24 22:37 36.4 C L 117 H 18 102/61 93 Room Air Laboratory Results 03/25/24 05:39 03/26/24 06:08 PG Care Time/CCT Total # of Minutes Spent Total Time Spent with Patient: Total time spent is greater than 50% in coordination of care (as documented) at patient's floor/unit and/or counseling patient: Coding Level of Care Code 30386 SUB INP/OBS CARE 2/35MIN Diagnoses Atrial fibrillation with RVR I48.91 Renal failure N19 Hyperkalemia E87.5 Elevated LFTs R79.89 Hyponatremia E87.1 Leukocytosis D72.829 Elevated troponin R79.89
[2024-03-26] MEDS ORDERED: 0.2 MICRON FILTER SET 1 EACH IV ONE (10:20)
[2024-03-26] MEDS: POTASSIUM CHLORIDE CRTAB 20 MEQ TABCR PO STA (10:27)
[2024-03-26] MEDS: MAGNESIUM SULFATE / D5W 1 GM/100 ML BAG IV SCH (10:27)
--- NOTE | 2024-03-26 10:31 | Communication Note ---
Date of Service: March 26, [address] Cantu regarding tachycardia/afib Unlikely to tolerate enough B-william to improve rates Hold amio po and go back to drip at 0.5 mg/h Increased bowel regimen for constipation
[2024-03-26] MEDS: AMIODARONE / D5W 360 MG/200 ML BAG IV SCH (10:34)
[2024-03-26] MEDS: POLYETHYLENE (MIRALAX) 17 GM PACK PO SCH (10:42)
[2024-03-26] MEDS: SENNA 8.6 MG TAB PO SCH (11:20)
--- NOTE | 2024-03-26 12:06 | Cardiology Progress Note ---
Date of Service March 26, 2024 Assessment & Plan (1) CHF exacerbation: Plan: -Likely secondary to new onset atrial fibrillation. -Management as directed by Dr. Little. -Current echocardiogram notes normal left ventricular systolic function. -Continue intravenous Lasix. (2) Atrial fibrillation with RVR: Plan: -Consider changing amiodarone to an intravenous infusion. -Continue Eliquis and metoprolol tartrate. (3) CAD (coronary artery disease): Plan: -s/p CABG X3, 2005. -Separate SVGs to the LAD, diagonal branch, and an obtuse marginal branch. -Quiescent on medical management. Plan Admission and Anticipated Discharge Date Admission Date: March 22, 2024 Subjective The patient is resting comfortably in the bedside chair without complaints of chest pain or dyspnea. Physical Exam Physical Exam: In general this is a well-developed well-nourished white female in no acute distress. HEENT exam is negative. Neck reveals normal carotid upstrokes without bruits. Jugular venous pressure is 8 cm of water at 90 degrees. There is no thyromegaly. Cardiovascular exam reveals an irregularly irregular rhythm with distant heart sounds. No obvious murmurs. Lungs are clear without rales, rhonchi, or wheezes. Abdomen is soft without bruits. Extremities reveal intact radial artery and posterior tibial pulses bilaterally. There is no peripheral edema. Results & Data Vital Signs (Past 12 Hours) Vital Signs Temp Pulse Pulse Resp BP Pulse Ox O2 Del Method 03/26/24 10:55 36.5 C 124 H 18 102/68 96 Room Air 03/26/24 08:00 112 H 03/26/24 07:33 36.5 C 112 H 18 98/69 L 92 Room Air 03/26/24 02:26 36.9 C 119 H 16 100/63 93 Room Air Diagnostic Findings monitoring manager notes a rapid ventricular response to her atrial fibrillation. PG Care Time/CCT Total # of Minutes Spent Total Time Spent with Patient: Total time spent is greater than 50% in coordination of care (as documented) at patient's floor/unit and/or counseling patient: Coding Level of Care Code 42128 SUB INP/OBS CARE 3/50MIN Diagnoses CHF exacerbation I50.9 Atrial fibrillation with RVR I48.91 CAD (coronary artery disease) I25.10
[2024-03-26 17:42] LABS: Babesia microti DNA Not Detected (Not Detected)
[2024-03-27 06:41] LABS: BUN Creatinine Ratio 18.7 (10-20); Calcium 8.8 mg/dl (8.6-10.3); Creatinine Clr Calc Pharmacy 35.6 ml/min; Est GFR (African American) 64.8 ml/min; Est GFR (Non-African American) 55.9 ml/min; Magnesium 2.2 mg/dl (1.7-2.4); Potassium 4.2 mmol/L (3.5-5.1)
--- NOTE | 2024-03-27 11:38 | Cardiology Progress Note ---
Date of Service March 27, 2024 Assessment & Plan (1) CHF exacerbation: Plan: -Likely secondary to new onset atrial fibrillation. -Management as directed by Dr. Little. -Current echocardiogram notes normal left ventricular systolic function. -Continue intravenous Lasix. (2) Atrial fibrillation with RVR: Plan: -Continue intravenous amiodarone. -Continue Eliquis and metoprolol tartrate. -Electrical cardioversion tomorrow morning. (3) CAD (coronary artery disease): Plan: -s/p CABG X3, 2005. -Separate SVGs to the LAD, diagonal branch, and an obtuse marginal branch. -Quiescent on medical management. Plan Admission and Anticipated Discharge Date Admission Date: March 22, 2024 Subjective The patient is resting comfortably in the bedside chair without complaints of chest pain or dyspnea. Does note palpitations with physical activity. We have discussed the need to proceed with an electrical cardioversion. The patient understands and agrees. Physical Exam Physical Exam: In general this is a well-developed well-nourished white female in no acute distress. HEENT exam is negative. Neck reveals normal carotid upstrokes without bruits. Jugular venous pressure is flat at 90 degrees. There is no thyromegaly. Cardiovascular exam reveals an irregularly irregular rhythm with distant heart sounds. No obvious murmurs. Lungs are clear without rales, rhonchi, or wheezes. Abdomen is soft without bruits. Extremities reveal intact radial artery and posterior tibial pulses bilaterally. There is no peripheral edema. Results & Data Vital Signs (Past 12 Hours) Vital Signs Temp Pulse Pulse Pulse Resp BP Pulse Ox 03/27/24 11:09 36.6 C 126 H 18 100/67 96 03/27/24 08:30 135 H 03/27/24 07:26 36.5 C 105 H 16 104/71 96 03/27/24 02:43 36.6 C 110 H 16 112/73 92 O2 Del Method 03/27/24 11:09 Room Air 03/27/24 08:30 03/27/24 07:26 Room Air 03/27/24 02:43 Room Air Diagnostic Findings seismic survey assistant notes atrial fibrillation with a ventricular response of 100- 140 bpm. Average ventricular response at rest is 100- 110. PG Care Time/CCT Total # of Minutes Spent Total Time Spent with Patient: Total time spent is greater than 50% in coordination of care (as documented) at patient's floor/unit and/or counseling patient: Coding Level of Care Code 63840 SUB INP/OBS CARE MIN Diagnoses CHF exacerbation I50.9 Atrial fibrillation with RVR I48.91 CAD (coronary artery disease) I25.10
--- NOTE | 2024-03-27 16:32 | Hospitalist Progress Note ---
Date of Service March 27, 2024 Assessment & Plan (1) Atrial fibrillation with RVR: Plan: 88 y/o with HFpEF admitted with rapid afib and decompensated heart failure recent admissions for hypotensive/TIA episode and also for RVR, difficult rate and volume status sodium, Cr, bilirubin improved with diuresis recent TTE 03/13/2024 reviewednormal LV EF 55-60% no RWMA's, mildly reduced RV systolic function, trace AR, moderate to severe MR, moderate to severe TR -remains volume overloaded, continue diuresis with lasix IV, BPs improved so ordered afternoon dose of lasix/potassium today. -NSVT episodes AM of 03/26 -continue apixaban -metoprolol held for hypotension, continue amiodarone drip, reviewed cardiology recs planned for cardioversion tomorrow (2) Renal failure: Plan: NAGA on CKD-3 No signs of obstruction or hydronephrosis on CT of the abdomen pelvis -- creatinine is now <1, continued improvement with diuresis (3) Hyperkalemia: Plan: Potassium elevated at 5.8 on arrival, magnesium of 2.3 combination of renal failure and ongoing potassium supplementation Treated medically in the ED with 10 units IV insulin, 50 mL IV dextrose, and IV Lasix Resolved (4) Elevated LFTs: Plan: CT abdomen/pelvis with possible cirrhosis. Hep serologies negative. INR elevated but on apixaban. Acute elevation related to congestive hepatopathy and improved with diuresis Possible underlying cirrhosis - MASH or cardiac most likely -monitor LFT which are normalizing with diuresis - continue to improve (5) Hyponatremia: Plan: Hypervolemic hyponatremia, improved with diuresis - sodium improved to 132 with diuresis, back down to 129 today - AM BMP (6) Leukocytosis: Plan: -Procal negative, biofire neg and afebrile without localizing signs/sx -diarrhea is chronic in nature and related to IBS rather than acute diarrhea -UA pos, culture krista -R groin fluid collection appears to be loculated fluid within right femoral hernia - 4.3x1.4x2.3 cm fluid collection on ultrasound - nontender no pain in this area seems unlikely to be infected -tickborne labs sent on admission - babesiosis/anaplasmosis smears negative, DNA pending. Lyme not sent. Suspicion low so hold off on more tests at this time. -CRP fairly low at 1.5 and ESR low at 12 -blood cultures pending -at risk for aspiration pneumonitis but negative procalcitonin argues against bacterial pneumonia, hypoxia resolving with diuresis -appears to be chronically hypothermic, TSH recently wnl -monitor off antibiotics. - white blood count back up to 12,000 No fevers. Will resubmit UA/culture. Repeat chest x-ray 03/25: bilateral airspace opacities consistent with pulmonary edema, bilateral pleural effusions, left effusion is large Repeat UA negative. repeat Procal negative. - AM CBC (7) Elevated troponin: Plan: Initial high-sensitivity troponin of 24, 2-hour repeat of 25 Patient denies chest pain, no acute ST segment changes - demand ischemia related to decompensated HF and tachyarrhythmia Plan DVT ppx: on apixaban PT/OT evals - likely return home Updated her son in room 03/23 Her is hospitalized across the [place] on [address] Admission and Anticipated Discharge Date Admission Date: March 22, 2024 Subjective breathing is fine today at rest except she continues to have dyspnea and high heart rates with exertion leg edema is unchanged, remains significant Physical Exam 2 Physical Exam: PHYSICAL EXAMINATION Last 24h vital signs reviewed, see documentation in flowsheet General: sitting in chair HEENT: Normocephalic, atraumatic, pupils round and equal, sclerae anicteric, no conjunctival injection, moist mucus membranes Lungs: normal respiratory effort. clear to auscultation no wheezing. diminished in bases Heart: tachycardic irregularly irregular rhythm, hyperdynamic, systolic murmur, neck vv flat sitting upright Abdomen: Soft, nontender, nondistended. Bowel sounds present. Extremities: Warm, dry, well-perfused. 2+ lower extremity edema pedal to mid calf - unchanged Neuro: Alert and oriented x 4, face symmetric, moves 4 extremities well Psych: Normal affect and behavior Results & Data Results & Data Vital Signs (Past 12 Hours) Vital Signs Temp Pulse Pulse Resp BP Pulse Ox O2 Del Method 03/27/24 15:29 119 H 03/27/24 11:09 36.6 C 126 H 18 100/67 96 Room Air 03/27/24 08:30 135 H 03/27/24 07:26 36.5 C 105 H 16 104/71 96 Room Air Laboratory Results 03/25/24 05:39 03/27/24 05:49 PG Care Time/CCT Total # of Minutes Spent Total Time Spent with Patient: Total time spent is greater than 50% in coordination of care (as documented) at patient's floor/unit and/or counseling patient: Coding Level of Care Code 05246 SUB INP/OBS CARE 2/35MIN Diagnoses Atrial fibrillation with RVR I48.91 Renal failure N19 Hyperkalemia E87.5 Elevated LFTs R79.89 Hyponatremia E87.1 Leukocytosis D72.829 Elevated troponin R79.89
[2024-03-27] MEDS: POTASSIUM CHLORIDE CRTAB 20 MEQ TABCR PO STA (17:10)
[2024-03-27] MEDS: FUROSEMIDE 40 MG/4 ML VIAL IV ONE (17:10)
[2024-03-28 06:35] LABS: Hematocrit (blood only) 35.4 % (37.0-47.0); Hemoglobin 11.7 g/dl (12.0-16.0); Mean Corpuscular Hgb Conc 33.1 g/dL (32.0-36.0); Mean Corpuscular Volume 87.8 fL (80.0-100.0); Mean Platelet Volume 11.1 fL (9.4-12.4); Platelet Count 166 K/uL (130-400); RDW Coefficient of Variation 17.4 % (11.5-14.5); RDW Standard Deviation 54.5 fL (36.4-46.3); Red Blood Count 4.03 M/uL (4.20-5.40); White Blood Count 10.78 K/ul (4.8-10.8)
[2024-03-28 07:04] LABS: BUN Creatinine Ratio 17.5 (10-20); Creatinine Clr Calc Pharmacy 33.4 ml/min; Est GFR (Non-African American) 51.8 ml/min; Potassium 4.2 mmol/L (3.5-5.1)
--- NOTE | 2024-03-28 07:36 | Anesthesiology Consultation ---
Date of Service March 28, 2024 Assessment & Plan ASA ASA3 Proposed Anesthesia Anesthesia Type: MAC Risk / Benefits Reviewed With: PT / POA / Parent / Guardian, Accepts Plan and Informed Consent Obtained History Surgery Operation Date: 03/28/24 07:45 Proposed Procedures p Cardioversion Tax Analyst w/Anesthesia - Jarvis Cantu MD Height/Weight Height: 5 ft Weight: 66.1 kg Allergies Allergy/AdvReac Type Severity Reaction Status Date / Time Cipro Allergy Severe hives Verified 01/03/15 09:10 ciprofloxacin Allergy Severe hives Verified 03/22/24 10:51 dobutamine Allergy Severe Hives Verified 03/22/24 10:51 Iodinated Contrast Media Allergy Severe Tongue Verified 03/22/24 10:51 thickening, difficulty swallowing Sulfa (Sulfonamide Allergy Severe UNKNOWN Verified 03/22/24 10:51 Antibiotics) erythromycin base Allergy Intermediate rash Verified 03/22/24 10:51 adhesive Allergy Unknown RED SKIN Verified 03/22/24 10:51 Penicillins Allergy Unknown UNKNOWN Verified 03/22/24 10:51 Quinolones Allergy Unknown UNKNOWN Verified 03/22/24 10:51 Medications Home Medications Medication Instructions Recorded Confirmed Last Taken calcium carbonate 600 mg-vitamin 1 cap PO QDL 11/19/19 03/22/24 03/12/24 D3 5 mcg (200 unit) capsule (Calcium 600 + D(3)) cholecalciferol (vitamin D3) 50 2,000 units PO QDL 11/19/19 03/22/24 03/12/24 mcg (2,000 unit) tablet multivitamin (Daily Multi-Vitamin 1 tab PO QDL 11/19/19 03/22/24 03/12/24 tablet) coenzyme Q10 400 mg capsule 100 mg PO QPM 05/27/21 03/22/24 03/12/24 nitroglycerin 0.4 mg sublingual 0.4 mg sublingual Q5M PRN chest 11/22/23 03/22/24 Unknown tablet pain #25 tabs potassium chloride 20 mEq 20 meq PO DAILY 30 days #30 tabs 01/28/24 03/22/24 03/12/24 tablet,extended release(part/cryst) Lactobacillus acidophilus 1 1,000 mmu cells PO QAM ##0 02/22/24 03/22/24 03/12/24 billion cell capsule cartilage 40 mg-collagen II 10 1 tab PO QDL 02/22/24 03/22/24 03/12/24 mg-boron 5 mg-hyaluronate 3.3 mg tablet (Playmysong) clobetasol 0.05 % topical ointment 1 applic topical 2XWK PRN flare 02/22/24 03/22/24 Unknown diphenhydramine HCl 25 mg tablet 25 mg PO DAILY PRN allergies 02/22/24 03/22/24 Unknown (Benadryl Allergy) furosemide 20 mg tablet (Lasix) 20 mg PO DAILY 02/22/24 03/22/24 03/22/24 gabapentin 100 mg capsule 100 mg PO TID 02/22/24 03/22/24 03/12/24 triamcinolone acetonide 0.5 % 1 applic topical BID PRN flare ups 02/22/24 03/22/24 Unknown topical cream levothyroxine 50 mcg tablet 50 mcg PO DAILYBB 03/09/24 03/22/24 03/12/24 aspirin 81 mg chewable tablet 81 mg PO DAILY #30 tabs 03/15/24 03/22/24 Unknown lorazepam 0.5 mg tablet 1 mg (2 x 0.5 mg) PO HS #60 tabs 03/15/24 03/22/24 Unknown apixaban 5 mg tablet (Eliquis) 5 mg PO BID #180 tabs 03/17/24 03/22/24 Unknown alendronate 70 mg tablet (Fosamax) 70 mg PO WK 03/22/24 03/22/24 Unknown atorvastatin 10 mg tablet 10 mg PO DAILY 03/22/24 03/22/24 Unknown clopidogrel 75 mg tablet 75 mg PO DAILY 03/22/24 03/22/24 Unknown metoprolol tartrate 50 mg tablet 50 mg PO BID 03/22/24 03/22/24 Unknown Active Medications Generic Name Dose Route Start Last Admin Trade Name Freq PRN Reason Stop Dose Admin Apixaban 5 mg 03/24/24 09:00 03/27/24 19:49 Apixaban 5 Mg Tablet PO 04/23/24 08:59 5 mg BID LIBIA Administration Aspirin 81 mg 03/23/24 09:00 03/27/24 08:57 Aspirin 81 Mg Chew PO 04/22/24 08:59 81 mg DAILY LIBIA Administration Atorvastatin Calcium 10 mg 03/23/24 09:00 03/27/24 08:57 Atorvastatin 10 Mg Tab PO 04/22/24 08:59 10 mg DAILY LIBIA Administration Furosemide 40 mg 03/25/24 09:00 03/27/24 08:57 Furosemide 40 Mg/4 Ml Vial IV 04/24/24 08:59 40 mg DAILY LIBIA Administration Gabapentin 100 mg 03/22/24 21:00 03/27/24 19:49 Gabapentin 100 Mg Cap PO 04/21/24 20:59 100 mg BID LIBIA Administration Amiodarone HCl/Dextrose 360 mg in 200 mls @ 16.667 mls/hr 03/26/24 10:30 03/27/24 20:39 Nexterone / D5w IV 04/25/24 10:29 0.5 mg/min .Q12H LIBIA 16.7 mls/hr Administration 0.5 MG/MIN Levothyroxine Sodium 50 mcg 03/23/24 06:30 03/28/24 06:33 Levothyroxine Sodium 50 Mcg Tablet PO 04/22/24 06:29 50 mcg DAILYBB LIBIA Administration Lorazepam 1 mg 03/22/24 21:00 03/27/24 22:29 Lorazepam 1 Mg Tab PO 04/21/24 20:59 1 mg HS LIBIA Administration Metoprolol Tartrate 75 mg 03/22/24 21:00 03/23/24 09:08 Metoprolol Tartrate 25 Mg Tab PO 04/21/24 20:59 Not Given BID LIBIA Polyethylene Glycol 17 gm 03/26/24 10:30 03/27/24 08:58 Polyethylene (Miralax) 17 Gm Pack PO 04/25/24 10:29 17 gm DAILY LIBIA Administration Potassium Chloride 40 meq 03/25/24 09:00 03/27/24 08:58 Potassium Chloride Crtab 20 Meq Tabcr PO 04/24/24 08:59 40 meq QAM LIBIA Administration Sennosides 17.2 mg 03/26/24 10:30 03/27/24 08:58 Senna 8.6 Mg Tab PO 04/25/24 10:29 17.2 mg QAM LIBIA Administration NPO Date Last Intake of Fluids: 03/28/24 Time Last Intake of Fluids: 00:00 Date Last Intake of Solids: 03/28/24 Time Last Intake of Solids: 00:00 Past Medical History Medical History TIA (transient ischemic attack) Elevated troponin Non-ST elevation [place] (NSTEMI) Stroke-like symptoms Slurred speech Stroke-like symptoms (HFpEF) heart failure with preserved ejection fraction HTN (hypertension) Hyperlipemia Acute hypoxic respiratory failure Chest pain Postural lightheadedness Anxiety Osteoporosis with fracture History of breast cancer Tricuspid regurgitation per allscripts record Hx of sarcoidosis Hx of osteopenia Hx of fracture of rib Exercise / Class Metabolic Activity II 4-5 Yardwork/Stairs/Walk up hill Past Family History Family History Aunt Breast cancer Maternal Grandmother (Maternal) Colorectal cancer Mother Colorectal cancer Ovarian cancer Father Heart disease Stroke Allergies Other No family history of adverse response to anesthesia No family history of bleeding disorder Past Surgical History Surgical History Hx of CABG January 2006 @ [facility] [address] Dr Nicholson H/O colonoscopy 05/24/12 - by Dr Mayank Lorenzana H/O lymph node biopsy 03/21/07 S/P tubal ligation 10/21/07 S/P thoracotomy 1974 H/O oral surgery S/P hysterectomy 09/25/11 S/P dilation and curettage S/P cholecystectomy 1989 Hx of cataract surgery Bilateral - 2002 S/P mastectomy 2006 - Rt partial History of breast biopsy 03/04/07 - Rt breast Past Anesthesia History No Hx of Anesthesia Complications and No Family Hx of Anesthesia Complications History of PONV No Hx of PONV and No Hx of Motion Sickness Social History Smoking Status: Former smoker Do You Dip or Chew Tobacco: No Hx Alcohol Use: Yes Alcohol type: wine alcohol intake frequency: holidays/special occasions only Hx Substance Use: No substance use type: does not use Review of Systems denies fever/cough/ colds/ chest pain/ SOB/ JOSE GUADALUPE denies JOSE GUADALUPE Physical Exam Vital Signs Last Vital Signs Temp 36.7 C 03/28/24 07:18 Pulse 120 H 03/28/24 07:18 Resp 16 03/28/24 02:33 BP 123/69 03/28/24 07:18 Pulse Ox 90 03/28/24 07:18 O2 Del Method Room Air 03/28/24 07:18 ENMT Mouth: + dentures; no TMJ abnormality and no dentition abnormality Thyromental Distance: > or= 3.5 Finger Breadths Mallampati Class: II Neck neck extension not limited Respiratory normal respiratory effort; no respiratory distress Auscultation: lungs clear to auscultation bilaterally Cardiovascular Rate/Rhythm: + abnormal rate and + abnormal rhythm Heart Sounds: + murmur Neurologic moves all extremities Psychiatric Orientation: alert and oriented x 3 Testing Laboratory Results 03/28/24 05:46 03/28/24 05:46 PT 16.1 Seconds (9.0-12.0) H 03/23/24 06:34 INR 1.5 (0.9-1.1) H 03/23/24 06:34 APTT 31 Seconds (21-31) 03/22/24 12:37 Urine Color Yellow 03/25/24 Unknown Urine Appearance Clear (Clear) 03/25/24 Unknown Urine pH 5.5 (4.5-7.5) 03/25/24 Unknown Ur Specific [place] 1.007 (1.000-1.030) 03/25/24 Unknown Urine Protein Negative (Negative) 03/25/24 Unknown Urine Glucose (UA) Negative (Negative) 03/25/24 Unknown Urine Ketones Negative (Negative) 03/25/24 Unknown Urine Nitrite Negative (Negative) 03/25/24 Unknown Ur Leukocyte Esterase Negative (Negative) 03/25/24 Unknown Urine WBC (Auto) 11-20 /hpf (0-5) H 03/22/24 14:56 Urine RBC (Auto) 3-5 /hpf (0-2) H 03/22/24 14:56 U Hyaline Cast (Auto) 11-20 /lpf (0-2) H 03/22/24 14:56 U Epithel Cells (Auto) 0-2 /hpf (0-2) 03/22/24 14:56 Urine Bacteria (Auto) None Seen (None Seen) 03/22/24 14:56 03/22/24 18:00 Aerobic Blood Culture - Final Blood No growth in Aerobic bottle after 5 days. Anaerobic Blood Culture - Final No growth in Anaerobic bottle after 5 days. 03/22/24 18:12 Aerobic Blood Culture - Final Blood No growth in Aerobic bottle after 5 days. Anaerobic Blood Culture - Final No growth in Anaerobic bottle after 5 days. 03/22/24 14:56 Urine Culture - Final Urine,Clean Catch More than three types of organisms present, all moderate counts mixed probable skin krista. No further identifications or sensitivities to follow.
[2024-03-28] MEDS ORDERED: LIDOCAINE 2% 2 ML VIAL/AMP(20MG/ML) INFIL ONE (08:02)
[2024-03-28] MEDS ORDERED: PROPOFOL IV EMULSION 10 MG/ML 20 ML VIAL IV ONE (08:02)
--- NOTE | 2024-03-28 08:05 | Cardioversion ---
Date of Service March 28, 2024 PG Electrical Cardioversion Rp Electrical Cardioversion Report Date of procedure: March 28, 2024 Procedure: Elective, electrical cardioversion Indications: Refractory atrial fibrillation, symptomatic Protocol: After informed consent was obtained, and a time-out undertaken, the patient was sedated smoothly by anesthesia using propofol. The patient was monitored continuously by telemetry, sphygmomanometry, oximetry, and end-tidal CO2. The patient was given 70 joules of biphasic energy via hands-off paddles and successfully converted to sinus rhythm. There were no complications. The patient tolerated the procedure well. Following the cardioversion, the patient was conversant and without complaints. Conclusions: 1. Successful electrical cardioversion from atrial fibrillation to sinus rhythm. 2. No complications. Coding Level of Care Code 70473 CARDIOVERSION, ELECTIVE Additional Codes Electrical Cardioversion Report ([id number])
--- NOTE | 2024-03-28 08:16 | Anesthesiology Progress Note ---
Date of Service March 28, 2024 Anesthesia Post Procedure Vital Signs Vital Signs: Temp Pulse Pulse Pulse Resp BP Pulse Ox 03/28/24 08:10 70 16 116/70 94 03/28/24 08:05 71 16 116/71 94 03/28/24 08:00 67 16 112/68 95 03/28/24 07:53 71 16 103/64 95 03/28/24 07:18 36.7 C 120 H 123/69 90 03/28/24 02:33 36.6 C 122 H 16 100/63 94 03/27/24 22:40 36.3 C L 121 H 16 98/66 L 94 03/27/24 19:50 36.4 C L 123 H 16 110/76 95 03/27/24 15:45 36.9 C 120 H 18 94/62 L 94 03/27/24 15:29 119 H 03/27/24 11:09 36.6 C 126 H 18 100/67 96 03/27/24 08:30 135 H O2 Del Method O2 Flow Rate 03/28/24 08:10 Nasal Cannula 2 03/28/24 08:05 Nasal Cannula 2 03/28/24 08:00 Nasal Cannula 2 03/28/24 07:53 Nasal Cannula 2 03/28/24 07:18 Room Air 03/28/24 02:33 Room Air 03/27/24 22:40 Room Air 03/27/24 19:50 Room Air 03/27/24 15:45 Room Air 03/27/24 15:29 03/27/24 11:09 Room Air 03/27/24 08:30 Pain Intensity Chest: Pain Intensity: 6 Transfer of Care Handoff Completed per policy Notes Mental Status: alert / awake / arousable and participated in evaluation Patient Amnestic to Procedure: Yes Nausea / Vomiting: adequately controlled Pain: adequately controlled Airway Patency, RR, SpO2: stable & adequate BP & HR: stable & adequate Hydration State: stable & adequate Anesthetic Complications: no major complications apparent and Pt Satisfied with anesthetic care
--- NOTE | 2024-03-28 09:43 | Cardiology Progress Note ---
Date of Service March 28, 2024 Assessment & Plan (1) CHF exacerbation: Plan: -Likely secondary to new onset atrial fibrillation. -Management as directed by Dr. Little. -Current echocardiogram notes normal left ventricular systolic function. -Compensated at this time. -Continue Lasix 20 mg daily. (2) Atrial fibrillation with RVR: Plan: -s/p electrical cardioversion this morning. -Now in sinus rhythm. -Continue Eliquis and metoprolol tartrate. -Can change amiodarone to 200 mg po twice daily x 2 weeks, then 200 mg daily. -Stable from hospital discharge from a cardiac perspective. -Follow-up with Dr. Little. (3) CAD (coronary artery disease): Plan: -s/p CABG X3, 2005. -Separate SVGs to the LAD, diagonal branch, and an obtuse marginal branch. -Quiescent on medical management. Plan Admission and Anticipated Discharge Date Admission Date: March 22, 2024 Subjective The patient is resting comfortably in bed without complaints of chest pain, dyspnea, or palpitations. Physical Exam Physical Exam: In general this is a well-developed well-nourished white female in no acute distress. HEENT exam is negative. Neck reveals normal carotid upstrokes without bruits. Jugular venous pressure is flat at 90 degrees. There is no thyromegaly. Cardiovascular exam reveals a regular rhythm with distant heart sounds. No obvious murmurs. Lungs are clear without rales, rhonchi, or wheezes. Abdomen is soft without bruits. Extremities reveal intact radial artery pulses bilaterally. There is no peripheral edema. Results & Data Vital Signs (Past 12 Hours) Vital Signs Temp Pulse Pulse Resp BP Pulse Ox O2 Del Method 03/28/24 09:01 36.5 C 72 18 116/77 94 Room Air 03/28/24 08:33 36.8 C 71 18 116/73 91 Nasal Cannula 03/28/24 08:10 70 16 116/70 94 Nasal Cannula 03/28/24 08:05 71 16 116/71 94 Nasal Cannula 03/28/24 08:00 67 16 112/68 95 Nasal Cannula 03/28/24 07:53 71 16 103/64 95 Nasal Cannula 03/28/24 07:18 36.7 C 120 H 123/69 90 Room Air 03/28/24 02:33 36.6 C 122 H 16 100/63 94 Room Air 03/27/24 22:40 36.3 C L 121 H 16 98/66 L 94 Room Air O2 Flow Rate 03/28/24 09:01 03/28/24 08:33 1 03/28/24 08:10 2 03/28/24 08:05 2 03/28/24 08:00 2 03/28/24 07:53 2 03/28/24 07:18 03/28/24 02:33 03/27/24 22:40 PG Care Time/CCT Total # of Minutes Spent Total Time Spent with Patient: Total time spent is greater than 50% in coordination of care (as documented) at patient's floor/unit and/or counseling patient: Coding Level of Care Code 57696 SUB INP/OBS CARE 3/50MIN Diagnoses CHF exacerbation I50.9 Atrial fibrillation with RVR I48.91 CAD (coronary artery disease) I25.10
--- NOTE | 2024-03-28 11:18 | Electrocardiogram Report ---
Test Reason : Blood Pressure : / mmHG Vent. Rate : 069 BPM Atrial Rate : 069 BPM P-R Int : 194 ms QRS Dur : 116 ms QT Int : 452 ms P-R-T Axes : 080 -26 114 degrees QTc Int : 484 ms Normal sinus rhythm with sinus arrhythmia Incomplete left bundle block Nonspecific T wave abnormality Prolonged QT Abnormal ECG When compared with ECG of 22-MAR-2024 12:17, Sinus rhythm has replaced Atrial fibrillation Vent. rate has decreased BY 45 BPM Confirmed by Jarvis Cantu ([id number]) on 03/28/2024 11:18:35 AM Referred By: REFERRED SELF Confirmed By:Jarvis Cantu
--- NOTE | 2024-03-28 17:26 | XRay Report ---
XR chest 2V PA/lateral CLINICAL HISTORY: CHF, effusions, ongoing dyspnea TECHNIQUE: 2 views of the chest were obtained. Comparison: Comparison is made to chest radiograph 03/25/2024 FINDINGS: Median sternotomy wires are unchanged. Cardiomegaly is noted. The aortic arch is calcified. Prominenc e and cephalization of the vasculature is seen. Large right pleural effusion and trace left pleural e ffusion are seen. IMPRESSION: 1. Essentially unchanged bilateral pleural effusions. 2. Cardiomegaly and pulmonary vascular congestion. ACT 112: Negative or not required by law. Electronically signed by: Joaquín Jean-Baptiste M.D. 03/28/2024 5:25 PM
--- NOTE | 2024-03-28 17:55 | Hospitalist Progress Note ---
Date of Service March 28, 2024 Assessment & Plan (1) Atrial fibrillation with RVR: Plan: Presented this admission in rapid a.fib. Echo 03/13/2024 - EF 55-60%, no LV wall motion abnormalities, mildly reduced RV systolic function, trace AR, moderate to severe MR, moderate to severe TR A.fib has been difficult to rate control -- metoprolol had been put on hold due to hypotension. Started on amiodarone drip earlier in the stay. Continued on Eliquis BID. Despite amiodarone has remained in rapid a.fib. Dr Cantu performed cardioversion today with successful latter day of NSR. Hopefully she will remain in NSR. Appreciate Dr Cantu's assistance. To convert IV to PO amiodarone and resume metoprolol. Remains decompensated - see below. (2) Acute on chronic right-sided congestive heart failure: Plan: decompensation 2nd to #1 (presumed) remains dyspneic with exertion still with LE edema I repeated cxr today - still with moderate sized effusion on right continue diuresis (3) Renal failure: Plan: NAGA on CKD-3 BMP in am daily (4) Hyperkalemia: Plan: Potassium elevated at 5.8 upon ER admission 2nd to NAGA & K supplementation K wnl (5) Elevated LFTs: Plan: CT abdomen/pelvis with possible cirrhosis. Hep serologies negative. INR elevated but on apixaban. Suspect 2nd to passive hepatic congestion from right heart failure. LFTs have improved while here and with diuresis. (6) Hyponatremia: Plan: Hypervolemic hyponatremia - improving with diuresis BMP am (7) Leukocytosis: Plan: no infectious source found while here continue to monitor (8) Elevated troponin: Plan: peak HS trop 25 2nd to myocardial demand ischemia in setting of decompensated CHF and rapid a.fib (9) NSVT (nonsustained ventricular tachycardia): Plan: several asymptomatic episodes on 03/26 (10) Acquired hypothyroidism: Plan: TSH 2.4 cont synthroid Plan Updated her son at bedside today care d/w Dr Cantu Admission and Anticipated Discharge Date Admission Date: March 22, 2024 Subjective saw patient post-cardioversion the cardioversion was successful - has remained in NSR since then she continues with dyspnea on exertion despite being back in NSR and despite ongoing diuresis no cough eating ok son at bedside Review of Systems Review of Systems: CV - no chest pain; ongoing edema pulm - ongoing NGUYEN GI - no bloating but did have such a few days ago Physical Exam Physical Exam: gen - NAD, sitting in chair neck - mild JVD even sitting upright mouth - MMM heart - RRR, s1 s2, 3-4/6 holosystolic murmur LSB lungs - decreased BS right base (about 1/3 to [address] up back); mild rales L base; no wheeze; no increased work of breathing abd - soft NT ND BS+ ext - 1-2+ edema b/l, pulses 2+ b/l psych - tearful at times Results & Data Results & Data Vital Signs (Past 12 Hours) Vital Signs Temp Pulse Pulse Pulse Resp BP Pulse Ox 03/28/24 15:08 36.6 C 76 16 113/64 95 03/28/24 14:41 68 03/28/24 11:10 36.5 C 72 19 108/61 96 03/28/24 10:00 36.5 C 78 20 118/74 91 03/28/24 09:01 36.5 C 72 18 116/77 94 03/28/24 08:33 36.8 C 71 18 116/73 91 03/28/24 08:30 123 H 03/28/24 08:30 03/28/24 08:10 70 16 116/70 94 03/28/24 08:05 71 16 116/71 94 03/28/24 08:00 67 16 112/68 95 03/28/24 07:53 71 16 103/64 95 03/28/24 07:18 36.7 C 120 H 123/69 90 O2 Del Method O2 Flow Rate 03/28/24 15:08 Nasal Cannula 1 03/28/24 14:41 03/28/24 11:10 Nasal Cannula 2 03/28/24 10:00 Nasal Cannula 1 03/28/24 09:01 Room Air 03/28/24 08:33 Nasal Cannula 1 03/28/24 08:30 03/28/24 08:30 Nasal Cannula 1 03/28/24 08:10 Nasal Cannula 2 03/28/24 08:05 Nasal Cannula 2 03/28/24 08:00 Nasal Cannula 2 03/28/24 07:53 Nasal Cannula 2 03/28/24 07:18 Room Air Laboratory Results Laboratory Results - last 24 hr 03/28/24 05:46 WBC 10.78 RBC 4.03 L Hgb 11.7 L Hct 35.4 L MCV 87.8 MCH 29.0 MCHC 33.1 RDW Std Deviation 54.5 H RDW Coeff of Shan 17.4 H Plt Count 166 MPV 11.1 Sodium 131 L Potassium 4.2 Chloride 96 L Carbon Dioxide 27 Anion Gap 8 BUN 17 Creatinine 0.97 Est Cr Clr Drug Dosing 33.4 Est GFR ( Amer) 60.0 Est GFR (Non-Af Amer) 51.8 BUN/Creatinine Ratio 17.5 Glucose 98 Calcium 9.0 Magnesium 2.0 PG Care Time/CCT Total # of Minutes Spent Total Time Spent with Patient: Total time spent is greater than 50% in coordination of care (as documented) at patient's floor/unit and/or counseling patient: Coding Level of Care Code 85937 SUB INP/OBS CARE 2/35MIN Diagnoses Atrial fibrillation with RVR I48.91 Acute on chronic right-sided congestive heart failure I50.813 Renal failure N19 Hyperkalemia E87.5 Elevated LFTs R79.89 Hyponatremia E87.1 Leukocytosis D72.829 Elevated troponin R79.89 NSVT (nonsustained ventricular tachycardia) I47.29 Acquired hypothyroidism E03.9
[2024-03-28] MEDS: AMIODARONE 200 MG TAB PO SCH (17:59)
[2024-03-29] MEDS ORDERED: 0.2 MICRON FILTER SET 1 EACH IV ONE ×2 (04:25→08:41)
[2024-03-29] MEDS: AMIODARONE / D5W 150 MG/100 ML BAG IV STA (04:43)
--- NOTE | 2024-03-29 04:47 | Communication Note ---
Date of Service: March 29, 2024 0350 Notified by nursing that patient had converted from NSR to A Fib w/ RVR (Rates 120-150s). Patient had cardioversion for atrial fibrillation 03/28 and was successfully converted to normal sinus rhythm. Prior to the procedure, patient was on an Amiodarone drip but remained in RVR at 120. Following the procedure, patient was started on Amiodarone 200 mg PO BID and advised to return to Metoprolol, though it remains on hold. Upon evaluation, patient notes that she is able to feel her heart beat and that the palpitations are intermittently more noticable, but that otherwise she has no new concerns. She denies chest pain, dyspnea, headaches, lightheadedness, or dizziness. Patient notes that she is continuing to urinate frequently w/ the ongoing diuretic, but that her legs remain edematous. Patient expressed anxiety about hers and her husbands health, she notes that she was told today that he has days to live and he will be transitioning to hospice at [facility] tomorrow. She was optimistic to be discharged to be able to be with her when he passes. Vitals: BP 93/63, HR 128, RR 18, O2 93% on 1L NC Exam: AO x 4, tearful. Heart tachycardic, irregularly irregular. Lungs diminished in bases, otherwise CTAB. 2+ pitting lower extremity edema. Labs: K and Mg at goal. Plan: - HR Goal of < 120 - Continue Amiodarone 200 mg PO BID, will add Amiodarone 150 mg IV push, follow for response - Patient experiencing intermittent palpitations w/o CP, no pain management needed Resident Activity Tracking Resident Involvement: Resident Care Provided Care Provided: Adult Hospital Medicine
[2024-03-29 07:18] LABS: BUN Creatinine Ratio 19.8 (10-20); Calcium 9.1 mg/dl (8.6-10.3); Creatinine Clr Calc Pharmacy 34.8 ml/min; Est GFR (African American) 64.8 ml/min; Est GFR (Non-African American) 55.9 ml/min; Potassium 4.1 mmol/L (3.5-5.1)
[2024-03-29] MEDS: AMIODARONE / D5W 360 MG/200 ML BAG IV ONE (08:57)
[2024-03-29] MEDS: DIGOXIN 250 MCG in SYRINGE 9 ML IV ONE (09:04)
--- NOTE | 2024-03-29 10:57 | Cardiology Progress Note ---
Date of Service March 29, 2024 Assessment & Plan (1) Atrial fibrillation with RVR: Plan: Presented this admission in rapid a.fib. Echo 03/13/2024 - EF 55-60%, no LV wall motion abnormalities, mildly reduced RV systolic function, trace AR, moderate to severe MR, moderate to severe TR A.fib has been difficult to rate control -- metoprolol had been put on hold due to hypotension. Started on amiodarone drip earlier in the stay. Continued on Eliquis BID. Despite amiodarone has remained in rapid a.fib. Dr Cantu performed cardioversion morning of 03/28/24 with successful episcopal of NSR. Returned to A.fib 03/29/24 at 3:26am, continues to be in A.fib at 11am. Continue on IV amiodarone, to convert IV to PO amiodarone and resume metoprolol. Patient amenable to ablation procedure as a permanent solution to preventing her rapid ventricular response to A.fib To discuss risks and benefits of ablation procedure with Dr. Little Remains decompensated - see below. (2) Acute on chronic right-sided congestive heart failure: Plan: decompensation 2nd to #1 (presumed) remains dyspneic with exertion, otherwise no dyspnea at rest still with LE edema (see problem #3 below) Cxr performed yesterday 03/28/24 at 4:06pm, still with moderate sized effusion on right continue diuresis with Lasix 40mg IV daily - consider BID if effusion worsens or persists (3) Lower extremity edema: Plan: - continue diuresis with Lasix 40mg IV daily - consider BID if swelling worsens or persists (4) Elevated troponin: Plan: peak HS trop 25 2nd to myocardial demand ischemia in setting of decompensated CHF and rapid a.fib (5) NSVT (nonsustained ventricular tachycardia): Plan: several asymptomatic episodes overnight Admission and Anticipated Discharge Date Admission Date: March 22, 2024 Supervising Physician Co-Signing Physician Notes Patient seen and examined. Agree with assessment and plan as outlined by Dr. Mayers. Impression: 1. Refractory atrial fibrillation despite electrical and chemical cardioversion 2. Rapid ventricular response to atrial fibrillation 3. Relative hypotension limiting beta-william use 4. Chronic diastolic CHF 5. Coronary artery disease, quiescent Suggest: 1. Agree with intravenous amiodarone 2. Trial of intravenous digoxin 3. Discussed with Dr. Little, consider AVN ablation and permanent pacemaker 4. Hold Eliquis and keep n.p.o. after midnight for possible procedure tomorrow Subjective saw patient 25 hours post-cardioversion at 70J, sitting comfortably on edge of bed. Per telemetry, patient went back into atrial fibrillation at 3:26am on 03/29/24, patient did not realize until she woke up some time later. Prior to 3:26am, patient was in normal sinus rhythm with pulse rate of 70. Upon seeing patient around 9am today, patient was not having any notable shortness of breath, chest pain, or palpitations. Denies having any dizziness or lightheadedness, even when getting out of bed to use the toilet which has been supervised by nursing. Has been getting up to urinate about once an hour with good volume, denies any other urinary complaints. Has less of an appetite than usual, but has been eating meals and drinking fluids. States her will be heading to hospice care today, so she is eager to get out of the hospital as soon as possible. Discussed ablation procedure as an option for permanent atrial fibrillation prevention, patient expressed interest and is willing to have it done possibly tomorrow 03/30/24. Patient has no other questions or concerns at this time. Review of Systems Constitutional: no fever, body aches, or chills Eyes: vision intact, no eye pain Ear, Nose, Mouth, Throat: no cough, no sore throat, no nasal or sinus congestion Respiratory: no SOB, no pain with deep inspiration Cardiovascular: Additional Comments: no chest pain, denies notable palpitations Gastrointestinal: no abdominal pain, no nausea, vomiting, or diarrhea Physical Exam Constitutional: appears stated age, in no acute distress. A&Ox3 Eyes: EOM intact ENMT: patent airways Neck: trachea midline, jugular veins unremarkable with patient in seated position Respiratory: minimal breath sounds in R lower lung claros and base of L lung other lung claros clear to auscultation b/l, anterior and posterior no wheezes, rales, or rhonchi Cardiovascular: Chest Auscultation: - irregularly irregular rate and rhythm, majority of the time tachycardic, varies from 70 to 150bpm - no murmurs, rubs, or gallops in all 4 valve areas Pulses: - carotid: 2+ b/l - radial: 2+ b/l - dorsalis pedis: 2+ b/l - posterior tibial: unable to palpate du e to significant lower extremity edema Skin: 3+ pitting edema b/l lower extremities, sparing b/l feet skin appears well-perfused, no tenting, good turgor Neurologic: cranial nerves grossly intact no speech deficits Psychiatric: in pleasant mood, conveys understanding of plan Results & Data Vital Signs (Past 12 Hours) Vital Signs Temp Pulse Pulse Resp BP Pulse Ox O2 Del Method 03/29/24 09:05 107/73 03/29/24 09:04 145 H 03/29/24 08:00 132 H 03/29/24 08:00 Nasal Cannula 03/29/24 07:04 36.6 C 133 H 22 107/68 93 Nasal Cannula 03/29/24 03:45 128 H 18 93/63 L 93 Nasal Cannula 03/29/24 02:35 36.5 C 69 18 100/64 94 Nasal Cannula 03/28/24 23:11 36.6 C 78 18 102/57 L 91 Room Air O2 Flow Rate 03/29/24 09:05 03/29/24 09:04 03/29/24 08:00 03/29/24 08:00 1 03/29/24 07:04 1 03/29/24 03:45 1 03/29/24 02:35 1 03/28/24 23:11 1 Laboratory Results 03/29/24 Range/Units 06:09 Sodium 132 L (136-145) mmol/L Potassium 4.1 (3.5-5.1) mmol/L Chloride 97 L (98-107) mmol/L Carbon Dioxide 29 (21-32) mmol/L Anion Gap 6 (3-11) BUN 18 (6-23) mg/dl Creatinine 0.91 (0.6-1.2) mg/dl Est Cr Clr Drug Dosing 34.8 ml/min Est GFR ( Amer) 64.8 ml/min Est GFR (Non-Af Amer) 55.9 ml/min BUN/Creatinine Ratio 19.8 (10-20) Glucose 96 (70-99(Fasting)) mg/dl Calcium 9.1 (8.6-10.3) mg/dl Magnesium 2.0 (1.7-2.4) mg/dl *Medicine team to normalize sodium and chloride levels - consider lunch with normal salt content to prevent complications related to hyponatremia. Diagnostic Findings Chest X-ray, 03/28/24 at 4:06pm: Median sternotomy wires are unchanged. Cardiomegaly is noted. The aortic arch is calcified. Prominence and cephalization of the vasculature is seen. Large right pleural effusion and trace left pleural effusion are seen. IMPRESSION: 1. Essentially unchanged bilateral pleural effusions, R>L 2. Cardiomegaly and pulmonary vascular congestion. Medications Administered Amiodarone HCl (Amiodarone 200 Mg Tab) 200 mg PO BIDM [facility] Stop: 04/27/24 16:59 Last Admin: 03/29/24 08:08 Dose: 200 mg Documented By: Admin: 03/28/24 17:59 Dose: 200 mg Documented By: DEE Apixaban (Apixaban 5 Mg Tablet) 5 mg PO BID [facility] Stop: 04/23/24 08:59 Last Admin: 03/29/24 08:08 Dose: 5 mg Documented By: Admin: 03/28/24 21:11 Dose: 5 mg Documented By: Admin: 03/28/24 09:01 Dose: 5 mg Documented By: Admin: 03/27/24 19:49 Dose: 5 mg Documented By: Admin: 03/27/24 08:57 Dose: 5 mg Documented By: Admin: 03/26/24 20:13 Dose: 5 mg Documented By: Admin: 03/26/24 08:02 Dose: 5 mg Documented By: Admin: 03/25/24 20:19 Dose: 5 mg Documented By: Admin: 03/25/24 08:52 Dose: 5 mg Documented By: Admin: 03/24/24 21:47 Dose: 5 mg Documented By: Admin: 03/24/24 09:35 Dose: 5 mg Documented By: DEE Aspirin (Aspirin 81 Mg Chew) 81 mg PO DAILY [facility] Stop: 04/22/24 08:59 Last Admin: 03/29/24 08:09 Dose: 81 mg Documented By: Admin: 03/28/24 09:02 Dose: 81 mg Documented By: Admin: 03/27/24 08:57 Dose: 81 mg Documented By: Admin: 03/26/24 08:02 Dose: 81 mg Documented By: Admin: 03/25/24 08:51 Dose: 81 mg Documented By: Admin: 03/24/24 09:10 Dose: 81 mg Documented By: Admin: 03/23/24 09:08 Dose: 81 mg Documented By: TATY Atorvastatin Calcium (Atorvastatin 10 Mg Tab) 10 mg PO DAILY [facility] Stop: 04/22/24 08:59 Last Admin: 03/29/24 08:08 Dose: 10 mg Documented By: Admin: 03/28/24 09:02 Dose: 10 mg Documented By: Admin: 03/27/24 08:57 Dose: 10 mg Documented By: Admin: 03/26/24 08:01 Dose: 10 mg Documented By: Admin: 03/25/24 08:51 Dose: 10 mg Documented By: Admin: 03/24/24 09:10 Dose: 10 mg Documented By: Admin: 03/23/24 09:08 Dose: 10 mg Documented By: TATY Furosemide (Furosemide 40 Mg/4 Ml Vial) 40 mg IV DAILY [facility] Stop: 04/24/24 08:59 Last Admin: 03/29/24 08:09 Dose: 40 mg Documented By: Admin: 03/28/24 09:02 Dose: 40 mg Documented By: Admin: 03/27/24 08:57 Dose: 40 mg Documented By: Admin: 03/26/24 08:01 Dose: 40 mg Documented By: Admin: 03/25/24 08:51 Dose: 40 mg Documented By: DEE Gabapentin (Gabapentin 100 Mg Cap) 100 mg PO BID [facility] Stop: 04/21/24 20:59 Last Admin: 03/29/24 08:08 Dose: 100 mg Documented By: Admin: 03/28/24 21:10 Dose: 100 mg Documented By: Admin: 03/28/24 09:01 Dose: 100 mg Documented By: Admin: 03/27/24 19:49 Dose: 100 mg Documented By: Admin: 03/27/24 10:25 Dose: 100 mg Documented By: Admin: 03/26/24 20:13 Dose: 100 mg Documented By: Admin: 03/26/24 08:01 Dose: 100 mg Documented By: Admin: 03/25/24 20:20 Dose: 100 mg Documented By: Admin: 03/25/24 08:51 Dose: 100 mg Documented By: Admin: 03/24/24 21:47 Dose: 100 mg Documented By: Admin: 03/24/24 09:10 Dose: 100 mg Documented By: Admin: 03/23/24 20:16 Dose: 100 mg Documented By: Admin: 03/23/24 09:08 Dose: 100 mg Documented By: Admin: 03/22/24 21:12 Dose: 100 mg Documented By: KOFFI Amiodarone HCl/Dextrose (Nexterone / D5w) 360 mg in 200 mls @ 33.333 mls/hr IV ONE ONE; Protocol Stop: 03/29/24 14:40 Last Admin: 03/29/24 08:57 Dose: 1 mg/min, 33.3 mls/hr Documented By: AIDAN Co-signed By: DEBORAH Levothyroxine Sodium (Levothyroxine Sodium 50 Mcg Tablet) [facility] Stop: 04/22/24 06:29 Last Admin: 03/29/24 06:38 Dose: 50 mcg Documented By: Admin: 03/28/24 06:33 Dose: 50 mcg Documented By: Admin: 03/27/24 05:40 Dose: 50 mcg Documented By: Admin: 03/26/24 06:23 Dose: 50 mcg Documented By: Admin: 03/25/24 05:50 Dose: 50 mcg Documented By: Admin: 03/24/24 06:36 Dose: 50 mcg Documented By: Admin: 03/23/24 06:00 Dose: 50 mcg Documented By: KOFFI Lorazepam (Lorazepam 1 Mg Tab) 1 mg PO [facility] Stop: 04/21/24 20:59 Last Admin: 03/28/24 21:11 Dose: 1 mg Documented By: Admin: 03/27/24 22:29 Dose: 1 mg Documented By: Admin: 03/26/24 22:08 Dose: 1 mg Documented By: Admin: 03/25/24 20:20 Dose: 1 mg Documented By: Admin: 03/24/24 22:32 Dose: 1 mg Documented By: Admin: 03/23/24 22:05 Dose: 1 mg Documented By: Admin: 03/22/24 22:37 Dose: 1 mg Documented By: KOFFI Metoprolol Tartrate (Metoprolol Tartrate 25 Mg Tab) 75 mg PO BID [facility] Stop: 04/21/24 20:59 Last Admin: 03/23/24 09:08 Dose: Not Given Documented By: Admin: 03/22/24 21:12 Dose: 75 mg Documented By: KOFFI Polyethylene Glycol (Polyethylene (Miralax) 17 Gm Pack) 17 gm PO DAILY [facility] Stop: 04/25/24 10:29 Last Admin: 03/29/24 09:50 Dose: Not Given Documented By: Admin: 03/28/24 09:02 Dose: Not Given Documented By: Admin: 03/27/24 08:58 Dose: 17 gm Documented By: Admin: 03/26/24 10:42 Dose: Not Given Documented By: DEE Potassium Chloride (Potassium Chloride Crtab 20 Meq Tabcr) 40 meq PO QAM [facility] Stop: 04/24/24 08:59 Last Admin: 03/29/24 08:09 Dose: 40 meq Documented By: Admin: 03/28/24 09:01 Dose: 40 meq Documented By: Admin: 03/27/24 08:58 Dose: 40 meq Documented By: Admin: 03/26/24 08:01 Dose: 40 meq Documented By: Admin: 03/25/24 09:01 Dose: 40 meq Documented By: DEE Sennosides (Senna 8.6 Mg Tab) 17.2 mg PO QAM [facility] Stop: 04/25/24 10:29 Last Admin: 03/29/24 09:50 Dose: Not Given Documented By: Admin: 03/28/24 09:02 Dose: Not Given Documented By: Admin: 03/27/24 08:58 Dose: 17.2 mg Documented By: Admin: 03/26/24 11:20 Dose: 17.2 mg Documented By: DEE ECG Additional Comments: no new ECG since going back into atrial fibrillation at 3:26am this morning. Resident Activity Tracking Resident Involvement: Resident Care Provided Care Provided: Adult Hospital Medicine
--- NOTE | 2024-03-29 13:29 | Hospitalist Progress Note ---
Date of Service March 29, 2024 Assessment & Plan (1) Atrial fibrillation with RVR: Plan: Presented this admission in rapid a.fib. Echo 03/13/2024 - EF 55-60%, no LV wall motion abnormalities, mildly reduced RV systolic function, trace AR, moderate to severe MR, moderate to severe TR A.fib has been difficult to rate control -- metoprolol had been put on hold due to hypotension. Started on amiodarone drip earlier in the stay. Continued on Eliquis BID. Despite amiodarone remained in rapid a.fib. Never chemically cardioverted to NSR. s/p cardioversion 03/[address] Cantu with successful hinduism of NSR. Unfortunately she converted back to rapid a.fib early this am. I spoke with Dr Cantu - will place PO amio on hold; placed back on drip. She did receive a bolus of 150mg of amio IV this am already. Digoxin 0.25mg IV x 1 now. Cont to hold metoprolol. There has been discussion about AV sid ablation with pacemaker insertion. If that route is pursued will make her NPO after MN tonight and hold Eliquis. (2) Acute on chronic right-sided congestive heart failure: Plan: decompensation 2nd to #1 remains dyspneic with exertion still with LE edema cxr yesterday with moderate sized effusion on right continue diuresis - lasix 40mg IV daily (3) Renal failure: Plan: NAGA on CKD-3 NAGA resolved BMP in am daily (4) Hyperkalemia: Plan: Potassium elevated at 5.8 upon ER admission 2nd to NAGA & K supplementation K wnl (5) Elevated LFTs: Plan: CT abdomen/pelvis with possible cirrhosis. Hep serologies negative. INR elevated but on apixaban. Suspect 2nd to passive hepatic congestion from right heart failure. LFTs have improved while here and with diuresis. (6) Hyponatremia: Plan: Hypervolemic hyponatremia - improving with diuresis BMP am (7) Leukocytosis: Plan: no infectious source found while here WBC count normalized without abx therapy continue to monitor (8) Elevated troponin: Plan: peak HS trop 25 2nd to myocardial demand ischemia in setting of decompensated CHF and rapid a.fib (9) NSVT (nonsustained ventricular tachycardia): Plan: several asymptomatic episodes on 03/26 had additional episodes this am, 03/29 amiodarone infusion should help with such EF on most recent echo is preserved (10) Acquired hypothyroidism: Plan: TSH 2.4 cont synthroid Plan Updated her son at bedside yesterday left message for him on his voicemail this evening care d/w Dr Cantu by phone Admission and Anticipated Discharge Date Admission Date: March 22, 2024 Subjective patient was doing well up until about 0300 this morning at that time converted back to rapid a.fib was mildly dyspneic - placed on NC O2 for those symptoms amiodarone bolus (150mg IV x 1) given by night physician today she remains in rapid a.fib continues with mild NGUYEN no chest pain again was tearful talking about her today Review of Systems Review of Systems: CV - ongoing edema pulm - no cough GI - no abd pain or N/V; +stool this am Physical Exam Physical Exam: gen - NAD, sitting at side of bed neck - mild JVD with prominent carotid pulsations mouth - MMM heart - tachy, irregularly irregular, s1 s2, 3-4/6 holosystolic murmur LSB lungs - decreased BS right base (about 1/3 way up back); scant rales L base; no wheeze; no increased work of breathing abd - soft NT ND BS+ ext - 1+ edema b/l, pulses 2+ b/l Results & Data Results & Data Vital Signs (Past 12 Hours) Vital Signs Temp Pulse Pulse Resp BP Pulse Ox O2 Del Method 03/29/24 10:52 36.5 C 133 H 18 114/68 94 Room Air 03/29/24 09:05 107/73 03/29/24 09:04 145 H 03/29/24 08:00 132 H 03/29/24 08:00 Nasal Cannula 03/29/24 07:04 36.6 C 133 H 22 107/68 93 Nasal Cannula 03/29/24 03:45 128 H 18 93/63 L 93 Nasal Cannula 03/29/24 02:35 36.5 C 69 18 100/64 94 Nasal Cannula O2 Flow Rate 03/29/24 10:52 03/29/24 09:05 03/29/24 09:04 03/29/24 08:00 03/29/24 08:00 1 03/29/24 07:04 1 03/29/24 03:45 1 03/29/24 02:35 1 Laboratory Results Laboratory Results 03/29/24 06:09 Sodium 132 L Potassium 4.1 Chloride 97 L Carbon Dioxide 29 Anion Gap 6 BUN 18 Creatinine 0.91 Est Cr Clr Drug Dosing 34.8 Est GFR ( Amer) 64.8 Est GFR (Non-Af Amer) 55.9 BUN/Creatinine Ratio 19.8 Glucose 96 Calcium 9.1 Magnesium 2.0 PG Care Time/CCT Total # of Minutes Spent Total Time Spent with Patient: Total time spent is greater than 50% in coordination of care (as documented) at patient's floor/unit and/or counseling patient: Coding Level of Care Code 81857 SUB INP/OBS CARE 3/50MIN Diagnoses Atrial fibrillation with RVR I48.91 Acute on chronic right-sided congestive heart failure I50.813 Renal failure N19 Hyperkalemia E87.5 Elevated LFTs R79.89 Hyponatremia E87.1 Leukocytosis D72.829 Elevated troponin R79.89 NSVT (nonsustained ventricular tachycardia) I47.29 Acquired hypothyroidism E03.9
[2024-03-29] MEDS: AMIODARONE / D5W 360 MG/200 ML BAG IV SCH (14:46)
[2024-03-30 06:36] LABS: BUN Creatinine Ratio 15.6 (10-20); Est GFR (African American) 65.7 ml/min; Est GFR (Non-African American) 56.7 ml/min
--- NOTE | 2024-03-30 08:16 | Cardiology Progress Note ---
Date of Service March 30, 2024 Assessment & Plan (1) Atrial fibrillation with RVR: Plan: Presented this admission in rapid a.fib. Echo 03/13/2024 - EF 55-60%, no LV wall motion abnormalities, mildly reduced RV systolic function, trace AR, moderate to severe MR, moderate to severe TR A.fib has been difficult to rate control -- metoprolol had been put on hold due to hypotension. Started on amiodarone drip earlier in the stay. Continued on Eliquis BID. Despite amiodarone has remained in rapid a.fib. Dr Cantu performed cardioversion morning of 03/28/24 with successful sikhism of NSR. Returned to A.fib 03/29/24 at 3:26am, continued to be in A.fib at 11am and remained in rapid A.fib overnight through morning of 03/30/24. Continue on IV amiodarone, to convert IV to PO amiodarone and resume metoprolol. Patient to undergo AV node ablation procedure with pacemaker insertion today (03/30/24) at 11am as a permanent solution to her A.fib - post-procedure keep patient for observation to ensure vital signs are heart rhythm are stable Remains decompensated - see below. (2) Acute on chronic right-sided congestive heart failure: Plan: decompensation 2nd to #1 (presumed) remains dyspneic with exertion, otherwise no dyspnea at rest still with LE edema (see problem #3 below) Cxr performed yesterday 03/28/24 at 4:06pm, still with moderate sized effusion on right - repeat chest xray to gauge effusion status continue diuresis with Lasix 40mg IV daily - consider BID if effusion worsens or persists - consider diuretic such as tolvaptan to maintain sodium (3) Lower extremity edema: Plan: - continue diuresis with Lasix 40mg IV daily - swelling worsening as it has expanded to involve feet, consider BID Lasix - consider compression stockings if BID Lasix is not recommended - consider diuretic such as tolvaptan to maintain sodium (4) Elevated troponin: Plan: peak HS trop 25 2nd to myocardial demand ischemia in setting of decompensated CHF and rapid a.fib (5) NSVT (nonsustained ventricular tachycardia): Plan: several asymptomatic episodes on 03/26 Admission and Anticipated Discharge Date Admission Date: March 22, 2024 Supervising Physician Co-Signing Physician Notes Patient seen and examined. Agree with assessment and plan as outlined by Dr. Mayers. Impression: 1. Refractory atrial fibrillation despite electrical and chemical cardioversion 2. Rapid ventricular response to atrial fibrillation 3. Relative hypotension limiting beta-william use 4. Chronic diastolic CHF 5. Coronary artery disease, quiescent Suggest: 1. Dr. Little to perform AVN ablation and permanent pacemaker today. Subjective Saw patient at 9am this morning, about 48hrs s/p cardioversion (70J), sitting comfortably in recliner chair with several pillows supporting her to sit upright, and with legs elevated to horizontal. Per telemetry, patient has been in rapid A.fib overnight ranging mostly from 110-150bpm. Otherwise no acute events overnight, patient was able to sleep well and felt minimal palpitations after waking up. Patient was not having any notable shortness of breath, chest pain, or palpitations. Denies having any dizziness or lightheadedness, even when getting out of bed to use the toilet which has been supervised by nursing. Patient is having more lower extremity swelling compared to yesterday, now involving both feet, so she is keeping her legs elevated and is amenable to compression stockings up to the knee. Reports getting up twice overnight to urinate, both with good volume. Notes she urinates the most frequently within hours of receiving her Lasix. Denies any urinary complaints. Currently NPO as she is scheduled for AV node ablation and pacemaker insertion procedure at 11am with Dr. Little. Denies any abdominal pain, nausea, vomiting, diarrhea, or constipation. Reports one soft bowel movement yesterday. Patient has no other questions or concerns at this time. Review of Systems Constitutional: no fever, body aches, or chills Eyes: vision intact, no eye pain Ear, Nose, Mouth, Throat: no cough, no sore throat, no nasal or sinus congestion Respiratory: no SOB, no pain with deep inspiration Cardiovascular: Additional Comments: no chest pain, denies notable palpitations Gastrointestinal: no abdominal pain, no nausea, vomiting, or diarrhea Physical Exam Constitutional: Appears stated age, in no acute distress, A&Ox3 Eyes: EOM intact ENMT: airways patent Neck: trachea midline in upright seated position: no JVD on left, minimal JVD on right by visual inspection Respiratory: RIGHT: unable to appreciate breath sounds on lower 1/4 of lung, anterior and posterior - mild friction rub in middle lung field s, apex clear to auscultation LEFT: mild friction rub and rales to lung base, anterior and posterior - otherwise clear to auscultation Cardiovascular: Chest auscultation: irregularly irregular rate and rhythm, primarily tachycardic - II/ holosystolic murmurs in aortic a nd pulmonic valve areas - III/ holosystolic murmurs in tricusp id and mitral valve areas - normal s1/s2, unable to appreciate s3/ s4 - otherwise no murmurs, rubs, or gallups Pulses: - carotid: 2+ b/l - radial: 2+ b/l - dorsalis pedis: 1+ b/l, likely 2/2 case ma - posterior tibial: unable to palpate du e to significant edema Skin: 3+ pitting edema of b/l LE up to the kne e, involving b/l feet - appears well-perfused, no tenting, goo d turgor Neurologic: spontaneously moves all extremities cranial nerves grossly intact no speech or gross motor deficits Psychiatric: good eye contact, in pleasant mood, conveys understanding of plan Results & Data Vital Signs (Past 12 Hours) Vital Signs Temp Pulse Pulse Resp BP Pulse Ox Pulse Ox 03/30/24 08:00 116 H 03/30/24 07:47 03/30/24 07:34 36.9 C 132 H 18 111/71 91 03/30/24 03:56 114 H 03/30/24 02:53 36.6 C 127 H 18 103/66 90 03/29/24 23:08 36.4 C L 116 H 18 100/63 91 03/29/24 22:51 123 H 03/29/24 20:31 03/29/24 19:54 36.3 C L 104 H 18 108/66 93 03/29/24 16:00 94 03/29/24 15:15 36.7 C 116 H 18 99/61 L 94 03/29/24 13:00 107 H O2 Del Method O2 Del Method 03/30/24 08:00 03/30/24 07:47 Room Air 03/30/24 07:34 Room Air 03/30/24 03:56 03/30/24 02:53 Room Air 03/29/24 23:08 Room Air 03/29/24 22:51 03/29/24 20:31 Room Air 03/29/24 19:54 Room Air 03/29/24 16:00 Room Air 03/29/24 15:15 Room Air 03/29/24 13:00 Intake and Output 03/29/24 03/30/24 03/30/24 22:59 06:59 14:59 Intake Total 990 / 1172.308 182.308 / 1172.308 Output Total 52 / 152 100 / 152 175 / 175 Balance 938 / 1020.308 82.308 / 1020.308 -175 / -175 Intake: IV 200 / 382.308 182.308 / 382.308 Amiodarone / D5w 360 mg In 200 200 / 382.308 182.308 / 382.308 ml @ 0.5 MG/MIN 16.667 mls/hr IV .Q12H [facility] Rx#:[id number] Oral 790 / 790 Output: Urine 50 / 150 100 / 150 175 / 175 # Bowel Movements 2 / 2 Other: # Unmeasured Voids 1 Weight 62.4 kg Weight Measurement Method Standing Scale Laboratory Results 03/30/24 Range/Units 05:47 Sodium 132 L (136-145) mmol/L Potassium 4.0 (3.5-5.1) mmol/L Chloride 96 L (98-107) mmol/L Carbon Dioxide 27 (21-32) mmol/L Anion Gap 9 (3-11) BUN 14 (6-23) mg/dl Creatinine 0.90 (0.6-1.2) mg/dl Est Cr Clr Drug Dosing 35.0 ml/min Est GFR ( Amer) 65.7 ml/min Est GFR (Non-Af Amer) 56.7 ml/min BUN/Creatinine Ratio 15.6 (10-20) Glucose 97 (70-99(Fasting)) mg/dl Calcium 9.0 (8.6-10.3) mg/dl Diagnostic Findings most recent CXR from 03/28/24 at 4:06pm: - FINDINGS: Median sternotomy wires are unchanged. Cardiomegaly is noted. The aortic arch is calcified. Prominence and cephalization of the vasculature is seen. Large right pleural effusion and trace left pleural effusion are seen. IMPRESSION: 1. Essentially unchanged bilateral pleural effusions. 2. Cardiomegaly and pulmonary vascular congestion. Medications Administered Amiodarone HCl (Amiodarone 200 Mg Tab) 200 mg PO BIDM [facility] Stop: 04/27/24 16:59 Last Admin: 03/29/24 08:08 Dose: 200 mg Documented By: Admin: 03/28/24 17:59 Dose: 200 mg Documented By: DEE Apixaban (Apixaban 5 Mg Tablet) 5 mg PO BID [facility] Stop: 04/23/24 08:59 Last Admin: 03/29/24 08:08 Dose: 5 mg Documented By: Admin: 03/28/24 21:11 Dose: 5 mg Documented By: Admin: 03/28/24 09:01 Dose: 5 mg Documented By: Admin: 03/27/24 19:49 Dose: 5 mg Documented By: Admin: 03/27/24 08:57 Dose: 5 mg Documented By: Admin: 03/26/24 20:13 Dose: 5 mg Documented By: Admin: 03/26/24 08:02 Dose: 5 mg Documented By: Admin: 03/25/24 20:19 Dose: 5 mg Documented By: Admin: 03/25/24 08:52 Dose: 5 mg Documented By: Admin: 03/24/24 21:47 Dose: 5 mg Documented By: Admin: 03/24/24 09:35 Dose: 5 mg Documented By: DEE Aspirin (Aspirin 81 Mg Chew) 81 mg PO DAILY [facility] Stop: 04/22/24 08:59 Last Admin: 03/30/24 10:00 Dose: 81 mg Documented By: Admin: 03/29/24 08:09 Dose: 81 mg Documented By: Admin: 03/28/24 09:02 Dose: 81 mg Documented By: Admin: 03/27/24 08:57 Dose: 81 mg Documented By: Admin: 03/26/24 08:02 Dose: 81 mg Documented By: Admin: 03/25/24 08:51 Dose: 81 mg Documented By: Admin: 03/24/24 09:10 Dose: 81 mg Documented By: Admin: 03/23/24 09:08 Dose: 81 mg Documented By: TATY Atorvastatin Calcium (Atorvastatin 10 Mg Tab) 10 mg PO DAILY [facility] Stop: 04/22/24 08:59 Last Admin: 03/30/24 10:00 Dose: 10 mg Documented By: Admin: 03/29/24 08:08 Dose: 10 mg Documented By: Admin: 03/28/24 09:02 Dose: 10 mg Documented By: Admin: 03/27/24 08:57 Dose: 10 mg Documented By: Admin: 03/26/24 08:01 Dose: 10 mg Documented By: Admin: 03/25/24 08:51 Dose: 10 mg Documented By: Admin: 03/24/24 09:10 Dose: 10 mg Documented By: Admin: 03/23/24 09:08 Dose: 10 mg Documented By: TATY Furosemide (Furosemide 40 Mg/4 Ml Vial) 40 mg IV DAILY [facility] Stop: 04/24/24 08:59 Last Admin: 03/30/24 10:00 Dose: 40 mg Documented By: Admin: 03/29/24 08:09 Dose: 40 mg Documented By: Admin: 03/28/24 09:02 Dose: 40 mg Documented By: Admin: 03/27/24 08:57 Dose: 40 mg Documented By: Admin: 03/26/24 08:01 Dose: 40 mg Documented By: Admin: 03/25/24 08:51 Dose: 40 mg Documented By: DEE Gabapentin (Gabapentin 100 Mg Cap) 100 mg PO BID [facility] Stop: 04/21/24 20:59 Last Admin: 03/30/24 10:00 Dose: 100 mg Documented By: Admin: 03/29/24 20:05 Dose: 100 mg Documented By: Admin: 03/29/24 08:08 Dose: 100 mg Documented By: Admin: 03/28/24 21:10 Dose: 100 mg Documented By: Admin: 03/28/24 09:01 Dose: 100 mg Documented By: Admin: 03/27/24 19:49 Dose: 100 mg Documented By: Admin: 03/27/24 10:25 Dose: 100 mg Documented By: Admin: 03/26/24 20:13 Dose: 100 mg Documented By: Admin: 03/26/24 08:01 Dose: 100 mg Documented By: Admin: 03/25/24 20:20 Dose: 100 mg Documented By: Admin: 03/25/24 08:51 Dose: 100 mg Documented By: Admin: 03/24/24 21:47 Dose: 100 mg Documented By: Admin: 03/24/24 09:10 Dose: 100 mg Documented By: Admin: 03/23/24 20:16 Dose: 100 mg Documented By: Admin: 03/23/24 09:08 Dose: 100 mg Documented By: Admin: 03/22/24 21:12 Dose: 100 mg Documented By: KOFFI Amiodarone HCl/Dextrose (Nexterone / D5w) 360 mg in 200 mls @ 16.667 mls/hr IV .Q12H [facility] Stop: 04/28/24 14:59 Last Admin: 03/30/24 01:41 Dose: 0.5 mg/min, 16.7 mls/hr Documented By: PUNEET Co-signed By: COLLIN Infusion: 03/30/24 01:41 Dose: Infused Documented By: PUNEET Co-signed By: ML Admin: 03/29/24 14:46 Dose: 0.5 mg/min, 16.7 mls/hr Documented By: AIDAN Co-signed By: DEBORAH Levothyroxine Sodium (Levothyroxine Sodium 50 Mcg Tablet) 50 mcg PO DAILYBB [facility] Stop: 04/22/24 06:29 Last Admin: 03/30/24 05:49 Dose: 50 mcg Documented By: Admin: 03/29/24 06:38 Dose: 50 mcg Documented By: Admin: 03/28/24 06:33 Dose: 50 mcg Documented By: Admin: 03/27/24 05:40 Dose: 50 mcg Documented By: Admin: 03/26/24 06:23 Dose: 50 mcg Documented By: Admin: 03/25/24 05:50 Dose: 50 mcg Documented By: Admin: 03/24/24 06:36 Dose: 50 mcg Documented By: Admin: 03/23/24 06:00 Dose: 50 mcg Documented By: KOFFI Lorazepam (Lorazepam 1 Mg Tab) 1 mg PO HS [facility] Stop: 04/21/24 20:59 Last Admin: 03/29/24 22:07 Dose: 1 mg Documented By: Admin: 03/28/24 21:11 Dose: 1 mg Documented By: Admin: 03/27/24 22:29 Dose: 1 mg Documented By: GOLF [employer]ER Admin: 03/26/24 22:08 Dose: 1 mg Documented By: JARusty Admin: 03/25/24 20:20 Dose: 1 mg Documented By: Admin: 03/24/24 22:32 Dose: 1 mg Documented By: Admin: 03/23/24 22:05 Dose: 1 mg Documented By: Admin: 03/22/24 22:37 Dose: 1 mg Documented By: KOFFI Metoprolol Tartrate (Metoprolol Tartrate 25 Mg Tab) 75 mg PO BID [facility] Stop: 04/21/24 20:59 Last Admin: 03/23/24 09:08 Dose: Not Given Documented By: Admin: 03/22/24 21:12 Dose: 75 mg Documented By: KOFFI Polyethylene Glycol (Polyethylene (Miralax) 17 Gm Pack) 17 gm PO DAILY [facility] Stop: 04/25/24 10:29 Last Admin: 03/29/24 09:50 Dose: Not Given Documented By: Admin: 03/28/24 09:02 Dose: Not Given Documented By: Admin: 03/27/24 08:58 Dose: 17 gm Documented By: Admin: 03/26/24 10:42 Dose: Not Given Documented By: DEE Potassium Chloride (Potassium Chloride Crtab 20 Meq Tabcr) 40 meq PO QAM [facility] Stop: 04/24/24 08:59 Last Admin: 03/29/24 08:09 Dose: 40 meq Documented By: Admin: 03/28/24 09:01 Dose: 40 meq Documented By: Admin: 03/27/24 08:58 Dose: 40 meq Documented By: Admin: 03/26/24 08:01 Dose: 40 meq Documented By: Admin: 03/25/24 09:01 Dose: 40 meq Documented By: DEE Sennosides (Senna 8.6 Mg Tab) 17.2 mg PO QAM [facility] Stop: 04/25/24 10:29 Last Admin: 03/30/24 10:00 Dose: 17.2 mg Documented By: Admin: 03/29/24 09:50 Dose: Not Given Documented By: Admin: 03/28/24 09:02 Dose: Not Given Documented By: Admin: 03/27/24 08:58 Dose: 17.2 mg Documented By: Admin: 03/26/24 11:20 Dose: 17.2 mg Documented By: LCS ECG Additional Comments: most recent on 03/28/24 at 7:57am after successful cardioversion at 70J: Vent. Rate : 069 BPM Atrial Rate : 069 BPM P-R Int : 194 ms QRS Dur : 116 ms QT Int : 452 ms P-R-T Axes : 080 -26 114 degrees QTc Int : 484 ms Normal sinus rhythm with sinus arrhythmia Incomplete left bundle block Nonspecific T wave abnormality Prolonged QT Abnormal ECG Resident Activity Tracking Resident Involvement: Resident Care Provided Care Provided: Adult Hospital Medicine
[2024-03-30] MEDS: WATER, STERILE FOR INJ 10 ML VIAL ONE (11:19)
[2024-03-30] MEDS: VANCOMYCIN HCL 1000MG/20ML VIAL ONE (11:19)
[2024-03-30] MEDS: BUPIVACAINE 0.25% PF 30 ML VIAL ONE (11:19)
[2024-03-30] MEDS: LIDOCAINE 1% LOCAL 20 ML VIAL ONE (11:19)
[2024-03-30] MEDS: ceFAZolin 330 MG/ML 1 GM VIAL ONE (11:20)
[2024-03-30] MEDS: fentaNYL citrate PF 100 MCG/2 ML VIAL ONE ×2 (13:40)
[2024-03-30] MEDS: MIDAZOLAM HCL 5 MG/ML 1 ML VIAL ONE (13:40)
--- NOTE | 2024-03-30 13:42 | Electrophysiology Report ---
Date of Service March 30, 2024 Electrophysiology Procedure Electrophysiology Procedure Report Procedure performed: Implantation of dual-chamber permanent pacemaker Staff tuckpointer: Clemente Little MD Indication: The patient is an 88-year-old woman with a history of persistent at rial fibrillation associated high ventricular rates. She has scheduled for an AV node ablation. Pacemaker is being placed in anticipation of complete heart block. Procedure in detail: The patient was informed of the risks benefits and alternatives to the intended procedure and she wished to proceed. She was taken to the electrophysiology suite in a fasting state. A preoperative antibiotic had been administered. The patient was monitored electrocardiographically throughout today's procedure and conscious sedation was administered per protocol. The left upper pectoral area is prepped and draped in usual sterile fashion. This area was anesthetized using subcutaneous administration of a xylocaine solution. An incision was made at this site and carried down to the prepectoralis fascia using sharp dissection. Electrocautery was also employed for dissection as well as for hemostasis. A device pocket was fashioned tissues above the pectoralis muscle. Subsequent to this maneuver the left axillary vein was accessed using modified Seldinger technique. A sheath was placed over guidewire at this site used facilitate passage of the guiding catheter for mapping of the interventricular septum. Once an appropriate location was identified a pacing lead was advanced into the interventricular septum under fluoroscopic guidance. Adequate sensing threshold parameters as well as appropriate electrophysiologic characteristics were obtained prior to removal of the guiding catheter. The sheath was subsequently removed in the proximal portion lead was then sutured to prepectoralis fascia using nonabsorbable suture. The device pocket was irrigated with antibiotic solution. The leads were then attached to the device. The device and leads were then placed in the pocket and pocket was closed in 3 layers of absorbable suture. Steri-Strips and sterile dressing were applied. The device was tested noninvasively prior to conclusion the procedure. The patient tolerated procedure well there no immediate complications. Equipment used: New pulse generator: Chair Car [employer]. Model number: [id number] serial number [id number] Right ventricular lead: Chair Car Driver [employer]. Model number: 3830 serial number L [id number] Measured data: Right ventricular lead: R-waves measured 11.0 mV. Pacing threshold was 1 volts at 0.5 milliseconds with a pacing impedance of 674 Ohms Impression: Successful implantation of single-chamber permanent pacemaker with septal pacing lead [facility] Electrophysiology codes Pacing Procedure 1: Pacin Insert/Replace Pacer V PG Moderate Sedation Codes Moderate Sedation Codes Procedure 1: Sedation/Anesthesia: 39756 Mod Sedation by the same physician;Init15 Min Child Age 5 & Up Procedure 2: Sedation/Anesthesia: 30113 Mod Sedation by the same physician; Ea [id number] Minutes
--- NOTE | 2024-03-30 13:42 | Electrophysiology Report ---
Date of Service March 30, 2024 Electrophysiology Procedure Electrophysiology Procedure Report Procedure performed: Ablation of AV node Staff critical care physician: Clemente Little MD Indication: The patient an 88-year-old woman with permanent atrial fibrillation and rapid ventricular rates. Attempts at medical therapy but not successful in controlling the heart rates. She was therefore referred for AV node ablation. Procedure detail: The patient was informed the risks benefits and alternatives to the intended procedure. She understood which proceed. She was taken to the electrophysiology suite in a fasting state. Conscious sedation was administered per protocol the patient was monitored electrocardiographically throughout today's procedure. The right femoral areas prepped and draped in usual sterile fashion. This area was anesthetized using subcutaneous menstruation of a Marcaine and lidocaine solution. The right femoral vein was then accessed using modified Seldinger technique and an 8 Slovenian venous sheath was placed at this site over a guidewire. The sheath was used facilitate passage of an ablation catheter to the area of the AV node. Radiofrequency lesions were placed in a temperature limited mode using radiofrequency energy. Ablation was performed until conduction was modified. Subsequent to ablation the patient was placed on an isoproterenol infusion to evaluate AV sid conduction. At the conclusion of the case the catheter and sheath were removed. Hemostasis was achieved at the access site using manual pressure. The patient tolerated procedure well. There were no immediate complications. Impression: Successful modification of the AV node with some residual AV sid conduction of atrial fibrillation on isoproterenol. [facility] Electrophysiology codes EP Procedure 1: Electrophysiology: 22670 Ablation AV Node w/wo pace PG Moderate Sedation Codes Moderate Sedation Codes Procedure 1: Sedation/Anesthesia: 85329 Mod Sedation by the same physician;Init15 Min Child Age 5 & Up Procedure 2: Sedation/Anesthesia: 69339 Mod Sedation by the same physician; Ea [id number] Minutes
[2024-03-30] MEDS ORDERED: ACETAMINOPHEN 325 MG TAB PO PRN (13:43)
--- NOTE | 2024-03-30 13:43 | Post Anesthesia Assessment ---
Date of Service March 30, 2024 Post Sedation Assessment Vital Signs Temp Pulse Pulse Resp BP Pulse Ox Pulse Ox 03/30/24 08:00 116 H 03/30/24 07:47 03/30/24 07:34 36.9 C 132 H 18 111/71 91 03/30/24 03:56 114 H 03/30/24 02:53 36.6 C 127 H 18 103/66 90 03/29/24 23:08 36.4 C L 116 H 18 100/63 91 03/29/24 22:51 123 H 03/29/24 20:31 03/29/24 19:54 36.3 C L 104 H 18 108/66 93 03/29/24 16:00 94 03/29/24 15:15 36.7 C 116 H 18 99/61 L 94 O2 Del Method O2 Del Method 03/30/24 08:00 03/30/24 07:47 Room Air 03/30/24 07:34 Room Air 03/30/24 03:56 03/30/24 02:53 Room Air 03/29/24 23:08 Room Air 03/29/24 22:51 03/29/24 20:31 Room Air 03/29/24 19:54 Room Air 03/29/24 16:00 Room Air 03/29/24 15:15 Room Air Recovery Score Activity: Moves 4 extremities Respiration: Deep Breath/Cough Circulation: +/-20% PreAnes Value Consciousness: Fully Awake Oxygen Saturation: O2 needed for >90% Post Anesthesia Score: 9 Discharge Sedation Level of Care: Fast Track Phase II Post Sedation Plan On clinical assessment, the patient appears to have tolerated the sedation without complications. Patient is recovering as anticipated. Patient will continue to be monitored by nursing and may be discharged when sedation discharge criteria are met per below protocol. Upon Completions of procedure up to 15 minutes continue every 5 minute vital signs and the P.A.R. score; then discharge to a Phase I or Fast Track to Phase II per the following guidelines: * Discharge Patient to appropriate Phase II area if PAR is 8 or greater or return to pre- procedure baseline. The post - procedure orders will be as directed. * If PAR score is less than 8 or not return to pre-procedure baseline then patient will follow Phase I monitoring till PAR is reached for Phase II. The Phase I may be done in procedure room or may call to secure a Phase I area. * If naloxone or flumazenil are used for reversal, hold in Phase I for continued monitoring from when last reversal dose was given for a minimum of 60 minutes or longer pending the nurse and/or physician discretion of patient condition before discharge to Phase II. Please call the Sedation Physician to re-evaluate and complete post-note for discharge to Phase II area. Do NOT discharge from procedure sedation or Phase 1 until post- sedation evaluation note is complete by procedure /sedation MD Sedation Discharge Instructions to be given to the patient at discharge to home.
[2024-03-30] MEDS: ISOPROTERENOL HCL 0.2 MG/ML 5 ML AMP IV ONE (14:00)
--- NOTE | 2024-03-30 18:24 | Hospitalist Progress Note ---
Date of Service March 30, 2024 Assessment & Plan (1) Atrial fibrillation with RVR: Plan: refractory to AV sid agents, amiodarone IV/PO, and cardioversion thus, s/p AV sid ablation procedure with permanent pacemaker placement today by Dr Little appreciate his assistance HRs now controlled Eliquis remains on hold resume when ok with cardiology (2) Acute on chronic right-sided congestive heart failure: Plan: echo 03/13 with mild RV dysfunction but intact LV function decompensation continues to improve with stable BMP day to day in face of IV lasix give lasix again today repeat BMP am resume beta william - even in low dose - if able (3) Hyperkalemia: Plan: 2nd NAGA resolved (4) Elevated LFTs: Plan: 2nd passive hepatic congestion in face of right-sided CHF last set of LFTs showed improvement repeat LFTs next 48 hours (5) Hyponatremia: Plan: hypervolemic hyponatremia has improved with diuresis daily BMP (6) Leukocytosis: Plan: no infectious etiology found while here due to stress response from #1, #2? (7) Elevated troponin: Plan: peak HS trop of 25 this represents myocardial demand ischemia in setting of #1, #2 above (8) Acquired hypothyroidism: Plan: TSH 2.4 cont synthroid (9) NSVT (nonsustained ventricular tachycardia): Plan: no Rx needed no symptoms (10) CAD (coronary artery disease): Plan: no evidence of ischemia while here cont statin since recent LFTs were improved cont asa resume beta william if able Plan DVT proph - had been on Eliquis, now on hold today for pacer insertion/ablation left message for pt's son on his voicemail this evening Admission and Anticipated Discharge Date Admission Date: March 22, 2024 Subjective saw patient post-pacemaker insertion was resting comfortably mild soreness over the pacer site denies any dyspnea tele since returning from the pacer insertion -- pacing denies cough denies substernal chest pain Review of Systems Review of Systems: cv - mild edema of legs still pulm - no cough, minimal NGUYEN GI - no N/V ; + stool yesterday Physical Exam Physical Exam: gen - NAD, sitting in chair comfortably, pleasant neck - mild JVD even upright at 90 degrees (just above clavicle) mouth - MMM heart - RRR, s1 s2, 3-4/6 holosystolic murmur LSB lungs - decreased BS right base - slightly improved; no rales on left; no wheeze; no increased work of breathing abd - soft NT ND BS+ ext - 1+ edema b/l - no change; pulses 2+ b/l Results & Data Results & Data Vital Signs (Past 12 Hours) Vital Signs Temp Pulse Pulse Pulse Resp BP Pulse Ox 03/30/24 17:00 36.4 C L 80 18 120/73 97 03/30/24 16:30 36.5 C 80 17 116/66 97 03/30/24 16:00 03/30/24 16:00 36.4 C L 80 16 107/80 98 03/30/24 15:57 36.4 C L 80 16 103/61 97 03/30/24 14:28 36.4 C L 80 16 117/74 96 03/30/24 14:04 80 16 130/66 93 03/30/24 13:50 80 16 149/71 H 92 03/30/24 08:00 116 H 03/30/24 07:47 03/30/24 07:34 36.9 C 132 H 18 111/71 91 Pulse Ox O2 Del Method O2 Del Method O2 Flow Rate 03/30/24 17:00 Room Air 03/30/24 16:30 Room Air 03/30/24 16:00 97 Room Air 03/30/24 16:00 Room Air 03/30/24 15:57 Nasal Cannula 2 03/30/24 14:28 Nasal Cannula 2 03/30/24 14:04 Room Air 03/30/24 13:50 Room Air 03/30/24 08:00 03/30/24 07:47 Room Air 03/30/24 07:34 Room Air Laboratory Results Laboratory Results - last 24 hr 03/30/24 05:47 Sodium 132 L Potassium 4.0 Chloride 96 L Carbon Dioxide 27 Anion Gap 9 BUN 14 Creatinine 0.90 Est Cr Clr Drug Dosing 35.0 Est GFR ( Amer) 65.7 Est GFR (Non-Af Amer) 56.7 BUN/Creatinine Ratio 15.6 Glucose 97 Calcium 9.0 PG Care Time/CCT Total # of Minutes Spent Total Time Spent with Patient: Total time spent is greater than 50% in coordination of care (as documented) at patient's floor/unit and/or counseling patient: Coding Level of Care Code 06600 SUB INP/OBS CARE MIN Diagnoses Atrial fibrillation with RVR I48.91 Acute on chronic right-sided congestive heart failure I50.813 Hyperkalemia E87.5 Elevated LFTs R79.89 Hyponatremia E87.1 Leukocytosis D72.829 Elevated troponin R79.89 Acquired hypothyroidism E03.9 NSVT (nonsustained ventricular tachycardia) I47.29 CAD (coronary artery disease) I25.10
[2024-03-30] MEDS: ceFAZolin 1000MG 1,000 MG/7.5 ML SYR IV ONE (19:44)
--- NOTE | 2024-03-31 12:53 | XRay Report ---
TWO VIEW CHEST CLINICAL HISTORY: Pacemaker implantation. FINDINGS: PA and lateral chest radiographs are compared to study dated 03/28/2024. The patient is stat us post midline sternotomy. A single lead cardiac pacemaker has been implanted and partially obscures the left upper chest. The lead projects over the right ventricle. The heart is enlarged and noting a therosclerotic calcification of the thoracic aorta. There is pulmonary vascular congestion. There are right larger than left pleural effusions with dependent consolidation. There is no pneumothorax. The skeletal structures are osteopenic. The bony thorax appears intact. Cholecystectomy clips are seen i n the right upper quadrant. IMPRESSION: 1. A single-lead cardiac pacemaker has been implanted as above. No pneumothorax is identified post pr ocedure. 2. Cardiomegaly with pulmonary vascular congestion. 3. Layering pleural effusions with dependent consolidation ACT 112: Negative or not required by law. Electronically signed by: Rafael Ocampo M.D. 03/31/2024 11:29 AM
--- NOTE | 2024-03-31 16:00 | Electrocardiogram Report ---
Test Reason : Blood Pressure : / mmHG Vent. Rate : 080 BPM Atrial Rate : 099 BPM P-R Int : 000 ms QRS Dur : 128 ms QT Int : 456 ms P-R-T Axes : 000 071 248 degrees QTc Int : 525 ms Ventricular-paced rhythm Abnormal ECG When compared with ECG of 28-MAR-2024 07:57, Electronic ventricular pacemaker has replaced Sinus rhythm Confirmed by Jarvis Cantu ([id number]) on 03/31/2024 3:59:45 PM Referred By: REFERRED SELF Confirmed By:Jarvis Cantu
--- NOTE | 2024-03-31 19:26 | Hospitalist Progress Note ---
Date of Service March 31, 2024 Assessment & Plan (1) Atrial fibrillation with RVR: Plan: refractory to AV sid agents, amiodarone IV/PO, and cardioversion thus, s/p AV sid ablation procedure with permanent pacemaker placement by Dr Little - POD #1 appreciate his assistance HRs controlled Eliquis remains on hold - ok to resume tomorrow per Dr Little (2) Acute on chronic right-sided congestive heart failure: Plan: echo 03/13 with mild RV dysfunction but intact LV function decompensation improved s/p IV lasix this am will place IV lasix on hold moving forward - BPs are soft, lung exam relatively normal (except R effusion), no symptoms, etc repeat BMP am resume beta william - even in low dose - if BP will allow (3) Hyperkalemia: Plan: 2nd NAGA resolved (4) Elevated LFTs: Plan: 2nd passive hepatic congestion in face of right-sided CHF last set of LFTs showed improvement repeat LFTs in am for stability (5) Hyponatremia: Plan: hypervolemic hyponatremia has improved with diuresis daily BMP (6) Leukocytosis: Plan: no infectious etiology found while here due to stress response from #1, #2? last wbc count wnl (7) Elevated troponin: Plan: peak HS trop of 25 this represents myocardial demand ischemia in setting of #1, #2 above (8) Acquired hypothyroidism: Plan: TSH 2.4 cont synthroid (9) NSVT (nonsustained ventricular tachycardia): Plan: no Rx needed no symptoms (10) CAD (coronary artery disease): Plan: no evidence of ischemia while here cont statin since recent LFTs were improved cont asa resume beta william if able / if BP will allow Plan DVT proph - had been on Eliquis, now on hold due to recent pacer insertion/ablation can resume tomorrow per Dr Little left message for pt's son once again this evening, 03/31, on his voicemail hopefully home tomorrow Admission and Anticipated Discharge Date Admission Date: March 22, 2024 Subjective no events overnight denies any complaints except soreness over pacer site no dyspnea or NGUYEN walked in hallway with staff -- sats were normal, no dyspnea eating well grand-daughter was at bedside during the visit Review of Systems Review of Systems: gen - feels well cv - no substernal cp; ongoing edema of legs (mild) pulm - no dyspnea or cough GI - no abd pain Physical Exam Physical Exam: gen - NAD, looks great neck - minimal JVD mouth - MMM heart - RRR, s1 s2, 3-4/6 holosystolic murmur LSB lungs - decreased BS right base (mild at most); no rales b/l; no wheeze; no increased work of breathing abd - soft NT ND BS+ ext - <1+ edema b/l - no change; pulses 2+ b/l Results & Data Results & Data Vital Signs (Past 12 Hours) Vital Signs Temp Pulse Pulse Resp BP Pulse Ox O2 Del Method 03/31/24 19:05 36.5 C 80 18 99/61 L 94 Room Air 03/31/24 15:45 36.6 C 80 18 95/62 L 95 Room Air 03/31/24 13:02 80 Diagnostic Findings Chest X-Ray 03/31/24 07:00 TWO VIEW CHEST CLINICAL HISTORY: Pacemaker implantation. FINDINGS: PA and lateral chest radiographs are compared to study dated 03/28/2024. The patient is status post midline sternotomy. A single lead cardiac pacemaker has been implanted and partially obscures the left upper chest. The lead projects over the right ventricle. The heart is enlarged and noting atherosclerotic calcification of the thoracic aorta. There is pulmonary vascular congestion. There are right larger than left pleural effusions with dependent consolidation. There is no pneumothorax. The skeletal structures are osteopenic. The bony thorax appears intact. Cholecystectomy clips are seen in the right upper quadrant. IMPRESSION: 1. A single-lead cardiac pacemaker has been implanted as above. No pneumothorax is identified post procedure. 2. Cardiomegaly with pulmonary vascular congestion. 3. Layering pleural effusions with dependent consolidation ACT 112: Negative or not required by law. Electronically signed by: Rafael Ocampo M.D. 03/31/2024 11:29 AM PG Care Time/CCT Total # of Minutes Spent Total Time Spent with Patient: Total time spent is greater than 50% in coordination of care (as documented) at patient's floor/unit and/or counseling patient: Coding Level of Care Code 42872 SUB INP/OBS CARE 2/35MIN Diagnoses Atrial fibrillation with RVR I48.91 Acute on chronic right-sided congestive heart failure I50.813 Hyperkalemia E87.5 Elevated LFTs R79.89 Hyponatremia E87.1 Leukocytosis D72.829 Elevated troponin R79.89 Acquired hypothyroidism E03.9 NSVT (nonsustained ventricular tachycardia) I47.29 CAD (coronary artery disease) I25.10
[2024-04-01 07:30] LABS: Albumin Level 3.3 gm/dl (3.4-5.0); BUN Creatinine Ratio 21.1 (10-20); Bilirubin Direct 0.4 mg/dl (0-0.2); Bilirubin,Total 1.6 mg/dl (0.2-1.0); Est GFR (African American) 65.7 ml/min; Est GFR (Non-African American) 56.7 ml/min; Magnesium 1.9 mg/dl (1.7-2.4); Potassium 4.1 mmol/L (3.5-5.1); Total Protein 5.5 gm/dl (6.0-8.3)
[2024-04-01] MEDS: FUROSEMIDE 40 MG TAB PO ONE (12:14)
--- NOTE | 2024-04-01 14:21 | Discharge Summary ---
Date of Service April 01, 2024 Admission HPI Per Admitting Provider Angy is an 88 year old female with a PMH significant for atrial fibrillation (on Eliquis), TIA x 2 in February 2024, HFpEF, CAD, CABG, hypertension, breast cancer, and hyperlipidemia Who presented to the [facility] ED on 03/22/2024 from her PCPs office due to A-fib RVR and weight gain. On arrival to the ED she was noted to be in A-fib RVR with heart rates in the 120s, hypotensive at 99/79, and otherwise stable. Labs were significant for a leukocytosis of 15 with neutrophil predominance of 11, INR 1.7, creatinine of 1.55 (baseline is near 0.8) BUN of 45, potassium of 5.8, bicarb of 20 with anion gap within normal limits, sodium of 122, chloride of 92, initial high- sensitivity troponin of 24, BNP of 1303 (up from 678 as of 01/26/2024), total bili of 2.6, AST of 218, ALT of 217, alk phos of 219, full respiratory BioFire negative, and UA in process. Chest x-ray was read as cardiomegaly with mild congestive change. Interval progression of the small right pleural effusion and right basilar densities. CT of the abdomen pelvis without contrast was read as cardiomegaly with pulmonary edema and fluid overload manifested by trace left and moderate right pleural effusions with small volume of ascites and anasarca. Equivocal cirrhosis. Colonic diverticulosis. She was noted to have bilateral perinephric stranding, 2.5 cm right renal cyst, and no signs of renal calculi ureteral calculi, or hydronephrosis. Of note CT reading describes a hypodense lobular focus in the right inguinal tissues measures up to 3.7 x 1.9 cm suggestive of loculated fluid within the right femoral hernia. Hypodense lymph nodes considered less likely. Prior to admission the patient was given 20 mg IV Lasix, 50 mL IV dextrose, 10 units IV insulin, 5 mg IV metoprolol tartrate, 50 mEq sodium bicarb, and was subsequently started on diltiazem drip at 5 mg/h. Patient was lying in bed no acute distress at the time of exam with her son and cousin at bedside, history is obtained from both. The patient states that over the past week or so she has felt like she has been retaining a significant amount of fluid, has been urinating less frequently than normal, has had a very poor appetite, has been experiencing increased fatigue. She watches her sodium intake very closely per family and has been taking her medications as prescribed. When asked, she denies recent fever, chills, chest pain, productive cough, abdominal pain, nausea/vomiting, dysuria/hematuria, and recent trauma. Of note she does feel as though she may have aspirated a few times while drinking water and taking pills over the past week. She also notes increased frequency of diarrhea over the past week with changes in stool color. She took 2 doses of her 20 mg p.o. Lasix this morning as she was having decreased urine output. We discussed CODE STATUS, she confirms that she is a DNR/DNI and her son is her primary decision maker if she cannot make decisions for self. The patient notes that she was having significant dyspnea on exertion today while walking to her cousin's car to go to her PCP appointment. Please refer to Dr. Mulligan's attestation for any changes to the treatment plan Discharge Exam gen - NAD, looks great neck - minimal JVD mouth - MMM heart - RRR, s1 s2, 3-4/6 holosystolic murmur LSB lungs - decreased BS right base (mild at most); no rales b/l; no wheeze; no increased work of breathing abd - soft NT ND BS+ ext - <1+ edema b/l - no change; pulses 2+ b/l Discharge Data Allergies Allergy/AdvReac Type Severity Reaction Status Date / Time Cipro Allergy Severe hives Verified 01/03/15 09:10 ciprofloxacin Allergy Severe hives Verified 03/22/24 10:51 dobutamine Allergy Severe Hives Verified 03/22/24 10:51 Iodinated Contrast Media Allergy Severe Tongue Verified 03/22/24 10:51 thickening, difficulty swallowing Sulfa (Sulfonamide Allergy Severe UNKNOWN Verified 03/22/24 10:51 Antibiotics) erythromycin base Allergy Intermediate rash Verified 03/22/24 10:51 adhesive Allergy Unknown RED SKIN Verified 03/22/24 10:51 Penicillins Allergy Unknown UNKNOWN Verified 03/22/24 10:51 Quinolones Allergy Unknown UNKNOWN Verified 03/22/24 10:51 Consultations 03/22/24 15:10 ED Decision to Admit Stat 03/23/24 10:18 Consult Cardiology Routine Procedures Performed Operation Date: 03/30/24 11:00 Actual Procedures p AV Node Ablation - Clemente Little MD s Pacer with Ventricular Lead - Clemente Little MD Ordered Studies 03/22/24 13:13 CT abd pelvis wo con Stat 03/22/24 15:58 US soft tissue groin Routine 03/30/24 10:45 EP Lab Images for PACS ONCE Hospital Course (1) Atrial fibrillation with RVR: refractory to AV sid agents, amiodarone IV/PO, and cardioversion thus, s/p AV sid ablation procedure with permanent pacemaker placement by Dr Little - POD #1 appreciate his assistance HRs controlled Eliquis remains on hold - ok to resume tomorrow per Dr Little (2) Acute on chronic right-sided congestive heart failure: echo 03/13 with mild RV dysfunction but intact LV function decompensation improved s/p IV lasix this am will place IV lasix on hold moving forward - BPs are soft, lung exam relatively normal (except R effusion), no symptoms, etc repeat BMP am resume beta william - even in low dose - if BP will allow (3) Hyperkalemia: 2nd NAGA resolved (4) Elevated LFTs: 2nd passive hepatic congestion in face of right-sided CHF last set of LFTs showed improvement repeat LFTs in am for stability (5) Hyponatremia: hypervolemic hyponatremia has improved with diuresis daily BMP (6) Leukocytosis: no infectious etiology found while here due to stress response from #1, #2? last wbc count wnl (7) Elevated troponin: peak HS trop of 25 this represents myocardial demand ischemia in setting of #1, #2 above (8) Acquired hypothyroidism: TSH 2.4 cont synthroid (9) NSVT (nonsustained ventricular tachycardia): no Rx needed no symptoms (10) CAD (coronary artery disease): no evidence of ischemia while here cont statin since recent LFTs were improved cont asa resume beta william if able / if BP will allow Plan DVT proph - had been on Eliquis, now on hold due to recent pacer insertion/ablation can resume tomorrow per Dr Little left message for pt's son once again this evening, 03/31, on his voicemail hopefully home tomorrow Discharge Plan Discharge Items Patient Disposition: Home - Self-Care Reason For Visit: Atrial fibrillation, fluid overload Discharge Diagnosis: 1. atrial fibrillation 2. AV sid ablation with permanent pacemaker insertion by Dr Clemente Little - [facility] 3. right-sided congestive heart failure with fluid overload - improved 4. edema of legs - due to #3 - improving 5. acute renal failure - resolved; was due to #1 and #3 6. abnormal liver function tests - improved 7. hypothyroidism Activity: Per Instructions section Lifting: No more than 10 pounds Bathing: Keep incision dry Bathing Comment: keep pacemaker site covered/clean/dry during showers; NO tub baths/swimming Exercise/Sports: Wait until after follow-up appointment Driving/Machine Use: NO DRIVING AT THIS TIME Non-emergency contact: Primary Care Provider and Field Pipelines Supervisor Call non-emergency contact if: you have any medication questions, your symptoms worsen, you have a fever, your wound has increased redness, your wound has increased drainage and your wound pain has increased Follow-up/Referrals: Gabriel Marcos Jr, MD, FACC [Physician] - 04/04/24 9:00 am Eric Jean DO [Primary Care Provider] - 04/12/24 1:00 pm (Hospital follow up scheduled April 12 at 1:00 with BONIFACIO Coles) Diet: Low Sodium (2gm) Fluids: 1800ml (7 cups) Addtl Attending Provider Instructions: Mrs Tello, Buddy were hospitalized due to rapid atrial fibrillation and fluid weight gain from congestive heart failure. The atrial fibrillation was very difficult to control with various IV & oral medicines. Cardioversion (shock therapy) was temporarily successful at controlling the atrial fibrillation but unfortunately you went back into atrial fibrillation less than 24 hours after the procedure. Thus, you ultimately underwent an "av sid ablation procedure" as well as pacemaker insertion by Dr Clemente Little. This is allowing us to control your heart rate. By controlling the heart rate and atrial fibrillation hopefully we will be able to keep the congestive heart failure under control. During your stay you lost 10-15 pounds (closer to 15 pounds) of fluid weight by way of IV diuretics. Other problems such as abnormal liver tests, acute renal failure, high potassium, etc all improved/resolved during your hospitalization. You were seen by PT/OT during the stay and cleared to return home with your family. Recommendations - 1. Start furosemide diuretic TOMORROW MORNING, 04/02/24. Please take a dose of 40mg tomorrow and then again a dose of 40mg on 04/03/24. You have your appointment with Dr Marcos on 04/04/24 - see him at the appointment first before taking any furosemide on that day. He will tell you then whether to continue the larger dose or revert back to the 20mg dose. 2. Start metoprolol succinate 12.5mg (1/2 tablet of 25mg strength) TOMORROW MORNING, 04/02/24. 3. Discontinue your previous metoprolol tartrate 75mg dose. 4. HOLD YOUR ELIQUIS TODAY; RESUME Eliquis TOMORROW MORNING, 04/02/24. 5. Pacemaker site - * keep the outer dressing on until 04/03/24; on Wednesday am you can then remove it * the option is yours whether to put a new dressing on or leave it uncovered moving forward from Wednesday * if you elect to put a dressing back on it on Wednesday you can do the same dressing using the materials I gave you * ok to shower but keep the site covered/clean/dry * the incision itself is covered with "steri-strips"; these narrow strips cover the incision in a horizontal fashion; leave these intact -- DO NOT REMOVE THEM 6. Daily weights - * when you wake up each morning please use the bathroom then jump on your scale * write down your weight in a notebook * do this each & every morning * if you gain more than 2-3 pounds over 1-[address] Marcos or NABIL Bah, know about this 7. STOP your clopidogrel. Follow-up - see separate section Return to [facility] if - * you have any concerns about your pacemaker site * you have worsening shortness of breath * you have chest pains * any other concerns It was our pleasure to care for you! -Dr Page Addtl Mental Health Tech Provider Instructions: ACTIVITY RECOMMENDATIONS following your pacemaker placement: * Do not raise the LEFT arm over your head or behind your back/neck for 2 weeks. SPECIAL CARE INSTRUCTIONS: * If bleeding occurs, apply direct pressure to area for 5 minutes. * Call your doctor if you have severe pain, fever, drainage or bleeding at site. * Keep dressing on and dry for 48 hours then remove. * Keep any scheduled doctor's appointment. * Implant Card - hand held device with website information given. SKIN IRRITATION: * You may experience some redness and/or swelling in the area where radiation was administered. If any skin irritation occurs, please contact your family physician. Congestive Heart Failure Instructions: Call 911 and go to the Emergency Room if: * You have tightness or pain in your chest that does not go away with rest or Nitroglycerin * You are very short of breath even with rest Call your doctor if any of the following symptoms or problems start or get worse: * Shortness of breath or difficulty breathing * Wake up at night short of breath * Chest pain * Cough * Swelling of your hands, fee, or legs * More fatigued or tired with your normal activity * Palpitations - sudden fast heart beats WEIGHT * Weigh yourself every morning after using the bathroom. * Use the same scale. * Wear the same amount of clothing. * Write your weight down on your chart. * Call your heart doctor if you gain more than 2-3 pounds in 1-2 days. This is typically one of the first signs of water/fluid retention from congestive heart failure. MEDICATIONS * Use this discharge instruction sheet for instructions. * Take your medications at the time your doctor ordered. * Do not skip a dose of your medicines. * If you miss a dose of medicine, take as soon as possible, but DO NOT DOUBLE A DOSE. * Read your medicine information when you get home. * Know all of the side effects of your medicine. * Call your doctor's office if you have any side effects. * Be sure all of your doctors know what medicine and herbs you take (including cold, flu, and herbal medicine). * Pain Medicine: If you do not get relief from your pain, please call your doctor for help. Take the following with you to your follow-up doctor appointments: * Weight Chart * Medication List * List of questions Do not drink excessive alcohol, beer or wine. Pending Studies at Discharge: No Stand-Alone Forms: My [facility], Smoking Cessation Medications and DC Order Prescriptions: New metoprolol succinate 25 mg tablet extended release 24 hr 12.5 mg PO DAILY Qty: 30 2RF Rx Instructions: start 04/02/24. furosemide [Lasix] 40 mg tablet 40 mg PO QAM Qty: 30 2RF Rx Instructions: start 04/02/24. Continued Calcium 600 + D(3) 600 mg calcium- 200 unit capsule 1 cap PO QDL Rx Instructions: Take 1 tablet by mouth daily. multivitamin [Daily Multi-Vitamin] Tablet 1 tab PO QDL Rx Instructions: Take 1 tablet by mouth daily. cholecalciferol (vitamin D3) 50 mcg (2,000 unit) tablet 2,000 units PO QDL Rx Instructions: Take 1 capsule by mouth daily. nitroglycerin 0.4 mg tablet, sublingual 0.4 mg SL Q5M PRN (Reason: chest pain) Qty: 25 1RF potassium chloride 20 mEq tablet,ER particles/crystals 20 meq PO DAILY 30 Days Qty: 30 11RF lorazepam 0.5 mg tablet 1 mg PO HS Qty: 60 0RF Rx Instructions: 2 tabs at bedtime coenzyme Q10 400 mg capsule 100 mg PO QPM Rx Instructions: Take 1 capsule daily with a meal. levothyroxine 50 mcg tablet 50 mcg PO DAILYBB alendronate [Fosamax] 70 mg tablet 70 mg PO WK Rx Instructions: As of 03/13/24 - pt hasn't started yet. Original Directions: 70mg by mouth once weekly aspirin 81 mg tablet,chewable 81 mg PO DAILY Qty: 30 0RF [facility] 40-10-5-3.3 mg Tablet 1 tab PO QDL Lactobacillus acidophilus 1 billion cell Capsule 1,000 mmu cells PO QAM Qty: 0 triamcinolone acetonide 0.5 % cream 1 applic topical BID PRN (Reason: flare ups) gabapentin 100 mg capsule 100 mg PO TID clobetasol 0.05 % ointment 1 applic topical 2XWK PRN (Reason: flare) diphenhydramine HCl [Benadryl Allergy] 25 mg Tablet 25 mg PO DAILY PRN (Reason: allergies) atorvastatin 10 mg tablet 10 mg PO DAILY Held Eliquis 5 mg tablet 5 mg PO BID Qty: 180 3RF Hold Instructions: Resume on 04/02/24. Discontinued clopidogrel 75 mg tablet 75 mg PO DAILY furosemide [Lasix] 20 mg tablet 20 mg PO DAILY Rx Instructions: Can increase to 40 mg daily PRN if gain 2lbs + 03/22/24 : Pt reports she took a double dose of this med today. metoprolol tartrate 50 mg tablet 50 mg PO BID Discharge Orders: Discharge Order (Routine); Ordered 04/01/24 Ordered By: Jv Palencia/Other Patient Handouts: AFib Preventing Stroke, AFib Admission Data Admit Date/Time: 03/22/24 15:34 Attending Provider: Jv Page Admit Provider: Jv Mulligan Primary Care Provider: Eric Jean Other Providers: Jv Mulligan; Favian Garza; Man Simpson; Jarvis Cantu; Ayaz Langston; Moo Davenport; Gabriel Marcos Jr; Armen Pearson; Lucy Zapata; Shruti Yu; Clemente Pelayo; Clemente Little; Carlos Torres; Darling Rivera; Pineda Huerta; Linda Gonzalez; Fede Langford; Norris Epstein; Julián Leslie; Seven Reid; [facility] Coding Diagnoses Atrial fibrillation with RVR I48.91 Acute on chronic right-sided congestive heart failure I50.813 Hyperkalemia E87.5 Elevated LFTs R79.89 Hyponatremia E87.1 Leukocytosis D72.829 Elevated troponin R79.89 Acquired hypothyroidism E03.9 NSVT (nonsustained ventricular tachycardia) I47.29 CAD (coronary artery disease) I25.10
== END 2024-04-01 15:55 | disposition home or self-care (01) | DRG 242 ==
LOC: ED 12:09 → SUATTDRO 15:34 → 2S 15:34